=== PATIENT | female | born 1950 | race Caucasian/White ===

== ENCOUNTER → 2016-11-22 | Outpatient (CLI) | payer MEDICARE, OTHER ==
--- NOTE | 2016-11-22 14:55 | XR ---
EXAMINATION TYPE: XR lumbar spine 2 or 3V DATE OF EXAM: 11/22/2016 2:38 PM COMPARISON: NONE HISTORY: 66-year-old female lumbar degeneration, low back pain and right hip pain TECHNIQUE: 3 views FINDINGS: There are postsurgical changes of L3-L5 posterior fusion with interbody device at L4-L5. There is mod erate to severe disc/endplate degenerative change above the fusion at L1-L2 and L2-L3 with endplate i rregularity and sclerosis and spondylosis with a disc height loss. There is grade 1 retrolisthesis at L1-L2 and L2-L3, fixed grade 1 anterolisthesis at L3-L4 and L4-L5, and additional grade 1 anterolist hesis below the fusion at L5-S1. Vertebral body heights are preserved. Generator device in the left pelvis. IMPRESSION: 1. Posterior lumbar fusion hardware from L3 through L5 levels with interbody fusion at L4-L5 as well. 2. Grade 1 spondylolistheses along the fused levels. 3. Additional grade 1 retrolistheses above the fusion at L1-L2 and L2-L3 and grade 1 anterolisthesis below the fusion at L5-S1. 4. Moderate to severe disc/endplate degenerative change above the fusion at L1 through L3 levels. 5. No vertebral compression collapse.
--- NOTE | 2016-11-22 14:56 | XR ---
EXAMINATION TYPE: XR Hip Complete RT DATE OF EXAM: 11/22/2016 2:38 PM COMPARISON: NONE HISTORY: 66 year-old female right hip pain TECHNIQUE: AP and frog-leg lateral views FINDINGS: Very mild marginal spurring of the right hip. Overall hip joint space is maintained. No acute fractur e or dislocation. IMPRESSION: Very mild degenerative spurring at the right hip. No acute osseous abnormality seen.
== END | disposition home or self-care (01) ==
LOC: RADXRMAIN 13:59
PROVIDERS: ATTEND Family Medicine
DX: M43.16 Spondylolisthesis, lumbar region (principal); M43.17 Spondylolisthesis, lumbosacral region; M47.816 Spondylosis without myelopathy or radiculopathy, lumbar region; M76.891 Other specified enthesopathies of right lower limb, excluding foot; M25.551 Pain in right hip; Z98.1 Arthrodesis status
CPT/HCPCS: 72100; 73502

== ENCOUNTER → 2017-03-28 | Outpatient (CLI) | payer MEDICARE, OTHER ==
[2017-03-28 13:39] LABS: CH 31.2; CHCM 33.4; HDW 2.88; HGB 14.9 gm/dL (11.4-16.0); MCH 31.1 pg (25.0-35.0); MCHC 33.2 g/dL (31.0-37.0); MCV 93.9 fL (80.0-100.0); Mean Platelet Volume 6.8; RBC 4.79 m/uL (3.80-5.40); RDW 13.5 % (11.5-15.5); WBC 6.3 k/uL (3.8-10.6)
[2017-03-28 13:48] LABS: ALT 28 U/L (9-52); AST 24 U/L (14-36); Alkaline Phosphatase 102 U/L (38-126); Anion Gap 10 mmol/L; Blood Urea Nitrogen 11 mg/dL (7-17); Calcium 9.3 mg/dL (8.4-10.2); Carbon Dioxide 29 mmol/L (22-30); Chloride 102 mmol/L (98-107); Cholesterol 135 mg/dL (<200); Glucose 99 mg/dL (74-99); HDL Cholesterol 39 mg/dL (40-60); Non-African American GFR(MDRD) >60 (>60 ml/min/1.73 sqM); Potassium 4.8 mmol/L (3.5-5.1); Sodium 141 mmol/L (137-145); Total Bilirubin 1.1 mg/dL (0.2-1.3); Total Protein 7.2 g/dL (6.3-8.2); Triglycerides 171 mg/dL (<150)
== END | disposition home or self-care (01) ==
LOC: LABWHC1 13:09
PROVIDERS: ATTEND Physician Assistant
DX: I38 Endocarditis, valve unspecified (principal); R60.9 Edema, unspecified; R63.5 Abnormal weight gain; I10 Essential (primary) hypertension
CPT/HCPCS: 36415; 80053; 80061; 83880; 85027

== ENCOUNTER → 2017-08-28 | Outpatient (CLI) | payer MEDICARE, OTHER ==
--- NOTE | 2017-08-28 15:55 | NM ---
EXAMINATION TYPE: NM bone scan whole body DATE OF EXAM: 08/28/2017 COMPARISON: Lumbar spine and right hip radiographs dated 11/22/2016 HISTORY: Low back pain and hip pain. Surgical history includes L3-L5 fusion and right knee replacemen t. Delayed whole-body scanning was performed following the injection of 25.8 mCi Tc 99m MDP. Images acq uired 3.25 hours post injection. FINDINGS: Photopenic defect is seen of the right tibia. Increased radiotracer uptake is seen at L1, L2, and L4 on a single image only. Intense left patellar asymmetric uptake is also identified. Asymmetric latera l and medial compartment uptake of the left knee are also seen, likely on a degenerative basis. No ad ditional areas of suspicious uptake is appreciated. IMPRESSION: 1. Increased radiotracer uptake within the L1, L2, and L4 vertebral bodies. Radiographs are recommend ed for comparison as this finding is nonspecific and could relate to fracture, degenerative change, o r neoplasm. 2. Asymmetric left knee uptake in the patella, medial compartment, and lateral compartment in compari son to the right knee where there is a photopenic defect from prior right knee prosthesis. Findings a re likely degenerative in nature. Further characterization with MRI could be performed to evaluate fo r chondral loss, bone marrow edema, and bony productive change of arthritides.
== END | disposition home or self-care (01) ==
LOC: RADNMMAIN 10:00
PROVIDERS: ATTEND Family Medicine
DX: M54.5 Low back pain (principal); M25.559 Pain in unspecified hip
CPT/HCPCS: 78306; A9503

== ENCOUNTER → 2017-09-02 | Outpatient (CLI) | payer MEDICARE, OTHER ==
--- NOTE | 2017-09-02 10:24 | MM ---
Reason for exam: additional evaluation requested from abnormal screening. Last mammogram was performed less than 1 month ago. History: Patient is postmenopausal. Benign stereotactic core biopsy of the left breast, April 20, 2002. Core biopsy of the left breast. Excisional biopsy of the right breast. Took estrogen for 10 years 1 month beginning at age 47. Physical Findings: Nurse Summary: 1.5cm nodule in the left breast at 11, 12 o'clock (nurse mj). MG 3D Work Up W/Cad LT LM and CC with magnification view(s) were taken of the left breast. Prior study comparison: August 22, 2017, bilateral MG 3d screening mammo w/ cad. November 25, 2015, bilateral MG 3d screening mammo w/cad. The breast tissue is heterogeneously dense. This may lower the sensitivity of mammography. Lateral left breast microcalcs appear amorphous on mag CC view. No suspicious cluster is seen on LM view. These appear to have been present on 2012. Two palpable markers are present. These results were verbally communicated with the patient and result sheet given to the patient on 09/02/17. ASSESSMENT: Incomplete: need additional imaging evaluation, BI-RAD 0 RECOMMENDATION: Ultrasound of the left breast. (target two palpables) MTDD
--- NOTE | 2017-09-02 10:28 | USB ---
Reason for exam: additional evaluation requested from abnormal screening. History: Patient is postmenopausal. Benign stereotactic core biopsy of the left breast, April 20, 2002. Core biopsy of the left breast. Excisional biopsy of the right breast. Took estrogen for 10 years 1 month beginning at age 47. US Breast Workup Limited LT Left breast ultrasound demonstrates a 0.4 x 0.5 x 0.4cm oval, cystic lesion at 9 o'clock, a 1.2 x 1.3 x 0.4cm oval, hyperechoic lesion at 11 o'clock suggestive of a lipoma, a 2.5 x 3.1 x 1.4cm oval, hypoechoic lesion at 12 o'clock some internal flow is present, an angiolipoma is suspected given fatty tissue superiorly on mammogram, a 6 month follow up is recommended and a 0.9 x 0.9 x 0.6cm oval, hyperechoic lesion at 12 o'clock suggestive of a lipoma. These results were verbally communicated with the patient and result sheet given to the patient on 09/02/17. ASSESSMENT: Probably benign, BI-RAD 3 RECOMMENDATION: Follow-up diagnostic mammogram of the left breast in 6 months. (for calcifications) Ultrasound of the left breast in 6 months. (upper inner quadrant)
== END | disposition home or self-care (01) ==
LOC: RADMAMWWP 07:39
PROVIDERS: ATTEND Family Medicine
DX: R92.8 Other abnormal and inconclusive findings on diagnostic imaging of breast (principal)
CPT/HCPCS: 76642; G0206; G0279

== ENCOUNTER → 2017-11-14 | Outpatient (CLI) | payer MEDICARE, OTHER ==
[2017-11-14 09:39] LABS: Blood Urea Nitrogen 11 mg/dL (7-17)
--- NOTE | 2017-11-14 11:35 | CT ---
EXAMINATION TYPE: CT chest w con DATE OF EXAM: 11/14/2017 COMPARISON: NONE HISTORY: Diaphragmatic Hernia w/o Obstruction CT DLP: 836 mGycm Automated exposure control for dose reduction was used. CONTRAST: CT scan of the chest is performed with IV Contrast, patient injected with 100 mL of Omnipaque 300. FINDINGS: LUNGS: There is lower lobe parenchymal scarring noted. No evidence for cassius infiltrate. Trace right- sided pleural effusion identified. No evidence for pulmonary nodule or mass. Nonspecific groundglass infiltrate in the region of the lingula. MEDIASTINUM: The stomach is entirely intrathoracic in location. Moderate gastric fluid and intralumin al content. No definite evidence for volvulus. The heart is mildly enlarged. Mild aneurysmal dilatati on of the ascending thoracic aorta measuring 4.1 cm. No complicating factors such as dissection. Mild atheromatous change detected. UPPER ABDOMEN: No significant abnormality appreciated. OTHER: No additional significant abnormality is seen. IMPRESSION: 1. 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 No evidence for volvulus. 2. Basilar parenchymal scarring and small right pleural effusion. 3. Uncomplicated and mild ascending thoracic aortic aneurysm.
--- NOTE | 2017-11-14 11:47 | FL ---
ESOPHOGRAM. HISTORY: Dysphagia Esophagram was performed per the air contrast technique. The patient swallowed barium and effervesce nt crystals without difficulty or delay. Esophageal peristalsis and motility appear to be within normal limits. 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 Despite multiple maneuvers the stomach would not e mpty into the small bowel. Obstructive component is difficult to exclude. There is evidence of modera te gastroesophageal reflux up to the level of the thoracic inlet. No intraluminal filling defect or m ass is appreciated. No definite evidence for esophagitis. IMPRESSION: 1. 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 2. Moderate gastroesophageal reflux. 3. Gastric emptying could not be documented and an obstructive component is difficult to exclude.
== END | disposition home or self-care (01) ==
LOC: RADCTMAIN 08:18
PROVIDERS: ATTEND Thoracic Surgery (Cardiothoracic Vascular Surgery)
DX: K44.9 Diaphragmatic hernia without obstruction or gangrene (principal); K21.9 Gastro-esophageal reflux disease without esophagitis; J98.4 Other disorders of lung; J90 Pleural effusion, not elsewhere classified; I71.2 Thoracic aortic aneurysm, without rupture
CPT/HCPCS: 82565; 84520; 74220; 71260; 36415; Q9967

== ENCOUNTER → 2018-04-10 | Outpatient (CLI) | payer MEDICARE, OTHER ==
--- NOTE | 2018-04-10 11:19 | MM ---
Reason for exam: follow-up at short interval from prior study. Last mammogram was performed 7 months ago. History: Patient is postmenopausal. Benign stereotactic core biopsy of the left breast, April 20, 2002. Core biopsy of the left breast. Excisional biopsy of the right breast. Took estrogen for 10 years 1 month beginning at age 47. Physical Findings: Nurse Summary: 0.5cm nodule in the left breast at 12-1 o'clock (nurse kin). MG 3D Diag Mammo W/Cad LT CC, MLO, ML, CC with magnification, and ML with magnification view(s) were taken of the left breast. Prior study comparison: September 02, 2017, left breast MG 3d work up w/cad LT. August 22, 2017, bilateral MG 3d screening mammo w/cad. The breast tissue is heterogeneously dense. This may lower the sensitivity of mammography. Finding: There are increased number of intermediate concern, suspicious grouped/clustered calcifications in the upper quadrant, middle position of the left breast, suspicious on magnification views. New finding since September 02, 2017 and August 22, 2017. These results were verbally communicated with the patient and result sheet given to the patient on 04/10/18. ASSESSMENT: Suspicious, BI-RAD 4 RECOMMENDATION: Stereotactic core biopsy of the left breast. Called Dr. Gilman with mammographic findings and has scheduled an appointment for the patient for 04/14/18 at 11:[address] Katz. PRELIMINARY REPORT CALLED AND FAXED TO DR. KATZ ON 04/10/18.
--- NOTE | 2018-04-10 11:21 | USB ---
Reason for exam: follow-up at short interval from prior study. History: Patient is postmenopausal. Benign stereotactic core biopsy of the left breast, April 20, 2002. Core biopsy of the left breast. Excisional biopsy of the right breast. Took estrogen for 10 years 1 month beginning at age 47. US Breast LT Left complete breast ultrasound includes all four quadrants, the retroareolar region and axilla. Finding demonstrates a 2.7 x 1.1 x 4.2cm oval, solid, hyperechoic lesion at 12 o'clock, a 0.7 x 0.8 x 1.0cm oval, solid, hyperechoic lesion at 4 o'clock and a 0.4 x 0.4 x 0.4cm oval, cystic lesion at 9 o'clock. These results were verbally communicated with the patient and result sheet given to the patient on 04/10/18. ASSESSMENT: Probably benign, BI-RAD 3 RECOMMENDATION: Stereotactic core biopsy of the left breast. (left breast calcifications on mammogram) Called Dr. Gilman with mammographic findings and has scheduled an appointment for the patient for 04/14/18 at 11:[address] Katz. PRELIMINARY REPORT CALLED AND FAXED TO DR. KATZ ON 04/10/18. Ultrasound of the left breast in 6 months.
== END | disposition home or self-care (01) ==
LOC: RADMAMWWP 08:18
PROVIDERS: ATTEND Family Medicine
DX: R92.8 Other abnormal and inconclusive findings on diagnostic imaging of breast (principal)
CPT/HCPCS: 77065; 76641; G0279; 77061

== ENCOUNTER → 2018-04-16 | Day surgery (SDC) | payer MEDICARE, OTHER ==
[2018-04-16 11:36] VITALS: RESP 16; TEMP 97.6
[2018-04-16 11:42] VITALS: BP 115/72; PULSE 78
--- NOTE | 2018-04-16 12:59 | MM ---
EXAMINATION TYPE: MG stereo VAD BX LT DATE OF EXAM: 04/16/2018 COMPARISON: Prior mammogram April 10, 2018 and older studies. CLINICAL HISTORY: Abnormal mammogram. Suspicious group of calcifications left breast. TECHNIQUE: Stereotactic guided core biopsy of left breast with clip placement and follow-up two-view mammogram. FINDINGS: The procedure of stereotactic guided core biopsy was explained to the patient. Benefits, a lternatives, and risks were discussed. An informed consent was then obtained. The shortness pathway for biopsy was first attempted. There was difficulty localizing clip of calcifi cations thought slightly longer inferior approach was performed. I performed the localization, then p erformed the remainder of the procedure. Overlying skin is cleansed with Betadine. Lidocaine with bic arbonate is used as anesthetic into the skin and subcutaneous tissue. Lidocaine with epinephrine is u sed as anesthetic into the deeper tissue. A vacuum assisted biopsy gun was used to obtain multiple co re samples. The patient tolerated the procedure well without any immediate complication. The patient was kept in the radiology department for short stay after the procedure and then discharged home in stable condi tion. Targeted calcifications are identified in specimen mammogram. Post biopsy mammogram shows the clip to appear in satisfactory position relative to the targeted area of concern on the preprocedure images. IMPRESSION: SUCCESSFUL, UNCOMPLICATED STEREOTACTIC GUIDED CORE BIOPSY OF AREA OF CONCERN IN THE LEFT BREAST, FULL PATHOLOGY RESULTS TO FOLLOW. Low to intermediate index of suspicion noted at time of procedure.
== END ==
LOC: RADMAMWWP 11:32
PROVIDERS: ATTEND Surgery
DX: N60.12 Diffuse cystic mastopathy of left breast (principal); N64.1 Fat necrosis of breast; M60.28 Foreign body granuloma of soft tissue, not elsewhere classified, other site
CPT/HCPCS: 88305; 19081; A4648; J2001

== ENCOUNTER → 2018-05-09 | Outpatient (CLI) | payer MEDICARE, OTHER ==
--- NOTE | 2018-05-09 15:13 | US ---
EXAMINATION TYPE: US kidneys/renal and bladder DATE OF EXAM: 05/09/2018 COMPARISON: CT abdomen and pelvis 09/30/2017 CLINICAL HISTORY: Acute cystitis without hematuria N39.00. Difficult and limited exam due to patient body habitus EXAM MEASUREMENTS: Right Kidney: 10.8 x 4.8 x 4.4 cm Left Kidney: 9.7 x 4.9 x 5.2 cm Right Kidney: No hydronephrosis or masses visualized on limited exam Left Kidney: No hydronephrosis or masses visualized on limited exam Bladder: wnl Bilateral Jets seen: No There is no evidence for hydronephrosis at this point in time. No suspicious solid or cystic masses are identified on images saved. The urinary bladder is anechoic. IMPRESSION: Suboptimal study without suspicious abnormality identified.
== END | disposition home or self-care (01) ==
LOC: RADUSWWP 14:17
PROVIDERS: ATTEND Urology
DX: N30.00 Acute cystitis without hematuria (principal)
CPT/HCPCS: 76770

== ENCOUNTER → 2018-05-27 | Outpatient (CLI) | payer MEDICARE, OTHER ==
--- NOTE | 2018-05-27 15:39 | PN ---
PROGRESS NOTE This is a progress note from the [facility]. Doug is 68, coming in for an annual check regarding obstructive sleep apnea. Her last evaluation in office was on 07/31/2016. She had a CPAP which is Resmet S9 Series, set at a pressure of 13 cm of water. Note that the original titration was completed back in 2013 and the patient was titrated back down to a pressure of 15 cm of water. Nevertheless, she was unable to tolerate the high pressures and she was lowered down to 13 cm of water. Subsequently, I saw the patient in the office. I offered her an AirFit P10 nose pillows. She was able to lose an additional 25 pounds and she is telling me today that she is having high pressure sensation and the pressure delivered by the CPAP machine is quite high and uncomfortable. She underwent a hiatal hernia surgery at [facility] in [place]. Since then, her chest pain and symptoms of indigestion has subsided and the patient has been able to successfully lose another 22-23 pounds. She goes to bed around 10:30 pm she is waking up 7 o'clock in the morning and she is unable to tolerate the CPAP for more than 4 hours. Based on all this, it is important to lower the CPAP pressure at this point in time. No morning headaches. No major hypersomnia or sleepiness during the day. She feels refreshed. No chest pain. No nocturnal dyspnea. No ongoing heartburn at this point in time. No sleep paralysis. No hallucinations. No cataplexy. No major hypersomnia and sleepiness during the day. She is able to function and she is able to perform activities of daily life without any major difficulties. PAST SURGICAL HISTORY: Includes hysterectomy, back surgery and right knee replacement and cholecystectomy. . OUTPATIENT MEDICATION LIST: Includes Lipitor, cyclobenzaprine, diclofenac, fluticasone, Lasix, gabapentin, hydrocodone, acetaminophen, Imdur, ketoconazole cream, magnesium, metoprolol tartrate, Nitroglycerin item nystatin pilocarpine potassium from Mirapex multivitamins and biotin and aspirin and vitamin B12. DRUG ALLERGIES: Not known. REVIEW OF SYSTEMS: A 12-point review of system was done. Positive findings are mentioned in history of present illness. She used to weight 275 pounds. Currently she is down to 252.4. [place] score is at 13. GENERAL APPEARANCE: Calm, comfortable, not in acute distress. PHYSICAL EXAMINATION: BP is 122/51, pulse 86, respirations 16, temperature 16, temperature 98.0, saturation 94% on room air. [place] score is 15, BMI is 44.6. GENERAL APPEARANCE: Calm, comfortable, not in acute distress. Head is atraumatic, normocephalic. NECK: Supple. There is no JVD. No goiter or neck masses. LUNGS: Clear to auscultation. HEART: Sounds regular rhythm. Normal S1, S2. No S3, S4. No murmurs. ABDOMEN: Soft. Nontender, no organomegaly. EXTREMITIES: No edema and there is no cyanosis or clubbing at this point. SKIN: Negative for any wounds or ulceration. IMPRESSION: 1. History of severe symptomatic obstructive sleep apnea. The patient was positioned with titrated to a CPAP pressure of 15 cm of water. She has lost considerable amount of weight and she is a bit uncomfortable at the pressure of 13 cm of water. She is barely achieving 4 hours of CPAP use per night. 2. Hypersomnia with improved [place] score 13. 3. Obesity, current weight is down to 252 with a BMI of 44.6. 4. Coronary artery disease, currently stable. 5. Hiatal hernia. Large status post surgical repair. 6. Hypertension. 7. Chronic back pain. 8. Depression. 9. Acid reflux. PLAN: 1. Encourage further weight loss. 2. Lower the CPAP pressure. This will be a bit in the drop in the CPAP pressure up to 10 cm of water and if needed, we can lower down the pressure even further. 3. Encourage further weight loss. 4. Implement good sleep hygiene measures. 5. Try to use the CPAP for more than 4 hours every night. 6. See me back in a year's time in followup, earlier if needed. MMODL / IJN: [id number] /
== END | disposition home or self-care (01) ==
LOC: SLEEP 13:40
PROVIDERS: ATTEND Internal Medicine Critical Care Medicine
DX: G47.33 Obstructive sleep apnea (adult) (pediatric) (principal); K21.9 Gastro-esophageal reflux disease without esophagitis; F32.9 Major depressive disorder, single episode, unspecified; I25.10 Atherosclerotic heart disease of native coronary artery without angina pectoris; I10 Essential (primary) hypertension; G89.29 Other chronic pain; M54.9 Dorsalgia, unspecified; E66.9 Obesity, unspecified; Z99.89 Dependence on other enabling machines and devices; Z98.890 Other specified postprocedural states; Z90.49 Acquired absence of other specified parts of digestive tract; Z90.710 Acquired absence of both cervix and uterus; Z96.651 Presence of right artificial knee joint; Z79.1 Long term (current) use of non-steroidal anti-inflammatories (NSAID); Z79.899 Other long term (current) drug therapy; Z79.891 Long term (current) use of opiate analgesic; Z79.82 Long term (current) use of aspirin; Z68.41 Body mass index [BMI] 40.0-44.9, adult

== ENCOUNTER → 2018-09-29 | Outpatient (CLI) | payer MEDICARE, OTHER ==
[2018-09-29 13:42] LABS: HCT 45.3 % (34.0-46.0); HGB 14.6 gm/dL (11.4-16.0); MCHC 32.1 g/dL (31.0-37.0); MCV 93.5 fL (80.0-100.0); Platelet Count 283 k/uL (150-450); RBC 4.85 m/uL (3.80-5.40); RDW 14.2 % (11.5-15.5); WBC 5.8 k/uL (3.8-10.6)
[2018-09-29 18:48] LABS: Albumin 3.8 g/dL (3.80-4.90); Albumin/Globulin Ratio 1.52 (1.20-2.10); Anion Gap 8.9 mmol/L (4.00-12.00); C Reactive Protein, High Sens 3.54 mg/L (0.000-3.000); Carbon Dioxide 24.1 mmol/L (21.6-31.8); Globulin 2.5 g/dL (2.1-3.7); LDL Cholesterol,Calculated 55.8 mg/dL (0.0-131.0); Total Protein 6.3 g/dL (6.2-8.2); VLDL Calculation 31.2 mg/dL (5.00-40.00)
[2018-09-29 18:56] LABS: Vitamin D 25 Hydroxy 36.8 ng/mL (30.0-100.0)
[2018-09-29 20:44] LABS: EBV-VCA (IgG) >8.0 AI
== END | disposition home or self-care (01) ==
LOC: LABWHC1 12:34
PROVIDERS: ATTEND Family Medicine
DX: I10 Essential (primary) hypertension (principal); E78.00 Pure hypercholesterolemia, unspecified; R53.83 Other fatigue
CPT/HCPCS: 36415; 80053; 80061; 82306; 84443; 84481; 85027; 86141; 86663; 86664; 86665

== ENCOUNTER → 2018-11-25 | Outpatient (CLI) | payer MEDICARE, OTHER ==
--- NOTE | 2018-11-25 13:49 | MM ---
Reason for exam: follow-up at short interval from prior study. Last mammogram was performed 7 months ago. History: Patient is postmenopausal. Benign MG stereo VAD BX LT of the left breast, April 16, 2018. Benign stereotactic core biopsy of the left breast, April 20, 2002. Core biopsy of the left breast. Excisional biopsy of the right breast. Took estrogen for 10 years 1 month beginning at age 47. Physical Findings: Nurse did not find any significant physical abnormalities on exam. MG 3D Diag Mammo W/Cad LT CC and MLO view(s) were taken of the left breast. Prior study comparison: April 10, 2018, left breast MG 3d diag mammo w/cad LT. September 02, 2017, left breast MG 3d work up w/cad LT. The breast tissue is heterogeneously dense. This may lower the sensitivity of mammography. Previous mammotome biopsy in the left breast x 2. No significant new findings when compared with previous films. These results were verbally communicated with the patient and result sheet given to the patient on 11/25/18. ASSESSMENT: Benign, BI-RAD 2 RECOMMENDATION: Routine screening mammogram of both breasts in 6 months. Back on schedule.
== END | disposition home or self-care (01) ==
LOC: RADMAMWWP 13:12
PROVIDERS: ATTEND Surgery
DX: R92.8 Other abnormal and inconclusive findings on diagnostic imaging of breast (principal)
CPT/HCPCS: 77065; G0279; 77061

== ENCOUNTER 2019-07-10 16:08 | Emergency (ER) | payer MEDICARE, OTHER ==
[2019-07-10 16:14] VITALS: TEMP 97.6
--- NOTE | 2019-07-10 17:19 | ED ---
General Adult HPI - General Chief complaint: Fall Stated complaint: Fall, Headache Time Seen by Provider: 07/10/19 16:15 Source: patient Mode of arrival: wheelchair Limitations: no limitations - History of Present Illness Initial comments: Dictation was produced using [employer] dictation software. please excuse any grammatical, word or spelling errors. Chief Complaint: 69-year-old female presents with altered mental status after fall yesterday. History of Present Illness: Patient 69-year-old female she fell yesterday. Eusebio sandoval is sure that she tripped over something around her house. She does not remember she struck her head. EMS was called however she refused to be transferred to the emergency department. She did go to her primary care physician office after she saw the physician phlebotomy lab assistant. X-rays are performed and were found to be unremarkable. She was sent home. His morning patient has been showing some signs of forgetfulness and altered mental status. Patient remembers being forgetful. Daughter at bedside reports that she was acting strange. Patient is aware that she's been acting strange. She has history of chronic UTIs. The ROS documented in this emergency department record has been reviewed and confirmed by me. Those systems with pertinent positive or negative responses have been documented in the HPI. All other systems are other negative and/or noncontributory. PHYSICAL EXAM: General Impression: Alert and oriented x3, not in acute distress HEENT: Normocephalic atraumatic, extra-ocular movements intact, pupils equal and reactive to light bilaterally, mucous membranes moist. Cardiovascular: Heart regular rate and rhythm, S1&S2 audible, no murmurs, rubs or gallops Chest: Lungs clear to auscultation bilaterally, no rhonchi, no wheeze, no rales Abdomen: Bowel sounds present, abdomen soft, non-tender, non-distended, no organomegaly Musculoskeletal: Pulses present and equal in all extremities, no peripheral edema Motor: no focal deficits noted Neurological: CN II-XII grossly intact, no focal motor or sensory deficits noted Skin: Intact with no visualized rashes, ecchymoses over the left anterior knee Psych: Normal affect and mood ED course: 69-year-old female presents with mental status changes after fall yesterday. She does not recall striking her head. She states that her falls mechanical. Vital signs upon arrival are within acceptable limits. Patient appears slightly anxious. Neurologic exam otherwise is unremarkable. Laboratory evaluation obtained showing no acute processes. Urinalysis is negative. X-ray chest x-ray head and C-spine CT shows no acute processes. He patient's coca presentation there is concern of concussion. Patient told to rest and avoid any exertional activity. Still to follow-up with her primary care physician for outpatient management of concussive symptoms. Patient understands and agreeable to plan. Return parameters discussed. Patient clear for discharge - Related Data Home Medications Medication Instructions Recorded Confirmed Aspirin 81 mg PO AC-SUPPER 12/14/14 07/10/19 Cyanocobalamin [Vitamin B-12] 500 mcg PO AC-LUNCH 12/14/14 07/10/19 Esomeprazole Magnesium [NexIUM] 40 mg PO DAILY 12/14/14 07/10/19 Mirabegron [Myrbetriq] 50 mg PO DAILY 12/14/14 07/10/19 Multivitamins, Thera [Multivitamin 1 tab PO DAILY 12/14/14 07/10/19 (formulary)] Pilocarpine [Salagen] 5 mg PO QID 12/14/14 07/10/19 Pramipexole [Mirapex] 0.25 mg PO HS 12/14/14 07/10/19 Cranberry Fruit Extract [Cranberry] 500 mg PO DAILY 12/28/15 07/10/19 Furosemide [Lasix] 20 mg PO DAILY 12/28/15 07/10/19 Magnesium Oxide [Mag-Ox] 250 mg PO DAILY 12/28/15 07/10/19 Potassium Chloride [K-Tab ER] 10 meq PO DAILY 12/28/15 07/10/19 Ranitidine HCl [Zantac] 150 mg PO BID 12/28/15 07/10/19 Atorvastatin Calcium [Lipitor] 10 mg PO HS 07/10/19 07/10/19 Cetirizine HCl [Zyrtec] 10 mg PO DAILY 07/10/19 07/10/19 Cholecalciferol (Vitamin D3) 2,000 unit PO BID 07/10/19 07/10/19 [Vitamin D3] Cyclobenzaprine [Flexeril] 10 mg PO DAILY 07/10/19 07/10/19 DULoxetine HCL [Cymbalta] 60 mg PO BID 07/10/19 07/10/19 Gabapentin 1,200 mg PO BID 07/10/19 07/10/19 Metoprolol Succinate (ER) [Toprol 25 mg PO DAILY 07/10/19 07/10/19 Xl] [place]-3 Fatty Acids/Fish Oil [Fish 2 cap PO DAILY 07/10/19 07/10/19 Oil 1,000 mg Softgel] Oxybutynin Chloride [Oxybutynin 10 mg PO DAILY 07/10/19 07/10/19 Chloride ER] Ubidecarenone [Co Q-10] 300 mg PO DAILY 07/10/19 07/10/19 Allergies Allergy/AdvReac Type Severity Reaction Status Date / Time adhesive Allergy Rash/Hives Verified 07/10/19 16:47 adhesive tape Allergy Rash/Hives Verified 07/10/19 16:47 PAPER TAPE Allergy Mild Rapid Uncoded 07/10/19 16:47 Heart Rate Review of Systems ROS Statement: Those systems with pertinent positive or pertinent negative responses have been documented in the HPI. ROS Other: All systems not noted in ROS Statement are negative. Past Medical History Past Medical History: Hypertension, Osteoarthritis (OA) Additional Past Medical History / Comment(s): arrhythmia, hx anemia, wears pad/brief for urinary incontinence, SOB, ruptured appendix Jun 2015 History of Any Multi-Drug Resistant Organisms: None Reported Past Surgical History: Appendectomy, Cholecystectomy, Heart Catheterization With Stent, Hernia Repair, Hysterectomy, Joint Replacement Additional Past Surgical History / Comment(s): CARDIAC STENTS X 2, L3-4-5 FUSION, total right knee replacement,bilat cataract, laparoscopic appendectomy 12/29 Past Anesthesia/Blood Transfusion Reactions: No Reported Reaction Additional Past Anesthesia/Blood Transfusion Reaction / Comment(s): "slow coming out" Date of Last Stent Placement:: Past Psychological History: Depression Smoking Status: Never smoker Past Alcohol Use History: None Reported Past Drug Use History: None Reported - Past Family History Father Family Medical History: Cancer Sister(s) Family Medical History: Cancer General Exam Limitations: no limitations Course Vital Signs 07/10/19 07/10/19 16:10 20:11 Temperature 97.6 F Pulse Rate 103 H 70 Respiratory 18 20 Rate Blood Pressure 111/68 129/61 O2 Sat by Pulse 99 96 Oximetry Medical Decision Making - Lab Data Result diagrams: 07/10/19 17:36 07/10/19 17:36 Lab Results 07/10/19 07/10/19 07/10/19 Range/Units 17:36 17:36 17:36 WBC 5.9 (3.8-10.6) k/uL RBC 4.80 (3.80-5.40) m/uL Hgb 14.7 (11.4-16.0) gm/dL Hct 43.0 (34.0-46.0) % MCV 89.6 (80.0-100.0) fL MCH 30.7 (25.0-35.0) pg MCHC 34.3 (31.0-37.0) g/dL RDW 14.8 (11.5-15.5) % Plt Count 327 (150-450) k/uL Neutrophils % 53 % Lymphocytes % 33 % Monocytes % 6 % Eosinophils % 2 % Basophils % 3 % Neutrophils # 3.1 (1.3-7.7) k/uL Lymphocytes # 2.0 (1.0-4.8) k/uL Monocytes # 0.4 (0-1.0) k/uL Eosinophils # 0.1 (0-0.7) k/uL Basophils # 0.2 (0-0.2) k/uL Sodium 143 (137-145) mmol/L Potassium 4.7 (3.5-5.1) mmol/L Chloride 110 H (98-107) mmol/L Carbon Dioxide 22 (22-30) mmol/L Anion Gap 11 mmol/L BUN 10 (7-17) mg/dL Creatinine 0.62 (0.52-1.04) mg/dL Est GFR (CKD-EPI)AfAm >90 (>60 ml/min/1.73 sqM) Est GFR (CKD-EPI)NonAf >90 (>60 ml/min/1.73 sqM) Glucose 95 (74-99) mg/dL Calcium 9.7 (8.4-10.2) mg/dL Magnesium 1.8 (1.6-2.3) mg/dL Ammonia <9 (<30) umol/L Urine Color Urine Appearance (Clear) Urine pH (5.0-8.0) Ur Specific [place] (1.001-1.035) Urine Protein (Negative) Urine Glucose (UA) (Negative) Urine Ketones (Negative) Urine Blood (Negative) Urine Nitrite (Negative) Urine Bilirubin (Negative) Urine Urobilinogen (<2.0) mg/dL Ur Leukocyte Esterase (Negative) 07/10/19 Range/Units 20:15 WBC (3.8-10.6) k/uL RBC (3.80-5.40) m/uL Hgb (11.4-16.0) gm/dL Hct (34.0-46.0) % MCV (80.0-100.0) fL MCH (25.0-35.0) pg MCHC (31.0-37.0) g/dL RDW (11.5-15.5) % Plt Count (150-450) k/uL Neutrophils % % Lymphocytes % % Monocytes % % Eosinophils % % Basophils % % Neutrophils # (1.3-7.7) k/uL Lymphocytes # (1.0-4.8) k/uL Monocytes # (0-1.0) k/uL Eosinophils # (0-0.7) k/uL Basophils # (0-0.2) k/uL Sodium (137-145) mmol/L Potassium (3.5-5.1) mmol/L Chloride (98-107) mmol/L Carbon Dioxide (22-30) mmol/L Anion Gap mmol/L BUN (7-17) mg/dL Creatinine (0.52-1.04) mg/dL Est GFR (CKD-EPI)AfAm (>60 ml/min/1.73 sqM) Est GFR (CKD-EPI)NonAf (>60 ml/min/1.73 sqM) Glucose (74-99) mg/dL Calcium (8.4-10.2) mg/dL Magnesium (1.6-2.3) mg/dL Ammonia (<30) umol/L Urine Color Yellow Urine Appearance Clear (Clear) Urine pH 8.5 H (5.0-8.0) Ur Specific [place] 1.017 (1.001-1.035) Urine Protein Trace H (Negative) Urine Glucose (UA) Negative (Negative) Urine Ketones Negative (Negative) Urine Blood Negative (Negative) Urine Nitrite Negative (Negative) Urine Bilirubin Negative (Negative) Urine Urobilinogen 2.0 (<2.0) mg/dL Ur Leukocyte Esterase Negative (Negative) Disposition Clinical Impression: Fall, Knee contusion, Concussion Disposition: HOME SELF-CARE Condition: Good Instructions (If sedation given, give patient instructions): Fall Prevention for Older Adults (ED), Concussion (ED) Is patient prescribed a controlled substance at d/c from ED?: No Referrals: Lianne Gilman DO [Primary Care Provider] - 1-2 days Time of Disposition: 20:44
[2019-07-10 17:55] LABS: Basophils # (A) 0.2 k/uL (0-0.2); Basophils % (A) 3 %; Eosinophils # (A) 0.1 k/uL (0-0.7); Eosinophils % (A) 2 %; HGB 14.7 gm/dL (11.4-16.0); Lymphocytes % (A) 33 %; MCH 30.7 pg (25.0-35.0); MCHC 34.3 g/dL (31.0-37.0); MCV 89.6 fL (80.0-100.0); Mean Platelet Volume 6.9; Monocytes # (A) 0.4 k/uL (0-1.0); Monocytes % (A) 6 %; Neutrophils # (A) 3.1 k/uL (1.3-7.7); Neutrophils % (A) 53 %; Platelet Count 327 k/uL (150-450); RDW 14.8 % (11.5-15.5); WBC 5.9 k/uL (3.8-10.6)
[2019-07-10 17:59] LABS: African American GFR (CKD) >90 (>60 ml/min/1.73 sqM); Anion Gap 11 mmol/L; Blood Urea Nitrogen 10 mg/dL (7-17); Calcium 9.7 mg/dL (8.4-10.2); Carbon Dioxide 22 mmol/L (22-30); Chloride 110 mmol/L (98-107); Glucose 95 mg/dL (74-99); Magnesium 1.8 mg/dL (1.6-2.3); Sodium 143 mmol/L (137-145)
[2019-07-10 18:00] LABS: Potassium 4.7 mmol/L (3.5-5.1)
--- NOTE | 2019-07-10 18:04 | CT ---
EXAMINATION TYPE: CT brain mark eckert DATE OF EXAM: 07/10/2019 COMPARISON: September 21, [address] scan HISTORY: Fall today. Confusion. CT DLP: 1367.3 mGycm Automated exposure control for dose reduction was used. TECHNIQUE: CT scan of the head and cervical spine are performed without contrast. FINDINGS: There is mild cerebral cortical atrophy. There is no mass effect nor midline shift. There is no sign of intracranial hemorrhage. Calvarium is intact. There is some straightening of the vertebra. There is degenerative disc space narrowing at C5-6 C6-7 with spurring of the endplates. There is mild hypertrophic facet arthropathy. The skull base is intac t. There is no evidence of a fracture. There is a few millimeter anterior subluxation of C7 in relati on to T1 related to degenerative disease. There is some thickening and calcification of the posterior longitudinal ligament at the C5-C6 level consistent with degenerative disease. IMPRESSION: Spondylotic changes in the lower cervical spine. No fracture seen. Mild cerebral atrophy. No acute intracranial abnormality. There is probably mild chronic small vessel ischemia. Brain unchanged compared to September 21, 2016.
--- NOTE | 2019-07-10 18:07 | XR ---
EXAMINATION TYPE: XR chest 2V DATE OF EXAM: 07/10/2019 COMPARISON: September 21, 2016 HISTORY: Confusion TECHNIQUE: Frontal and lateral views of the chest are obtained. FINDINGS: There is no heart failure nor confluent pneumonic infiltrate. Heart is probably enlarged. Bony thorax is intact. There is hiatal hernia. IMPRESSION: Borderline cardiomegaly. No active cardiopulmonary disease. Hiatal hernia. No significan t change compared to old exam.
--- NOTE | 2019-07-10 18:15 | XR ---
EXAMINATION TYPE: XR knee complete LT DATE OF EXAM: 07/10/2019 COMPARISON: September 21, 2016 HISTORY: Knee pain TECHNIQUE: 3 views FINDINGS: There is some spurring of the femoral and tibial condyles. There is narrowing and spurring at the patellofemoral joint. There is no sign of joint effusion. I see no fracture nor dislocation. IMPRESSION: Hypertrophic osteoarthritis that has progressed slightly compared to last exam. No fracture seen.
[2019-07-10 20:12] VITALS: BP 129/61; PULSE 70; RESP 20
[2019-07-10 20:36] LABS: Appearance,Urine Clear (Clear); Bilirubin,Urine Negative (Negative); Blood,Urine Negative (Negative); Color,Urine Yellow; Glucose,Urine (UA) Negative (Negative); Ketones,Urine Negative (Negative); Leukocyte Esterase,Urine Negative (Negative); Nitrite,Urine Negative (Negative); PH, Urine 8.5 (5.0-8.0); Protein,Urine Trace (Negative); Specific Gravity,Urine 1.017 (1.001-1.035)
== END 2019-07-10 21:05 | disposition home or self-care (01) ==
LOC: EC 16:08
DX: S06.0X0A Concussion without loss of consciousness, initial encounter (principal); S80.02XA Contusion of left knee, initial encounter; I10 Essential (primary) hypertension; F32.9 Major depressive disorder, single episode, unspecified; Z79.82 Long term (current) use of aspirin; Z79.899 Other long term (current) drug therapy; Z91.040 Latex allergy status; Z91.048 Other nonmedicinal substance allergy status; Z95.5 Presence of coronary angioplasty implant and graft; Z96.651 Presence of right artificial knee joint; W01.0XXA Fall on same level from slipping, tripping and stumbling without subsequent striking against object, initial encounter; Y92.009 Unspecified place in unspecified non-institutional (private) residence as the place of occurrence of the external cause
CPT/HCPCS: 36415; 70450; 71046; 72125; 80048; 81003; 82140; 83735; 85025; 99284

== ENCOUNTER → 2019-08-11 | Outpatient (CLI) | payer MEDICARE, OTHER ==
--- NOTE | 2019-08-11 18:32 | PN ---
PROGRESS NOTE This is a 69-year-old female patient coming in for an annual check regarding obstructive sleep apnea. The patient has a ResMed S9 series which is set at a pressure of 10 cm of water. She is still having tiredness and sleepiness during the day. She is wearing a nose pillow and she is having a horrible time with dry mouth. Her Columbus score is 15. I noted that her weight has been 240, which is pretty much stable compared to last year. The treatment, however, seems to be quite unsuccessful. The patient is not sure if the machine is working properly. I am also not sure if the patient's pressure setting is right, knowing that I have arbitrarily dropped her pressures down to 10 cm of water during an earlier visit, as the patient was unable to tolerate higher CPAP pressures. Based on all this, I think it is reasonable to repeat this patient's CPAP titration. She is having occasional tiredness and sleepiness during the day. She can fall asleep easily during the day. No . No cataplexy. She feels non-refreshed. This is contrary to last year's findings. REVIEW OF SYSTEMS: Fourteen-point review of systems was done. Positive findings are all mentioned above in the history of present illness. She is tired and sleepy and fatigued at all times. She can easily fall asleep. She has chronic restlessness in the lower extremities and she is currently on Mirapex. She is also being treated for chronic pain, anxiety and depression. She is on a combination of Cymbalta and gabapentin. Other comorbidities have been all stable. No stroke or any myocardial infarction or congestive heart failure or any cardiac arrhythmias noted since her last evaluation. VITAL SIGNS: BP is 117/72, pulse 84, respirations 16, temperature 98.1, saturation 95% on room air. Height is 5 feet 3 inches, weight 240. Columbus score is 15. BMI is 42.5. ALLERGIES are NOT KNOWN OTHER THAN ADHESIVE TAPES. No latex allergy. IMPRESSION: 1. Symptomatic obstructive sleep apnea with suboptimal treatment, as the patient is very somnolent and sleepy despite being on CPAP pressure of 10. Consider suboptimal CPAP pressures. Consider nonfunctioning machine. Needs to be re-evaluated. 2. Hypersomnia. Columbus score of 15. 3. Obesity with a weight of 240; 4-pound weight loss since her last visit. 4. Coronary artery disease. 5. Hiatal hernia. 6. Hypertension. 7. Chronic back pain. 8. Depression. 9. Acid reflux. PLAN: Will set up this patient for another CPAP titration. The machine needs to be updated. The CPAP pressure needs to be updated. The patient is to be given possibly a different mask interface. She is using an AirFit P10 nose piece for now. She may explore other alternatives. Will continue to follow and make further recommendations based on her response. MMODL / IJN: [id number] /
== END | disposition home or self-care (01) ==
LOC: SLEEP 15:30
PROVIDERS: ATTEND Internal Medicine Critical Care Medicine
DX: G47.33 Obstructive sleep apnea (adult) (pediatric) (principal); E66.9 Obesity, unspecified; I25.10 Atherosclerotic heart disease of native coronary artery without angina pectoris; I10 Essential (primary) hypertension; M54.5 Low back pain; G89.29 Other chronic pain; K21.9 Gastro-esophageal reflux disease without esophagitis; F32.9 Major depressive disorder, single episode, unspecified; K44.9 Diaphragmatic hernia without obstruction or gangrene; R53.83 Other fatigue; Z68.41 Body mass index [BMI] 40.0-44.9, adult; Z91.048 Other nonmedicinal substance allergy status

== ENCOUNTER → 2019-12-29 | Outpatient (CLI) | payer MEDICARE, OTHER ==
--- NOTE | 2019-12-30 06:49 | PN ---
PROGRESS NOTE DATE OF SERVICE: 12/29/2019 This is a very pleasant 69-year-old female patient who follows with Dr. Gilman as her primary care provider. She had been seen by Dr. Karina millan [facility] the [facility] and had a recent followup in October 2019. She was placed on BiPAP as she had failed CPAP therapy previously. Her BiPAP pressure settings are 15/11 cm of water. She does have morbid obesity with a body mass index of 42.6. Hypersomnia score was 15. She does have a history of coronary artery disease, hypertension as well. She is seen today in followup. She has been having issues with her DreamWear nasal mask. She is now wearing an AirFit P30 nasal pillow. Compliance findings were unrevealing she is wearing the device 30 out of 30 days at 4+ hours with an average of 6.6, average per night. Her AHI is down to 1.7. Central 0.2. She was initially having a leak of 64 L/minute. She states she did have a pressure sore in her nose that was preventing her from wearing the mask appropriately. That has since healed and the last 2 evenings she has been utilizing it and feeling quite comfortable. PHYSICAL EXAMINATION: On physical exam, she is awake and alert, in no acute distress. Blood pressure 111/68, heart rate 74, respirations 18, temperature is 97.6. She is 248 pounds. She is maintaining O2 saturations at 94% on room air. She is 5 feet 4 inches tall. Her head is normocephalic. Sclerae anicteric. There is some crowding in the posterior pharynx. Her neck is supple. Trachea midline. Her lungs are clear anterior and posteriorly. Her heart is regular, S1 and S2. Her abdomen is obese, soft, nontender. Bowel sounds are present. No significant peripheral edema. No clubbing. No cyanosis. Peripheral pulses are intact. BiPAP compliance findings as stated above. IMPRESSION: 1. Symptomatic obstructive sleep apnea. The patient had failed previous CPAP therapy and is currently on BiPAP with a pressure of 15/11 cm of water. 2. Morbid obesity. 3. Hypersomnia with Spencer score of 15. 4. Coronary artery disease. 5. Hypertension. 6. Hiatal hernia. 7. Chronic back pain. 8. Acid reflux. 9. History of depression. PLAN: The patient was seen and evaluated by Dr. Collins. BiPAP compliance evaluation was performed. She is very compliant with the machine itself. She did have issues with the nasal pillows initially. She is happy with the AirFit P30 and will continue the same. She will be seen back here in the office at the [facility] in one years time. She is again reminded of the importance of good sleep hygiene measures and managing her comorbidities. She verbalizes understanding and is agreeable to the plan. I, the cosigning physician, performed a history and physical examination on the patient. Her lungs are clear anterior and posterior. Maintaining good O2 saturations in the 90s on room air. I discussed the assessment and plan of care with my nurse practitioner, Aileen Medina. I attest the above note as dictated by her. MMNGOCL / IJN: [id number] /
== END | disposition home or self-care (01) ==
LOC: SLEEP 13:28
PROVIDERS: ATTEND Internal Medicine Critical Care Medicine
DX: G47.33 Obstructive sleep apnea (adult) (pediatric) (principal); G47.10 Hypersomnia, unspecified; E66.01 Morbid (severe) obesity due to excess calories; I25.10 Atherosclerotic heart disease of native coronary artery without angina pectoris; I10 Essential (primary) hypertension; K44.9 Diaphragmatic hernia without obstruction or gangrene; G89.29 Other chronic pain; M54.9 Dorsalgia, unspecified; K21.9 Gastro-esophageal reflux disease without esophagitis; Z68.41 Body mass index [BMI] 40.0-44.9, adult; Z86.59 Personal history of other mental and behavioral disorders; Z99.89 Dependence on other enabling machines and devices

== ENCOUNTER → 2020-04-28 | Outpatient (CLI) | payer MEDICARE, OTHER ==
--- NOTE | 2020-04-28 13:23 | CT ---
EXAMINATION TYPE: CT brain wo con DATE OF EXAM: 04/28/2020 COMPARISON: 07/10/2019 HISTORY: continued headaches post fall 4-[address] DLP: 1056.[address] of the brain was performed. The ventricles, basal cisterns and sulci overlying the cerebral convexities demonstrate mild enlargem ent. There is no evidence for intracranial hemorrhage or sulcal effacement. There is decreased attenuation about the periventricular white matter and deep white matter of both c erebral hemispheres, compatible with chronic small vessel ischemia. Differential diagnosis does inclu de demyelination. No mass effects are seen.No midline shift. Osseous calvarium is intact. If symptoms persist consider MRI. IMPRESSION: 1. Age related atrophic and chronic small vessel ischemic change without acute intracranial process s een at this time.
== END | disposition home or self-care (01) ==
LOC: RADCTMAIN 04-27 12:12
PROVIDERS: ATTEND Family Medicine
DX: S06.0X9A Concussion with loss of consciousness of unspecified duration, initial encounter (principal)
CPT/HCPCS: 70450

== ENCOUNTER → 2020-07-20 | Outpatient (CLI) | payer MEDICARE, OTHER ==
[2020-07-20 14:21] LABS: HCT 41.4 % (34.0-46.0); HGB 13.5 gm/dL (11.4-16.0); MCH 29.6 pg (25.0-35.0); MCHC 32.6 g/dL (31.0-37.0); MCV 90.8 fL (80.0-100.0); Mean Platelet Volume 7.6; Platelet Count 276 k/uL (150-450); RBC 4.56 m/uL (3.80-5.40); RDW 14.2 % (11.5-15.5); WBC 6.7 k/uL (3.8-10.6)
[2020-07-20 22:36] LABS: Albumin 3.9 g/dL (3.80-4.90); Albumin/Globulin Ratio 1.56 (1.60-3.17); Anion Gap 14.8 mmol/L (4.00-12.00); BUN/Creat Ratio 16.67 Ratio (12.00-20.00); Calcium 8.7 mg/dL (8.7-10.3); Carbon Dioxide 21.2 mmol/L (21.6-31.8); Chol/HDL Ratio 3.37; Globulin 2.5 g/dL (1.6-3.3); Non-African American GFR(CKD) 92.4 (60.0-200.0); Potassium 4.3 mmol/L (3.5-5.5); Total Bilirubin 0.8 mg/dL (0.3-1.2); Total Protein 6.4 g/dL (6.2-8.2)
== END | disposition home or self-care (01) ==
LOC: LABWHC1 13:02
PROVIDERS: ATTEND Family Medicine
DX: I25.10 Atherosclerotic heart disease of native coronary artery without angina pectoris (principal); R53.83 Other fatigue
CPT/HCPCS: 36415; 80053; 80061; 84443; 85027

== ENCOUNTER → 2020-12-29 | Outpatient (CLI) | payer MEDICARE, OTHER ==
--- NOTE | 2020-12-30 14:33 | MM ---
Reason for exam: screening (asymptomatic). Last mammogram was performed 2 years and 1 month ago. History: Patient is postmenopausal. Benign MG stereo VAD BX LT of the left breast, April 16, 2018. Benign stereotactic core biopsy of the left breast, April 20, 2002. Core biopsy of the left breast. Excisional biopsy of the right breast. Took estrogen for 10 years 1 month beginning at age 47. Physical Findings: A clinical breast exam by your physician is recommended on an annual basis and results should be correlated with mammographic findings. MG 3D Screening Mammo W/Cad Bilateral CC and MLO view(s) were taken. Prior study comparison: November 25, 2018, left breast MG 3d diag mammo w/cad LT. April 10, 2018, left breast MG 3d diag mammo w/cad LT. The breast tissue is heterogeneously dense. This may lower the sensitivity of mammography. There are benign appearing round calcifications bilaterally. Previous mammotome biopsy in the left breast. There is chronic nodularity in the right breast x 2. There is no discrete abnormality. ASSESSMENT: Benign, BI-RAD 2 RECOMMENDATION: Routine screening mammogram of both breasts in 1 year.
== END ==
LOC: RADMAMWWP 10:29
PROVIDERS: ATTEND Family Medicine
DX: Z12.31 Encounter for screening mammogram for malignant neoplasm of breast (principal); Z78.0 Asymptomatic menopausal state
CPT/HCPCS: 77063; 77067

== ENCOUNTER → 2021-05-02 | Outpatient (CLI) | payer MEDICARE, OTHER ==
--- NOTE | 2021-05-02 16:29 | PN ---
PROGRESS NOTE 71-year-old female patient coming in for an annual check regarding obstructive sleep apnea. The patient is well known to me and she is known to have multiple medical problems and comorbidities. She is known to have obstructive sleep apnea. She has been treated with BiPAP. She is currently at a pressure of 15/11 cm of water. Since her last evaluation, the patient was infected with Covid 19 around much of 2020. She did not have any major respiratory issues at the time of infection. She recovered nicely. She is known to have CAD, hypertension, and hiatal hernia and chronic acid reflux and chronic back pain as comorbid conditions. The patient otherwise is doing well. She is utilizing her machine every night. She is using melatonin 10 mg at bedtime to assist her with sleep induction. Her BiPAP pressures of 15/11 cm of water. She is going to bed around 10-11 p.m. waking up between 4:30 and 7:30 a.m. in the morning. Based on a 30-day compliancy, she has utilized her machine every night. He has achieved more than 4 hours around 66% of the time. Averaging around 5.2 hours of CPAP use per night. The tidal volume generates around 240 with a respiratory rate of 19. Ventilation of 4.9 L/minute and her AHI is down to 1.1. Her body weight is up by around 6 pounds. She used to be 248 and currently she is up to 254. REVIEW OF SYSTEMS: Fourteen-point review of system was done. Positive findings are mentioned above in the history of present illness. BP is 141/90, pulse 90, respirations 20, temperature 97.7. Saturation 97% on room air. Height is 5 feet, 3 inches, weight is 257, BMI is 45. General Appearance: Calm, comfortable. Head is atraumatic normocephalic. Neck: Supple. No JVD. No goiter or neck mass. Mallampati class 4. Lungs diminished, otherwise clear. Heart: Heart sounds are regular rate and rhythm. Normal S1, S2. No murmurs. Abdomen: Soft. Nontender. No organomegaly. Extremities: No edema. No cyanosis or clubbing. IMPRESSION: 1. Obstructive sleep apnea, currently on a BiPAP pressure of 15/11 cm of water with excellent clinical response and compliancy. The patient continues to benefit from the treatment. No major hypersomnia or sleepiness. 2. Hypersomnia recovered. 3. Chronic headache recovered. 4. Covid 19 infection, recovered. 5. Obesity with interval weight gain. Current body weight is up to 254. 6. Coronary artery disease. 7. Hypertension. 8. Chronic back pain. 9. Depression. 10.Acid reflux. PLAN: 1. Continue BiPAP therapy at the same level of pressures. 2. Keep the same mask interface, which is an AirFit F20 full-face mask. 3. Encourage weight loss. 4. Treat comorbidities. 5. Compliance evaluation was done. 6. No need for BiPAP adjustments and the patient will be seeing me back in a year's time in followup. MMODL / IJN: [id number] /
== END | disposition home or self-care (01) ==
LOC: SLEEP 14:18
PROVIDERS: ATTEND Internal Medicine Critical Care Medicine
DX: G47.33 Obstructive sleep apnea (adult) (pediatric) (principal); E66.9 Obesity, unspecified; I25.10 Atherosclerotic heart disease of native coronary artery without angina pectoris; I10 Essential (primary) hypertension; F32.9 Major depressive disorder, single episode, unspecified; K21.9 Gastro-esophageal reflux disease without esophagitis; G89.29 Other chronic pain; M54.9 Dorsalgia, unspecified; Z68.42 Body mass index [BMI] 45.0-49.9, adult

== ENCOUNTER → 2021-12-07 | Outpatient (CLI) | payer MEDICARE, OTHER ==
[~2021-12-07] MED LIST: REGADENOSON 0.4 MG/5 ML SYRINGE IV PRN
--- NOTE | 2021-12-07 12:24 | NM ---
EXAMINATION TYPE: NM stress lexiscan cardiolite DATE OF EXAM: 12/07/2021 COMPARISON: NONE HISTORY: 71-year-old female R61 Hyperhidrosis, R06.00 Dyspnea TECHNIQUE: After the intravenous administration of 10.5 mCi Tc 99m Sestamibi - Cardiolite resting SP ECT images acquired 45 minutes post injection. The patient received 0.4mg Lexiscan, 24.9 mCi Tc 99m Sestamibi - Stress images obtained [address] injection FINDINGS: Review of stress and rest SPECT images demonstrates fixed defect along the mid to apical anteroseptal and inferolateral campbell. Some of these areas are larger on rest suggesting a component of attenuatio n artifact. No distinct reversibility is identified. Gated analysis shows an estimated left ventricul ar ejection fraction of 71 %. TID is calculated at 0.89, within normal limits. IMPRESSION: 1. Fixed defects along the mid to apical anteroseptal and inferolateral campbell. Some of these areas ar e larger on rest suggesting a component of attenuation artifact. Correlate for history of prior infar cts. 2. No suspicious reversibility identified.
--- NOTE | 2021-12-07 14:03 | EST ---
EXERCISE STRESS AGE: 71 SEX: F HT: 5'2" WT: 250 lbs. PROTOCOL: Lexiscan Cardiolite STAGE: NA DURATION OF EXERCISE: NA HEART RATE REST: 97 BLOOD PRESSURE REST: 159/83 MAXIMUM HEART RATE ACHIEVED: 102 MAXIMUM BLOOD PRESSURE: 161/74 85% MPHR: 127 100% MPHR: 149 METS: NA INDICATIONS: Dyspnea CLINICAL INFORMATION: Baseline rhythm is sinus mechanism, rate of 97, right axis deviation, borderline first- degree AV block. Baseline blood pressure 165/108 mmHg. Patient received injection of Lexiscan. Electrocardiographic monitoring revealed no evidence of diagnostic ischemic ST deviation. Cardiolite was injected per protocol. CONCLUSION: 1. Nondiagnostic electrocardiograph stress testing. 2. Nuclear images will be reported separately. MMODL / IJN: [id number] /
== END | disposition home or self-care (01) ==
LOC: RADNMMAIN 08:27
PROVIDERS: ATTEND Family Medicine
DX: R61 Generalized hyperhidrosis (principal); R06.00 Dyspnea, unspecified
CPT/HCPCS: 93017; 78452; A9500; J2785

== ENCOUNTER 2022-05-14 12:07 | Emergency (ER) | payer MEDICARE, OTHER ==
[2022-05-14 12:15] VITALS: BP 157/89; PULSE 74; RESP 16; TEMP 97.5
[2022-05-14] MEDS ORDERED: LIDOCAINE 1%-EPI 1:100,000 20 ML VIAL SQ STA (12:41)
[2022-05-14] MEDS ORDERED: DIPH,PERTUS(ACELL)TETVAC-LF 0.5 ML VIAL IM ONE (12:41)
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
[2022-05-14 13:50] LABS: Basophils % (A) 1 %; Eosinophils # (A) 0.1 k/uL (0-0.7); Eosinophils % (A) 2 %; HCT 40.9 % (34.0-46.0); HGB 13.3 gm/dL (11.4-16.0); Lymphocytes # (A) 1.3 k/uL (1.0-4.8); Lymphocytes % (A) 22 %; MCH 30.1 pg (25.0-35.0); MCHC 32.4 g/dL (31.0-37.0); MCV 92.8 fL (80.0-100.0); Mean Platelet Volume 7.4; Monocytes # (A) 0.3 k/uL (0-1.0); Monocytes % (A) 6 %; Neutrophils # (A) 4.2 k/uL (1.3-7.7); Neutrophils % (A) 69 %; Platelet Count 272 k/uL (150-450); RBC 4.41 m/uL (3.80-5.40); RDW 13.8 % (11.5-15.5); WBC 6.1 k/uL (3.8-10.6)
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
[2022-05-14 14:13] LABS: ALT 18 U/L (4-34); AST 36 U/L (14-36); African American GFR (CKD) >90 (>60 ml/min/1.73 sqM); Albumin 3.7 g/dL (3.5-5.0); Alkaline Phosphatase 98 U/L (38-126); Anion Gap 5 mmol/L; Blood Urea Nitrogen 21 mg/dL (7-17); Calcium 9.3 mg/dL (8.4-10.2); Carbon Dioxide 27 mmol/L (22-30); Chloride 107 mmol/L (98-107); Glucose 105 mg/dL (74-99); Lipase 199 U/L (23-300); Non-African American GFR(CKD) >90 (>60 ml/min/1.73 sqM); Potassium 4.4 mmol/L (3.5-5.1); Sodium 139 mmol/L (137-145); Total Bilirubin 0.9 mg/dL (0.2-1.3); Total Protein 6.8 g/dL (6.3-8.2)
--- NOTE | 2022-05-14 15:16 | XR ---
EXAMINATION TYPE: XR shoulder complete LT DATE OF EXAM: 05/14/2022 COMPARISON: NONE HISTORY: Pain TECHNIQUE: Shoulder examined in 3 injections FINDINGS: The humeral head articulates with the glenoid. There is loss of the joint space. Some remodeling of t he glenoid may be present. Humeral head appears intact. Findings could be compatible with advanced os teoarthritic degenerative change left shoulder. The acromio-clavicular junction is normal. No acute fractures or dislocations are evident. A follow up study can be performed 7-10 days from acute trauma for continued pain. IMPRESSION: 1. Advanced osteoarthritic degenerative change left shoulder
== END 2022-05-14 16:22 | disposition home or self-care (01) ==
LOC: EC 12:07
DX: S01.01XA Laceration without foreign body of scalp, initial encounter (principal); I10 Essential (primary) hypertension; Z23 Encounter for immunization; Z91.048 Other nonmedicinal substance allergy status; V89.2XXA Person injured in unspecified motor-vehicle accident, traffic, initial encounter
CPT/HCPCS: 36415; 70450; 71045; 72125; 72170; 80053; 83690; 85025; 93005

== ENCOUNTER → 2022-05-22 | Outpatient (CLI) | payer MEDICARE, OTHER ==
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
== END | disposition home or self-care (01) ==
LOC: SLEEP 13:32
PROVIDERS: ATTEND Internal Medicine Critical Care Medicine
DX: Z53.9 Procedure and treatment not carried out, unspecified reason (principal)

== ENCOUNTER → 2022-08-24 | Outpatient (CLI) | payer MEDICARE, OTHER ==
--- NOTE | 2022-08-24 13:54 | CT ---
EXAMINATION TYPE: CT lumbar spine wo con DATE OF EXAM: 08/24/2022 1:31 PM COMPARISON: 03/19/2012 HISTORY: Low back pain CT DLP: 1700 mGycm Automated exposure control for dose reduction was used. Unenhanced CT of the lumbar spine was performed. Bone and soft tissue window settings are submitted as well as coronal and sagittal reconstructions. L1-L2: Severe degenerative disc space narrowing. Ventral and dorsal spondylosis. Retrolisthesis of L1 on L2 of 4 mm. Moderate central stenosis. Bilateral foraminal encroachment. L2-L3: Severe degenerative disc space narrowing. Ventral and dorsal spondylosis. Posterior disc bulge . Hypertrophy ligamentum flavum and facet joint arthropathy resulting in moderate central stenosis. L3-L4: Postoperative changes of the lumbar laminectomy with the decompressive changes noted and pedic ular screws in place. Alignment is stable. Streak artifact limits evaluation of this level. L4-L5: Postoperative changes of the lumbar laminectomy with the decompressive changes noted and pedic ular screws in place. Alignment is stable. Streak artifact limits evaluation of this level. L5-S1: Vacuum disc noted. Grade 1 anterolisthesis L5 on S1 measuring 6 mm. Distortion of the thecal s ac without evidence for central stenosis or disc herniation. IMPRESSION: 1. Decompressive laminectomy changes with limited visualization given extensive streak artifact at L3 -4 and L4-5. 2. Central stenosis at L1-2 and L2-3 as outlined above.
== END | disposition home or self-care (01) ==
LOC: RADCTMAIN 11:27
PROVIDERS: ATTEND Orthopaedic Surgery Orthopaedic Surgery of the Spine
DX: M48.061 Spinal stenosis, lumbar region without neurogenic claudication (principal)
CPT/HCPCS: 72131

== ENCOUNTER → 2022-08-29 | Outpatient (CLI) | payer MEDICARE, OTHER ==
[2022-08-29 14:43] VITALS: BP 127/82; PULSE 85; RESP 18; TEMP 96
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
== END ==
LOC: PNWHC3 13:45
PROVIDERS: ATTEND Specialist
DX: M47.816 Spondylosis without myelopathy or radiculopathy, lumbar region (principal); M51.36 Other intervertebral disc degeneration, lumbar region; M48.061 Spinal stenosis, lumbar region without neurogenic claudication; Z79.01 Long term (current) use of anticoagulants; E11.9 Type 2 diabetes mellitus without complications; Z91.048 Other nonmedicinal substance allergy status; Z79.84 Long term (current) use of oral hypoglycemic drugs
CPT/HCPCS: 99211

== ENCOUNTER 2022-10-09 11:36 | Day surgery (SDC) | payer MEDICARE, OTHER ==
[2022-10-05 14:09] VITALS: BMI 42.5
[2022-10-09 12:43] VITALS: RESP 16; TEMP 97.6
[2022-10-09] MEDS ORDERED: IOPAMIDOL M200 10 ML VIAL ONE (13:11)
[2022-10-09] MEDS ORDERED: methylPREDNISolone ACETATE 40 MG/ML 1 ML VIAL ONE (13:11)
--- NOTE | 2022-10-09 13:26 | P.PCN ---
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 2-Lumbar spondylosis with Facet arthropathy without myelopathy. 3-lumbar radiculopathy POSTOPERATIVE DIAGNOSIS: Same as preop diagnosis. PROCEDURE 1. Lumbar epidural steroid injection under fluoroscopic guidance at the T12-L1 level. (attepmted At L1-2 was failed ,then converted to T12-L1) (Fluoroscopy imaging was available in radiology department) 2. Lumbar epidurogram. ANESTHESIA: none EBL: Minimal PROCEDURE INDICATION: The patient with low back pain and radiculitis symptoms unresponsive to conservative treatment. Fluoroscopy was used to optimize visualization of the needle placement and to maximize safety. PROCEDURE DESCRIPTION / TECHNIQUE: The patient was seen and identified in the preoperative area. Risks, benefits, complications including but not limited to infections ,bleeding ,allergic reaction to the medications ,nerve damage and not complete pain releife , and alternatives were discussed with the patient. The patient agreed to proceed with the procedure and signed the consent. IV was started, and vital signs were stable. Patient was taken to the OR and time out was completed. The patient was placed in the prone position on procedure table and a pillow was placed under the abdomen to reduce lumbar lordosis. The lumbosacral area was prepped and draped in the usual sterile fashion.ere closely monitored during the procedure. Conscious sedation was used during the procedure to decrease patients anxiety. Vital signs was monitered during the entire procedure. Using anterior-posterior fluoroscopy, the L1-2 interlaminar space was identified and the skin over this site was marked and then infiltrated with 1% lidocaine subcutaneously. Subsequently, a 20-gauge Tuohy epidural needle was inserted and advanced toward the epidural space using the ``Loss of resistance technique and guided by AP and lateral fluoroscopy. After multiple attempts I was not able to access the epidural space at L1-2 for this reason a move to one level higher [facility] is T12-L1, and the needle advanced slowly under fluoroscopy and a loss of resistance technique and then I was able to find the epidural space and correct needle position identified under fluoroscopy, The correct needle position in the epidural space was verified with the injection of 2 mL of the water soluble contrast dye Isovue 200 contrast and observing an excellent epidurogram with the epidural spread of the dye, after negative aspiration for blood and CSF and in the absence of paresthesias. Again after negative aspiration, a 6 ml mixture containing 40 mg of Depo-medrol ( Preservetive Free ), and 2 ml of preservative free Normal Saline, and 2 ml of preservative free lidocaine 1% solution was injected and a washout of epidurogram was seen. Needle was withdrawn intact, skin was cleansed, and bandages were applied. COMPLICATIONS: None DISPOSITION / PLANS: The patient was placed in a supine position and transferred to the recovery area in a stable condition for observation. There was no evidence of lower extremity motor or sensory deficit after the procedure. Patient was discharged from the recovery room after meeting discharge criteria. Home discharge instructions were given to the patient by the staff. The patient was reexamined prior to discharge. The patient will schedule a follow up in the clinic in 2-4 weeks.
[2022-10-09 13:42] VITALS: BP 132/82; PULSE 74
--- NOTE | 2022-10-09 13:51 | FL ---
Intraoperative/procedural fluoroscopic services were provided for lumbar epidural injection. Total fl uoroscopy time is 10 seconds with a total of 1 submitted image to PACS. Please see the operative note for further details.
== END 2022-10-09 13:49 | disposition home or self-care (01) ==
LOC: ORPAIN 11:36
PROVIDERS: ATTEND Specialist
DX: M47.26 Other spondylosis with radiculopathy, lumbar region (principal)
CPT/HCPCS: 62323; J1030; Q9966

== ENCOUNTER → 2022-10-29 | Outpatient (CLI) | payer MEDICARE, OTHER ==
[2022-10-29 14:08] VITALS: BP 116/79; PULSE 73; RESP 18; TEMP 98.1
--- NOTE | 2022-10-29 14:48 | P.PAINPG ---
PQRS Measure Charge Sheet Comment: A 72 yr old female with a history of severe and chronic LBP secondary to post laminectomy syndrome presents today for evaluation s/p SOFIA T12-L1. PT states she experienced 50% pain relief x 3 wks s/p procedure. Pain level is provoked at 8 /10 in intensity, constant, localized in the lumbar spine, pressure in character w shooting towards the BL glutes, L>R, then LLE. Pain is provoked by walking/ standing for periods of 10 min or more. Pain is alleviated with PT x 6 wks in May 2022, massage integrated w PT, heat, use of a walker for ambulation, chiropractic treatments as needed, medications (Solon, Neurontin), topicals, repositioning and rest. Interventional pain procedures completed include SOFIA T12-L1 Patient is currently on Solon, Neurontin from her PCP Patient denies any side effects of the medication(s), denies excessive drowsiness or sleepiness, denies suicidal ideation and reports that the current pain medication is helping to control the pain and improve activities of daily living. Patient denies any motor or sensory deficits. Patient denies any fever or night sweats, denies any change in the bowel movements or urination. Physical Examination: -Constitutional: Cooperative. Not in acute distress . - Neurologic: Cranial nerve II to XII intact. No focal neurological deficits. - Psychatric: Alert & oriented x 3. Matching mood & appropriate affect. Judgment and insight intact. - Musculoskeletal: Cervical spine: Muscle bulk/ tone/ strength in the bilateral upper extremities normal Vertebral body tenderness to palpation over Spurling test positive Distraction test positive Facet loading test positive Thoracic spine Muscle bulk / tone/ strength in the bilateral paraspinal muscles normal Vertebral body tender to palpation over Facet loading test positive Lumbar spine: Motor bulk/ tone/ strength lower extremities , thigh and legs : 5/5 Deep tendon reflexes : Normal Knee Jerk. Normal Ankle Jerk . Vertebral body tenderness to palpation over Lumbar Facet Loading Test positive Straight Leg Raise: positive at 30 degrees right side/ left side Gaenslen's Test positive Sacral spine : Severe tenderness over the Sacroiliac joint: right side / left side Range of motion: Flexion of the lumbar spine <60 degrees Range of motion: Extension of the lumbar spine <20 degrees Gaenslen's Test positive L>R Camilo test: positive right side < left side BL Thigh Thrust Test Sacral Thrust Test BL Assessment and plan: Chronic LBP secondary to post laminectomy syndrome Recommendation of BL SI injection. May need a series, up to every 3 mo, for optimal pain relief. Risks, benefits of procedure discussed and pt verbalized understanding. Admits to anticoagulant use or medical history of diabetes. Protocol for discontinuation/ continuation of medications vicki procedure discussed. All patient questions answered I have spent less than 30 minutes on patient care today. Dr Beatty was available by phone for the evaluation of this patient. The time was used to review the medical records including relevant urine studies and Prescription history (MAPs), review of the available imaging, evaluation and examination of the patient, coordination of care with the medical staff and if applicable referring physicians, as well as creation of the medical record PQRS Narrative: Smoking Status Never smoker Hx Alcohol Use (MH) No Home Medications: Ambulatory Orders Aspirin 81 mg PO AC-SUPPER 12/14/14 Cyanocobalamin [Vitamin B-12] 1,000 mcg PO AC-LUNCH 12/14/14 Multivitamins, Thera [Multivitamin (formulary)] 1 tab PO DAILY 12/14/14 Pilocarpine [Salagen] 5 mg PO QID 12/14/14 Pramipexole [Mirapex] 0.25 mg PO HS 12/14/14 Cranberry Fruit Extract [Cranberry] 500 mg PO DAILY 12/28/15 Atorvastatin Calcium [Lipitor] 10 mg PO HS 07/10/19 Cetirizine HCl [Zyrtec] 10 mg PO HS 07/10/19 Vanderwagen-3 Fatty Acids/Fish Oil [Fish Oil 1,000 mg Softgel] 2 cap PO DAILY 07/10/19 Ubidecarenone [Co Q-10] 100 mg PO DAILY 07/10/19 Gabapentin [Neurontin] 100 mg PO QAM 07/26/22 Gabapentin [Neurontin] 200 mg PO HS 07/26/22 Hydrocodone/Acetaminophen [Hydrocodone/Acetaminophen 7.5-325] 1 tab PO TID 07/26/22 Meloxicam [Mobic] 15 mg PO DAILY 07/26/22 Metoprolol Tartrate [Lopressor] 25 mg PO BID 07/26/22 Omeprazole 40 mg PO DAILY 07/26/22 Venlafaxine HCl [Effexor] 100 mg PO DAILY 07/26/22 traZODone HCL 100 mg PO HS 07/26/22 Calcium Carbonate/Vitamin D3 [Calcium 600-D3 20 mcg (800 Unit)] 1 each PO DAILY 10/05/22 Simethicone [Gas-X] 125 mg PO DAILY 10/05/22 calcium polycarbophiL [Fibercon] 625 mg PO DAILY 10/05/22 nitrofurantoin macrocrystaL [Nitrofurantoin] 100 mg PO HS 10/05/22 Controlled Substance Measures - Controlled Substance Measures Is patient prescribed a controlled substance at discharge?: No
== END ==
LOC: PNWHC3 13:32
PROVIDERS: ATTEND Specialist
DX: M96.1 Postlaminectomy syndrome, not elsewhere classified (principal); G89.29 Other chronic pain; Z79.82 Long term (current) use of aspirin; Z91.048 Other nonmedicinal substance allergy status
CPT/HCPCS: 99211

== ENCOUNTER 2023-01-01 10:14 | Day surgery (SDC) | payer MEDICARE, OTHER ==
[2023-01-01 10:45] VITALS: RESP 16; TEMP 97.8
[2023-01-01] MEDS ORDERED: IOPAMIDOL M200 10 ML VIAL ONE (11:20)
[2023-01-01] MEDS ORDERED: methylPREDNISolone ACETATE 40 MG/ML 1 ML VIAL ONE (11:20)
--- NOTE | 2023-01-01 11:36 | P.PCN ---
Date of Procedure: 01/01/23 Procedure(s) Performed: PREOPERATIVE DIAGNOSIS: 1-Lumbar radiculopathy . 2-history of lumbar laminectomy and fusion surgery 3-lumbar spondylosis with lumbar facet arthropathy POSTOPERATIVE DIAGNOSIS: Same as preoperative diagnoses. PROCEDURE 1. Transforaminal epidural steroid injection under fluoroscopic guidance at left L5-S1 level. (Fluoroscopy images stored on file in the radiology Department ) 2. Lumbar epidurogram . ANESTHESIA: Local with 1% lidocaine 3 ml . EBL: Minimal PROCEDURE INDICATION: The patient with low back pain and radiculopathy symptoms unresponsive to conservative treatment. PROCEDURE DESCRIPTION / TECHNIQUE: The patient was seen and identified in the preoperative area. Risks, benefits, complications, and alternatives were discussed with the patient. The patient agreed to proceed with the procedure and signed the consent. IV was started, and vital signs were stable. Patient was taken to the OR and time out was completed. The patient was placed in the prone position on procedure table and a pillow was placed under the abdomen to reduce lumbar lordosis. The lumbosacral area was prepped and draped in the usual sterile fashion. Critical pause was taken. Vital signs were closely monitored during the procedure. Using oblique fluoroscopy, the chin of the `Lyndsayy dog at left L5-S1 level was identified, and the skin and deeper tissues just below was localized with 1% lidocaine. Subsequently, a 22-gauge 5-inches long spinal needle was advanced under a tunneled view fluoroscopic guidance just underneath the chin of the `Lyndsayy dog at the left L5-S1 Under lateral fluoroscopy, the needle was then advanced to the posterior border of the interforaminal space. After negative aspiration of CSF and blood and with no paresthesias, 1 mL Isovue 200 contrast dye was injected excellent epidurogram and outlining of the nerve root Subsequently, 3 mL of block solution containing 40 mg Depo-Medrol and 2 mL of 0.9% normal saline PF was injected. Needle was removed . At the end of the procedure, skin was cleansed, and bandages were applied. COMPLICATIONS:none DISPOSITION / PLANS: The patient was placed in a supine position and transferred to the recovery area in a stable condition for observation. There was no evidence of lower extremity motor or sensory deficit after the procedure. Patient was discharged from the recovery room after meeting discharge criteria. Home discharge instructions were given to the patient by the staff. The patient was reexamined prior to discharge.
[2023-01-01 11:38] VITALS: BP 118/63; PULSE 71
--- NOTE | 2023-01-01 11:49 | FL ---
Intraoperative/procedural fluoroscopic services were provided for left transforaminal epidural inject ion. Total fluoroscopy time is 8 seconds with a total of 1 submitted image to PACS. Total DAP [id number] . Please see the operative note for further details.
== END 2023-01-01 12:03 | disposition home or self-care (01) ==
LOC: ORPAIN 10:14
PROVIDERS: ATTEND Specialist
DX: M47.26 Other spondylosis with radiculopathy, lumbar region (principal); Z98.890 Other specified postprocedural states; Z91.048 Other nonmedicinal substance allergy status
CPT/HCPCS: 64483; J1030; Q9966

== ENCOUNTER → 2023-01-23 | Outpatient (CLI) | payer MEDICARE, OTHER ==
[2023-01-23 13:43] VITALS: BP 137/81; PULSE 78; RESP 18; TEMP 98.2
--- NOTE | 2023-01-25 12:02 | P.PN ---
Subjective Progress Note Date: 01/23/23 This is a 72-year-old lady with history of chronic lower back pain with occasional radiation to the toes bilaterally more on the left side than the right side with occasional numbness in the left foot. She underwent a L TFESI L5-S1 on 01/01/23 and states she experienced 75 % pain relief x 2-3 wks s/p procedure. This pain makes the patient has difficulty falling asleep. She failed to respond to physical therapy previously. She has some urinary problems and she has a bladder stimulator on the left side of her buttock which has been given her some rotation. She also feels some pain around her tailbone. Patient denies new-onset weakness, bowel/bladder incontinence, or any other signs or symptoms of cauda equina syndrome. There are no signs of acute intoxication, and no indications of medication diversion or overuse. In addition to above, 13-point review of systems is also negative for chest pain, shortness of breath, changes in vision, changes in hearing, new onset weakness, abdominal pain, diarrhea, extreme fatigue, malaise, fever, skin changes, homicidal or suicidal ideation, or bowel or bladder incontinence. Vital Signs: Reviewed in EMR Gen: AAOx3, NAD HEENT: PERRLA,hearing grossly normal Pulm: resp unlabored Neck: supple, trachea midline Neuro exam of the lower extremities: Decreased knee flexion and extension to 4 out of 5 bilaterally, absent deep tendon reflexes bilaterally Straight leg raising test: Negative bilaterally Ogdwin's test: Positive on the right side Range of motion of the lumbar spine: Facet loading test: Tenderness in the paravertebral musculature: + Significant tenderness around the L5 Neuro: CN II-XII grossly intact, Imaging: Reviewed in EMR/chart Assessment: Post laminectomy pain syndrome Right sacroiliitis Lumbar spondylosis without myelopathy Lumbar Radiculopathy Morbid obesity Plan: 1. Explanation: When patients on opioids, opioid and psychological risk scores were reviewed. Diagnoses, prognoses, and multiple treatment options including but not limited to physical therapy, interventional therapies, adjuvant medical therapies, narcotic medication therapies, and surgery were discussed with the patient and all questions were answered to the patient's satisfaction. 2. Opioid agreement:When patients are prescribed opoids through our clinic, opioid agreement is signed with the patient and the patient is warned not to use opioids while driving or before driving and not to combine opioids with benzodiazepines or alcohol. 3. Counseling: When patient is smoking or obese, the patient was counseled extensively on SMOKING CESSATION, BODY MASS INDEX, EXERCISE. Specifically, the patient was instructed regarding the importance of smoking cessation, obesity, and exercise in the context of both chronic pain and overall health. 4. Procedures: Schedule for L paramedian SOFIA L5-S1 under fluoroscopic guidance 5. Consultations: None 6. Investigations: None 7. Medications: None prescribed 8. Disposition:Proceed with the above-mentioned procedure as soon as possible 9. Maps were reviewed and were appropriate. PQRS measures: 1-Patient's medications are documented in the chart. 2-Tobacco use is negative, counseling given 3-Patient has had a pneumococcal vaccine. 4-Advanced care planning discussed, patient unable to give 5-Opioid contract signed with the patient. 6-Pain positive, follow-up visit or procedure scheduled 7-Patient's blood pressure measured and documented . The patient will follow up with his primary care physician. 8-Patient's weight was measured. Patient instructed to follow up with PCP. 9-Patient WAS NOT identified as an unhealthy alcohol user.
== END ==
LOC: PNWHC3 12:29
PROVIDERS: ATTEND Anesthesiology
DX: M47.26 Other spondylosis with radiculopathy, lumbar region (principal); M96.1 Postlaminectomy syndrome, not elsewhere classified; M46.1 Sacroiliitis, not elsewhere classified; E66.01 Morbid (severe) obesity due to excess calories; Z91.048 Other nonmedicinal substance allergy status; Z79.82 Long term (current) use of aspirin
CPT/HCPCS: 99211

== ENCOUNTER → 2023-01-23 | Outpatient (CLI) | payer MEDICARE, OTHER ==
--- NOTE | 2023-01-23 13:29 | P.PN ---
Subjective Progress Note Date: 01/23/23 This is a 72-year-old lady with history of chronic lower back pain with occasional radiation to the toes bilaterally more on the left side than the right side with occasional numbness in the left foot. This pain makes the patient has difficulty falling asleep. She failed to respond to physical therapy previously. She has some urinary problems and she has a bladder stimulator on the left side of her buttock which has been given her some rotation. She also feels some pain around her tailbone. The patient had transforaminal epidural steroid injection on the left side to give her moderate relief of her pain. Patient denies new-onset weakness, bowel/bladder incontinence, or any other s igns or symptoms of cauda equina syndrome. There are no signs of acute intoxication, and no indications of medication diversion or overuse. In addition to above, 13-point review of systems is also negative for chest pain, shortness of breath, changes in vision, changes in hearing, new onset weakness, abdominal pain, diarrhea, extreme fatigue, malaise, fever, skin changes, homicidal or suicidal ideation, or bowel or bladder incontinence. Vital Signs: Reviewed in EMR Gen: AAOx3, NAD HEENT: PERRLA,hearing grossly normal Pulm: resp unlabored Neck: supple, trachea midline Neuro exam of the lower extremities: Decreased knee flexion and extension to 4 out of 5 bilaterally, absent deep tendon reflexes bilaterally Straight leg raising test: Negative bilaterally Godwin's test: Positive on the right side Range of motion of the lumbar spine: Facet loading test: Tenderness in the paravertebral musculature: + Significant tenderness around the right sacroiliac joint Neuro: CN II-XII grossly intact, Imaging: Reviewed in EMR/chart Assessment: Post laminectomy pain syndrome Right sacroiliitis Lumbar spondylosis without myelopathy Lumbar Radiculopathy Morbid obesity Plan: 1. Explanation: When patients on opioids, opioid and psychological risk scores were reviewed. Diagnoses, prognoses, and multiple treatment options including but not limited to physical therapy, interventional therapies, adjuvant medical therapies, narcotic medication therapies, and surgery were discussed with the patient and all questions were answered to the patient's satisfaction. 2. Opioid agreement:When patients are prescribed opoids through our clinic, opioid agreement is signed with the patient and the patient is warned not to use opioids while driving or before driving and not to combine opioids with benzodiazepines or alcohol. 3. Counseling: When patient is smoking or obese, the patient was counseled extensively on SMOKING CESSATION, BODY MASS INDEX, EXERCISE. Specifically, the patient was instructed regarding the importance of smoking cessation, obesity, and exercise in the context of both chronic pain and overall health. 4. Procedures: Schedule for right sacroiliac joint steroid injection under fluoroscopic guidance 5. Consultations: None 6. Investigations: None 7. Medications: None prescribed 8. Disposition:Proceed with the above-mentioned procedure as soon as possible 9. Maps were reviewed and were appropriate. PQRS measures: 1-Patient's medications are documented in the chart. 2-Tobacco use is negative, counseling given 3-Patient has had a pneumococcal vaccine. 4-Advanced care planning discussed, patient unable to give 5-Opioid contract signed with the patient. 6-Pain positive, follow-up visit or procedure scheduled 7-Patient's blood pressure measured and documented . The patient will follow up with his primary care physician. 8-Patient's weight was measured. Patient instructed to follow up with PCP. 9-Patient WAS NOT identified as an unhealthy alcohol user.
[2023-01-23 20:25] LABS: HCT 43.1 % (37.2-46.3); HGB 13.8 g/dL (12.0-15.0); MCH 29.7 pg (27.0-32.0); MCV 92.7 fL (80.0-97.0); Mean Platelet Volume 10.3 fL (9.5-12.2); NRBC Per 100 WBC 0 /100 WBCS (0.0-0.0); Platelet Count 256 X 10*3/uL (140-440); RBC 4.65 X 10*6/uL (4.10-5.20); RDW 14.3 % (11.5-14.5)
[2023-01-23 20:46] LABS: ALT 16 U/L (8-44); AST 27 U/L (13-35); African American GFR (CKD) 103.7 (60.0-200.0); Albumin 3.9 g/dL (3.8-4.9); Albumin/Globulin Ratio 1.18 (1.60-3.17); Alkaline Phosphatase 98 U/L (41-126); BUN/Creat Ratio 23.54 Ratio (12.00-20.00); Blood Urea Nitrogen 14.9 mg/dL (9.0-27.0); Calcium 9.8 mg/dL (8.7-10.3); Carbon Dioxide 23.2 mmol/L (20.0-27.5); Chloride 103 mmol/L (96-109); Chol/HDL Ratio 2.88 Ratio; Globulin 3.3 g/dL (1.6-3.3); Glucose 90 mg/dL (70-110); LDL Cholesterol,Calculated 59.7 mg/dL (0.0-131.0); Non-African American GFR(CKD) 89.5 (60.0-200.0); Potassium 4.6 mmol/L (3.5-5.5); Sodium 142 mmol/L (135-145); Total Protein 7.2 g/dL (6.2-8.2)
== END | disposition home or self-care (01) ==
LOC: LABWHC1 12:04
PROVIDERS: ATTEND Family Medicine
DX: E66.01 Morbid (severe) obesity due to excess calories (principal); N32.81 Overactive bladder; R53.83 Other fatigue; M54.41 Lumbago with sciatica, right side; M46.1 Sacroiliitis, not elsewhere classified; M47.26 Other spondylosis with radiculopathy, lumbar region; M96.1 Postlaminectomy syndrome, not elsewhere classified
CPT/HCPCS: 36415; 80053; 80061; 83036; 84443; 85027

== ENCOUNTER → 2023-02-05 | Outpatient (CLI) | payer MEDICARE, OTHER ==
--- NOTE | 2023-02-06 11:06 | MM ---
Reason for Exam: Screening (asymptomatic). Last mammogram was performed 2 year(s) and 1 month(s) ago. Patient History: Menarche at age 13. First Full-Term at age 18. Left ovary removed at age 29. Right ovary removed at age 55. Hysterectomy at age 29. Postmenopausal. Estrogen, starting at age 47 for 10 years, 1 month. Core Biopsy on the Left side. Excisional Biopsy on the Right side. 04/16/2018, Benign Core Biopsy on the left side. 04/20/2002, Benign Stereotactic Core Biopsy on the left side. Risk Values: Nicole 5 year model risk: 1.9%. NCI Lifetime model risk: 5.0%. Prior Study Comparison: 04/10/2018 Left Diagnostic Mammogram, [facility]. 11/25/2018 Left Diagnostic Mammogram, [facility]. 12/29/2020 Bilateral Screening Mammogram, [facility]. Tissue Density: The breast tissue is heterogeneously dense. This may lower the sensitivity of mammography. Findings: Analyzed By CAD. There is no suspicious group of microcalcifications or new suspicious mass in either breast. Benign calcifications within both breasts. Previous mammotome biopsy left breast. Chronic nodularity within the right breast. Overall Assessment: Benign, BI-RAD 2 Management: Screening Mammogram of both breasts in 1 year. A clinical breast exam by your physician is recommended on an annual basis and results should be correlated with mammographic findings. Electronically signed and approved by: Owen Smiley D.O.
== END | disposition home or self-care (01) ==
LOC: RADMAMWWP 07:20
PROVIDERS: ATTEND Family Medicine
DX: Z12.31 Encounter for screening mammogram for malignant neoplasm of breast (principal); Z78.0 Asymptomatic menopausal state
CPT/HCPCS: 77063; 77067

== ENCOUNTER → 2023-02-05 | Outpatient (CLI) | payer MEDICARE, OTHER ==
--- NOTE | 2023-02-05 12:01 | CA ---
Lexiscan Nuclear Stress Test Report Name: Doug Helton Exam Date: 02/05/2023 10:41 Exam Location: [place] Stress Ht (in): 63 Wt (lb): 240 BSA: 2.09 Ordering Phys: David Mora MD Referring Phys: ALBERTO, Technologist: Davin Hayden Age: 72 Gender: F : 1950 Procedure CPT: Indications: I50.32 I20.0 I25.10 ICD-10 Codes: Patient History: Medications: Meds past 24 hrs: Pretest Chest Pain: STRESS TEST Lexiscan Protocol Exercise Duration (min:sec): 02:[address] Depressions (mm): Angina Score: Hardin Score: Resting HR (bpm): 67 Peak HR (bpm): 88 Resting BP (mmHg): 109 / 67 Peak BP (mmHg): 144 / 64 MPHR: 148 Target HR: 126 % MPHR: 59 METS: 1.0 Total Dose: Peak Dose: Atropine: Double Product: 88938 BP Response: Stress Termination: PROTOCOL COMPLETE Stress Symptoms: NO SYMPTOMS Stress Summary: ECG ANALYSIS Resting ECG: Normal sinus rhythm with poor R-wave progression Stress ECG: Patient was given intravenous Lexiscan as a protocol did not have chest pain or diagnostic ST segment depression CONCLUSIONS Negative stress test by EKG criteria Cardiolite portion of the stress test will be reported separately Dr. Tushar Ramos MD (Electronically Signed) Final Date: 05 February 2023 12:01
--- NOTE | 2023-02-05 13:00 | NM ---
EXAMINATION TYPE: NM stress lexiscan cardiolite DATE OF EXAM: 02/05/2023 COMPARISON: Prior stress tests December 07 2021 HISTORY: Hypercholesterolemia and COPD along with prior two-vessel angioplasty presents with difficul ty breathing and palpitations TECHNIQUE: After the intravenous administration of 10.2 mCi Tc 99m Sestamibi - Cardiolite resting SP ECT images acquired 55 minutes post injection. The patient received 0.4mg Lexiscan, 27 mCi Tc 99m Sestamibi - Stress images obtained 30 minutes post injection FINDINGS: Review of stress and rest SPECT images redemonstrates diminished radiotracer uptake involving the lat eral inferior wall towards the mid zone and apex suggestive of old infarct. No reversible ischemia is seen. Gated analysis shows normal wall motion with an estimated left ventricular ejection fraction o f 73 %. IMPRESSION: No scintigraphic evidence for reversible ischemia.
== END | disposition home or self-care (01) ==
LOC: RADNMMAIN 07:54
PROVIDERS: ATTEND Family Medicine
DX: I50.32 Chronic diastolic (congestive) heart failure (principal); I25.10 Atherosclerotic heart disease of native coronary artery without angina pectoris; E78.00 Pure hypercholesterolemia, unspecified
CPT/HCPCS: 93017; 78452; A9500; J2785

== ENCOUNTER 2023-02-28 11:43 | Day surgery (SDC) | payer MEDICARE, OTHER ==
[2023-02-13 08:34] VITALS: BMI 41.8
[~2023-02-28 11:43] MED LIST changes: +LACTATED RINGERS 1,000 ML IV SCH; +LIDOCAINE 1% (10MG/ML) FOR IV START INTRADERMA PRN; -REGADENOSON 0.4 MG/5 ML SYRINGE IV PRN
[2023-02-28 12:33] VITALS: RESP 16; TEMP 98.6
[2023-02-28] MEDS ORDERED: LACTATED RINGERS 1,000 ML IV SCH (13:00)
[2023-02-28] MEDS ORDERED: IOPAMIDOL M200 10 ML VIAL ONE (13:32)
[2023-02-28] MEDS ORDERED: DEXAMETHASONE SOD PHOSPHATE 10 MG/ML 1 ML VIAL ONE (13:32)
--- NOTE | 2023-02-28 13:45 | P.PCN ---
Date of Procedure: 02/28/23 Description of Procedure: Procedure: 1. L5-S1 Epidural steroid injection under fluoroscopic guidance , 2. Lumbar epidurogram PREOPERATIVE DIAGNOSIS: Lumbar postlaminectomy syndrome, Lumbar degenerative disc disease, and Lumbar radiculopathy. POSTOPERATIVE DIAGNOSIS: Lumbar postlaminectomy syndrome, Lumbar degenerative disc disease, and Lumbar radiculopathy. SURGEON: Ever Menchaca ANESTHESIA: Local with 1% lidocaine, and IV sedation: None EBL: None. Specimen removed: None Fluoroscopic image: saved to electronic medical records PROCEDURE INDICATION: The patient had history of Lumbar degenerative disc disease and Lumbar radiculopathy. Failed to conservative therapy. Presented for epidural steroid injection. PROCEDURE DESCRIPTION: The patient was seen and identified in the preoperative area. Risks, benefits, complications, and alternatives were discussed with the patient. The patient agreed to proceed with the procedure and signed the consent. IV was started, and vital signs were stable. Patient was taken to the procedure area, and time out was completed. The patient was placed in the prone position on procedure table and a pillow was placed under the abdomen to reduce lumbar lordosis. The lumbosacral area was prepped and draped in the usual sterile fashion. Critical pause was taken. Vital signs were closely monitored during the procedure. Using anterior-posterior fluoroscopy, the L5-S1 interlaminar space was identified, and skin and deeper tissues were localized with 1% lidocaine. Using anterior-posterior fluoroscopy, lateral fluoroscopy, and [id number] technique, a18 gauge 6 Tuohy epidural needle entered the epidural space. After negative aspiration of CSF and blood with no paresthesias, 2 ml of [id number] contrast dye was injected and an excellent epidurogram was seen. Again after negative aspiration of CSF and blood with no paresthesias, 6 mL of block solution was injected into the epidural space. Block solution contained 20 mg of dexamethasone, and 4 mL of preservative-free normal saline. Needle was withdrawn intact, skin was cleansed, and bandages were applied. COMPLICATIONS: None. DISPOSITION / PLANS: The patient was placed in a supine position and transferred to the recovery area in a stable condition for observation. Patient was discharged from the recovery room after meeting discharge criteria. Home discharge instructions given to the patient by the staff. The patient was reexamined prior to discharge. The patient will schedule a follow up in the clinic in 4 weeks.
[2023-02-28 14:10] VITALS: BP 134/72; PULSE 77
--- NOTE | 2023-02-28 16:27 | FL ---
EXAMINATION TYPE: FL guided pain mgmt statistic DATE OF EXAM: 02/28/2023 FLUOROSCOPY Fluoroscopy time of 10 seconds was used during lumbar epidural steroid injection. 2 image/s document /s the procedure. DOSE AREA PRODUCT (DAP) UGY*M,MGY*CM: 0.0974
== END 2023-02-28 14:22 | disposition home or self-care (01) ==
LOC: ORPAIN 11:43
DX: M96.1 Postlaminectomy syndrome, not elsewhere classified (principal); M51.16 Intervertebral disc disorders with radiculopathy, lumbar region; I10 Essential (primary) hypertension; E78.00 Pure hypercholesterolemia, unspecified; I25.10 Atherosclerotic heart disease of native coronary artery without angina pectoris; F32.A Depression, unspecified; G25.81 Restless legs syndrome; Z90.710 Acquired absence of both cervix and uterus; Z90.49 Acquired absence of other specified parts of digestive tract; Z98.41 Cataract extraction status, right eye; Z88.8 Allergy status to other drugs, medicaments and biological substances; Z98.42 Cataract extraction status, left eye; Z98.890 Other specified postprocedural states; Z79.891 Long term (current) use of opiate analgesic; Z79.899 Other long term (current) drug therapy
CPT/HCPCS: 62323; J1100; Q9966

== ENCOUNTER → 2023-03-21 | Outpatient (CLI) | payer MEDICARE, OTHER ==
--- NOTE | 2023-03-21 14:28 | P.PAINPG ---
PQRS Measure Charge Sheet Comment: A 73 yr old female with a history of severe and chronic LBP secondary to lumbar DDD and spondylosis with facet arthropathy without myelopathy presents today for evaluation s/p SOFIA L5-S1. Pt states she experienced 50 % pain relief x 2 wks s/p procedure. Pain level is provoked at 8 /10 in intensity, constant, localized in the lumbar spine, dull in character w shooting pain. Pain is provoked by standing from a supine position. Pain is alleviated with medications, topicals, injections, ice, heat, PT 6 weeks in June 2022, repositioning and rest. Interventional pain procedures completed include SOFIA L5-S1, BL SI injection, L TFESI L5-S1 Patient is currently on DENIES Patient denies any side effects of the medication(s), denies excessive drowsiness or sleepiness, denies suicidal ideation and reports that the current pain medication is helping to control the pain and improve activities of daily living. Patient denies any motor or sensory deficits. Patient denies any fever or night sweats, denies any change in the bowel movements or urination. Physical Examination: -Constitutional: Cooperative. Not in acute distress . - Neurologic: Cranial nerve II to XII intact. No focal neurological deficits. - Psychatric: Alert & oriented x 3. Matching mood & appropriate affect. Judgment and insight intact. - Musculoskeletal: Cervical spine: Muscle bulk/ tone/ strength in the bilateral upper extremities normal Vertebral body tenderness to palpation over Spurling test positive Distraction test positive Facet loading test positive TTP Thoracic spine Muscle bulk / tone/ strength in the bilateral paraspinal muscles normal Vertebral body tender to palpation over Facet loading test positive TTP Lumbar spine: Motor bulk/ tone/ strength lower extremities , thigh and legs : 5/5 Deep tendon reflexes : Normal Knee Jerk. Normal Ankle Jerk . Vertebral body tenderness to palpation over L5 Rodriguez Test positive Lumbar Facet Loading Test positive Straight Leg Raise: positive at 30 degrees right side/ left side Gaenslen's Test positive Sacral spine : Severe tenderness over the Sacroiliac joint: right side / left side Range of motion: Flexion of the lumbar spine <60 degrees Range of motion: Extension of the lumbar spine <20 degrees Gaenslen's Test positive right side / left side Camilo test: positive right side / left side Thigh Thrust Test positive right side / left side Sacral Thrust Test positive right side / left side Assessment and plan: Chronic LBP secondary to lumbar DDD, spondylosis with facet arthropathy without myelopathy Recommendation of Caudal SOFIA. May need a series of injections for optimal pain relief. Risks, benefits of procedure discussed and pt verbalized understanding. Admits to anticoagulant use or medical history of diabetes. Protocol for discontinuation/ continuation of medications vicki procedure discussed. Minimal anesthesia provided, if clinically indicated, consisting of Versed and Fentanyl. All questions answered. I have spent less than 30 minutes on patient care today. Dr Beatty was available by phone for the evaluation of this patient. The time was used to review the medical records including relevant urine studies and Prescription history (MAPs), review of the available imaging, evaluation and examination of the patient, coordination of care with the medical staff and if applicable referring physicians, as well as creation of the medical record PQRS Narrative: Smoking Status Never smoker Hx Alcohol Use (MH) No Home Medications: Ambulatory Orders Aspirin 81 mg PO AC-SUPPER 12/14/14 Cyanocobalamin [Vitamin B-12] 1,000 mcg PO AC-LUNCH 12/14/14 Multivitamins, Thera [Multivitamin (formulary)] 1 tab PO DAILY 12/14/14 Pilocarpine [Salagen] 5 mg PO QID 12/14/14 Pramipexole [Mirapex] 0.25 mg PO HS 12/14/14 Cranberry Fruit Extract [Cranberry] 500 mg PO DAILY 12/28/15 Atorvastatin Calcium [Lipitor] 10 mg PO HS 07/10/19 Cetirizine HCl [Zyrtec] 10 mg PO HS 07/10/19 Mascotte-3 Fatty Acids/Fish Oil [Fish Oil 1,000 mg Softgel] 1 cap PO DAILY 07/10/19 Ubidecarenone [Co Q-10] 100 mg PO DAILY 07/10/19 Gabapentin [Neurontin] 100 mg PO QAM 07/26/22 Gabapentin [Neurontin] 200 mg PO HS 07/26/22 Hydrocodone/Acetaminophen [Hydrocodone/Acetaminophen 7.5-325] 1 tab PO TID 07/26/22 Meloxicam [Mobic] 15 mg PO DAILY 07/26/22 Metoprolol Tartrate [Lopressor] 25 mg PO BID 07/26/22 Omeprazole 40 mg PO DAILY 07/26/22 Venlafaxine HCl [Effexor] 100 mg PO DAILY 07/26/22 traZODone HCL 100 mg PO HS 07/26/22 Calcium Carbonate/Vitamin D3 [Calcium 600-D3 20 mcg (800 Unit)] 1 each PO DAILY 10/05/22 Simethicone [Gas-X] 125 mg PO DAILY 10/05/22 calcium polycarbophiL [Fibercon] 625 mg PO DAILY 10/05/22 nitrofurantoin macrocrystaL [Nitrofurantoin] 100 mg PO HS 10/05/22 oxyBUTYnin chloride [Ditropan XL] 10 mg PO DAILY 02/13/23 Controlled Substance Measures - Controlled Substance Measures Is patient prescribed a controlled substance at discharge?: No
[2023-03-21 14:33] VITALS: BP 150/87; PULSE 81; RESP 18; TEMP 98
== END ==
LOC: PNWHC3 13:54
PROVIDERS: ATTEND Specialist
DX: M51.36 Other intervertebral disc degeneration, lumbar region (principal); G89.29 Other chronic pain; M47.816 Spondylosis without myelopathy or radiculopathy, lumbar region; Z91.048 Other nonmedicinal substance allergy status
CPT/HCPCS: 99211

== ENCOUNTER 2023-04-18 11:14 | Day surgery (SDC) | payer MEDICARE, OTHER ==
[~2023-04-18 11:14] MED LIST changes: -LIDOCAINE 1% (10MG/ML) FOR IV START INTRADERMA PRN
[2023-04-18 12:10] VITALS: RESP 18; TEMP 97.2
[2023-04-18] MEDS ORDERED: methylPREDNISolone ACETATE 40 MG/ML 1 ML VIAL ONE (13:07)
[2023-04-18] MEDS ORDERED: IOPAMIDOL M200 10 ML VIAL ONE (13:07)
--- NOTE | 2023-04-18 13:15 | P.PCN ---
Date of Procedure: 04/18/23 Procedure(s) Performed: PREOPERATIVE DIAGNOSIS:1- Lumbar post laminectomy syndrome.2-lumbar radicul opathy. 3-lumbar spondylosis with lumbar facet arthropathy POSTOPERATIVE DIAGNOSIS: Same as preop diagnosis. PROCEDURE: 1. Caudal epidural steroid injection under fluoroscopic guidance. (Fluoroscopy images available in the radiology department ) 2. Caudal epidurogram ANESTHESIA: Local with 1% lidocaine; 5ml for subcutaneous infiltrations. EBL: None. PROCEDURE INDICATION: The patient with neuropathic pain radiating distally returns for caudal epidural steroid injection. PROCEDURE DESCRIPTION: The patient was seen and identified in the preoperative area. Risks, benefits, complications, and alternatives were discussed with the patient. The patient agreed to proceed with the procedure and signed the consent. IV was started, and vital signs were stable. Patient was taken to the OR and time out was completed. The patient was placed in the prone position on procedure table and a pillow was placed under the abdomen to reduce lumbar lordosis. The lumbosacral area was prepped and draped in the usual sterile fashion. Critical pause was taken. Vital signs were closely monitored during the procedure. Using lateral fluoroscopy the anterior-posterior plates of the sacrum were iden tified and the skin and deeper tissues corresponding into sacrococcygeal ligament were anesthetized using approximately 3 mL of 1% lidocaine. Then under fluoroscopy, a 3-1/2-inch 20-gauge Tuohy epidural needle was guided through the sacrococcygeal ligament, and into the epidural space. After negative aspiration, a 2 mL of Isovue 200 contrast dye was injected with excellent epidurogram. Again after negative aspiration for CSF, blood, and with no paresthesias, then Depo-Medrol 40mg, 2ml of 1% preservative free Lidocaine with 6 ml of preservative free normal saline(total of 10ml)solution was injected with washout of epidurogram. Needle was withdrawn intact. Skin was cleansed, and bandage was applied. COMPLICATIONS: None DISPOSITION / PLANS: The patient was placed in a supine position and transferred to the recovery area in a stable condition for observation and was discharged from the recovery room after meeting discharge criteria. Home discharge instructions given to the patient by the staff. The patient was reexamined prior to discharge. The patient will schedule a follow up in the clinic in 2-4 weeks.
[2023-04-18 13:23] VITALS: BP 140/75; PULSE 79
--- NOTE | 2023-04-18 13:25 | FL ---
Intraoperative/procedural fluoroscopic services were provided for caudal epidural steroid injection. Total fluoroscopy time is 8.9 seconds with a total of 3 submitted images to PACS. Total DAP 0.68865 m Gym2. Please see the operative note for further details.
== END 2023-04-18 13:54 | disposition home or self-care (01) ==
LOC: ORPAIN 11:14
PROVIDERS: ATTEND Specialist
DX: M96.1 Postlaminectomy syndrome, not elsewhere classified (principal); M47.26 Other spondylosis with radiculopathy, lumbar region
CPT/HCPCS: 62323; J1030; Q9966

== ENCOUNTER 2023-05-09 16:40 | Emergency (ER) | payer MEDICARE, OTHER ==
[2023-05-09] MEDS ORDERED: SODIUM CHLORIDE 0.9% 1,000 ML IV STA (17:32)
[2023-05-09] MEDS ORDERED: PANTOPRAZOLE 40 MG/10 ML VIAL IVP STA (17:32)
[2023-05-09] MEDS ORDERED: ONDANSETRON 4 MG/2 ML VIAL IVP STA (17:32)
[2023-05-09] MEDS ORDERED: MORPHINE SULFATE 4 MG/ML SYRINGE IVP STA (17:33)
[2023-05-09] MEDS ORDERED: ACETAMINOPHEN IV (For NPO) 1,000 MG in EMPTY BAG 1 BAG IVPB STA (17:37)
--- NOTE | 2023-05-09 17:38 | ED ---
Abdominal Pain HPI - General Chief Complaint: Anxiety Stated Complaint: SOB,back pain,poss panic attack Time Seen by Provider: 05/09/23 17:06 Source: patient, RN notes reviewed, old records reviewed Mode of arrival: EMS Limitations: no limitations - History of Present Illness Initial Comments: This is a 73-year-old female who admits to some anxiety but presents to the emergency department for abdominal pain today. Patient feels lightheaded dizziness and weak with nausea no vomiting increasing weakness and was sent to the ER today for evaluation. Patient's caregiver did call EMS to come bring the patient of the hospital and she was not feeling well. Patient did have an anxiety attack in the EMS transport and then began to complain of abdominal pain. Patient tells me he is having continued abdominal pain here in the ER but no other significant complaints. MD Complaint: abdominal pain -: unknown Location: periumbilical, suprapubic Radiation: suprapubic Migration to: no migration Severity: moderate Severity scale (1-10): 7 Quality: fullness, sharp Consistency: constant Improves With: nothing Associated Symptoms: fever (Patient does have fever here in the emergency department) Treatments Prior to Arrival: other - Related Data Home Medications Medication Instructions Recorded Confirmed Aspirin 81 mg PO AC-SUPPER 12/14/14 05/09/23 Cyanocobalamin [Vitamin B-12] 1,000 mcg PO AC-LUNCH 12/14/14 05/09/23 Multivitamins, Thera [Multivitamin 1 tab PO DAILY 12/14/14 05/09/23 (formulary)] Pilocarpine [Salagen] 5 mg PO QID 12/14/14 05/09/23 Pramipexole [Mirapex] 0.25 mg PO HS 12/14/14 05/09/23 Cranberry Fruit Extract [Cranberry] 500 mg PO DAILY 12/28/15 05/09/23 Atorvastatin Calcium [Lipitor] 10 mg PO HS 07/10/19 05/09/23 Cetirizine HCl [Zyrtec] 10 mg PO HS 07/10/19 05/09/23 [place]-3 Fatty Acids/Fish Oil [Fish 1 cap PO DAILY 07/10/19 05/09/23 Oil 1,000 mg Softgel] Gabapentin [Neurontin] 100 mg PO DAILY 07/26/22 05/09/23 Gabapentin [Neurontin] 200 mg PO HS 07/26/22 05/09/23 Hydrocodone/Acetaminophen 1 tab PO TID 07/26/22 05/09/23 [Hydrocodone/Acetaminophen 7.5-325] Meloxicam [Mobic] 15 mg PO DAILY 07/26/22 05/09/23 Metoprolol Tartrate [Lopressor] 25 mg PO BID 07/26/22 05/09/23 Omeprazole 40 mg PO DAILY 07/26/22 05/09/23 Venlafaxine HCl [Effexor] 100 mg PO DAILY 07/26/22 05/09/23 Calcium Carbonate/Vitamin D3 1 tab PO DAILY 10/05/22 05/09/23 [Calcium 600-D3 20 mcg (800 Unit)] Simethicone [Gas-X] 125 mg PO W/SUPPER 10/05/22 05/09/23 nitrofurantoin macrocrystaL 100 mg PO HS 10/05/22 05/09/23 [Nitrofurantoin] oxyBUTYnin chloride [Ditropan XL] 10 mg PO HS 02/13/23 05/09/23 Melatonin 5 mg PO HS 04/16/23 05/09/23 Ubidecarenone [Coenzyme Q10] 100 mg PO DAILY 05/09/23 05/09/23 traZODone HCL [Desyrel] 100 mg PO HS PRN 05/09/23 05/09/23 Previous Rx's Medication Instructions Recorded Amoxic-Pot Clav 875-125Mg 1 tab PO Q12HR #20 tablet 05/09/23 [Augmentin 875-125] Allergies Allergy/AdvReac Type Severity Reaction Status Date / Time adhesive tape Allergy Rash/Hives, Verified 05/11/23 13:35 "paper tape is ok" Review of Systems ROS Statement: Those systems with pertinent positive or pertinent negative responses have been documented in the HPI. ROS Other: All systems not noted in ROS Statement are negative. Past Medical History Past Medical History: Hearing Disorder / Deafness, Hypertension, Osteoarthritis (OA) Additional Past Medical History / Comment(s): Arrhythmia, hx anemia, wears pad/brief for urinary incontinence, frequent UTI's, on meterman antibiotic treatment to prevent UTI, SOB, deaf in right ear, hard of hearing in left ear, bilateral hearing aid use. History of Any Multi-Drug Resistant Organisms: None Reported Past Surgical History: Appendectomy, Cholecystectomy, Heart Catheterization With Stent, Hernia Repair, Hysterectomy, Joint Replacement Additional Past Surgical History / Comment(s): Pain Clinic Procedures, CARDIAC STENTS X2, L3-4-5 FUSION, total right knee replacement, bilateral cataract surgery. hiatal hernia repair. Past Anesthesia/Blood Transfusion Reactions: No Reported Reaction Additional Past Anesthesia/Blood Transfusion Reaction / Comment(s): "Slow coming out." Date of Last Stent Placement:: Past Psychological History: Anxiety, Depression Smoking Status: Never smoker Past Alcohol Use History: None Reported Past Drug Use History: None Reported - Past Family History Father Family Medical History: Cancer Sister(s) Family Medical History: Cancer General Exam Limitations: physical limitation General appearance: alert, in no apparent distress, lethargic Head exam: Present: atraumatic, normocephalic, normal inspection Eye exam: Present: normal appearance, PERRL, EOMI. Absent: scleral icterus, conjunctival injection, periorbital swelling ENT exam: Present: normal exam, mucous membranes moist Neck exam: Present: normal inspection. Absent: tenderness, meningismus, lymphadenopathy Respiratory exam: Present: normal lung sounds bilaterally. Absent: respiratory distress, wheezes, rales, rhonchi, stridor Cardiovascular Exam: Present: regular rate, normal rhythm, normal heart sounds. Absent: systolic murmur, diastolic murmur, rubs, gallop, clicks GI/Abdominal exam: Present: soft, normal bowel sounds. Absent: distended, tenderness, guarding, rebound, rigid Extremities exam: Present: normal inspection, full ROM, normal capillary refill. Absent: tenderness, pedal edema, joint swelling, calf tenderness Back exam: Present: normal inspection Neurological exam: Present: alert, oriented X3, CN II-XII intact Psychiatric exam: Present: normal affect, normal mood Skin exam: Present: warm, dry, intact, normal color. Absent: rash Course Vital Signs 05/09/23 05/09/23 05/09/23 16:50 20:55 22:08 Temperature 100.3 F H 99.2 F 98.0 F Pulse Rate 101 H 92 86 Respiratory 20 18 20 Rate Blood Pressure 122/59 107/61 114/62 O2 Sat by Pulse 97 95 Oximetry - Reevaluation(s) Reevaluation #1: 07/20/23 17:37 Medical record is reviewed Reevaluation #2: 05/09/23 21:49 Patient symptoms are dramatically improved feels like discharge, patient does not want to be staying Reevaluation #3: 05/09/23 21:49 Patient informed results and questions are answered Reevaluation #4: 05/09/23 17:37 Was pt. sent in by a medical professional or institution? @ -no Did you speak to anyone other than the patient for history? @ -no Did you review nursing and triage notes? @ -agree Were old charts reviewed? @ -yes Differential Diagnosis? @ -prior EKG interpreted by me (3pts min.)? @ -no X-rays interpreted by me (1pt min.)? @ -yes CT interpreted by me (1pt min.)? @ -yes U/S interpreted by me (1pt. min.)? @ -no What testing was considered but not performed? (CT, X-rays, U/S, labs)? Why? @ -no What meds were considered but not given? Why? @ -no Did you discuss the management of the patient with other professionals? @ -no Did you reconcile home meds? @ -no Was smoking cessation discussed for >3mins.? @ -no Was critical care preformed (if so, how long)? @ -no Were there social determinants of health that impacted care today? How? (Homelessness, low income, unemployed, alcoholism, drug addiction, transportation, low edu. Level, literacy, decrease access to med. care, correction, rehab)? @ -no Was there de-escalation of care discussed even if they declined? (Discuss DNR or withdrawal of care, Hospice)? @ -no What co-morbidities impacted this encounter? (DM, HTN, Smoking, COPD, CAD, Cancer, CVA, Hep., AIDS, mental health diagnosis, sleep apnea, morbid obesity)? @ -no Was patient admitted / discharged? @ -73 female with abdominal pain and fever. Patient does have urinary tract infection, feels improved here in the ER prefers discharge home for admission Discharge Undiagnosed new problem with uncertain prognosis? @ -no Drug Therapy requiring intensive monitoring for toxicity (Heparin, Nitro, Insulin, Cardizem)? @ -no Were any procedures done? @ -no Diagnosis/symptom? @ -UTI, fever Acute, or Chronic, or Acute on Chronic? @ -acute Uncomplicated (without systemic symptoms) or Complicated (systemic symptoms)? @ -complicated Side effects of treatment? @ -no Exacerbation, Progression, or Severe Exacerbation] @ -no Poses a threat to life or bodily function? @ -no Reevaluation #5: 05/09/23 17:40 Differential Fever: Pneumonia, viral URI, endocarditis, myocarditis, pericarditis, otitis, sinus itis, peritonsillar Abscess, retropharyngeal Abscess, epiglottitis, peritonitis, appendicitis, Kathy cystitis, diverticulitis, hepatitis, colitis, UTI, PID, TOA, pyelonephritis, prostatitis, epididymitis, meningitis, encephalitis, pulmonary embolism, CVA, thyroid storm, pancreatitis, adrenal crisis, cavernous sinus thrombosis, this is not meant to be an all-inclusive list. Differential Abdominal Pain Women: Appendicitis, Cholecystitis, diverticulosis, ischemic bowel, pancreatitis, hepatitis, UTI, gastroenteritis, AAA, incarcerated hernia, bowel obstruction, constipation, inflammatory bowel, hepatitis, peptic ulcer disease, splenic infarction, perforated viscus, vulvitis, ovarian torsion, PID, kidney stone, placenta abruption, this is not meant to be an all-inclusive list Medical Decision Making - Medical Decision Making 73 female with abdominal pain and fever. Patient does have urinary tract infection, feels improved here in the ER prefers discharge home for admission - Lab Data Result diagrams: 05/09/23 18:24 05/09/23 18:24 Lab Results 05/09/23 05/09/23 05/09/23 Range/Units 18:24 18:24 18:24 WBC 4.6 (3.8-10.6) k/uL RBC 4.25 (3.80-5.40) m/uL Hgb 12.4 (11.4-16.0) gm/dL Hct 38.7 (34.0-46.0) % MCV 91.0 (80.0-100.0) fL MCH 29.2 (25.0-35.0) pg MCHC 32.1 (31.0-37.0) g/dL RDW 14.1 (11.5-15.5) % Plt Count 207 (150-450) k/uL MPV 7.9 Neutrophils % 82 % Lymphocytes % 13 % Monocytes % 3 % Eosinophils % 2 % Basophils % 0 % Neutrophils # 3.8 (1.3-7.7) k/uL Lymphocytes # 0.6 L (1.0-4.8) k/uL Monocytes # 0.1 (0-1.0) k/uL Eosinophils # 0.1 (0-0.7) k/uL Basophils # 0.0 (0-0.2) k/uL PT 11.0 (9.0-12.0) sec INR 1.1 (<1.2) APTT 26.9 (22.0-30.0) sec Sodium 135 L (137-145) mmol/L Potassium 4.2 (3.5-5.1) mmol/L Chloride 107 (98-107) mmol/L Carbon Dioxide 20 L (22-30) mmol/L Anion Gap 8 mmol/L BUN 20 H (7-17) mg/dL Creatinine 0.51 L (0.52-1.04) mg/dL Est GFR (CKD-EPI)AfAm >90 (>60 ml/min/1.73 sqM) Est GFR (CKD-EPI)NonAf >90 (>60 ml/min/1.73 sqM) Glucose 107 H (74-99) mg/dL Plasma Lactic Acid Emmanuel (0.7-2.0) mmol/L Calcium 8.5 (8.4-10.2) mg/dL Total Bilirubin 1.4 H (0.2-1.3) mg/dL AST 39 H (14-36) U/L ALT 16 (4-34) U/L Alkaline Phosphatase 75 (38-126) U/L Total Protein 6.8 (6.3-8.2) g/dL Albumin 3.4 L (3.5-5.0) g/dL Amylase 60 (30-110) U/L Lipase 86 (23-300) U/L Urine Color Urine Appearance (Clear) Urine pH (5.0-8.0) Ur Specific [place] (1.001-1.035) Urine Protein (Negative) Urine Glucose (UA) (Negative) Urine Ketones (Negative) Urine Blood (Negative) Urine Nitrite (Negative) Urine Bilirubin (Negative) Urine Urobilinogen (<2.0) mg/dL Ur Leukocyte Esterase (Negative) Urine RBC (0-5) /hpf Urine WBC (0-5) /hpf Ur Squamous Epith Cells (0-4) /hpf Urine Bacteria (None) /hpf Hyaline Casts (0-2) /lpf Urine Mucus (None) /hpf Influenza Type A (PCR) (Not Detectd) Influenza Type B (PCR) (Not Detectd) RSV (PCR) (Not Detectd) SARS-CoV-2 (PCR) (Not Detectd) 05/09/23 05/09/23 05/09/23 Range/Units 18:24 18:24 19:55 WBC (3.8-10.6) k/uL RBC (3.80-5.40) m/uL Hgb (11.4-16.0) gm/dL Hct (34.0-46.0) % MCV (80.0-100.0) fL MCH (25.0-35.0) pg MCHC (31.0-37.0) g/dL RDW (11.5-15.5) % Plt Count (150-450) k/uL MPV Neutrophils % % Lymphocytes % % Monocytes % % Eosinophils % % Basophils % % Neutrophils # (1.3-7.7) k/uL Lymphocytes # (1.0-4.8) k/uL Monocytes # (0-1.0) k/uL Eosinophils # (0-0.7) k/uL Basophils # (0-0.2) k/uL PT (9.0-12.0) sec INR (<1.2) APTT (22.0-30.0) sec Sodium (137-145) mmol/L Potassium (3.5-5.1) mmol/L Chloride (98-107) mmol/L Carbon Dioxide (22-30) mmol/L Anion Gap mmol/L BUN (7-17) mg/dL Creatinine (0.52-1.04) mg/dL Est GFR (CKD-EPI)AfAm (>60 ml/min/1.73 sqM) Est GFR (CKD-EPI)NonAf (>60 ml/min/1.73 sqM) Glucose (74-99) mg/dL Plasma Lactic Acid Emmanuel 0.9 (0.7-2.0) mmol/L Calcium (8.4-10.2) mg/dL Total Bilirubin (0.2-1.3) mg/dL AST (14-36) U/L ALT (4-34) U/L Alkaline Phosphatase (38-126) U/L Total Protein (6.3-8.2) g/dL Albumin (3.5-5.0) g/dL Amylase (30-110) U/L Lipase (23-300) U/L Urine Color Yellow Urine Appearance Clear (Clear) Urine pH 6.5 (5.0-8.0) Ur Specific [place] 1.027 (1.001-1.035) Urine Protein Trace H (Negative) Urine Glucose (UA) Negative (Negative) Urine Ketones 1+ H (Negative) Urine Blood Negative (Negative) Urine Nitrite Positive H (Negative) Urine Bilirubin Negative (Negative) Urine Urobilinogen <2.0 (<2.0) mg/dL Ur Leukocyte Esterase Trace H (Negative) Urine RBC 1 (0-5) /hpf Urine WBC 9 H (0-5) /hpf Ur Squamous Epith Cells <1 (0-4) /hpf Urine Bacteria Moderate H (None) /hpf Hyaline Casts 1 (0-2) /lpf Urine Mucus Occasional H (None) /hpf Influenza Type A (PCR) Not Detected (Not Detectd) Influenza Type B (PCR) Not Detected (Not Detectd) RSV (PCR) Not Detected (Not Detectd) SARS-CoV-2 (PCR) Not Detected (Not Detectd) - Radiology Data Radiology results: report reviewed (Chest x-rays negative for acute disease, CT head and pelvis negative for acute disease), image reviewed Disposition Clinical Impression: UTI (urinary tract infection), Panic attack, Fever Disposition: HOME SELF-CARE Condition: Good Instructions (If sedation given, give patient instructions): Urinary Tract Infection in Women (ED) Prescriptions: Amoxic-Pot Clav 875-125Mg [Augmentin 875-125] 1 tab PO Q12HR #20 tablet Is patient prescribed a controlled substance at d/c from ED?: No Referrals: Brit Mora DO [Primary Care Provider] - 1-2 days Time of Disposition: 21:30
[2023-05-09] MEDS ORDERED: IBUPROFEN IV 800 MG in SODIUM CHLORIDE 0.9% 250 ML IV ONE (17:55)
[2023-05-09 18:36] LABS: Basophils % (A) 0 %; Eosinophils # (A) 0.1 k/uL (0-0.7); Eosinophils % (A) 2 %; HCT 38.7 % (34.0-46.0); HGB 12.4 gm/dL (11.4-16.0); Lymphocytes # (A) 0.6 k/uL (1.0-4.8); Lymphocytes % (A) 13 %; MCH 29.2 pg (25.0-35.0); MCHC 32.1 g/dL (31.0-37.0); Mean Platelet Volume 7.9; Monocytes # (A) 0.1 k/uL (0-1.0); Monocytes % (A) 3 %; Neutrophils # (A) 3.8 k/uL (1.3-7.7); Neutrophils % (A) 82 %; Platelet Count 207 k/uL (150-450); RBC 4.25 m/uL (3.80-5.40); RDW 14.1 % (11.5-15.5); WBC 4.6 k/uL (3.8-10.6)
[2023-05-09 18:51] LABS: ALT 16 U/L (4-34); AST 39 U/L (14-36); African American GFR (CKD) >90 (>60 ml/min/1.73 sqM); Albumin 3.4 g/dL (3.5-5.0); Alkaline Phosphatase 75 U/L (38-126); Amylase 60 U/L (30-110); Anion Gap 8 mmol/L; Blood Urea Nitrogen 20 mg/dL (7-17); Calcium 8.5 mg/dL (8.4-10.2); Carbon Dioxide 20 mmol/L (22-30); Chloride 107 mmol/L (98-107); Glucose 107 mg/dL (74-99); Lipase 86 U/L (23-300); Non-African American GFR(CKD) >90 (>60 ml/min/1.73 sqM); Sodium 135 mmol/L (137-145); Total Bilirubin 1.4 mg/dL (0.2-1.3); Total Protein 6.8 g/dL (6.3-8.2)
[2023-05-09 18:52] LABS: INR 1.1 (<1.2)
[2023-05-09 18:53] LABS: Partial Thromboplastin Time 26.9 sec (22.0-30.0)
--- NOTE | 2023-05-09 18:56 | XR ---
EXAMINATION TYPE: XR chest 1V DATE OF EXAM: 05/09/2023 6:46 PM COMPARISON: Chest x-ray 07/25/2022 TECHNIQUE: XR chest 1V . CLINICAL INDICATION:Female, 73 years old with history of cough; FINDINGS: Lungs/Pleura: Bibasilar subsegmental atelectasis. Retrocardiac opacity consistent with hiatal hernia. No focal consolidation or pneumothorax. No sizable pleural effusion. Pulmonary vascularity: Mild pulmonary vascular congestion. Heart/mediastinum: Cardiomediastinal silhouette is borderline enlarged. Atherosclerotic calcificatio ns are seen in the aorta. Musculoskeletal: No acute osseous pathology. IMPRESSION: Borderline cardiomegaly with mild pulmonary vascular congestion. Correlate with BNP for congestive he art failure.
[2023-05-09 19:12] LABS: Potassium 4.2 mmol/L (3.5-5.1)
--- NOTE | 2023-05-09 19:54 | CT ---
EXAMINATION TYPE: CT abdomen pelvis wo con CT DLP: 1414.2 mGycm, Automated exposure control for dose reduction was used. DATE OF EXAM: 05/09/2023 7:30 PM COMPARISON: CT lumbar spine on 02/07/2022, CT abdomen pelvis 09/30/2017 CLINICAL INDICATION:Female, 73 years old with history of abdominal pain; generalized abd pain. TECHNIQUE: Axial CT of the abdomen and pelvis. Sagittal and coronal reformats were created on a [employer] workstation. Contrast used: None Oral contrast used: without Oral Contrast FINDINGS: LOWER CHEST: Posterior dependent subsegmental atelectasis is noted. ABDOMEN LIVER: Unremarkable GALLBLADDER AND BILE DUCTS: The gallbladder is surgically absent. PANCREAS: Fatty infiltration but grossly unremarkable for technique. SPLEEN: Unremarkable. ADRENAL GLANDS: Unremarkable. KIDNEYS AND URETERS: Punctate nonobstructing left renal calculus. No hydronephrosis bilaterally. PELVIS BLADDER: Air within the dependent urinary bladder, nonspecific. No wall thickening. REPRODUCTIVE: Unremarkable. ABDOMEN & PELVIS STOMACH AND BOWEL: Large paraesophageal hiatal hernia. Stomach and small bowel are unremarkable. Smal l duodenal diverticulum. Scattered diverticula are noted throughout the colon. Nondilated loop of tra nsverse colonic bowel are contained within the ventral abdominal wall hernia. No evidence of bowel ob struction. PERITONEUM: No evidence of pneumoperitoneum or free fluid. VASCULATURE: Moderate atherosclerotic calcifications are present throughout the abdominal aorta and i ts branches. No evidence of aortic aneurysm. MUSCULOSKELETAL: Posterior lumbar fixation hardware with discectomy and laminectomy changes of L4-L5. Grade 1 anterolisthesis of L5 on S1. Moderate multilevel discogenic and degenerative changes of the remaining lumbar spine. Mild degenerative changes of the hip joints bilaterally. LYMPH NODES: No gross evidence for lymphadenopathy. SOFT TISSUE/ABDOMINAL WALL: Fat-containing ventral abdominal wall hernia, hernia defect measures at l east 3.9 cm in width. No evidence for bowel dilatation or acute convocation within the hernia sac. Ad ditional fat-containing ventral abdominal wall hernia with hernia defect measuring 2.4 cm. Presacral stimulator present. Generator in the superficial left gluteal region. IMPRESSION: 1. Bowel containing ventral abdominal wall hernia. No evidence for acute complication. 2. Large hiatal hernia. No evidence for obstruction. 3. Air noted within the urinary bladder, likely from recent instrumentation. 4. Colonic diverticulosis and other incidental findings as detailed above.
[2023-05-09 20:32] LABS: Appearance,Urine Clear (Clear); Bacteria,Urine Moderate /hpf; Bilirubin,Urine Negative (Negative); Blood,Urine Negative (Negative); Color,Urine Yellow; Glucose,Urine (UA) Negative (Negative); Hyaline Casts,Urine 1 /lpf (0-2); Ketones,Urine 1+ (Negative); Leukocyte Esterase,Urine Trace (Negative); Mucus,Urine Occasional /hpf; Nitrite,Urine Positive (Negative); PH, Urine 6.5 (5.0-8.0); Protein,Urine Trace (Negative); RBC,Urine 1 /hpf (0-5); Specific Gravity,Urine 1.027 (1.001-1.035); Squamous Epithelial Cell,Urine <1 /hpf (0-4); Urobilinogen,Urine <2.0 mg/dL (<2.0); WBC,Urine 9 /hpf (0-5)
[2023-05-09] MEDS ORDERED: AMOXIC-POT CLAV 875-125MG 1 EACH TAB PO STA (21:31)
[2023-05-09] MEDS ORDERED: cefTRIAXone IN SWFI 1,000 MG/10 ML SYRINGE IVP STA (21:31)
[2023-05-09 22:09] VITALS: BP 114/62; PULSE 86; RESP 20; TEMP 98
== END 2023-05-09 22:18 | disposition home or self-care (01) ==
LOC: EC 16:40
DX: N39.0 Urinary tract infection, site not specified (principal); F41.0 Panic disorder [episodic paroxysmal anxiety]; Z20.822 Contact with and (suspected) exposure to COVID-19; F32.A Depression, unspecified; F41.9 Anxiety disorder, unspecified; I11.0 Hypertensive heart disease with heart failure; I50.9 Heart failure, unspecified; M19.90 Unspecified osteoarthritis, unspecified site; Z95.5 Presence of coronary angioplasty implant and graft; Z79.1 Long term (current) use of non-steroidal anti-inflammatories (NSAID); Z79.899 Other long term (current) drug therapy; Z88.8 Allergy status to other drugs, medicaments and biological substances; Z90.49 Acquired absence of other specified parts of digestive tract
CPT/HCPCS: 36415; 80053; 82150; 83605; 83690; 85025; 85610; 85730; 81001; 87636; 71045; 74176; 99285; 96365; 96375 ×4; 96361; J2270; J2405; J0696; J0131; C9113

== ENCOUNTER → 2023-05-29 | Outpatient (CLI) | payer MEDICARE, OTHER ==
[2023-05-29 14:56] LABS: African American GFR (CKD) >90 (>60 ml/min/1.73 sqM); Blood Urea Nitrogen 15 mg/dL (7-17); Non-African American GFR(CKD) >90 (>60 ml/min/1.73 sqM)
--- NOTE | 2023-06-01 19:57 | CT ---
EXAMINATION TYPE: CT lumbar spine wo/w con DATE OF EXAM: 05/29/2023 COMPARISON: 08/24/2022 HISTORY: 73-year-old female chronic low back pain, hx of sx. M54.50 Low back pain G89.4 CHRONIC PAIN SYNDROME TECHNIQUE: Contiguous axial scanning of the lumbar spine performed without and with IV Contrast, devin ent injected with 100 mL of Isovue 300. Coronal/sagittal reconstructions performed. CT DLP: 3892.5 mGycm Automated exposure control for dose reduction was used. FINDINGS: Tiny focus of air within the bladder lumen. There is extensive sigmoid diverticulosis noted There is a moderate to large hiatal hernia involving proximal half of the stomach. Suspect some fibro sis in the lower lungs. Cholecystectomy clips. There is a degenerated levoconvex scoliosis of the lumbar spine. Postsurgical change L3-L5 posterior and interbody fusion. There seems to be some degenerative bony an kylosis above the fusion at L2-L3. Advanced degenerative changes elsewhere throughout the lumbar spine with severe degenerative disc dis ease at L5-S1 with progressive sclerotic endplate change and endplate erosion. Grade 1, now nearly gr lili 2 anterolisthesis is present here, increased from prior. Degenerative grade 1 retrolisthesis T12-L1 and L1-L2. Suspect mild spinal canal stenosis at T12-L1 and possibly moderate to severe at L1-L2. Possibly moder ate at L2-L3. Assessment of the spinal canal about L5-S1 and the surgical levels is very limited due to extensive m etal artifacts. On the right, there is moderate neuroforaminal stenosis at L1-L2 and L2-L3. Moderate to severe L5-S1. On the left, there is severe left neuroforaminal stenosis at L5-S1 and moderate at L1-L2. Underlying sacral Tarlov cyst noted. IMPRESSION: 1. ADVANCED MULTILEVEL SPONDYLOTIC CHANGE. THERE IS UNDERLYING L3-L5 POSTERIOR AND INTERBODY FUSION C HANGE. CHRONIC DEGENERATIVE INTERBODY ANKYLOSIS ABOVE THE FUSION AT L2-L3. 2. DEGENERATIVE GRADE 1 RETROLISTHESIS AT T12-L1 AND L1-L2. DEGENERATIVE GRADE 1, NEARLY GRADE 2 ANTE ROLISTHESIS AT L5-S1 MAY BE SLIGHTLY INCREASED. 3. INTERVAL WORSENING IN DISC/ENDPLATE DEGENERATIVE CHANGE AT L5-S1 NOW WITH PROGRESSIVE ENDPLATE SCL EROSIS AND ENDPLATE EROSION FROM THE [id number] CHANGES. 4. VARIABLE NEURAL FORAMINAL STENOSES OUTLINED ABOVE, SEVERE ON THE LEFT AT L5-S1 AND MODERATE TO SEVERE ON THE RIGHT AT L5-S1. 5. A SMALL FOCUS OF AIR IN THE LUMEN OF THE GALLBLADDER. QUERY ANY RECENT INSTRUMENTATION OR SIGNS/SY MPTOMS OF INFECTION. EXTENSIVE SIGMOID DIVERTICULOSIS.
== END | disposition home or self-care (01) ==
LOC: RADCTMAIN 13:40
PROVIDERS: ATTEND Psychiatry & Neurology Neurology
DX: M47.816 Spondylosis without myelopathy or radiculopathy, lumbar region (principal); M51.36 Other intervertebral disc degeneration, lumbar region; M43.16 Spondylolisthesis, lumbar region; M99.73 Connective tissue and disc stenosis of intervertebral foramina of lumbar region; G89.4 Chronic pain syndrome; K57.30 Diverticulosis of large intestine without perforation or abscess without bleeding
CPT/HCPCS: 82565; 84520; 72133; 36415; Q9967

== ENCOUNTER → 2023-05-31 | Outpatient (CLI) | payer MEDICARE, OTHER ==
[2023-05-31 20:10] LABS: HGB 13.8 d/dL (12.0-15.0); MCH 29.9 pg (27.0-32.0); MCHC 32.1 d/dL (32.0-37.0); MCV 93.3 FL (80.0-97.0); NRBC Per 100 WBC 0 X 10*3/uL (0.00-0.01); Platelet Count 255 X 10*3/uL (140-440); RBC 4.61 X 10*6/uL (4.10-5.20); RDW 14.2 % (11.5-14.5); WBC 4.49 X 10*3/uL (4.50-10.00)
[2023-05-31 20:22] LABS: Chol/HDL Ratio 3.09 Ratio; LDL Cholesterol,Calculated 48.7 mg/dL (0.0-131.0)
[2023-05-31 20:28] LABS: ALT 17 U/L (8-44); AST 34 U/L (13-35); Albumin 3.8 d/dL (3.8-4.9); Albumin/Globulin Ratio 1.36 Ratio (1.60-3.17); Alkaline Phosphatase 94 U/L (41-126); BUN/Creat Ratio 18.14 Ratio (12.00-20.00); Blood Urea Nitrogen 12.7 mg/dL (9.0-27.0); Calcium 9.4 mg/dL (8.7-10.3); Carbon Dioxide 23.8 mmol/L (21.6-31.8); Chloride 104 mmol/L (96-109); Globulin 2.8 d/dL (1.6-3.3); Glucose 91 mg/dL (70-110); Potassium 4.5 mmol/L (3.5-5.5); Sodium 140 mmol/L (135-145); Total Bilirubin 0.8 mg/dL (0.3-1.2); Total Protein 6.6 d/dL (6.2-8.2)
== END | disposition home or self-care (01) ==
LOC: LABWHC1 12:00
PROVIDERS: ATTEND Family Medicine
DX: I50.32 Chronic diastolic (congestive) heart failure (principal); F33.1 Major depressive disorder, recurrent, moderate
CPT/HCPCS: 36415; 80053; 80061; 83036; 84443; 85027

== ENCOUNTER 2023-08-11 08:08 | Emergency (ER) | payer MEDICARE, OTHER ==
[2023-08-11 08:27] VITALS: TEMP 98
[2023-08-11] MEDS ORDERED: methylPREDNISolone SOD SUCCI 125 MG/2 ML VIAL IV STA (08:28)
[2023-08-11] MEDS ORDERED: HYDROmorphone 1 MG/ML 1 ML SYRINGE IVP STA (08:28)
--- NOTE | 2023-08-11 08:36 | ED ---
General Adult HPI - General Chief complaint: Back Pain/Injury Stated complaint: Back Pain Time Seen by Provider: 08/11/23 08:15 Source: patient, RN notes reviewed, old records reviewed Mode of arrival: ambulatory Limitations: no limitations - History of Present Illness Initial comments: This is a 73-year-old female who presents emergency Department complaining of left sided sciatica. Patient states is long-standing history of this. Patient states she is just been okayed to get a pain pump placed. Patient states she woke up this morning the pain was a little worse than normal and her 7.5 [place] was did not help her this morning. Patient states the pain radiates from her back always down to her foot. Patient states typically it radiates down her leg but not always to her foot. Patient denies any new numbness or weakness. Patient denies any difficulty urinating. Patient denies any urinary incontinence. Patient denies any new symptoms patient denies any trauma. Patient states she just had a bladder stimulator removed so she can get an MRI of her back. She has a neurology she's following up with. - Related Data Home Medications Medication Instructions Recorded Confirmed Aspirin 81 mg PO AC-SUPPER 12/14/14 05/09/23 Cyanocobalamin [Vitamin B-12] 1,000 mcg PO AC-LUNCH 12/14/14 05/09/23 Multivitamins, Thera [Multivitamin 1 tab PO DAILY 12/14/14 05/09/23 (formulary)] Pilocarpine [Salagen] 5 mg PO QID 12/14/14 05/09/23 Pramipexole [Mirapex] 0.25 mg PO HS 12/14/14 05/09/23 Cranberry Fruit Extract [Cranberry] 500 mg PO DAILY 12/28/15 05/09/23 Atorvastatin Calcium [Lipitor] 10 mg PO HS 07/10/19 05/09/23 Cetirizine HCl [Zyrtec] 10 mg PO HS 07/10/19 05/09/23 [place]-3 Fatty Acids/Fish Oil [Fish 1 cap PO DAILY 07/10/19 05/09/23 Oil 1,000 mg Softgel] Gabapentin [Neurontin] 100 mg PO DAILY 07/26/22 05/09/23 Gabapentin [Neurontin] 200 mg PO HS 07/26/22 05/09/23 Hydrocodone/Acetaminophen 1 tab PO TID 07/26/22 05/09/23 [Hydrocodone/Acetaminophen 7.5-325] Meloxicam [Mobic] 15 mg PO DAILY 07/26/22 05/09/23 Metoprolol Tartrate [Lopressor] 25 mg PO BID 07/26/22 05/09/23 Omeprazole 40 mg PO DAILY 07/26/22 05/09/23 Venlafaxine HCl [Effexor] 100 mg PO DAILY 07/26/22 05/09/23 Calcium Carbonate/Vitamin D3 1 tab PO DAILY 10/05/22 05/09/23 [Calcium 600-D3 20 mcg (800 Unit)] Simethicone [Gas-X] 125 mg PO W/SUPPER 10/05/22 05/09/23 nitrofurantoin macrocrystaL 100 mg PO HS 10/05/22 05/09/23 [Nitrofurantoin] oxyBUTYnin chloride [Ditropan XL] 10 mg PO HS 02/13/23 05/09/23 Melatonin 5 mg PO HS 04/16/23 05/09/23 Ubidecarenone [Coenzyme Q10] 100 mg PO DAILY 05/09/23 05/09/23 traZODone HCL [Desyrel] 100 mg PO HS PRN 05/09/23 05/09/23 Previous Rx's Medication Instructions Recorded Amoxic-Pot Clav 875-125Mg 1 tab PO Q12HR #20 tablet 05/09/23 [Augmentin 875-125] predniSONE [Deltasone] 40 mg PO DAILY #8 tab 08/11/23 Allergies Allergy/AdvReac Type Severity Reaction Status Date / Time adhesive tape Allergy Rash/Hives, Verified 08/11/23 08:13 "paper tape is ok" Review of Systems ROS Statement: Those systems with pertinent positive or pertinent negative responses have been documented in the HPI. ROS Other: All systems not noted in ROS Statement are negative. Past Medical History Past Medical History: Hearing Disorder / Deafness, Hypertension, Osteoarthritis (OA) Additional Past Medical History / Comment(s): Arrhythmia, hx anemia, wears pad/brief for urinary incontinence, frequent UTI's, on longterm antibiotic treatment to prevent UTI, SOB, deaf in right ear, hard of hearing in left ear, bilateral hearing aid use. History of Any Multi-Drug Resistant Organisms: None Reported Past Surgical History: Appendectomy, Cholecystectomy, Heart Catheterization With Stent, Hernia Repair, Hysterectomy, Joint Replacement Additional Past Surgical History / Comment(s): Pain Clinic Procedures, CARDIAC STENTS X2, L3-4-5 FUSION, total right knee replacement, bilateral cataract surgery. hiatal hernia repair. Past Anesthesia/Blood Transfusion Reactions: No Reported Reaction Additional Past Anesthesia/Blood Transfusion Reaction / Comment(s): "Slow coming out." Date of Last Stent Placement:: Past Psychological History: Anxiety, Depression Smoking Status: Never smoker Past Alcohol Use History: None Reported Past Drug Use History: None Reported - Past Family History Father Family Medical History: Cancer Sister(s) Family Medical History: Cancer General Exam - General Exam Comments Initial Comments: GENERAL: Patient is well-developed and well-nourished. Patient is nontoxic and well- hydrated and is in mild distress. ENT: Neck is soft and supple. No significant lymphadenopathy is noted. Oropharynx is clear. Moist mucous membranes. Neck has full range of motion without eliciting any pain. EYES: The sclera were anicteric and conjunctiva were pink and moist. Extraocular movements were intact and pupils were equal round and reactive to light. Eyelids were unremarkable. SKIN: Skin is clear with no lesions or rashes and otherwise unremarkable. NEUROLOGIC: Patient is alert and oriented x3. Cranial nerves II through XII are grossly intact. Motor and sensory are also intact. Normal speech, volume and content. Symmetrical smile. Patient's straight leg test is positive at 30 on the left. MUSCULOSKELETAL: Normal extremities with adequate strength and full range of motion. PSYCHIATRIC: Normal psychiatric evaluation. Limitations: no limitations Course Vital Signs 08/11/23 08:09 Temperature 98 F Pulse Rate 80 Respiratory 18 Rate Blood Pressure 148/82 O2 Sat by Pulse 98 Oximetry Medical Decision Making - Medical Decision Making Was pt. sent in by a medical professional or institution (, PA, SENIOR FORMULATION SCIENTIST, urgent care, hospital, or fpc...) When possible be specific @ -No Did you speak to anyone other than the patient for history (EMS, parent, family, police, friend...)? What history was obtained from this source @ -Daughter gets quite a bit of the history Did you review nursing and triage notes (agree or disagree)? Why? @ -I reviewed and agree with nursing and triage notes Were old charts reviewed (outside hosp., previous admission, EMS record, old EKG, old radiological studies, urgent care reports/EKG's, fpc records)? Report findings @ -I have reviewed old radiological studies an old charts on this patient Differential Diagnosis (chest pain, altered mental status, abdominal pain women, abdominal pain men, vaginal bleeding, weakness, fever, dyspnea, syncope, headache, dizziness, GI bleed, back pain, seizure, CVA, palpatations, mental health, musculoskeletal)? @ -Differential Musculoskeletal Muscular strain, contusion, ligament sprain, fracture, arthritis, septic arthritis, bursitis, cellulitis, muscle spasm, nerve compression, DVT, arterial occlusion, herpes zoster, electrolyte abnormality, tumor.... This is not meant to be in all inclusive list EKG interpreted by me (3pts min.). @ -As above X-rays interpreted by me (1pt min.). @ -None done CT interpreted by me (1pt min.). @ -None done U/S interpreted by me (1pt. min.). @ -None done What testing was considered but not performed or refused? (CT, X-rays, U/S, labs)? Why? @ -None What meds were considered but not given or refused? Why? @ -None Did you discuss the management of the patient with other professionals (professionals i.e. , PA, SENIOR FORMULATION SCIENTIST, lab, RT, psych nurse, social media editor, government employee, teacher, supervisory cbp officer, telehealth case manager)? Give summary @ -No Was smoking cessation discussed for >3mins.? @ -No Was critical care preformed (if so, how long)? @ -No Were there social determinants of health that impacted care today? How? (Homelessness, low income, unemployed, alcoholism, drug addiction, transportation, low edu. Level, literacy, decrease access to med. care, nursing home, rehab)? @ -No Was there de-escalation of care discussed even if they declined (Discuss DNR or withdrawal of care, Hospice)? DNR status @ -No What co-morbidities impacted this encounter? (DM, HTN, Smoking, COPD, CAD, Cancer, CVA, ARF, Chemo, Hep., AIDS, mental health diagnosis, sleep apnea, morbid obesity)? @ -None Was patient admitted / discharged? Hospital course, mention meds given and route, prescriptions, significant lab abnormalities, going to OR and other pertinent info. @ -Patient received 225 mg of Solu-Medrol as well as Dilaudid and she is feeling considerably better though she still has a little bit of pain slightly 0.5 of Dilaudid prior to leaving. Patient has pain medications at home she will follow-up with her neurologist for her pain patient is instructed to come back if any neurologic deficit Undiagnosed new problem with uncertain prognosis? @ -No Drug Therapy requiring intensive monitoring for toxicity (Heparin, Nitro, Insulin, Cardizem)? @ -No Were any procedures done? @ -No Diagnosis/symptom? @ -Chronic sciatica Acute, or Chronic, or Acute on Chronic? @ -Chronic Uncomplicated (without systemic symptoms) or Complicated (systemic symptoms)? @ -Uncomplicated Side effects of treatment? @ -No Exacerbation, Progression, or Severe Exacerbation? @ -No Poses a threat to life or bodily function? How? (Chest pain, [place], [place], pneumonia, PE, COPD, DKA, ARF, appy, cholecystitis, CVA, Diverticulitis, Homicidal, Suicidal, threat to staff... and all critical care pts) @ -No Disposition Clinical Impression: Sciatica Disposition: HOME SELF-CARE Instructions (If sedation given, give patient instructions): Sciatica (ED) Prescriptions: predniSONE [Deltasone] 40 mg PO DAILY #8 tab Is patient prescribed a controlled substance at d/c from ED?: No Referrals: David Mora MD [Primary Care Provider] - 1-2 days Time of Disposition: 09:35
[2023-08-11] MEDS ORDERED: HYDROmorphone 0.5 MG/0.5 ML SYRINGE IVP STA (09:34)
[2023-08-11 09:58] VITALS: BP 176/89; PULSE 73; RESP 20
== END 2023-08-11 09:58 | disposition home or self-care (01) ==
LOC: EC 08:08
DX: M54.32 Sciatica, left side (principal); I10 Essential (primary) hypertension; F32.A Depression, unspecified; F41.9 Anxiety disorder, unspecified; M19.90 Unspecified osteoarthritis, unspecified site; Z79.1 Long term (current) use of non-steroidal anti-inflammatories (NSAID); Z79.82 Long term (current) use of aspirin; Z79.899 Other long term (current) drug therapy; Z88.8 Allergy status to other drugs, medicaments and biological substances; Z90.49 Acquired absence of other specified parts of digestive tract; Z95.5 Presence of coronary angioplasty implant and graft
CPT/HCPCS: 99283; 96374; 96375; 96376; J2930; J1170 ×2

== ENCOUNTER 2023-09-01 20:07 | Emergency (ER) | payer MEDICARE, OTHER ==
[2023-09-01] MEDS ORDERED: HYDROmorphone 0.5 MG/0.5 ML SYRINGE IM STA ×2 (20:29→21:07)
[2023-09-01 20:32] VITALS: TEMP 97.6
[2023-09-01] MEDS ORDERED: HYDROmorphone 1 MG/ML 1 ML SYRINGE IM STA (20:34)
--- NOTE | 2023-09-01 21:09 | ED ---
General Adult HPI - General Chief complaint: Back Pain/Injury Stated complaint: Back Pain Time Seen by Provider: 09/01/23 20:22 Source: patient, RN notes reviewed Mode of arrival: ambulatory Limitations: no limitations - History of Present Illness Initial comments: 73-year-old female with past medical history significant for sciatica on chronic back pain presents the emergency department with a chief complaint of left-sided hip pain. She reports that this is similar to her flares of sciatica. She does take [place] 7.5 at home however this is not provided her any relief. She denies any injury or injury or trauma. She denies any red flag symptoms such as fever, chills, saddle paresthesia, loss of bowel or bladder function. She describes her pain is chronic in nature - Related Data Home Medications Medication Instructions Recorded Confirmed Aspirin 81 mg PO AC-SUPPER 12/14/14 05/09/23 Cyanocobalamin [Vitamin B-12] 1,000 mcg PO AC-LUNCH 12/14/14 05/09/23 Multivitamins, Thera [Multivitamin 1 tab PO DAILY 12/14/14 05/09/23 (formulary)] Pilocarpine [Salagen] 5 mg PO QID 12/14/14 05/09/23 Pramipexole [Mirapex] 0.25 mg PO HS 12/14/14 05/09/23 Cranberry Fruit Extract [Cranberry] 500 mg PO DAILY 12/28/15 05/09/23 Atorvastatin Calcium [Lipitor] 10 mg PO HS 07/10/19 05/09/23 Cetirizine HCl [Zyrtec] 10 mg PO HS 07/10/19 05/09/23 [place]-3 Fatty Acids/Fish Oil [Fish 1 cap PO DAILY 07/10/19 05/09/23 Oil 1,000 mg Softgel] Gabapentin [Neurontin] 100 mg PO DAILY 07/26/22 05/09/23 Gabapentin [Neurontin] 200 mg PO HS 07/26/22 05/09/23 Hydrocodone/Acetaminophen 1 tab PO TID 07/26/22 05/09/23 [Hydrocodone/Acetaminophen 7.5-325] Meloxicam [Mobic] 15 mg PO DAILY 07/26/22 05/09/23 Metoprolol Tartrate [Lopressor] 25 mg PO BID 07/26/22 05/09/23 Omeprazole 40 mg PO DAILY 07/26/22 05/09/23 Venlafaxine HCl [Effexor] 100 mg PO DAILY 07/26/22 05/09/23 Calcium Carbonate/Vitamin D3 1 tab PO DAILY 10/05/22 05/09/23 [Calcium 600-D3 20 mcg (800 Unit)] Simethicone [Gas-X] 125 mg PO W/SUPPER 10/05/22 05/09/23 nitrofurantoin macrocrystaL 100 mg PO HS 10/05/22 05/09/23 [Nitrofurantoin] oxyBUTYnin chloride [Ditropan XL] 10 mg PO HS 02/13/23 05/09/23 Melatonin 5 mg PO HS 04/16/23 05/09/23 Ubidecarenone [Coenzyme Q10] 100 mg PO DAILY 05/09/23 05/09/23 traZODone HCL [Desyrel] 100 mg PO HS PRN 05/09/23 05/09/23 Previous Rx's Medication Instructions Recorded Amoxic-Pot Clav 875-125Mg 1 tab PO Q12HR #20 tablet 05/09/23 [Augmentin 875-125] predniSONE [Deltasone] 40 mg PO DAILY #8 tab 08/11/23 Allergies Allergy/AdvReac Type Severity Reaction Status Date / Time adhesive tape Allergy Rash/Hives, Verified 09/01/23 20:15 "paper tape is ok" Review of Systems ROS Statement: Those systems with pertinent positive or pertinent negative responses have been documented in the HPI. ROS Other: All systems not noted in ROS Statement are negative. Past Medical History Past Medical History: Hearing Disorder / Deafness, Hypertension, Osteoarthritis (OA) Additional Past Medical History / Comment(s): Arrhythmia, hx anemia, wears pad/brief for urinary incontinence, frequent UTI's, on fdc antibiotic treatment to prevent UTI, SOB, deaf in right ear, hard of hearing in left ear, bilateral hearing aid use. History of Any Multi-Drug Resistant Organisms: None Reported Past Surgical History: Appendectomy, Cholecystectomy, Heart Catheterization With Stent, Hernia Repair, Hysterectomy, Joint Replacement Additional Past Surgical History / Comment(s): Pain Clinic Procedures, CARDIAC STENTS X2, L3-4-5 FUSION, total right knee replacement, bilateral cataract surgery. hiatal hernia repair. Past Anesthesia/Blood Transfusion Reactions: No Reported Reaction Additional Past Anesthesia/Blood Transfusion Reaction / Comment(s): "Slow coming out." Date of Last Stent Placement:: Past Psychological History: Anxiety, Depression Smoking Status: Never smoker Past Alcohol Use History: None Reported Past Drug Use History: None Reported - Past Family History Father Family Medical History: Cancer Sister(s) Family Medical History: Cancer General Exam - General Exam Comments Initial Comments: General: Alert, in no acute distress Head: atraumatic normocephalic. Eyes PERRL, EOMI intact, mucous membranes moist Respiratory: Lungs clear to auscultation bilaterally Cardiovascular: Rate regular rate and rhythm Abdominal: Soft without guarding or rebound Extremities: Normal inspection with full range of motion and normal capillary refill Neuroogic: alert and oriented 3, CN II-XII intact, able to ambulate with steady gait Skin: warm dry and intact with normal color Limitations: no limitations Course Vital Signs 09/01/23 09/01/23 20:11 21:26 Temperature 97.6 F Pulse Rate 95 94 Respiratory 20 18 Rate Blood Pressure 120/78 125/64 O2 Sat by Pulse 93 L 100 Oximetry - Reevaluation(s) Reevaluation #1: 09/01/23 21:08 Patient reevaluated. Patient reports that improvement status post medications. Agreeable with the plan for discharge home. Medical Decision Making - Medical Decision Making Was pt. sent in by a medical professional or institution ([facility], TECHNICAL ADMINISTRATOR, urgent care, hospital, or care home...) When possible be specific @ -[No] Did you speak to anyone other than the patient for history (EMS, parent, family, police, friend...)? What history was obtained from this source @ -[No] Did you review nursing and triage notes (agree or disagree)? Why? @ -[I reviewed and agree with nursing and triage notes] Were old charts reviewed (outside hosp., previous admission, EMS record, old EKG, old radiological studies, urgent care reports/EKG's, care home records)? Report findings @ -[No old charts were reviewed] Differential Diagnosis (chest pain, altered mental status, abdominal pain women, abdominal pain men, vaginal bleeding, weakness, fever, dyspnea, syncope, headache, dizziness, GI bleed, back pain, seizure, CVA, palpatations, mental health, musculoskeletal)? @ -[not applicable] EKG interpreted by me (3pts min.). @ -[As above] X-rays interpreted by me (1pt min.). @ -[None done] CT interpreted by me (1pt min.). @ -[None done] U/S interpreted by me (1pt. min.). @ -[None done] What testing was considered but not performed or refused? (CT, X-rays, U/S, labs)? Why? @ -Patient offered x-ray however she declined. She denies any new injury or trauma. She describes her symptoms is chronic in nature What meds were considered but not given or refused? Why? @ -[None] Did you discuss the management of the patient with other professionals (professionals i.e. , PA, TECHNICAL ADMINISTRATOR, lab, RT, psych nurse, social work administrator, contract administration manager, teacher, natural resource officer, case work aide)? Give summary @ -[No] Was smoking cessation discussed for >3mins.? @ -[No] Was critical care preformed (if so, how long)? @ -[No] Were there social determinants of health that impacted care today? How? (Homelessness, low income, unemployed, alcoholism, drug addiction, transportation, low edu. Level, literacy, decrease access to med. care, fpc, rehab)? @ -[No] Was there de-escalation of care discussed even if they declined (Discuss DNR or withdrawal of care, Hospice)? DNR status @ -[No] What co-morbidities impacted this encounter? (DM, HTN, Smoking, COPD, CAD, Cancer, CVA, ARF, Chemo, Hep., AIDS, mental health diagnosis, sleep apnea, morbid obesity)? @ -[None] Was patient admitted / discharged? Hospital course, mention meds given and route, prescriptions, significant lab abnormalities, going to OR and other pertinent info. @ Discharged. This is a 73-year-old female who presents to the emergency department with a chief complaint of left hip pain. She describes as cold in nature. Patient is agreeable with a lot of with symptomatic improvement. Agreeable with the plan for discharge home. Return precautions discussed patient discharged in stable condition. Case was discussed with Dr. Marylin HUERTAS who presents to the care Undiagnosed new problem with uncertain prognosis? @ -[No] Drug Therapy requiring intensive monitoring for toxicity (Heparin, Nitro, Insulin, Cardizem)? @ -[No] Were any procedures done? @ -[No] Diagnosis/symptom? @ -Sciatica Acute, or Chronic, or Acute on Chronic? @ -Acute Uncomplicated (without systemic symptoms) or Complicated (systemic symptoms)? @ -Uncomplicated Side effects of treatment? @ -[No] Exacerbation, Progression, or Severe Exacerbation? @ -[No] Poses a threat to life or bodily function? How? (Chest pain, [place], [place], pneumonia, PE, COPD, DKA, ARF, appy, cholecystitis, CVA, Diverticulitis, Homicidal, Suicidal, threat to staff... and all critical care pts) @ -Low likelihood Disposition Clinical Impression: Sciatica Disposition: HOME SELF-CARE Condition: Stable Instructions (If sedation given, give patient instructions): Sciatica (ED) Additional Instructions: Please monitor symptoms closely Please return to the nearest emergency department if worsening pain develops Is patient prescribed a controlled substance at d/c from ED?: No Referrals: David Mora MD [Primary Care Provider] - 1-2 days Time of Disposition: 21:09
[2023-09-01 21:44] VITALS: BP 125/64; PULSE 94; RESP 18
== END 2023-09-01 21:27 | disposition home or self-care (01) ==
LOC: EC 20:07
DX: M54.30 Sciatica, unspecified side (principal); I10 Essential (primary) hypertension; M19.90 Unspecified osteoarthritis, unspecified site; Z86.59 Personal history of other mental and behavioral disorders; Z91.09 Other allergy status, other than to drugs and biological substances; Z79.1 Long term (current) use of non-steroidal anti-inflammatories (NSAID); Z79.82 Long term (current) use of aspirin; Z79.899 Other long term (current) drug therapy
CPT/HCPCS: 99283; 96372 ×2; J1170 ×2

== ENCOUNTER 2023-09-02 10:10 | Emergency (ER) | payer MEDICARE, OTHER ==
[2023-09-02 10:38] VITALS: TEMP 98.3
[2023-09-02] MEDS ORDERED: HYDROmorphone 1 MG/ML 1 ML SYRINGE IM STA ×2 (11:17→12:19)
--- NOTE | 2023-09-02 11:20 | ED ---
Back Pain HPI - General Chief Complaint: Back Pain/Injury Stated Complaint: Back Pain Time Seen by Provider: 09/02/23 11:06 Source: patient Limitations: no limitations - History of Present Illness Initial Comments: 73-year-old female with a past medical history significant for sciatica presenting to the ED with a chief complaint of hip pain. Patient notes a history of chronic left-sided hip pain and she follows with Dr. Mcgee of [facility]. Denies any recent injury or trauma. Notes that she recently passed a pain pump trial and is due to have one formally placed. However in the meantime notes that her pain medications at home ([place] 7.5) have been ineffective in controlling pain. No incontinence or saddle anesthesia. Denies urinary symptoms. Patient was seen here yesterday due to the same complaint. At that time, declined x-ray as she noted no new injury or trauma and noted that the pain is chronic in nature. At this time, patient had impro vement of pain with Dilaudid and was discharged home in stable condition. - Related Data Home Medications Medication Instructions Recorded Confirmed Aspirin 81 mg PO AC-SUPPER 12/14/14 05/09/23 Cyanocobalamin [Vitamin B-12] 1,000 mcg PO AC-LUNCH 12/14/14 05/09/23 Multivitamins, Thera [Multivitamin 1 tab PO DAILY 12/14/14 05/09/23 (formulary)] Pilocarpine [Salagen] 5 mg PO QID 12/14/14 05/09/23 Pramipexole [Mirapex] 0.25 mg PO HS 12/14/14 05/09/23 Cranberry Fruit Extract [Cranberry] 500 mg PO DAILY 12/28/15 05/09/23 Atorvastatin Calcium [Lipitor] 10 mg PO HS 07/10/19 05/09/23 Cetirizine HCl [Zyrtec] 10 mg PO HS 07/10/19 05/09/23 [place]-3 Fatty Acids/Fish Oil [Fish 1 cap PO DAILY 07/10/19 05/09/23 Oil 1,000 mg Softgel] Gabapentin [Neurontin] 100 mg PO DAILY 07/26/22 05/09/23 Gabapentin [Neurontin] 200 mg PO HS 07/26/22 05/09/23 Hydrocodone/Acetaminophen 1 tab PO TID 07/26/22 05/09/23 [Hydrocodone/Acetaminophen 7.5-325] Meloxicam [Mobic] 15 mg PO DAILY 07/26/22 05/09/23 Metoprolol Tartrate [Lopressor] 25 mg PO BID 07/26/22 05/09/23 Omeprazole 40 mg PO DAILY 07/26/22 05/09/23 Venlafaxine HCl [Effexor] 100 mg PO DAILY 07/26/22 05/09/23 Calcium Carbonate/Vitamin D3 1 tab PO DAILY 10/05/22 05/09/23 [Calcium 600-D3 20 mcg (800 Unit)] Simethicone [Gas-X] 125 mg PO W/SUPPER 10/05/22 05/09/23 nitrofurantoin macrocrystaL 100 mg PO HS 10/05/22 05/09/23 [Nitrofurantoin] oxyBUTYnin chloride [Ditropan XL] 10 mg PO HS 02/13/23 05/09/23 Melatonin 5 mg PO HS 04/16/23 05/09/23 Ubidecarenone [Coenzyme Q10] 100 mg PO DAILY 05/09/23 05/09/23 traZODone HCL [Desyrel] 100 mg PO HS PRN 05/09/23 05/09/23 Previous Rx's Medication Instructions Recorded Amoxic-Pot Clav 875-125Mg 1 tab PO Q12HR #20 tablet 05/09/23 [Augmentin 875-125] predniSONE [Deltasone] 40 mg PO DAILY #8 tab 08/11/23 Allergies Allergy/AdvReac Type Severity Reaction Status Date / Time adhesive tape Allergy Rash/Hives, Verified 09/02/23 10:18 "paper tape is ok" Review of Systems ROS Statement: Those systems with pertinent positive or pertinent negative responses have been documented in the HPI. ROS Other: All systems not noted in ROS Statement are negative. Past Medical History Past Medical History: Hearing Disorder / Deafness, Hypertension, Osteoarthritis (OA) Additional Past Medical History / Comment(s): Arrhythmia, hx anemia, wears pad/brief for urinary incontinence, frequent UTI's, on intermediate antibiotic treatment to prevent UTI, SOB, deaf in right ear, hard of hearing in left ear, bilateral hearing aid use. History of Any Multi-Drug Resistant Organisms: None Reported Past Surgical History: Appendectomy, Cholecystectomy, Heart Catheterization With Stent, Hernia Repair, Hysterectomy, Joint Replacement Additional Past Surgical History / Comment(s): Pain Clinic Procedures, CARDIAC STENTS X2, L3-4-5 FUSION, total right knee replacement, bilateral cataract surgery. hiatal hernia repair. Past Anesthesia/Blood Transfusion Reactions: No Reported Reaction Additional Past Anesthesia/Blood Transfusion Reaction / Comment(s): "Slow coming out." Date of Last Stent Placement:: Past Psychological History: Anxiety, Depression Smoking Status: Never smoker Past Alcohol Use History: None Reported Past Drug Use History: None Reported - Past Family History Father Family Medical History: Cancer Sister(s) Family Medical History: Cancer General Exam Limitations: no limitations General appearance: alert Eye exam: Present: normal appearance Respiratory exam: Present: normal lung sounds bilaterally Cardiovascular Exam: Present: regular rate, normal rhythm Extremities exam: Present: other (Strength and sensation equal and intact in bilateral lower extremities. ) Neurological exam: Present: alert, oriented X3 Skin exam: Present: warm, dry Course Vital Signs 09/02/23 10:16 Temperature 98.3 F Pulse Rate 97 Respiratory 20 Rate Blood Pressure 119/75 O2 Sat by Pulse 99 Oximetry Medical Decision Making - Medical Decision Making Was pt. sent in by a medical professional or institution (, PA, SUPPLY SPECIALIST, urgent care, hospital, or senior living...) When possible be specific @ -No Did you speak to anyone other than the patient for history (EMS, parent, family, police, friend...)? What history was obtained from this source @ -No Did you review nursing and triage notes (agree or disagree)? Why? @ -I reviewed and agree with nursing and triage notes Were old charts reviewed (outside hosp., previous admission, EMS record, old EKG, old radiological studies, urgent care reports/EKG's, senior living records)? Report findings @ -Prior visit from yesterday reviewed. For further details please see HPI. Differential Diagnosis (chest pain, altered mental status, abdominal pain women, abdominal pain men, vaginal bleeding, weakness, fever, dyspnea, syncope, headache, dizziness, GI bleed, back pain, seizure, CVA, palpatations, mental health, musculoskeletal)? @ -Differential Musculoskeletal Muscular strain, contusion, ligament sprain, fracture, arthritis, septic arthritis, bursitis, cellulitis, muscle spasm, nerve compression, DVT, arterial occlusion, herpes zoster, electrolyte abnormality, tumor.... This is not meant to be in all inclusive list EKG interpreted by me (3pts min.). @ -None X-rays interpreted by me (1pt min.). @ -None done CT interpreted by me (1pt min.). @ -None done U/S interpreted by me (1pt. min.). @ -None done What testing was considered but not performed or refused? (CT, X-rays, U/S, labs)? Why? @ -None What meds were considered but not given or refused? Why? @ -None Did you discuss the management of the patient with other professionals (professionals i.e. DrSinan, PA, SUPPLY SPECIALIST, lab, RT, psych nurse, social service director, advice nurse, teacher, staff air tactical officer, test case developer)? Give summary @ -No Was smoking cessation discussed for >3mins.? @ -No Was critical care preformed (if so, how long)? @ -No Were there social determinants of health that impacted care today? How? ( Homelessness, low income, unemployed, alcoholism, drug addiction, transportation, low edu. Level, literacy, decrease access to med. care, residential, rehab)? @ -No Was there de-escalation of care discussed even if they declined (Discuss DNR or withdrawal of care, Hospice)? DNR status @ -No What co-morbidities impacted this encounter? (DM, HTN, Smoking, COPD, CAD, Cancer, CVA, ARF, Chemo, Hep., AIDS, mental health diagnosis, sleep apnea, morbid obesity)? @ -None Was patient admitted / discharged? Hospital course, mention meds given and route, prescriptions, significant lab abnormalities, going to OR and other pertinent info. @ -Discharge A 37-year-old female with a past medical history significant for sciatica, presenting to the ED with complaints of left hip pain that are chronic in nature. Was seen for this here yesterday and deferred x-ray at that time. P resenting today with continued pain. Patient had significant improvement of pain with Dilaudid. Patient discharged home in stable condition and advised follow-up with Dr. Bell as scheduled. Thus return precautions with patient who verbalizes agreement. Undiagnosed new problem with uncertain prognosis? @ -No Drug Therapy requiring intensive monitoring for toxicity (Heparin, Nitro, Insulin, Cardizem)? @ -No Were any procedures done? @ -No Diagnosis/symptom? @ -Left hip pain Acute, or Chronic, or Acute on Chronic? @ -Acute On chronic Uncomplicated (without systemic symptoms) or Complicated (systemic symptoms)? @ -Uncomplicated Side effects of treatment? @ -No Exacerbation, Progression, or Severe Exacerbation? @ -No Poses a threat to life or bodily function? How? (Chest pain, USA, MD, pneumonia, PE, COPD, DKA, ARF, appy, cholecystitis, CVA, Diverticulitis, Homicidal, Suicidal, threat to staff... and all critical care pts) @ -No Disposition Clinical Impression: Hip pain Disposition: HOME SELF-CARE Condition: Good Additional Instructions: Please return to the Emergency Department if symptoms worsen or any other concerns. Follow up with Dr. Mcgee as scheduled. Is patient prescribed a controlled substance at d/c from ED?: No Referrals: David Mora MD [Primary Care Provider] - 1-2 days Time of Disposition: 12:37
[2023-09-02 12:43] VITALS: RESP 16
[2023-09-02 13:33] VITALS: BP 120/76; PULSE 66
== END 2023-09-02 13:09 | disposition home or self-care (01) ==
LOC: EC 10:10
DX: M25.552 Pain in left hip (principal); I10 Essential (primary) hypertension; M19.90 Unspecified osteoarthritis, unspecified site; F41.9 Anxiety disorder, unspecified; F32.A Depression, unspecified; Z88.8 Allergy status to other drugs, medicaments and biological substances; Z79.899 Other long term (current) drug therapy; Z79.82 Long term (current) use of aspirin
CPT/HCPCS: 99284; 96372 ×2; J1170

== ENCOUNTER 2023-09-03 09:31 | Emergency (ER) | payer MEDICARE, OTHER ==
[2023-09-03] MEDS ORDERED: ORPHENADRINE 30 MG/ML 2 ML VIAL IM STA (09:52)
[2023-09-03] MEDS ORDERED: DEXAMETHASONE SOD PHOSPHATE 10 MG/ML 1 ML VIAL IM STA (09:52)
[2023-09-03] MEDS ORDERED: HYDROmorphone 1 MG/ML 1 ML SYRINGE IM STA ×2 (09:52→11:27)
--- NOTE | 2023-09-03 10:06 | ED ---
Back Pain [facility] - General Chief Complaint: Back Pain/Injury Stated Complaint: back pain Time Seen by Provider: 09/03/23 09:43 Source: patient, RN notes reviewed Mode of arrival: ambulatory Limitations: no limitations - History of Present Illness Initial Comments: This is a 73-year-old female who presents to the emergency department for left lower back pain. States that it is chronic in nature but has been worsening over the last few days. This is the third day in a row she has been here for ongoing pain. She has been treated with IM Dilaudid each time and discharged home. States that steroids and muscle relaxants often work well for her, however these were not prescribed. She has not been on these for a long period of time. Currently treating pain with [place] 7.5 mg and gabapentin, which have not been effective. Currently waiting for placement of a pain pump, which she was just approved for. Unsure when this will be done. Denies any loss of bowel/bladder control or saddle anesthesia. MD Complaint: back pain - Related Data Home Medications Medication Instructions Recorded Confirmed Aspirin 81 mg PO AC-SUPPER 12/14/14 05/09/23 Cyanocobalamin [Vitamin B-12] 1,000 mcg PO AC-LUNCH 12/14/14 05/09/23 Multivitamins, Thera [Multivitamin 1 tab PO DAILY 12/14/14 05/09/23 (formulary)] Pilocarpine [Salagen] 5 mg PO QID 12/14/14 05/09/23 Pramipexole [Mirapex] 0.25 mg PO HS 12/14/14 05/09/23 Cranberry Fruit Extract [Cranberry] 500 mg PO DAILY 12/28/15 05/09/23 Atorvastatin Calcium [Lipitor] 10 mg PO HS 07/10/19 05/09/23 Cetirizine HCl [Zyrtec] 10 mg PO HS 07/10/19 05/09/23 [place]-3 Fatty Acids/Fish Oil [Fish 1 cap PO DAILY 07/10/19 05/09/23 Oil 1,000 mg Softgel] Gabapentin [Neurontin] 100 mg PO DAILY 07/26/22 05/09/23 Gabapentin [Neurontin] 200 mg PO HS 07/26/22 05/09/23 Hydrocodone/Acetaminophen 1 tab PO TID 07/26/22 05/09/23 [Hydrocodone/Acetaminophen 7.5-325] Meloxicam [Mobic] 15 mg PO DAILY 07/26/22 05/09/23 Metoprolol Tartrate [Lopressor] 25 mg PO BID 07/26/22 05/09/23 Omeprazole 40 mg PO DAILY 07/26/22 05/09/23 Venlafaxine HCl [Effexor] 100 mg PO DAILY 07/26/22 05/09/23 Calcium Carbonate/Vitamin D3 1 tab PO DAILY 10/05/22 05/09/23 [Calcium 600-D3 20 mcg (800 Unit)] Simethicone [Gas-X] 125 mg PO W/SUPPER 10/05/22 05/09/23 nitrofurantoin macrocrystaL 100 mg PO HS 10/05/22 05/09/23 [Nitrofurantoin] oxyBUTYnin chloride [Ditropan XL] 10 mg PO HS 02/13/23 05/09/23 Melatonin 5 mg PO HS 04/16/23 05/09/23 Ubidecarenone [Coenzyme Q10] 100 mg PO DAILY 05/09/23 05/09/23 traZODone HCL [Desyrel] 100 mg PO HS PRN 05/09/23 05/09/23 Previous Rx's Medication Instructions Recorded Amoxic-Pot Clav 875-125Mg 1 tab PO Q12HR #20 tablet 05/09/23 [Augmentin 875-125] predniSONE [Deltasone] 40 mg PO DAILY #8 tab 08/11/23 methocarbamoL [Robaxin-750] 1,500 mg PO TID PRN #30 tab 09/03/23 predniSONE 50 mg PO DAILY 5 Days #5 tab 09/03/23 Allergies Allergy/AdvReac Type Severity Reaction Status Date / Time adhesive tape Allergy Rash/Hives, Verified 09/03/23 09:35 "paper tape is ok" Review of Systems ROS Statement: Those systems with pertinent positive or pertinent negative responses have been documented in the HPI. ROS Other: All systems not noted in ROS Statement are negative. 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 History of Any Multi-Drug Resistant Organisms: None Reported Past Surgical History: Appendectomy, Cholecystectomy, Heart Catheterization With Stent, Hernia Repair, Hysterectomy, Joint Replacement Additional Past Surgical History / Comment(s): Pain Clinic Procedures, CARDIAC STENTS X2, L3-4-5 FUSION, total right knee replacement, bilateral cataract surgery. hiatal hernia repair. Past Anesthesia/Blood Transfusion Reactions: No Reported Reaction Additional Past Anesthesia/Blood Transfusion Reaction / Comment(s): "Slow coming out." Date of Last Stent Placement:: Past Psychological History: Anxiety, Depression Smoking Status: Never smoker Past Alcohol Use History: None Reported Past Drug Use History: None Reported - Past Family History Father Family Medical History: Cancer Sister(s) Family Medical History: Cancer General Exam Limitations: no limitations General appearance: alert, in distress Head exam: Present: atraumatic, normocephalic, normal inspection Respiratory exam: Present: normal lung sounds bilaterally. Absent: respiratory distress, wheezes, rales, rhonchi, stridor Cardiovascular Exam: Present: regular rate, normal rhythm, normal heart sounds. Absent: systolic murmur, diastolic murmur, rubs, gallop, clicks Back exam: Present: tenderness (left lower back) Neurological exam: Present: alert, oriented X3, CN II-XII intact Psychiatric exam: Present: normal affect, normal mood Skin exam: Present: warm, dry, intact, normal color. Absent: rash Course Vital Signs 09/03/23 09:35 Temperature 98.9 F Pulse Rate 104 H Respiratory 18 Rate Blood Pressure 137/86 O2 Sat by Pulse 96 Oximetry Medical Decision Making - Medical Decision Making This is a 73-year-old female who presents to the emergency department for back pain. Was pt. sent in by a medical professional or institution? @ -No Did you speak to anyone other than the patient for history? @ -No Did you review nursing and triage notes? @ -Yes, and I agree, it is accurate with regards to the patient's symptoms. Were old charts reviewed? @ -No Differential Diagnosis? @ -Differential Back Pain: Strain, zoster, cauda equina syndrome, epidural abscess, vertebral osteomyelitis, discitis, fracture, subluxation, disc herniation, DJD, spinal stenosis, dissection, AAA, pancreatitis, peptic ulcer disease, pyelonephritis, kidney stone, this is not meant to be an all-inclusive list. EKG interpreted by me (3pts min.)? @ -Not obtained X-rays interpreted by me (1pt min.)? @ -Not obtained CT interpreted by me (1pt min.)? @ -Not obtained U/S interpreted by me (1pt. min.)? @ -Not obtained What testing was considered but not performed? (CT, X-rays, U/S, labs)? Why? @ -None What meds were considered but not given? Why? @ -None Did you discuss the management of the patient with other professionals? @ -No Did you reconcile home meds? @ -No Was smoking cessation discussed for >3mins.? @ -No Was critical care preformed (if so, how long)? @ -No Were there social determinants of health that impacted care today? How? (Homelessness, low income, unemployed, alcoholism, drug addiction, transportation, low edu. Level, literacy, decrease access to med. care, long term, rehab)? @ -No Was there de-escalation of care discussed even if they declined? (Discuss DNR or withdrawal of care, Hospice)? @ -No What co-morbidities impacted this encounter? (DM, HTN, Smoking, COPD, CAD, Cancer, CVA, Hep., AIDS, mental health diagnosis, sleep apnea, morbid obesity)? @ -Chronic back pain Was patient admitted / discharged? @ -Discharged. Patient's symptoms were controlled in the emergency department with Dilaudid, Toradol, and Norflex. Given that this is her third visit in 3 days, we discussed additional management options at home. Patient wished proceed with steroids and muscle relaxants, which are often effective for her. She was given a prescription for prednisone and Robaxin with dosing instructions reviewed. She'll otherwise follow-up for placement of the pain pump. Patient discharged home in stable condition. Undiagnosed new problem with uncertain prognosis? @ -None Drug Therapy requiring intensive monitoring for toxicity (Heparin, Nitro, Insulin, Cardizem)? @ -None Were any procedures done? @ -None Diagnosis/symptom? @ -Chronic back pain Acute, or Chronic, or Acute on Chronic? @ -Chronic Uncomplicated (without systemic symptoms) or Complicated (systemic symptoms)? @ -Uncomplicated Side effects of treatment? @ -None Exacerbation, Progression, or Severe Exacerbation] @ -Exacerbation Poses a threat to life or bodily function? @ -The pain is impacting her ability to function Return precautions reviewed in depth, the patient is instructed to return to the emergency department with any new, worsening, or concerning symptoms. Patient verbalized understanding. This case was discussed in detail with the attending ED physician, Dr. Castillo. Presentation, findings, and treatment plan discussed in detail as well. Disposition Clinical Impression: Chronic low back pain Disposition: HOME SELF-CARE Instructions (If sedation given, give patient instructions): Chronic Back Pain (DC) Additional Instructions: Return to the emergency department with any new, worsening, or concerning symptoms. Take the prednisone daily for 5 days. You can take the muscle relaxant as 1-2 tablets 3-4 times daily as needed for additional pain relief. Follow up with your primary care provider in 1-2 days. Prescriptions: predniSONE 50 mg PO DAILY 5 Days #5 tab methocarbamoL [Robaxin-750] 1,500 mg PO TID PRN #30 tab PRN Reason: Pain Is patient prescribed a controlled substance at d/c from ED?: No Referrals: David Mora MD [Primary Care Provider] - 1-2 days
[2023-09-03] MEDS ORDERED: KETOROLAC 15 MG/ML 1 ML VIAL IM STA (11:27)
[2023-09-03 11:55] VITALS: BP 115/79; PULSE 102; RESP 16; TEMP 98.1
== END 2023-09-03 11:55 | disposition home or self-care (01) ==
LOC: EC 09:31
DX: G89.29 Other chronic pain (principal); M54.50 Low back pain, unspecified; I10 Essential (primary) hypertension; M19.90 Unspecified osteoarthritis, unspecified site; F41.9 Anxiety disorder, unspecified; F32.A Depression, unspecified; Z79.82 Long term (current) use of aspirin; Z79.899 Other long term (current) drug therapy; Z88.8 Allergy status to other drugs, medicaments and biological substances
CPT/HCPCS: 99283; 96372 ×5; J1100; J2360; J1170; J1885

== ENCOUNTER 2023-10-13 13:52 | Emergency (ER) | payer MEDICARE, OTHER ==
[2023-10-13] MEDS ORDERED: HYDROmorphone 1 MG/ML 1 ML SYRINGE IM STA ×2 (14:35→15:44)
[2023-10-13] MEDS ORDERED: ORPHENADRINE 30 MG/ML 2 ML VIAL IM STA (14:35)
[2023-10-13] MEDS ORDERED: DEXAMETHASONE SOD PHOSPHATE 10 MG/ML 1 ML VIAL IM STA (14:35)
--- NOTE | 2023-10-13 14:43 | ED ---
General Adult HPI - General Chief complaint: ENT Stated complaint: Sore throat,Hip Pain Time Seen by Provider: 10/13/23 13:59 Source: patient, RN notes reviewed Mode of arrival: wheelchair Limitations: no limitations - History of Present Illness Initial comments: This is a 73-year-old female who presents to the emergency department for a sore throat and lower back/hip pain. She reports ongoing problems with sciatica, which has been problematic over the last 6 weeks. She did have a pain pump placed on 10/04, however there is currently only saline in this to make sure that there are not any leaks. They are planning to start her on morphine on 10/23. However, over the last few days in particular, she has been unable to get around due to the pain. Denies any loss of bowel/bladder control or saddle anesthesia. She does already take [place] at home. States that muscle relaxants and steroids have been helpful in the past, and she is not currently taking any of these at home. The sore throat started yesterday which seems to be getting worse. She has some difficulty swallowing due to the pain, denies any difficulty speaking. Denies any fevers or chills. She does have a cough, but states that this a chronic issue for her. It may be somewhat worse than usual. Denies any chest pain or shortness of breath. She did have sick contacts with individuals who tested positive for strep throat and RSV this past week. - Related Data Home Medications Medication Instructions Recorded Confirmed Aspirin 81 mg PO AC-SUPPER 12/14/14 05/09/23 Cyanocobalamin [Vitamin B-12] 1,000 mcg PO AC-LUNCH 12/14/14 05/09/23 Multivitamins, Thera [Multivitamin 1 tab PO DAILY 12/14/14 05/09/23 (formulary)] Pilocarpine [Salagen] 5 mg PO QID 12/14/14 05/09/23 Pramipexole [Mirapex] 0.25 mg PO HS 12/14/14 05/09/23 Cranberry Fruit Extract [Cranberry] 500 mg PO DAILY 12/28/15 05/09/23 Atorvastatin Calcium [Lipitor] 10 mg PO HS 07/10/19 05/09/23 Cetirizine HCl [Zyrtec] 10 mg PO HS 07/10/19 05/09/23 Achille-3 Fatty Acids/Fish Oil [Fish 1 cap PO DAILY 07/10/19 05/09/23 Oil 1,000 mg Softgel] Gabapentin [Neurontin] 100 mg PO DAILY 07/26/22 05/09/23 Gabapentin [Neurontin] 200 mg PO HS 07/26/22 05/09/23 Hydrocodone/Acetaminophen 1 tab PO TID 07/26/22 05/09/23 [Hydrocodone/Acetaminophen 7.5-325] Meloxicam [Mobic] 15 mg PO DAILY 07/26/22 05/09/23 Metoprolol Tartrate [Lopressor] 25 mg PO BID 07/26/22 05/09/23 Omeprazole 40 mg PO DAILY 07/26/22 05/09/23 Venlafaxine HCl [Effexor] 100 mg PO DAILY 07/26/22 05/09/23 Calcium Carbonate/Vitamin D3 1 tab PO DAILY 10/05/22 05/09/23 [Calcium 600-D3 20 mcg (800 Unit)] Simethicone [Gas-X] 125 mg PO W/SUPPER 10/05/22 05/09/23 nitrofurantoin macrocrystaL 100 mg PO HS 10/05/22 05/09/23 [Nitrofurantoin] oxyBUTYnin chloride [Ditropan XL] 10 mg PO HS 02/13/23 05/09/23 Melatonin 5 mg PO HS 04/16/23 05/09/23 Ubidecarenone [Coenzyme Q10] 100 mg PO DAILY 05/09/23 05/09/23 traZODone HCL [Desyrel] 100 mg PO HS PRN 05/09/23 05/09/23 Previous Rx's Medication Instructions Recorded Amoxic-Pot Clav 875-125Mg 1 tab PO Q12HR #20 tablet 05/09/23 [Augmentin 875-125] predniSONE [Deltasone] 40 mg PO DAILY #8 tab 08/11/23 methocarbamoL [Robaxin-750] 1,500 mg PO TID PRN #30 tab 10/13/23 predniSONE 50 mg PO DAILY 5 Days #5 tab 10/13/23 Allergies Allergy/AdvReac Type Severity Reaction Status Date / Time adhesive tape Allergy Rash/Hives, Verified 10/13/23 13:58 "paper tape is ok" Review of Systems ROS Statement: Those systems with pertinent positive or pertinent negative responses have been documented in the HPI. ROS Other: All systems not noted in ROS Statement are negative. Past Medical History Past Medical History: Hearing Disorder / Deafness, Hypertension, Osteoarthritis (OA) Additional Past Medical History / Comment(s): Arrhythmia, hx anemia, wears pad/brief for urinary incontinence, frequent UTI's, on care home antibiotic treatment to prevent UTI, SOB, deaf in right ear, hard of hearing in left ear, bilateral hearing aid use. History of Any Multi-Drug Resistant Organisms: None Reported Past Surgical History: Appendectomy, Cholecystectomy, Heart Catheterization With Stent, Hernia Repair, Hysterectomy, Joint Replacement Additional Past Surgical History / Comment(s): Pain Clinic Procedures, CARDIAC STENTS X2, L3-4-5 FUSION, total right knee replacement, bilateral cataract surgery. hiatal hernia repair. Past Anesthesia/Blood Transfusion Reactions: No Reported Reaction Additional Past Anesthesia/Blood Transfusion Reaction / Comment(s): "Slow coming out." Date of Last Stent Placement:: Past Psychological History: Anxiety, Depression Smoking Status: Never smoker Past Alcohol Use History: None Reported Past Drug Use History: None Reported - Past Family History Father Family Medical History: Cancer Sister(s) Family Medical History: Cancer General Exam Limitations: no limitations General appearance: alert, in no apparent distress Head exam: Present: atraumatic, normocephalic, normal inspection ENT exam: Present: mucous membranes moist, TM's normal bilaterally, normal external ear exam, other (Posterior pharyngeal erythema. No tonsillar hypertrophy or exudates.) Respiratory exam: Present: normal lung sounds bilaterally. Absent: respiratory distress, wheezes, rales, rhonchi, stridor Cardiovascular Exam: Present: regular rate, normal rhythm, normal heart sounds. Absent: systolic murmur, diastolic murmur, rubs, gallop, clicks Neurological exam: Present: alert, oriented X3, CN II-XII intact Psychiatric exam: Present: normal affect, normal mood Skin exam: Present: warm, dry, intact, normal color. Absent: rash Course Vital Signs 10/13/23 10/13/23 10/13/23 13:54 15:27 16:00 Temperature 97.8 F 98.4 F 97.9 F Pulse Rate 88 98 86 Respiratory 18 18 20 Rate Blood Pressure 132/71 115/71 126/80 O2 Sat by Pulse 96 97 97 Oximetry Medical Decision Making - Medical Decision Making This is a 73-year-old female who presents to the emergency department for a sore throat and lower back/hip pain. Was pt. sent in by a medical professional or institution? @ -No Did you speak to anyone other than the patient for history? @ -No Did you review nursing and triage notes? @ -Yes, and I agree, it is accurate with regards to the patient's symptoms. Were old charts reviewed? @ -No Differential Diagnosis? @ -Differential Sore Throat: Strep pharyngitis, herpes zoster, COVID, influenza, GERD, allergic rhinitis, mononucleosis, this is not meant to be an all-inclusive list. -Differential Back Pain: Strain, zoster, cauda equina syndrome, epidural abscess, vertebral osteomyelitis , discitis, fracture, subluxation, disc herniation, DJD, spinal stenosis, dissection, AAA, pancreatitis, peptic ulcer disease, pyelonephritis, kidney stone, this is not meant to be an all-inclusive list. EKG interpreted by me (3pts min.)? @ -Not obtained X-rays interpreted by me (1pt min.)? @ -Not obtained CT interpreted by me (1pt min.)? @ -Not obtained U/S interpreted by me (1pt. min.)? @ -Not obtained What testing was considered but not performed? (CT, X-rays, U/S, labs)? Why? @ -None What meds were considered but not given? Why? @ -None Did you discuss the management of the patient with other professionals? @ -No Did you reconcile home meds? @ -No Was smoking cessation discussed for >3mins.? @ -No Was critical care preformed (if so, how long)? @ -No Were there social determinants of health that impacted care today? How? (Homelessness, low income, unemployed, alcoholism, drug addiction, transportation, low edu. Level, literacy, decrease access to med. care, prison, rehab)? @ -No Was there de-escalation of care discussed even if they declined? (Discuss DNR or withdrawal of care, Hospice)? @ -No What co-morbidities impacted this encounter? (DM, HTN, Smoking, COPD, CAD, Cancer, CVA, Hep., AIDS, mental health diagnosis, sleep apnea, morbid obesity)? @ -Sciatica, osteoarthritis Was patient admitted / discharged? @ -Discharged. Rapid strep test negative. Covid, influenza, and RSV testing were negative. Symptoms are likely viral in nature. We discussed [id number] lozenges or anesthetic throat spray for further management. Her symptoms with regards to the sciatica were well controlled in the emergency department. Prescription for prednisone and Robaxin provided with dosing instructions reviewed. She will otherwise follow up for management of her pain pump and with her primary care provider. Undiagnosed new problem with uncertain prognosis? @ -None Drug Therapy requiring intensive monitoring for toxicity (Heparin, Nitro, Insulin, Cardizem)? @ -None Were any procedures done? @ -None Diagnosis/symptom? @ -Sciatica Acute, or Chronic, or Acute on Chronic? @ -Chronic Uncomplicated (without systemic symptoms) or Complicated (systemic symptoms)? @ -Uncomplicated Side effects of treatment? @ -None Exacerbation, Progression, or Severe Exacerbation] @ -Exacerbation Poses a threat to life or bodily function? @ -The pain in general is impacting her function. Diagnosis/symptom? @ -Pharyngitis Acute, or Chronic, or Acute on Chronic? @ -Acute Uncomplicated (without systemic symptoms) or Complicated (systemic symptoms)? @ -Uncomplicated Side effects of treatment? @ -None Exacerbation, Progression, or Severe Exacerbation] @ -Not applicable Poses a threat to life or bodily function? @ -No Return precautions reviewed in depth, the patient is instructed to return to the emergency department with any new, worsening, or concerning symptoms. Patient verbalized understanding. This case was discussed in detail with the attending ED physician, Dr. Schultz. Presentation, findings, and treatment plan discussed in detail as well. - Lab Data Lab Results 10/13/23 10/13/23 Range/Units 14:36 14:36 Influenza Type A (PCR) Not Detected (Not Detectd) Influenza Type B (PCR) Not Detected (Not Detectd) RSV (PCR) Not Detected (Not Detectd) SARS-CoV-2 (PCR) Not Detected (Not Detectd) Group A Strep (PCR) NOT DETECTED (Not Detectd) Disposition Clinical Impression: Sciatica, Pharyngitis Disposition: HOME SELF-CARE Instructions (If sedation given, give patient instructions): Pharyngitis (ED) Additional Instructions: Return to the emergency department with any new, worsening, or concerning symptoms. Take the prednisone daily for 5 days. You can take the Robaxin as 1- 2 tablets up to 3-4x daily. You can use lozenges or anesthetic throat spray for further management of the pharyngitis. Follow up with your primary care provider in 1-2 days. Prescriptions: predniSONE 50 mg PO DAILY 5 Days #5 tab methocarbamoL [Robaxin-750] 1,500 mg PO TID PRN #30 tab PRN Reason: Pain Is patient prescribed a controlled substance at d/c from ED?: No Referrals: David Mora MD [Primary Care Provider] - 1-2 days
[2023-10-13] MEDS ORDERED: KETOROLAC 15 MG/ML 1 ML VIAL IM STA (15:44)
[2023-10-13 16:17] VITALS: BP 126/80; PULSE 86; RESP 20; TEMP 97.9
== END 2023-10-13 16:01 | disposition home or self-care (01) ==
LOC: EC 13:52
DX: M54.30 Sciatica, unspecified side (principal); J02.9 Acute pharyngitis, unspecified; I10 Essential (primary) hypertension; M19.90 Unspecified osteoarthritis, unspecified site; Z79.1 Long term (current) use of non-steroidal anti-inflammatories (NSAID); Z20.822 Contact with and (suspected) exposure to COVID-19; Z79.899 Other long term (current) drug therapy; Z91.09 Other allergy status, other than to drugs and biological substances; Z79.82 Long term (current) use of aspirin; Z86.59 Personal history of other mental and behavioral disorders
CPT/HCPCS: 87651; 87636; 99283; 96372 ×5; J1100; J2360; J1170; J1885

== ENCOUNTER 2023-10-26 00:01 | Observation (INO) | payer MEDICARE, OTHER ==
[2023-10-26] MEDS ORDERED: SODIUM CHLORIDE 0.9% 1,000 ML IV STA (01:18)
[2023-10-26] MEDS ORDERED: SODIUM CHLORIDE 0.9% 500 ML 500 ML IV STA (01:18)
--- NOTE | 2023-10-26 01:19 | ED ---
Altered Mental Status HPI - General Chief Complaint: Altered Mental Status Stated Complaint: UTI Time Seen by Provider: 10/26/23 00:10 Source: EMS, RN notes reviewed, old records reviewed, Caregiver Mode of arrival: EMS Limitations: altered mental status - History of Present Illness Initial Comments: This is a 73-year-old female to the emergency department for evaluation today. Patient is a poor strain secondary to clinical ration likely urinary tract infection with altered mental status related to recent instillation of pain control pump. Patient has no complaints here in the ER by family member at bedside states patient is altered and usually when she is likely she has urinary tract infection. MD Complaint: altered mental status, confusion, decreased responsiveness, weakness -: unknown Severity: severe Consistency of Symptoms: getting worse Context: history of similar presentation Associated Symptoms: incontinence - Related Data Home Medications Medication Instructions Recorded Confirmed Aspirin 81 mg PO AC-SUPPER 12/14/14 05/09/23 Cyanocobalamin [Vitamin B-12] 1,000 mcg PO AC-LUNCH 12/14/14 05/09/23 Multivitamins, Thera [Multivitamin 1 tab PO DAILY 12/14/14 05/09/23 (formulary)] Pilocarpine [Salagen] 5 mg PO QID 12/14/14 05/09/23 Pramipexole [Mirapex] 0.25 mg PO HS 12/14/14 05/09/23 Cranberry Fruit Extract [Cranberry] 500 mg PO DAILY 12/28/15 05/09/23 Atorvastatin Calcium [Lipitor] 10 mg PO HS 07/10/19 05/09/23 Cetirizine HCl [Zyrtec] 10 mg PO HS 07/10/19 05/09/23 Freeborn-3 Fatty Acids/Fish Oil [Fish 1 cap PO DAILY 07/10/19 05/09/23 Oil 1,000 mg Softgel] Gabapentin [Neurontin] 100 mg PO DAILY 07/26/22 05/09/23 Gabapentin [Neurontin] 200 mg PO HS 07/26/22 05/09/23 Hydrocodone/Acetaminophen 1 tab PO TID 07/26/22 05/09/23 [Hydrocodone/Acetaminophen 7.5-325] Meloxicam [Mobic] 15 mg PO DAILY 07/26/22 05/09/23 Metoprolol Tartrate [Lopressor] 25 mg PO BID 07/26/22 05/09/23 Omeprazole 40 mg PO DAILY 07/26/22 05/09/23 Venlafaxine HCl [Effexor] 100 mg PO DAILY 07/26/22 05/09/23 Calcium Carbonate/Vitamin D3 1 tab PO DAILY 10/05/22 05/09/23 [Calcium 600-D3 20 mcg (800 Unit)] Simethicone [Gas-X] 125 mg PO W/SUPPER 10/05/22 05/09/23 nitrofurantoin macrocrystaL 100 mg PO HS 10/05/22 05/09/23 [Nitrofurantoin] oxyBUTYnin chloride [Ditropan XL] 10 mg PO HS 02/13/23 05/09/23 Melatonin 5 mg PO HS 04/16/23 05/09/23 Ubidecarenone [Coenzyme Q10] 100 mg PO DAILY 05/09/23 05/09/23 traZODone HCL [Desyrel] 100 mg PO HS PRN 05/09/23 05/09/23 Previous Rx's Medication Instructions Recorded Amoxic-Pot Clav 875-125Mg 1 tab PO Q12HR #20 tablet 05/09/23 [Augmentin 875-125] predniSONE [Deltasone] 40 mg PO DAILY #8 tab 08/11/23 methocarbamoL [Robaxin-750] 1,500 mg PO TID PRN #30 tab 10/13/23 predniSONE 50 mg PO DAILY 5 Days #5 tab 10/13/23 Allergies Allergy/AdvReac Type Severity Reaction Status Date / Time adhesive tape Allergy Rash/Hives, Verified 10/26/23 00:06 "paper tape is ok" Review of Systems ROS Statement: Those systems with pertinent positive or pertinent negative responses have been documented in the HPI. ROS Other: All systems not noted in ROS Statement are negative. Past Medical History Past Medical History: Hearing Disorder / Deafness, Hypertension, Osteoarthritis (OA) Additional Past Medical History / Comment(s): Arrhythmia, hx anemia, wears pad/brief for urinary incontinence, frequent UTI's, on snf antibiotic treatment to prevent UTI, SOB, deaf in right ear, hard of hearing in left ear, bilateral hearing aid use. History of Any Multi-Drug Resistant Organisms: None Reported Past Surgical History: Appendectomy, Cholecystectomy, Heart Catheterization With Stent, Hernia Repair, Hysterectomy, Joint Replacement Additional Past Surgical History / Comment(s): Pain Clinic Procedures, CARDIAC STENTS X2, L3-4-5 FUSION, total right knee replacement, bilateral cataract surgery. hiatal hernia repair. Past Anesthesia/Blood Transfusion Reactions: No Reported Reaction Additional Past Anesthesia/Blood Transfusion Reaction / Comment(s): "Slow coming out." Date of Last Stent Placement:: Past Psychological History: Anxiety, Depression Smoking Status: Never smoker Past Alcohol Use History: None Reported Past Drug Use History: None Reported - Past Family History Father Family Medical History: Cancer Sister(s) Family Medical History: Cancer General Exam Limitations: altered mental status General appearance: alert, in no apparent distress Head exam: Present: atraumatic, normocephalic, normal inspection Eye exam: Present: normal appearance, PERRL, EOMI. Absent: scleral icterus, conjunctival injection, periorbital swelling ENT exam: Present: normal exam, mucous membranes moist Neck exam: Present: normal inspection. Absent: tenderness, meningismus, lymphadenopathy Respiratory exam: Present: normal lung sounds bilaterally. Absent: respiratory distress, wheezes, rales, rhonchi, stridor Cardiovascular Exam: Present: regular rate, normal rhythm, normal heart sounds. Absent: systolic murmur, diastolic murmur, rubs, gallop, clicks GI/Abdominal exam: Present: soft, normal bowel sounds. Absent: distended, tenderness, guarding, rebound, rigid Extremities exam: Present: normal inspection, full ROM, normal capillary refill. Absent: tenderness, pedal edema, joint swelling, calf tenderness Back exam: Present: normal inspection Neurological exam: Present: alert, oriented X3, CN II-XII intact Psychiatric exam: Present: normal affect, normal mood Skin exam: Present: warm, dry, intact, normal color. Absent: rash Course Vital Signs 10/26/23 10/26/23 10/26/23 00:04 03:00 04:08 Temperature 99.9 F H Pulse Rate 86 88 87 Respiratory 16 20 18 Rate Blood Pressure 158/73 144/59 135/77 O2 Sat by Pulse 99 97 95 Oximetry - Reevaluation(s) Reevaluation #1: 10/26/23 05:40 Medical records reviewed Reevaluation #2: 10/26/23 05:40 Patient is complaining of generalized pain Reevaluation #3: 10/26/23 05:40 Patient informed results and questions answered Reevaluation #4: 10/26/23 05:40 Was pt. sent in by a medical professional or institution (DW[employer], MACHINE MAINTENANCE MECHANIC, urgent care, hospital, or snf...) When possible be specific @ -no Did you speak to anyone other than the patient for history (EMS, parent, family, police, friend...)? What history was obtained from this source @ -no Did you review nursing and triage notes (agree or disagree)? Why? @ -agree Are old charts reviewed (outside hosp., previous admission, EMS record, old EKG, old radiological studies, urgent care reports/EKG's, snf records)? Report findings @ -yes Differential Diagnosis (chest pain, altered mental status, abdominal pain women, abdominal pain men, vaginal bleeding, weakness, fever, dyspnea, syncope, headache, dizziness, GI bleed, back pain, seizure, CVA, palpatations, mental health, musculoskeletal)? @ -prior EKG interpreted by me (3pts min.). @ -yes X-rays interpreted by me (1pt min.). @ -yes CT interpreted by me (1pt min.). @ -no U/S interpreted by me (1pt. min.). @ -no What testing was considered but not performed or refused? (CT, X-rays, U/S, labs)? Why? @ -none What meds were considered but not given or refused? Why? @ -none Did you discuss the management of the patient with other professionals (professionals i.e. DWIGHT Eli, MACHINE MAINTENANCE MECHANIC, lab, RT, psych nurse, manager social work, train conductor, teacher, drug abuse resistance education officer, case technician)? Give summary @ -no Was smoking cessation discussed for >3mins.? @ -no Was critical care preformed (if so, how long)? @ -no Were there social determinants of health that impacted care today? How? (Homelessness, low income, unemployed, alcoholism, drug addiction, transportation, low edu. Level, literacy, decrease access to med. care, senior living, rehab)? @ -none Was there de-escalation of care discussed even if they declined (Discuss DNR or withdrawal of care, Hospice)? DNR status @ -no What co-morbidities impacted this encounter? (DM, HTN, Smoking, COPD, CAD, Cancer, CVA, ARF, Chemo, Hep., AIDS, mental health diagnosis, sleep apnea, morbid obesity)? @ -none Was patient admitted / discharged? Hospital course, mention meds given and route, prescriptions, significant lab abnormalities, going to OR and other pertinent info. @ - Undiagnosed new problem with uncertain prognosis? @ -no Drug Therapy requiring intensive monitoring for toxicity (Heparin, Nitro, Insulin, Cardizem)? @ -no Were any procedures done? @ -no Diagnosis/symptom? @ - Acute, or Chronic, or Acute on Chronic? @ -Acute Uncomplicated (without systemic symptoms) or Complicated (systemic symptoms)? @ -Complicated Side effects of treatment? @ -no Exacerbation, Progression, or Severe Exacerbation? @ -exacerbation Poses a threat to life or bodily function? How? (Chest pain, [place], [place], pneumonia, PE, COPD, DKA, ARF, appy, cholecystitis, CVA, Diverticulitis, Homicidal, Suicidal, threat to staff... and all critical care pts) @ -yes Reevaluation #5: 10/26/23 05:40 Differential Altered Mental Status: Hypoglycemia, DKA, hypercapnia, ETOH, overdose, CO poisoning, trauma, myxedema coma, HTN encephalopathy, infection, encephalitis, psychosis, intercranial hemorrhage, hepatic encephalopathy, meningitis, CVA, this is not meant to be an all-inclusive list - Consultations Consultation #1: Spoke with [facility] were agrees to admit this patient Medical Decision Making - Medical Decision Making 73 female with altered mental status. Patient is positive urinary tract i nfection this patient will be admitted for IV antibiotics - Lab Data Result diagrams: 10/26/23 01:39 10/26/23 01:39 Lab Results 10/26/23 10/26/23 10/26/23 Range/Units 01:39 01:39 01:39 WBC 10.1 (3.8-10.6) k/uL RBC 4.12 (3.80-5.40) m/uL Hgb 13.0 (11.4-16.0) gm/dL Hct 38.8 (34.0-46.0) % MCV 94.3 (80.0-100.0) fL MCH 31.6 (25.0-35.0) pg MCHC 33.5 (31.0-37.0) g/dL RDW 14.3 (11.5-15.5) % Plt Count 272 (150-450) k/uL MPV 7.7 Neutrophils % 79 % Lymphocytes % 13 % Monocytes % 6 % Eosinophils % 1 % Basophils % 0 % Neutrophils # 7.9 H (1.3-7.7) k/uL Lymphocytes # 1.4 (1.0-4.8) k/uL Monocytes # 0.6 (0-1.0) k/uL Eosinophils # 0.1 (0-0.7) k/uL Basophils # 0.0 (0-0.2) k/uL PT 11.4 (10.0-12.5) sec INR 1.0 (<1.2) APTT 26.4 (22.0-30.0) sec Sodium 134 L (137-145) mmol/L Potassium 3.8 (3.5-5.1) mmol/L Chloride 98 (98-107) mmol/L Carbon Dioxide 28 (22-30) mmol/L Anion Gap 8 mmol/L BUN 18 H (7-17) mg/dL Creatinine 0.45 L (0.52-1.04) mg/dL Est GFR (CKD-EPI)AfAm >90 (>60 ml/min/1.73 sqM) Est GFR (CKD-EPI)NonAf >90 (>60 ml/min/1.73 sqM) Glucose 107 H (74-99) mg/dL Calcium 9.1 (8.4-10.2) mg/dL Phosphorus 3.1 (2.5-4.5) mg/dL Magnesium 1.4 L (1.6-2.3) mg/dL Total Bilirubin 1.7 H (0.2-1.3) mg/dL AST 26 (14-36) U/L ALT 20 (4-34) U/L Alkaline Phosphatase 73 (38-126) U/L Troponin I (0.000-0.034) ng/mL NT-Pro-B Natriuret Pep 797 pg/mL Total Protein 6.1 L (6.3-8.2) g/dL Albumin 3.2 L (3.5-5.0) g/dL 10/26/23 Range/Units 01:39 WBC (3.8-10.6) k/uL RBC (3.80-5.40) m/uL Hgb (11.4-16.0) gm/dL Hct (34.0-46.0) % MCV (80.0-100.0) fL MCH (25.0-35.0) pg MCHC (31.0-37.0) g/dL RDW (11.5-15.5) % Plt Count (150-450) k/uL MPV Neutrophils % % Lymphocytes % % Monocytes % % Eosinophils % % Basophils % % Neutrophils # (1.3-7.7) k/uL Lymphocytes # (1.0-4.8) k/uL Monocytes # (0-1.0) k/uL Eosinophils # (0-0.7) k/uL Basophils # (0-0.2) k/uL PT (10.0-12.5) sec INR (<1.2) APTT (22.0-30.0) sec Sodium (137-145) mmol/L Potassium (3.5-5.1) mmol/L Chloride (98-107) mmol/L Carbon Dioxide (22-30) mmol/L Anion Gap mmol/L BUN (7-17) mg/dL Creatinine (0.52-1.04) mg/dL Est GFR (CKD-EPI)AfAm (>60 ml/min/1.73 sqM) Est GFR (CKD-EPI)NonAf (>60 ml/min/1.73 sqM) Glucose (74-99) mg/dL Calcium (8.4-10.2) mg/dL Phosphorus (2.5-4.5) mg/dL Magnesium (1.6-2.3) mg/dL Total Bilirubin (0.2-1.3) mg/dL AST (14-36) U/L ALT (4-34) U/L Alkaline Phosphatase (38-126) U/L Troponin I 0.026 (0.000-0.034) ng/mL NT-Pro-B Natriuret Pep pg/mL Total Protein (6.3-8.2) g/dL Albumin (3.5-5.0) g/dL - EKG Data -: EKG Interpreted by Me (EKG is sinus 79 [place] 190 QRS 84 QTc 386) Disposition Clinical Impression: UTI (urinary tract infection), Altered mental status, Mary Jane rash of groin, Abdominal pain Disposition: ADMITTED IP TO THIS HOSP Condition: Fair Is patient prescribed a controlled substance at d/c from ED?: No Time of Disposition: 02:40
[2023-10-26 02:21] LABS: Basophils % (A) 0 %; Eosinophils # (A) 0.1 k/uL (0-0.7); Eosinophils % (A) 1 %; HCT 38.8 % (34.0-46.0); Lymphocytes # (A) 1.4 k/uL (1.0-4.8); Lymphocytes % (A) 13 %; MCH 31.6 pg (25.0-35.0); MCHC 33.5 g/dL (31.0-37.0); MCV 94.3 fL (80.0-100.0); Mean Platelet Volume 7.7; Monocytes # (A) 0.6 k/uL (0-1.0); Monocytes % (A) 6 %; Neutrophils # (A) 7.9 k/uL (1.3-7.7); Neutrophils % (A) 79 %; Platelet Count 272 k/uL (150-450); RBC 4.12 m/uL (3.80-5.40); RDW 14.3 % (11.5-15.5); WBC 10.1 k/uL (3.8-10.6)
[2023-10-26 02:44] LABS: Partial Thromboplastin Time 26.4 sec (22.0-30.0); Prothrombin Time 11.4 sec (10.0-12.5)
[2023-10-26] MEDS ORDERED: NALOXONE 0.4 MG/ML 1 ML VIAL IV PRN ×2 (02:57→12:15)
[2023-10-26] MEDS ORDERED: MORPHINE SULFATE 4 MG/ML SYRINGE IV PRN ×2 (02:57)
[2023-10-26] MEDS ORDERED: MORPHINE SULFATE 4 MG/ML SYRINGE IVP STA (02:57)
[2023-10-26 03:01] LABS: ALT 20 U/L (4-34); AST 26 U/L (14-36); African American GFR (CKD) >90 (>60 ml/min/1.73 sqM); Albumin 3.2 g/dL (3.5-5.0); Alkaline Phosphatase 73 U/L (38-126); Anion Gap 8 mmol/L; Blood Urea Nitrogen 18 mg/dL (7-17); Calcium 9.1 mg/dL (8.4-10.2); Carbon Dioxide 28 mmol/L (22-30); Chloride 98 mmol/L (98-107); Glucose 107 mg/dL (74-99); Magnesium 1.4 mg/dL (1.6-2.3); Non-African American GFR(CKD) >90 (>60 ml/min/1.73 sqM); Phosphorus 3.1 mg/dL (2.5-4.5); Sodium 134 mmol/L (137-145); Total Bilirubin 1.7 mg/dL (0.2-1.3); Total Protein 6.1 g/dL (6.3-8.2)
[2023-10-26 03:10] LABS: NT-Pro-B-Type Natriuretic Pept 797 pg/mL
[2023-10-26] MEDS: SODIUM CHLORIDE 0.9% 1,000 ML IV SCH ×3 (03:21→20:34)
[2023-10-26 03:25] LABS: Appearance,Urine Cloudy (Clear); Bacteria,Urine Moderate /hpf; Bilirubin,Urine Negative (Negative); Blood,Urine Negative (Negative); Color,Urine Yellow; Glucose,Urine (UA) Negative (Negative); Ketones,Urine 2+ (Negative); Leukocyte Esterase,Urine Negative (Negative); Mucus,Urine Moderate /hpf; Nitrite,Urine Negative (Negative); Protein,Urine Negative (Negative); RBC,Urine 1 /hpf (0-5); Specific Gravity,Urine 1.021 (1.001-1.035); Urobilinogen,Urine <2.0 mg/dL (<2.0); WBC,Urine 1 /hpf (0-5)
[2023-10-26 03:31] LABS: Potassium 3.8 mmol/L (3.5-5.1)
[2023-10-26] MEDS: NYSTATIN 100,000 UNIT/GM POWD 15 GM TOPICAL SCH ×4 (04:22→20:34)
--- NOTE | 2023-10-26 11:32 | CT ---
EXAMINATION TYPE: CT brain wo con DATE OF EXAM: 10/26/2023 COMPARISON: 05/14/2022 HISTORY: 73-year-old female confusion, ams TECHNIQUE: Examination was done in axial plane without intravenous contrast. Coronal and sagittal r econstructions performed. CT DLP: 1034.3 mGycm Automated exposure control for dose reduction was used. FINDINGS: There is no evidence of acute intracranial hemorrhage, acute ischemic changes, mass, mass-effect, or extra-axial fluid collection. There is no effacement of cerebral sulci or basal subarachnoid cister ns. There is no hydrocephalus. There is no midline shift. Angelo-white matter distinction is preserv ed. Marked confluent white matter hypodensities in both cerebral hemispheres. Atherosclerotic calcificati ons of the carotid siphons. Mucosal thickening and air-fluid level right maxillary sinus. [id number] mucosal thickening eth moid air cells. Air-fluid level right frontal sinus. Mastoid air cells well pneumatized. Orbits and g lobes are intact. IMPRESSION: 1. Severe confluent burden of chronic small vessel ischemic disease. No acute intracranial abnormalit y seen. 2. Correlate for acute on chronic sinusitis on the right.
[2023-10-26] MEDS ORDERED: ACETAMINOPHEN TAB 325 MG TAB PO PRN (12:15)
--- NOTE | 2023-10-26 12:59 | XR ---
EXAMINATION TYPE: XR chest 1V portable DATE OF EXAM: 10/26/2023 Comparison: 05/09/2023 Clinical History: 73 year-old female shortness of breath, dyspnea Findings: Leftward patient rotation ultrasonography mediastinal contours. Heart borderline in size. Probably ev entration right hemidiaphragm redemonstrated. Visualized upper and mid lungs are clear. Left base is underpenetrated and not well assessed. Chronic full-thickness rotator cuff tear right shoulder. Impression: Portable exam further limited by patient rotation. Similar prominent eventration right hemidiaphragm. Left base is underpenetrated and not adequately assessed. Otherwise, no definite acute process seen.
[2023-10-26 13:21] LABS: Glucose,Whole Blood 109 mg/dL (70-110)
[2023-10-26 14:55] LABS: Glucose,Whole Blood 136 mg/dL (70-110)
--- NOTE | 2023-10-26 15:04 | P.HPIM ---
History of Present Illness H&P Date: 10/26/23 History of present illness; patient is a 73-year-old lady with past medical sign ificant for hyperlipidemia, back pain, hypertension brought to the ER for altered mental status. Patient was brought in by family who noticed patient was lethargic and confused, patient was having symptoms of increased frequency of urination at home, denied any burning micturition, no complain of urinary hesitancy or urgency. Patient also had a pain pump placed recently. There was no complain of recent fall. No complain of any trauma. There was no complain of chest pain shortness of breath. There was no complain nausea, vomiting or altered bowel movements. Because of the symptoms, patient was brought to the ER Initial lab work done in the ER showed WBC 10.1, hemoglobin 13, platelet count 272, sodium 134, potassium 3.8, BUN 18, creatinine 0.45, glucose 107 calcium 9.1, phosphorus 3.1, magnesium 1.4 bilirubin 1[address] head done showed no acute intracranial process, severe confluent burden of chronic small vessel ischemic disease Patient admitted to internal medicine service REVIEW OF SYSTEMS: CONSTITUTIONAL: As mentioned above HEENT: No recent visual problems or hearing problems. Denied any sore throat. CARDIOVASCULAR: No chest pain, orthopnea, PND, no palpitations, no syncope. PULMONARY: No shortness of breath, no cough, no hemoptysis. GASTROINTESTINAL: No diarrhea, no nausea, no vomiting, no abdominal pain. NEUROLOGICAL: As mentioned above HEMATOLOGICAL: Denies any bleeding or petechiae. GENITOURINARY: Denies any burning micturition, frequency, or urgency. MUSCULOSKELETAL/RHEUMATOLOGICAL: Denies any joint pain, swelling, or any muscle pain. ENDOCRINE: Denies any polyuria or polydipsia. The rest of the 14-point review of systems is negative. PHYSICAL EXAMINATION: GENERAL: The patient is alert and oriented x3, not in any acute distress. Well developed, well nourished. HEENT: Pupils are round and equally reacting to light. EOMI. No scleral icterus. No conjunctival pallor. Normocephalic, atraumatic. No pharyngeal erythema. No thyromegaly. CARDIOVASCULAR: S1 and S2 present. No murmurs, rubs, or gallops. PULMONARY: Chest is clear to auscultation, no wheezing or crackles. ABDOMEN: Soft, nontender, nondistended, normoactive bowel sounds. No palpable organomegaly. MUSCULOSKELETAL: No joint swelling or deformity. EXTREMITIES: No cyanosis, clubbing, or pedal edema. NEUROLOGICAL: Gross neurological examination did not reveal any focal deficits. SKIN: No rashes. Assessment and plan Acute metabolic encephalopathy Groin cellulitis Abdominal wall cellulitis UTI Monitor vital signs Monitor CBC Monitor CMP Continue telemetry monitoring Ordered blood cultures Monitor urine cultures Continue IV fluids Continue IV Rocephin Consult neurology Consult ID Labs and medication were reviewed.. Continue same treatment. Continue with s ymptomatic treatment. Resume home medication. Monitor labs and vitals. DVT and GI prophylaxis. Further recommendations as per clinical course of the patient Dictation was produced using [employer] dictation software. please excuse any grammatical, word or spelling errors. 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 History of Any Multi-Drug Resistant Organisms: None Reported Past Surgical History: Appendectomy, Cholecystectomy, Heart Catheterization With Stent, Hernia Repair, Hysterectomy, Joint Replacement Additional Past Surgical History / Comment(s): Pain Clinic Procedures, CARDIAC STENTS X2, L3-4-5 FUSION, total right knee replacement, bilateral cataract surgery. hiatal hernia repair. Past Anesthesia/Blood Transfusion Reactions: No Reported Reaction Additional Past Anesthesia/Blood Transfusion Reaction / Comment(s): "Slow coming out." Date of Last Stent Placement:: Past Psychological History: Anxiety, Depression Smoking Status: Never smoker Past Alcohol Use History: None Reported Past Drug Use History: None Reported - Past Family History Father Family Medical History: Cancer Sister(s) Family Medical History: Cancer Medications and Allergies Home Medications Medication Instructions Recorded Confirmed Type Aspirin 81 mg PO DAILY 12/14/14 10/26/23 History Cyanocobalamin [Vitamin B-12] 1,000 mcg PO DAILY 12/14/14 10/26/23 History Multivitamins, Thera [Multivitamin 1 tab PO DAILY 12/14/14 10/26/23 History (formulary)] Pramipexole [Mirapex] 0.25 mg PO HS 12/14/14 10/26/23 History Atorvastatin Calcium [Lipitor] 10 mg PO HS 07/10/19 10/26/23 History Cetirizine HCl [Zyrtec] 10 mg PO HS 07/10/19 10/26/23 History [place]-3 Fatty Acids/Fish Oil [Fish 1 cap PO DAILY 07/10/19 10/26/23 History Oil 1,000 mg Softgel] Hydrocodone/Acetaminophen 1 tab PO BID 07/26/22 10/26/23 History [Hydrocodone/Acetaminophen 7.5-325] Meloxicam [Mobic] 15 mg PO DAILY 07/26/22 10/26/23 History Metoprolol Tartrate [Lopressor] 25 mg PO DAILY 07/26/22 10/26/23 History Omeprazole 40 mg PO BID 07/26/22 10/26/23 History Venlafaxine HCl [Effexor] 100 mg PO DAILY 07/26/22 10/26/23 History Calcium Carbonate/Vitamin D3 1 tab PO DAILY 10/05/22 10/26/23 History [Calcium 600-D3 20 mcg (800 Unit)] Simethicone [Gas-X] 125 mg PO W/SUPPER 10/05/22 10/26/23 History nitrofurantoin macrocrystaL 100 mg PO HS 10/05/22 10/26/23 History [Nitrofurantoin] oxyBUTYnin chloride [Ditropan XL] 10 mg PO HS 02/13/23 10/26/23 History Ubidecarenone [Coenzyme Q10] 100 mg PO DAILY 05/09/23 10/26/23 History Cranberry 15,000 1 cap PO DAILY 10/26/23 10/26/23 History Docusate [Colace] 100 mg PO DAILY 10/26/23 10/26/23 History Gabapentin [Neurontin] 400 mg PO TID 10/26/23 10/26/23 History Morphine Pain Pump 1 dose INTRATHECA CONTINUOUS 10/26/23 10/26/23 History Naloxone HCl [Narcan] 4 mg NASAL DIRECTED PRN 10/26/23 10/26/23 History calcium polycarbophiL [Fibercon] 625 mg PO DAILY 10/26/23 10/26/23 History Allergies Allergy/AdvReac Type Severity Reaction Status Date / Time adhesive tape Allergy Rash/Hives, Verified 10/26/23 13:15 "paper tape is ok" Physical Exam Vitals: Vital Signs Temp Pulse Pulse Resp BP BP Pulse Ox 10/26/23 07:00 97.5 F L 84 19 135/80 93 L 10/26/23 04:34 98.3 F 80 18 127/67 99 10/26/23 04:08 87 18 135/77 95 10/26/23 03:00 88 20 144/59 97 10/26/23 00:04 99.9 F H 86 16 158/73 99 Intake and Output 10/25/23 10/26/23 10/26/23 22:59 06:59 14:59 Output Total 500 Balance -500 Output: Urine 500 Straight 500 Other: Voiding Method External Catheter # Voids 1 Weight 106.594 kg Results CBC & Chem 7: 10/26/23 01:39 10/26/23 01:39 Labs: Abnormal Lab Results - Last 24 Hours (Table) 10/26/23 10/26/23 10/26/23 Range/Units 01:39 01:39 03:05 Neutrophils # 7.9 H (1.3-7.7) k/uL Sodium 134 L (137-145) mmol/L BUN 18 H (7-17) mg/dL Creatinine 0.45 L (0.52-1.04) mg/dL Glucose 107 H (74-99) mg/dL Plasma Lactic Acid Emmanuel (0.7-2.0) mmol/L Magnesium 1.4 L (1.6-2.3) mg/dL Total Bilirubin 1.7 H (0.2-1.3) mg/dL Total Protein 6.1 L (6.3-8.2) g/dL Albumin 3.2 L (3.5-5.0) g/dL Urine Appearance Cloudy H (Clear) Urine Ketones 2+ H (Negative) Urine Bacteria Moderate H (None) /hpf Urine Mucus Moderate H (None) /hpf 10/26/23 Range/Units 11:28 Neutrophils # (1.3-7.7) k/uL Sodium (137-145) mmol/L BUN (7-17) mg/dL Creatinine (0.52-1.04) mg/dL Glucose (74-99) mg/dL Plasma Lactic Acid Emmanuel 2.3 H* (0.7-2.0) mmol/L Magnesium (1.6-2.3) mg/dL Total Bilirubin (0.2-1.3) mg/dL Total Protein (6.3-8.2) g/dL Albumin (3.5-5.0) g/dL Urine Appearance (Clear) Urine Ketones (Negative) Urine Bacteria (None) /hpf Urine Mucus (None) /hpf Thrombosis Risk Factor Assmnt - Choose All That Apply Any of the Below Risk Factors Present?: Yes Each Factor Represents 1 point: Acute [place], Obesity (BMI >25) Other Risk Factors: Yes Each Risk Factor Represents 2 Points: Age 61-74 years Other congenital or acquired thrombophilia - If yes, enter type in comment: No Thrombosis Risk Factor Assessment Total Risk Factor Score: 4 Thrombosis Risk Factor Assessment Level: Moderate Risk
--- NOTE | 2023-10-26 16:19 | P.CNNES ---
History of Present Illness Consult date: 10/26/23 Requesting physician: David Fajardo Reason for Consult: altered mental status History of Present Illness: This is a 73-year-old woman presented emergency Department consulted to status. History is obtained from medical record as well as the patient nurse. Per the medical record is seems the patient was a brought in by family who noticed the patient was lethargic confused and was having increased urinary frequency. It seems the patient has recent pain pump placed and there is no recent falls. She had pain pump placed on 10/04/2023 per nurse that was notified by grand- daughter. The morphine pupm was placed by Dr. Giron And the morphine was started this past Saturday. It seems she has groin swelling and erythema in groin and abdomen. Today in the morning she was confused, word finding and thrashing around. Some of the work-up consisted of: Tmax is 99.9F on presentation but no fever fevers. Neurotrophils is 7.9 otherwise normal cbc with diff Sodium is 134, serum glucose is 107, magnesium is 1.4, AST ALT, are within normal limits Ammonia is less than 9 Urinalysis with cloudy, urine bacteria was moderate in the leukocyte esterase and nitrate was negative. CT of the head is reported as severely consult burden of chronic small vessel ischemic disease. No acute intracranial abnormality seen. Correlate for acute on chronic sinusitis on the right. I Personally reviewed the CT and there is no acute subacute ischemia. There is no any the acute or subacute bleed. Review of Systems Limited. 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 History of Any Multi-Drug Resistant Organisms: None Reported Past Surgical History: Appendectomy, Cholecystectomy, Heart Catheterization With Stent, Hernia Repair, Hysterectomy, Joint Replacement Additional Past Surgical History / Comment(s): Pain Clinic Procedures, CARDIAC STENTS X2, L3-4-5 FUSION, total right knee replacement, bilateral cataract surgery. hiatal hernia repair. Past Anesthesia/Blood Transfusion Reactions: No Reported Reaction Additional Past Anesthesia/Blood Transfusion Reaction / Comment(s): "Slow coming out." Date of Last Stent Placement:: Past Psychological History: Anxiety, Depression Smoking Status: Never smoker Past Alcohol Use History: None Reported Past Drug Use History: None Reported - Past Family History Father Family Medical History: Cancer Sister(s) Family Medical History: Cancer Medications and Allergies Home Medications Medication Instructions Recorded Confirmed Type Aspirin 81 mg PO DAILY 12/14/14 10/26/23 History Cyanocobalamin [Vitamin B-12] 1,000 mcg PO DAILY 12/14/14 10/26/23 History Multivitamins, Thera [Multivitamin 1 tab PO DAILY 12/14/14 10/26/23 History (formulary)] Pramipexole [Mirapex] 0.25 mg PO HS 12/14/14 10/26/23 History Atorvastatin Calcium [Lipitor] 10 mg PO HS 07/10/19 10/26/23 History Cetirizine HCl [Zyrtec] 10 mg PO HS 07/10/19 10/26/23 History [place]-3 Fatty Acids/Fish Oil [Fish 1 cap PO DAILY 07/10/19 10/26/23 History Oil 1,000 mg Softgel] Hydrocodone/Acetaminophen 1 tab PO BID 07/26/22 10/26/23 History [Hydrocodone/Acetaminophen 7.5-325] Meloxicam [Mobic] 15 mg PO DAILY 07/26/22 10/26/23 History Metoprolol Tartrate [Lopressor] 25 mg PO DAILY 07/26/22 10/26/23 History Omeprazole 40 mg PO BID 07/26/22 10/26/23 History Venlafaxine HCl [Effexor] 100 mg PO DAILY 07/26/22 10/26/23 History Calcium Carbonate/Vitamin D3 1 tab PO DAILY 10/05/22 10/26/23 History [Calcium 600-D3 20 mcg (800 Unit)] Simethicone [Gas-X] 125 mg PO W/SUPPER 10/05/22 10/26/23 History nitrofurantoin macrocrystaL 100 mg PO HS 10/05/22 10/26/23 History [Nitrofurantoin] oxyBUTYnin chloride [Ditropan XL] 10 mg PO HS 02/13/23 10/26/23 History Ubidecarenone [Coenzyme Q10] 100 mg PO DAILY 05/09/23 10/26/23 History Cranberry 15,000 1 cap PO DAILY 10/26/23 10/26/23 History Docusate [Colace] 100 mg PO DAILY 10/26/23 10/26/23 History Gabapentin [Neurontin] 400 mg PO TID 10/26/23 10/26/23 History Morphine Pain Pump 1 dose INTRATHECA CONTINUOUS 10/26/23 10/26/23 History Naloxone HCl [Narcan] 4 mg NASAL DIRECTED PRN 10/26/23 10/26/23 History calcium polycarbophiL [Fibercon] 625 mg PO DAILY 10/26/23 10/26/23 History Allergies Allergy/AdvReac Type Severity Reaction Status Date / Time adhesive tape Allergy Rash/Hives, Verified 10/26/23 13:15 "paper tape is ok" Physical Examination - Vital Signs Vital Signs: Vital Signs Temp Pulse Pulse Resp BP BP Pulse Ox 10/26/23 11:50 98.1 F 64 16 130/70 94 L 10/26/23 09:30 98.1 F 109 H 20 109/68 10/26/23 07:00 97.5 F L 84 19 135/80 93 L 10/26/23 04:34 98.3 F 80 18 127/67 99 10/26/23 04:08 87 18 135/77 95 10/26/23 03:00 88 20 144/59 97 10/26/23 00:04 99.9 F H 86 16 158/73 99 Intake and Output 10/26/23 10/26/23 10/26/23 06:59 14:59 22:59 Output Total 500 Balance -500 Output: Urine 500 Straight 500 Other: Voiding Method External Catheter # Voids 1 Weight 106.594 kg GENERAL: The patient is lying in bed and is not in acute distress. NEUROLOGICAL: Higher mental function: The patient is awake, oriented to self and place. She did not know the date of or the current year. She is confused and seems somewhat slow responding. She is able to name objects correctly such as watch, phone, pen and cup. She is following simple commands. No aphasia from limited language and no neglect. Cranial nerves: The pupils are round, equal and reactive to light. Visual francois are full to confrontation throughout. Extraocular movement is intact no nystagmus is noted. Facial sensation is normal to touch throughout. The facial strength is normal throughout. Tongue is midline and moved [id number] without any difficulty. No dysarthria is noted. Shoulder shrug is normal bilaterally. Motor: The strength is hard to assess individual muscle strength because of cooperation. But is lifting all extremities above gravity equally. Normal tone and bulk. Cerebellum: Normal finger to nose bilaterally. Sensation: Sensation is normal to touch throughout. Reflexes (right/left): 2+ throughout. Plantars are downgoing bilaterally. Results - Laboratory Findings CBC and BMP: 10/26/23 01:39 10/26/23 01:39 Abnormal Lab Findings: Abnormal Labs 10/26/23 10/26/23 10/26/23 01:39 01:39 03:05 Neutrophils # 7.9 H Sodium 134 L BUN 18 H Creatinine 0.45 L Glucose 107 H POC Glucose (mg/dL) Plasma Lactic Acid Emmanuel Magnesium 1.4 L Total Bilirubin 1.7 H Total Protein 6.1 L Albumin 3.2 L Urine Appearance Cloudy H Urine Ketones 2+ H Urine Bacteria Moderate H Urine Mucus Moderate H 10/26/23 10/26/23 11:28 14:53 Neutrophils # Sodium BUN Creatinine Glucose POC Glucose (mg/dL) 136 H Plasma Lactic Acid Emmanuel 2.3 H* Magnesium Total Bilirubin Total Protein Albumin Urine Appearance Urine Ketones Urine Bacteria Urine Mucus Assessment and Plan Assessment: This is a 73-year-old woman who presented emergency department because of altered mental status at. It seems the patient had a pain pump placed by her neurologist/pain specialist Dr. Mcgee in the middle of September 2023 and that this past Saturday the morphine was started. Per the patient's nurse earlier today she was confused and ongoing last normal state and was felt like the she is having word finding difficulty but upon seeing her she was a somewhat slow responding but was oriented to self and place and was follow commands normal without any word finding difficulty. She presented with a temperature of 99.9 and seems she has erythema and not growing distal abdomen region. Delirium a lot underlying infection in the lower abdomen pelvis region especially with a recently placed pain pump. She had one low-grade fever on pre sentation. There is questionable UTI. Morphine started recently and unsure exact of confusion to that. She had a CT head which was negative for any acute or subacute ischemia. Plan: I ordered CT abdomen and pelvis to rule out any underlying infection or hematoma I ordered MRI of the brain to rule out any acute subacute stroke seen a CT of the head then I ordered the routine EEG because of her confusion a lot any underlying seizures or discharges which I feel unlikely. Carotid duplex Ordered vitamin B-12, folate, TSH ID is consulted. I discontinued the morphine 4 mg every 4 hours that was ordered by the ED physician We'll defer the rest of the medical management to primary and other specialists I had a lengthy discussion with the primary attending regarding her case as well as her nurse Thank you for the consultation. Time with Patient: Greater than 30
[2023-10-26] MEDS: IOPAMIDOL CONTRAST (ORAL USE) VIAL PO PRN ×2 (16:37→17:36)
--- NOTE | 2023-10-26 17:31 | US ---
EXAMINATION TYPE: US carotid duplex BILAT DATE OF EXAM: 10/26/2023 COMPARISON: NONE CLINICAL INDICATION: Female, 73 years old with history of stroke; TECHNIQUE: Carotid duplex ultrasound examination. Indirect Doppler criteria was utilized. FINDINGS: EXAM MEASUREMENTS: RIGHT: Peak Systolic Velocity (PSV) cm/sec ----- Right CCA: 50.3 ----- Right ICA: 60.0 ----- Right ECA: 98.7 ICA/CCA ratio: 1.2 RIGHT: End Diastole cm/sec ----- Right CCA: 13.6 ----- Right ICA: 14.8 ----- Right ECA: 19.7 LEFT: Peak Systolic Velocity (PSV) cm/sec ----- Left CCA: 51.4 ----- Left ICA: 59.2 ----- Left ECA: 57.5 ICA/CCA ratio: 1.2 LEFT: End Diastole cm/sec ----- Left CCA: 12.5 ----- Left ICA: 13.7 ----- Left ECA: 10.7 VERTEBRALS (direction of flow): Right Vertebral: Antegrade Left Vertebral: Antegrade Rhythm: Normal Concrete Puddler notes: No significant stenosis. Exam done portable IMPRESSION: No hemodynamically significant internal carotid artery stenosis on either side. Criteria for Assigning % of Stenosis / Diameter reduction (Estimation based on the indirect measurements of the internal carotid artery velocities (ICA PSV). 1. Normal (no stenosis)=ICA PSV < 125 cm/s: ratio < 2.0: ICA EDV<40 cm/s. 2. Less than 50% stenosis=ICA PSV < 125 cm/s: ratio < 2.0: ICA EDV<40 cm/s. 3. 50 to 69% stenosis=ICA PSV of 125 to 230 cm/s: ration 2.0 ? 4.0: ICA EDV 40-100 cm/s. 4. Greater than 70% stenosis to near occlusion= ICA PSV > 230 cm/s: ratio > 4.0: ICA EDV > 100 cm/s. 5. Near occlusion= ICA PSV velocities may be low or undetectable: variable ratio and ICA EDV. 6. Total occlusion=unable to detect flow.
[2023-10-26] MEDS ORDERED: SODIUM CHLORIDE 0.9% 1,000 ML IV ONE (17:56)
[2023-10-26] MEDS ORDERED: VANCOMYCIN IV PER PHARMACY 1 EACH MISC MISCELLANE PRN (17:57)
[2023-10-26] MEDS ORDERED: VANCOMYCIN 1,750 MG in SODIUM CHLORIDE 0.9% 500 ML 500 ML IVPB SCH (19:00)
--- NOTE | 2023-10-26 19:18 | CT ---
EXAMINATION TYPE: CT abdomen pelvis wo/w con DATE OF EXAM: 10/26/2023 COMPARISON: 05/09/2023 HISTORY: 73-year-old female groin swelling and constipation TECHNIQUE: Contiguous axial scanning of the abdomen and pelvis before and after administration of 100 ml Isovue 300 IV contrast. Delayed images through the kidneys and coronal/sagittal reconstructions performed. CT DLP: 3403.10 mGycm Automated exposure control for dose reduction was used. FINDINGS: Heart upper limits of normal in size without pericardial effusion. Strandy atelectasis in l ower lungs. No pleural effusion. There is a moderate to large hiatal hernia involving two thirds of the stomach in the lower chest. No focal liver lesion or biliary ductal dilatation seen. Portal venous system is patent. Cholecystect hosea clips. Adrenal glands, spleen, and atrophic pancreas show no gross anomaly. Redemonstrated lobulated bilateral renal contours. Symmetric uptake and excretion of contrast from harish th kidneys. No dilated small bowel, free fluid, or free air. No mesenteric or retroperitoneal adenopathy seen. Mild atelectatic calcifications abdominal aorta and common iliac arteries. Redemonstrated multiple ventral abdominal wall hernias. Aggregate width up to 14.2 cm versus 12.2 cm, previously. The largest abdominal wall defect measures up to 2.9 cm. No associated inflammatory hansen ge seen. Nonobstructed mid transverse colon is located within one of the hernias. In addition, there is suprapubic rectus diastases measuring 4.6 cm wide and anterior bulging content containing nonobstructed loops of small bowel extending asymmetrically to the left near the inguinal region. No inguinal or femoral canal hernia is identified. Oral contrast material progressed to the cecum. Mild overall stool burden. Left-sided colon diverticu losis. No periglottic inflammatory change. Bladder urine distended. Uterus surgically absent. Neither ovary clearly identified. No abnormal flui d collection in the pelvis or pelvic lymphadenopathy. Moderate degenerative change in the visualized upper to mid lumbar spine. Patient status post L3-L5 p osterior and interbody lumbar fusion. There is advanced degenerative disc disease and facet arthropat hy below the fusion at L5-S1 with grade 1 anterolisthesis and some associated endplate erosion. Anterior left lower quadrant generator device. IMPRESSION: 1. MULTIPLE VENTRAL ABDOMINAL WALL HERNIAS, AGGREGATE WIDTH UP TO 14.2 CM VERSUS 12.2 CM, PREVIOUSLY. ONE OF THESE HERNIAS CONTAINS A SEGMENT OF NONOBSTRUCTED TRANSVERSE COLON. 2. ADDITIONAL SUPRAPUBIC RECTUS DIASTASES MEASURING 4.6 CM WIDE. THE ANTERIOR BULGING CONTENTS CONTAI NS NONOBSTRUCTED LOOPS OF SMALL BOWEL EXTENDING ASYMMETRICALLY TO THE LEFT NEAR THE INGUINAL REGION. NOT SIGNIFICANTLY DIFFERENT COMPARED TO 05/09/2023. NO DISCRETE INGUINAL OR FEMORAL CANAL HERNIA IS SE EN. 3. SIMILAR MODERATE TO LARGE HIATAL HERNIA CONTAINING TWO THIRDS OF THE STOMACH IN THE LOWER CHEST. 4. LEFT-SIDED COLONIC DIVERTICULOSIS WITHOUT ACUTE DIVERTICULITIS. 5. STATUS POST L3-L5 POSTERIOR AND INTERBODY FUSION. ADVANCED SPONDYLOTIC CHANGE BELOW THE FUSION AT L5-S1 WITH DEGENERATIVE GRADE 1 ANTEROLISTHESIS.
--- NOTE | 2023-10-26 23:12 | P.CONS ---
History of Present Illness - Reason for Consult Consult date: 10/26/23 - History of Present Illness Patient is a 73-year-old female with a past medical history significant for hypertension osteoarthritis patient did have a chronic back pain and recently did have a pain pump placement by her neurologist which was filled with medication last week subsequently patient has been noticed to be more lethargic and confused and the patient was noticed to be more confused by the granddaughter yesterday for the patient was brought into the hospital there is no clear history of any fever or any chills when asked specifically the patient denies having any headache she was able to also admitted to me that she was at [facility] denies any photophobia no nausea no vomiting chest pain shortness of breath or cough no abdominal pain patient also noted to have significant excoriation to bilateral groin area and now very clear about the urinary symptoms patient will presentation to the hospital did have a low-grade fever of 99.9 degrees for night she was mildly tachycardic but not hypotensive or hypoxic patient did have white count of 10.1 creatinine 0.45 lactic acid 2.3 Labs are normal urine was cloudy but did not show any leukocyte Estrace or WBC patient has been diagnosed with the UTI and started on ceftriaxone and vancomycin infectious disease was consulted for further management of antibiotic therapy most information has been obtained from discussion with the granddaugh sukhjinder at the bedside as the patient herself was not very good historian Past Medical History Past Medical History: Hearing Disorder / Deafness, Hypertension, Osteoarthritis (OA) Additional Past Medical History / Comment(s): Arrhythmia, hx anemia, wears pad/brief for urinary incontinence, frequent UTI's, on prison antibiotic treatment to prevent UTI, SOB, deaf in right ear, hard of hearing in left ear, bilateral hearing aid use. History of Any Multi-Drug Resistant Organisms: None Reported Past Surgical History: Appendectomy, Cholecystectomy, Heart Catheterization With Stent, Hernia Repair, Hysterectomy, Joint Replacement Additional Past Surgical History / Comment(s): Pain Clinic Procedures, CARDIAC STENTS X2, L3-4-5 FUSION, total right knee replacement, bilateral cataract surgery. hiatal hernia repair. Past Anesthesia/Blood Transfusion Reactions: No Reported Reaction Additional Past Anesthesia/Blood Transfusion Reaction / Comm: "Slow coming out." Date of Last Stent Placement:: Past Psychological History: Anxiety, Depression Smoking Status: Never smoker Past Alcohol Use History: None Reported Past Drug Use History: None Reported - Past Family History Father Family Medical History: Cancer Sister(s) Family Medical History: Cancer Medications and Allergies Home Medications Medication Instructions Recorded Confirmed Type Aspirin 81 mg PO DAILY 12/14/14 10/26/23 History Cyanocobalamin [Vitamin B-12] 1,000 mcg PO DAILY 12/14/14 10/26/23 History Multivitamins, Thera [Multivitamin 1 tab PO DAILY 12/14/14 10/26/23 History (formulary)] Pramipexole [Mirapex] 0.25 mg PO HS 12/14/14 10/26/23 History Atorvastatin Calcium [Lipitor] 10 mg PO HS 07/10/19 10/26/23 History Cetirizine HCl [Zyrtec] 10 mg PO HS 07/10/19 10/26/23 History Bear-3 Fatty Acids/Fish Oil [Fish 1 cap PO DAILY 07/10/19 10/26/23 History Oil 1,000 mg Softgel] Hydrocodone/Acetaminophen 1 tab PO BID 07/26/22 10/26/23 History [Hydrocodone/Acetaminophen 7.5-325] Meloxicam [Mobic] 15 mg PO DAILY 07/26/22 10/26/23 History Metoprolol Tartrate [Lopressor] 25 mg PO DAILY 07/26/22 10/26/23 History Omeprazole 40 mg PO BID 07/26/22 10/26/23 History Venlafaxine HCl [Effexor] 100 mg PO DAILY 07/26/22 10/26/23 History Calcium Carbonate/Vitamin D3 1 tab PO DAILY 10/05/22 10/26/23 History [Calcium 600-D3 20 mcg (800 Unit)] Simethicone [Gas-X] 125 mg PO W/SUPPER 10/05/22 10/26/23 History nitrofurantoin macrocrystaL 100 mg PO HS 10/05/22 10/26/23 History [Nitrofurantoin] oxyBUTYnin chloride [Ditropan XL] 10 mg PO HS 02/13/23 10/26/23 History Ubidecarenone [Coenzyme Q10] 100 mg PO DAILY 05/09/23 10/26/23 History Cranberry 15,000 1 cap PO DAILY 10/26/23 10/26/23 History Docusate [Colace] 100 mg PO DAILY 10/26/23 10/26/23 History Gabapentin [Neurontin] 400 mg PO TID 10/26/23 10/26/23 History Morphine Pain Pump 1 dose INTRATHECA CONTINUOUS 10/26/23 10/26/23 History Naloxone HCl [Narcan] 4 mg NASAL DIRECTED PRN 10/26/23 10/26/23 History calcium polycarbophiL [Fibercon] 625 mg PO DAILY 10/26/23 10/26/23 History Allergies Allergy/AdvReac Type Severity Reaction Status Date / Time adhesive tape Allergy Rash/Hives, Verified 10/26/23 13:15 "paper tape is ok" Physical Exam Vitals: Vital Signs Temp Pulse Pulse Resp BP BP Pulse Ox 10/26/23 15:00 97.6 F 108 H 20 138/86 100 10/26/23 11:50 98.1 F 64 16 130/70 94 L 10/26/23 09:30 98.1 F 109 H 20 109/68 10/26/23 07:00 97.5 F L 84 19 135/80 93 L 10/26/23 04:34 98.3 F 80 18 127/67 99 10/26/23 04:08 87 18 135/77 95 10/26/23 03:00 88 20 144/59 97 10/26/23 00:04 99.9 F H 86 16 158/73 99 Intake and Output 10/26/23 10/26/23 10/26/23 06:59 14:59 22:59 Output Total 500 Balance -500 Output: Urine 500 Straight 500 Other: Voiding Method External Catheter # Voids 1 # Bowel Movements 1 Weight 106.594 kg Results CBC & Chem 7: 10/26/23 01:39 10/26/23 01:39 Labs: Abnormal Lab Results - Last 24 Hours (Table) 10/26/23 10/26/23 10/26/23 Range/Units 01:39 01:39 03:05 Neutrophils # 7.9 H (1.3-7.7) k/uL Sodium 134 L (137-145) mmol/L BUN 18 H (7-17) mg/dL Creatinine 0.45 L (0.52-1.04) mg/dL Glucose 107 H (74-99) mg/dL POC Glucose (mg/dL) (70-110) mg/dL Plasma Lactic Acid Emmanuel (0.7-2.0) mmol/L Magnesium 1.4 L (1.6-2.3) mg/dL Total Bilirubin 1.7 H (0.2-1.3) mg/dL Total Protein 6.1 L (6.3-8.2) g/dL Albumin 3.2 L (3.5-5.0) g/dL Urine Appearance Cloudy H (Clear) Urine Ketones 2+ H (Negative) Urine Bacteria Moderate H (None) /hpf Urine Mucus Moderate H (None) /hpf 10/26/23 10/26/23 10/26/23 Range/Units 11:28 14:53 15:59 Neutrophils # (1.3-7.7) k/uL Sodium (137-145) mmol/L BUN (7-17) mg/dL Creatinine (0.52-1.04) mg/dL Glucose (74-99) mg/dL POC Glucose (mg/dL) 136 H (70-110) mg/dL Plasma Lactic Acid Emmanuel 2.3 H* 3.0 H* (0.7-2.0) mmol/L Magnesium (1.6-2.3) mg/dL Total Bilirubin (0.2-1.3) mg/dL Total Protein (6.3-8.2) g/dL Albumin (3.5-5.0) g/dL Urine Appearance (Clear) Urine Ketones (Negative) Urine Bacteria (None) /hpf Urine Mucus (None) /hpf Assessment and Plan Plan: 1patient presented to hospital with mental status changes questionably drug related and the symptoms started after her pain pump was filled with pain medication there is concern for some cloudy foul-smelling urine however UA itself did not show any leukocyte esterase or pyuria but patient did have mild fever on admission underlying UTI less likely bilateral excluded clinically doubt encephalitis or meningitis as the patient was able to tell me that she is admitted to the hospital no significant headache or any neck rigidity 2-patient did have extensive cutaneous candidiasis of bilateral groin area but no secondary cellulitis 3-we will repeat her UA culture and check inflammatory markers 4-continue with Rocephin and nystatin powder however discontinue vancomycin to decrease risk of nephrotoxicity We will follow on clinical condition and cultures to further adjust medication if needed Thank you for this consultation we will follow the patient along with you Dictation was produced using [employer] dictation software. please excuse any grammatical, word or spelling errors. Time with Patient: Greater than 30
[2023-10-26 23:23] LABS: Appearance,Urine Clear (Clear); Bilirubin,Urine Negative (Negative); Blood,Urine Negative (Negative); Color,Urine Colorless; Glucose,Urine (UA) Negative (Negative); Ketones,Urine Negative (Negative); Leukocyte Esterase,Urine Negative (Negative); Nitrite,Urine Negative (Negative); Protein,Urine Negative (Negative); Specific Gravity,Urine 1.018 (1.001-1.035); Urobilinogen,Urine <2.0 mg/dL (<2.0)
[2023-10-27] MEDS: SODIUM CHLORIDE 0.9% 1,000 ML IV SCH ×4 (06:48→20:15)
[2023-10-27] MEDS: NYSTATIN 100,000 UNIT/GM POWD 15 GM TOPICAL SCH ×2 (08:52→16:17)
[2023-10-27 10:52] LABS: Basophils % (A) 0 %; Eosinophils # (A) 0.2 k/uL (0-0.7); Eosinophils % (A) 4 %; HCT 39.7 % (34.0-46.0); HGB 12.7 gm/dL (11.4-16.0); Lymphocytes # (A) 1.2 k/uL (1.0-4.8); Lymphocytes % (A) 21 %; MCH 30.4 pg (25.0-35.0); MCHC 31.9 g/dL (31.0-37.0); MCV 95.3 fL (80.0-100.0); Mean Platelet Volume 7.7; Monocytes # (A) 0.4 k/uL (0-1.0); Monocytes % (A) 8 %; Neutrophils # (A) 3.5 k/uL (1.3-7.7); Neutrophils % (A) 65 %; Platelet Count 309 k/uL (150-450); RBC 4.17 m/uL (3.80-5.40); RDW 14.2 % (11.5-15.5); WBC 5.5 k/uL (3.8-10.6)
[2023-10-27 11:24] LABS: ALT 18 U/L (4-34); AST 30 U/L (14-36); African American GFR (CKD) >90 (>60 ml/min/1.73 sqM); Albumin 2.8 g/dL (3.5-5.0); Alkaline Phosphatase 58 U/L (38-126); Anion Gap 9 mmol/L; Blood Urea Nitrogen 4 mg/dL (7-17); C Reactive Protein 5.5 mg/dL (<1.0); Calcium 8.5 mg/dL (8.4-10.2); Carbon Dioxide 24 mmol/L (22-30); Chloride 107 mmol/L (98-107); Glucose 117 mg/dL (74-99); Non-African American GFR(CKD) >90 (>60 ml/min/1.73 sqM); Potassium 3.8 mmol/L (3.5-5.1); Sodium 140 mmol/L (137-145); Total Bilirubin 1.1 mg/dL (0.2-1.3); Total Protein 5.9 g/dL (6.3-8.2)
--- NOTE | 2023-10-27 13:34 | P.PN ---
Subjective Progress Note Date: 10/27/23 I am following-up with the patient and she is accompanied with her grand- daughter who states she is having fluctuation of confusion and word finding difficulty. It seems it was started after her IV Morphine drip was started this Saturday. Per grand-daughter patient is improving and is better today but not completely back to baseline. Patient does have underlying abdominal hernia that is known per grand-daughter. Objective - Vital Signs Vital signs: Vital Signs Temp 97.5 F L 10/27/23 08:59 Pulse 89 10/27/23 11:58 Resp 18 10/27/23 11:58 BP 170/100 10/27/23 11:58 Pulse Ox 96 10/27/23 11:58 FiO2 Intake & Output 10/26/23 10/27/23 10/27/23 18:59 06:59 18:59 Intake Total 540 240 Output Total 500 1300 650 Balance -500 -760 -410 Intake: Oral 540 240 Output: Urine 500 1300 650 Straight 500 Other: Voiding Method External Catheter Incontinent Incontinent External Catheter External Catheter # Bowel Movements 1 1 - Exam General: Lying in bed and is not in acute distress. Neuro: Patient is awake, alert, oriented to self and place. She could not tell me year. The month she correctly chose correct one with options. She is somewhat slow responding questions at times and at times quick responding. She is having some word finding difficulty at times. No neglect. Pupils are round, equal and reactive to light. EOM intact and no nystagmus. No facial weakness. No dysarthria. Motor: Lifting all extremities above gravity equally. Sensation: Normal to touch throughout. Some of the work-up consisted of: Tmax is 99.9F on presentation but no fever fevers. Neurotrophils is 7.9 otherwise normal cbc with diff Sodium is 134, serum glucose is 107, magnesium is 1.4, AST ALT, are within normal limits Ammonia is less than 9 Serum Lactic acid vein is 3.0 yesterday and today is 1.5 Vitamin B12: 2797 Serum folate: 23.70 TSH: 2.180 Urinalysis with cloudy, urine bacteria was moderate in the leukocyte esterase and nitrate was negative. CT of the head is reported as severely consult burden of chronic small vessel ischemic disease. No acute intracranial abnormality seen. Correlate for acute on chronic sinusitis on the right. I Personally reviewed the CT and there is no acute subacute ischemia. There is no any the acute or subacute bleed. Carotid duplex: No hemodynamically significant internal carotid artery stenosis on either side. CT abd/pelvix: Was reported as multiple ventral abdominal wall hernias. Aggregate with up to 4.2 cm versus 12.2 cm previously. One of these hernia containing a segment of nonobstructive transverse colon. Additional suprapubic rectus diastasis measuring 4.6 cm wide. The anterior bulging content contained nonobstructive bowel loop of small bowel extending asymmetrical to the left near the inguinal region. No significant the different compared to 05/09/2023. No discrete inguinal or femoral canal hernia seen. Similar moderate to large hiatal hernia containing two third of the stomach in the lower chest. Left- sided clonic diverticulosis without acute diverticulitis. Status post L3-L5 posterior and the interbody fusion. Advanced spondylolytic changes below the fusion at L5-S1 with degenerative grade 1 anterolithiasis - Labs CBC & Chem 7: 10/27/23 10:07 10/27/23 08:27 Labs: Abnormal Lab Results - Last 24 Hours (Table) 10/26/23 10/26/23 10/26/23 Range/Units 14:53 15:59 15:59 BUN (7-17) mg/dL Creatinine (0.52-1.04) mg/dL Glucose (74-99) mg/dL POC Glucose (mg/dL) 136 H (70-110) mg/dL Plasma Lactic Acid Emmanuel 3.0 H* (0.7-2.0) mmol/L C-Reactive Protein (<1.0) mg/dL Total Protein (6.3-8.2) g/dL Albumin (3.5-5.0) g/dL Vitamin B12 2797.0 H (200.0-944.0) pg/mL 10/27/23 Range/Units 08:27 BUN 4 L (7-17) mg/dL Creatinine 0.35 L (0.52-1.04) mg/dL Glucose 117 H (74-99) mg/dL POC Glucose (mg/dL) (70-110) mg/dL Plasma Lactic Acid Emmanuel (0.7-2.0) mmol/L C-Reactive Protein 5.5 H (<1.0) mg/dL Total Protein 5.9 L (6.3-8.2) g/dL Albumin 2.8 L (3.5-5.0) g/dL Vitamin B12 (200.0-944.0) pg/mL Microbiology - Last 24 Hours (Table) 10/26/23 03:15 Blood Culture - Preliminary Blood 10/26/23 03:30 Blood Culture - Preliminary Blood Assessment and Plan Assessment: This is a 73-year-old woman who presented emergency department because of altered mental status at. It seems the patient had a pain pump placed by her neurologist/pain specialist Dr. Mcgee in the middle of September 2023 and that this past Saturday the morphine was started. Per the patient's nurse earlier today she was confused and ongoing last normal state and was felt like the she is having word finding difficulty but upon seeing her she was a somewhat slow responding but was oriented to self and place and was follow commands normal without any word finding difficulty. She presented with a temperature of 99.9 and seems she has erythema and not growing distal abdomen region. Delirium a lot underlying infection in the lower abdomen pelvis region especially with a recently placed pain pump. She had one low-grade fever on presentation. There is questionable UTI. Morphine started recently this past Saturday and that when she started having confusion. I cannot rule out acute/sucacute CVA especially with expressive aphasia She had a CT head which was negative for any acute or subacute ischemia and carotid duplex is negative. Multiple abdominal/chest hernia that seems large in size but are nonobstructive. Plan: Pending MRI of the brain to rule out any acute subacute stroke seen a CT of the head. No textile science technician today. If cannot obtain MRI then recommend repeat CT head. I ordered 2D echo. Recommend ASA 81mg daily and Lipitor 40mg qhs for secondary stroke prophylaxis if felt safe by primary and general surgery team. Later, I spoke with primary attending and he stated it was safe to start ASA and lipitor since patient has known hernia's and this is not new. Pending routine EEG because of her confusion a lot any underlying seizures or discharges which I feel unlikely. It will be completed tomorrow. Q4 hour neuro checks Cardiac monitoring. Consulted PT, OT and PLASTER DIE MAKER. ID is consulted. Dr. Jackson is consulted for multiple hernias on CT abdomen. I discontinued the morphine 4 mg every 4 hours that was ordered by the ED physician We'll defer the rest of the medical management to primary and other specialists For DVT prophylaxis: Recommend Subq heparin or Lovenox or as last resort SCD's. I had a lengthy discussion with patient's grand-daughter who is at bedside and primary attending. Dr. Mcgill will start neurology service tomorrow A.M. Time with Patient: Less than 30
[2023-10-27] MEDS ORDERED: hydrALAZINE HCL 20 MG/ML 1 ML VIAL IVP PRN (14:33)
--- NOTE | 2023-10-27 15:47 | P.PN ---
Subjective Progress Note Date: 10/27/23 patient is a 73-year-old lady with past medical significant for hyperlipidemia, back pain, hypertension brought to the ER for altered mental status. Patient was brought in by family who noticed patient was lethargic and confused, patient was having symptoms of increased frequency of urination at home, denied any burning micturition, no complain of urinary hesitancy or urgency. Patient also had a pain pump placed recently. There was no complain of recent fall. No complain of any trauma. There was no complain of chest pain shortness of breath. There was no complain nausea, vomiting or altered bowel movements. Because of the symptoms, patient was brought to the ER Initial lab work done in the ER showed WBC 10.1, hemoglobin 13, platelet count 272, sodium 134, potassium 3.8, BUN 18, creatinine 0.45, glucose 107 calcium 9.1, phosphorus 3.1, magnesium 1.4 bilirubin 1.[address] head done showed no acute intracranial process, severe confluent burden of chronic small vessel ischemic disease Patient admitted to internal medicine service 10/27. Patient seen and examined. GrandDaughter at the bedside. States her mental status has improved compared to yesterday. Denies any abdominal pain. Vital signs stable REVIEW OF SYSTEMS: CONSTITUTIONAL: No fever, no malaise,. CARDIOVASCULAR: No chest pain, no palpitations, no syncope. PULMONARY: No shortness of breath, no cough, GASTROINTESTINAL: No diarrhea, no nausea, no vomiting, no abdominal pain. NEUROLOGICAL: No headaches, no weakness, PHYSICAL EXAMINATION: GENERAL: The patient is alert , not in any acute distress. Well developed, well nourished. HEENT: Pupils are round and equally reacting to light. EOMI. No scleral icterus. No conjunctival pallor. Normocephalic, atraumatic. No pharyngeal erythema. No thyromegaly. CARDIOVASCULAR: S1 and S2 present. No murmurs, rubs, or gallops. PULMONARY: Chest is clear to auscultation, no wheezing or crackles. ABDOMEN: Soft, nontender, nondistended, normoactive bowel sounds. No palpable organomegaly. MUSCULOSKELETAL: No joint swelling or deformity. EXTREMITIES: No cyanosis, clubbing, or pedal edema. NEUROLOGICAL: Gross neurological examination did not reveal any focal deficits. Has expressive aphasia SKIN: Erythema and redness of skin folds in the groin and abdominal Assessment and plan Acute metabolic encephalopathy Extensive cutaneous candiadiasis Groin cellulitis Abdominal wall cellulitis UTI ruled out Monitor vital signs Monitor CBC Monitor CMP Follow-up on blood cultures Follow-up on urine cultures Continue IV fluids Continue IV Rocephin EEG ordered MRI brain ordered Results of CT abdominal noted Gen. surgery consulted Neurology following ID following Labs and medication were reviewed.. Continue same treatment. Continue with symptomatic treatment. Resume home medication. Monitor labs and vitals. DVT and GI prophylaxis. Further recommendations as per clinical course of the patient Dictation was produced using [employer] dictation software. please excuse any grammatical, word or spelling errors. Objective - Vital Signs Vital signs: Vital Signs Temp 97.5 F L 10/27/23 08:59 Pulse 89 10/27/23 13:53 Resp 18 10/27/23 13:53 BP 170/100 10/27/23 11:58 Pulse Ox 96 10/27/23 11:58 FiO2 Intake & Output 10/26/23 10/27/23 10/27/23 18:59 06:59 18:59 Intake Total 540 480 Output Total 500 1300 650 Balance -500 -760 -170 Intake: Oral 540 480 Output: Urine 500 1300 650 Straight 500 Other: Voiding Method External Catheter Incontinent Incontinent External Catheter External Catheter # Bowel Movements 1 1 - Labs CBC & Chem 7: 10/27/23 10:07 10/27/23 08:27 Labs: Abnormal Lab Results - Last 24 Hours (Table) 10/26/23 10/26/23 10/27/23 Range/Units 15:59 15:59 08:27 BUN 4 L (7-17) mg/dL Creatinine 0.35 L (0.52-1.04) mg/dL Glucose 117 H (74-99) mg/dL Plasma Lactic Acid Emmanuel 3.0 H* (0.7-2.0) mmol/L C-Reactive Protein 5.5 H (<1.0) mg/dL Total Protein 5.9 L (6.3-8.2) g/dL Albumin 2.8 L (3.5-5.0) g/dL Vitamin B12 2797.0 H (200.0-944.0) pg/mL Microbiology - Last 24 Hours (Table) 10/26/23 03:15 Blood Culture - Preliminary Blood 10/26/23 03:30 Blood Culture - Preliminary Blood
[2023-10-27] MEDS: ASPIRIN 81 MG PO SCH (16:17)
[2023-10-27] MEDS: ONDANSETRON 4 MG/2 ML VIAL IVP PRN (17:24)
[2023-10-27] MEDS: HEPARIN SODIUM,PORCINE 5,000 UNIT/ML 1 ML VIAL SQ SCH (20:07)
[2023-10-27] MEDS: ATORVASTATIN 40 MG TAB PO SCH (20:07)
[2023-10-27 23:04] LABS: Chol/HDL Ratio 2.84 Ratio; VLDL Calculation 15.16 mg/dL (5.00-40.00)
[2023-10-27 23:05] LABS: LDL Cholesterol,Calculated 77.4 mg/dL (0.0-131.0)
[2023-10-28] MEDS: NYSTATIN 100,000 UNIT/GM POWD 15 GM TOPICAL SCH ×4 (02:49→21:28)
[2023-10-28] MEDS: SODIUM CHLORIDE 0.9% 1,000 ML IV SCH ×2 (03:49→13:46)
[2023-10-28 09:37] LABS: Basophils % (A) 1 %; Eosinophils # (A) 0.2 k/uL (0-0.7); Eosinophils % (A) 3 %; HCT 40.3 % (34.0-46.0); HGB 13.1 gm/dL (11.4-16.0); Lymphocytes # (A) 1.2 k/uL (1.0-4.8); Lymphocytes % (A) 24 %; MCH 31.2 pg (25.0-35.0); MCHC 32.6 g/dL (31.0-37.0); MCV 95.6 fL (80.0-100.0); Mean Platelet Volume 7.4; Monocytes # (A) 0.3 k/uL (0-1.0); Monocytes % (A) 6 %; Neutrophils # (A) 3.3 k/uL (1.3-7.7); Neutrophils % (A) 65 %; Platelet Count 314 k/uL (150-450); RBC 4.21 m/uL (3.80-5.40); RDW 14.5 % (11.5-15.5); WBC 5.1 k/uL (3.8-10.6)
[2023-10-28] MEDS: ASPIRIN 81 MG PO SCH (09:56)
[2023-10-28] MEDS: ONDANSETRON 4 MG/2 ML VIAL IVP PRN ×2 (09:56→17:18)
[2023-10-28] MEDS: HEPARIN SODIUM,PORCINE 5,000 UNIT/ML 1 ML VIAL SQ SCH ×2 (09:56→20:03)
[2023-10-28] MEDS: PANTOPRAZOLE 40 MG/10 ML VIAL IVP SCH (09:57)
--- NOTE | 2023-10-28 10:43 | EEG ---
ELECTROENCEPHALOGRAM REPORT PREAMBLE: This is a 73-year-old female, with confusion, rule out seizure. The patient was brought to the hospital because was confused, lethargic, and increased urinary frequency. The patient had a morphine pump placed on 10/04/2023 by his pain specialist. The morphine was started this past Saturday. The patient was noted to be confused, thrashing around. CURRENT MEDICATIONS: Aspirin, Lipitor, ceftriaxone, Zofran, Protonix. EEG FINDINGS: This is a 21-channel digital EEG recorded with video component, utilizing 10/20 international system with referential and bipolar montages. Background consists of moderately developed, and regulated, predominantly 6 hertz moderate to high amplitude theta activity seen in bihemispheric region. Intermittent delta slowing was seen in 2- 3 hertz in bihemispheric region. Background does not seem to be reactive to eye opening or closing. Photic stimulation or hyperventilation was not done. Different stages of sleep were not seen. No focal or generalized epileptiform activity was seen. IMPRESSION: This is an abnormal EEG due to background slowing and disorganization of moderate degree. This is suggestive of generalized cerebral dysfunction as can be seen with toxic metabolic encephalopathy or related to diffuse structural brain abnormality. No definitive epileptiform activity was seen. Followup EEG recommended, if clinically indicated. MMODL / IJN: [id number] / MTDD
[2023-10-28 10:49] LABS: ALT 18 U/L (4-34); AST 27 U/L (14-36); African American GFR (CKD) >90 (>60 ml/min/1.73 sqM); Albumin 3.1 g/dL (3.5-5.0); Alkaline Phosphatase 73 U/L (38-126); Anion Gap 8 mmol/L; Blood Urea Nitrogen 2 mg/dL (7-17); Carbon Dioxide 24 mmol/L (22-30); Chloride 109 mmol/L (98-107); Glucose 129 mg/dL (74-99); Non-African American GFR(CKD) >90 (>60 ml/min/1.73 sqM); Potassium 3.5 mmol/L (3.5-5.1); Sodium 141 mmol/L (137-145); Total Bilirubin 0.8 mg/dL (0.2-1.3); Total Protein 6.2 g/dL (6.3-8.2)
--- NOTE | 2023-10-28 12:27 | CA ---
Transthoracic Echo Report Name: Doug Helton Age: 73 Gender: F : 1950 Exam Date: 10/28/2023 11:07 Exam Location: [place] [facility] Ht (in): 63 Wt (lb): 235 Ordering Physician: Teo Navarrete MD Attending/Referring Phys: Gas Booster Engineer Paulina Mathis RDCS Procedure CPT: Indications: CVA Cardiac Hx: Technical Quality: Fair Contrast 1: Total Dose (mL): Contrast 2: Total Dose (mL): MEASUREMENTS (Male / Female) Normal Values 2D ECHO LV Diastolic Diameter PLAX 4.8 cm 4.2 - 5.9 / 3.9 - 5.3 cm LV Systolic Diameter PLAX 3.3 cm IVS Diastolic Thickness 1.2 cm 0.6 - 1.0 / 0.6 - 0.9 cm LVPW Diastolic Thickness 1.2 cm 0.6 - 1.0 / 0.6 - 0.9 cm LV Relative Wall Thickness 0.5 RV Internal Dim ED PLAX 3.4 cm LA Systolic Diameter LX 3.5 cm 3.0 - 4.0 / 2.7 - 3.8 cm LV Diastolic Volume MOD 4C 127.9 cm??? LV Systolic Volume MOD 4C 48.1 cm??? LV Ejection Fraction MOD 4C 62.4 % LV Cardiac Index MOD 4C 3251.6 cm???/min???m??? LV Diastolic Length 4C 8.5 cm LV Systolic Length 4C 6.9 cm LV Diastolic Volume MOD 2C 51.1 cm??? LV Systolic Volume MOD 2C 21.7 cm??? LV Ejection Fraction MOD 2C 57.5 % LV Cardiac Index MOD 2C 1197.3 cm???/min???m??? LV Diastolic Length 2C 7.2 cm LV Systolic Length 2C 6.9 cm LA Volume 39.5 cm??? 18 - 58 / 22 - 52 cm??? LA Volume Index 17.7 cm???/m??? 16 - 28 cm???/m??? M-MODE Aortic Root Diameter MM 3.2 cm DOPPLER AV Peak Velocity 215.9 cm/s AV Peak Gradient 18.7 mmHg AV Mean Velocity 156.8 cm/s AV Mean Gradient 11.5 mmHg AV Velocity Time Integral 40.5 cm LVOT Peak Velocity 122.3 cm/s LVOT Peak Gradient 6.0 mmHg MV Area PHT 2.2 cm??? Mitral E Point Velocity 95.0 cm/s Mitral A Point Velocity 145.9 cm/s Mitral E to A Ratio 0.7 MV Deceleration Time 339.9 ms MV E' Velocity 8.4 cm/s Mitral E to MV E' Ratio 11.3 FINDINGS Left Ventricle Left ventricular ejection fraction is estimated at 55-60 %. Left ventricular cavity size normal. Mildly increased septal wall thickness. Mildly increased posterior wall thickness. Right Ventricle Mild right ventricular dilatation. Unable to estimate the right ventricular systolic pressure. Right Atrium Normal right atrial size. Left Atrium Normal left atrial size. Mitral Valve Structurally normal mitral valve. No mitral stenosis, regurgitation or prolapse. Aortic Valve Trileaflet aortic valve. Aortic valve sclerosis. No aortic stenosis. No aortic regurgitation. Tricuspid Valve Structurally normal tricuspid valve. No tricuspid stenosis, regurgitation or prolapse. Pulmonic Valve Pulmonic valve not well visualized. No pulmonic regurgitation. Pericardium No pericardial effusion. Aorta Mildly dilated proximal ascending aorta 42 mm CONCLUSIONS Normal LV function Mildly dilated ascending aorta Previewed by: Dr. Tushar Ramos MD (Electronically Signed) Final Date: 28 October 2023 12:26
[2023-10-28] MEDS: FLUCONAZOLE 100 MG TAB PO SCH (13:36)
--- NOTE | 2023-10-28 14:23 | P.GSCN ---
History of Present Illness Consult date: 10/28/23 History of present illness: CHIEF COMPLAINT: Altered mental status HISTORY OF PRESENT ILLNESS: This is a 73-year-old female who presented to the ER for altered mental status. Patient was having urinary symptoms and also had a pain pump recently placed. Patient admitted to the hospital for UTI and metabolic encephalopathy. Patient has a known history of ventral abdominal hernias. She reports that she was to follow-up with Dr. Jackson outpatient for eventual surgery. Patient does have a past surgical history of cholecystectomy, hiatal hernia repair and hysterectomy. She does complain of nausea. She reports having bowel movements. Her bowel movements usually go back and forth between constipation and diarrhea. She had a computed tomography scan abdomen and pelvis that did report multiple ventral abdominal hernias one of the hernias contains a segment of nonobstructed transverse colon. And additional suprapubic rectus diastasis measuring 4.6 cm wide. Containing nonobstructing loops of small bowel. Patient complaining mostly of back pain. No significant abdominal pain. She is tolerating the clear liquids. PAST MEDICAL HISTORY: See list. PAST SURGICAL HISTORY: See list. MEDICATIONS: See list. ALLERGIES: See list. SOCIAL HISTORY: No illicit drug use. REVIEW OF SYSTEMS: CONSTITUTIONAL: Denies fever or chills. HEENT: Denies blurred vision, vision changes, or eye pain. Denies hemoptysis ENDOCRINE: Denies heat or cold intolerance. CARDIOVASCULAR: Denies chest pain or pressure. RESPIRATORY: No shortness of breath. GASTROINTESTINAL: Please refer to HPI NEURO: Denies history of seizures. PSYCH: No depression or suicidal ideation HEMATOLOGIC: Denies bleeding disorders. LYMPHATIC: The patient denies any lumps and bumps around the neck. GENITOURINARY: Denies any blood in urine or increased urinary frequency. MUSCULOSKELETAL: Denies myalgias. Denies joint swelling. Denies decreased range of motion beyond patients baseline. SKIN: Denies pruitis. Denies rash. PHYSICAL EXAM: VITAL SIGNS: Reviewed GENERAL: Well-developed in no acute distress. HEENT: No sclera icterus. Extraocular movements grossly intact. Moist buccal mucosa. Head is atraumatic, normocephalic. Hears conversational speech. No nasal drainage. NECK: Supple without lymphadenopathy. CHEST: Non-labored respirations and equal bilateral excursions. CARDIOVASCULAR: Palpable 2+ radial pulses. ABDOMEN: Soft. Nondistended. pain pump incision left side of abdomen with mild tenderness and erythema MUSCULOSKELETAL: No clubbing or cyanosis. NEUROLOGIC: No focal or lateralizing signs. Cranial nerves II through XII grossly intact. PSYCH: awake and alert slightly confused SKIN: Well perfused. Good skin turgor. LABORATORY DATA: WBC 5.1 hgb 13.1 plt 314 Na 141 k 3.5 cr 0.34 Mg 1.5 IMAGING: Computed tomography scan abdomen and pelvis multiple ventral abdominal wall hernias width 14.2 cm versus 12.2 cm previously. One of these hernias contains a segment of nonobstructed transverse colon. Suprapubic rectus diastasis measuring 4.6 cm wide. Contents contains nonobstructive loops of small bowel extending asymptomatically to the left near the inguinal region. Not significantly different compared to 05/09/2023. Similar monitor large hiatal hernia containing two thirds of the stomach in the lower chest. It left-sided colonic diverticulosis without diverticulitis. Computed tomography scan brain severe confluent burden of chronic small vessel ischemic disease. No acute intracranial abnormality ASSESSMENT: 1. Multiple ventral abdominal wall hernias. One hernia contains segment of nonobstructing transverse colon noted on CT 2. Suprapubic rectus diastasis containing loops of nonobstructive small bowel 3. Similar moderate to large hiatal hernia containing two thirds of stomach and lower chest noted on CT 4. Chronic back pain with recent pain pump placement 5. UTI 6. Altered Mental status changes 7. Hypomagnesemia PLAN: -No surgical intervention planned at this time due to acute infection -Recommend outpatient surgical intervention for ventral abdominal wall hernia repair -Continue antibiotics for acute infection, possible UTI -Continue neuro workup for altered mental status -Continue supportive care -Continue clear liquid diet -Replace magnesium Thank you for this consultation Physician Sound Controller note has been reviewed by physician. Signing provider agrees with the documented findings, assessment, and plan of care. Past Medical History Past Medical History: Hearing Disorder / Deafness, Hypertension, Osteoarthritis (OA) Additional Past Medical History / Comment(s): Arrhythmia, hx anemia, wears pad/brief for urinary incontinence, frequent UTI's, on longterm antibiotic treatment to prevent UTI, SOB, deaf in right ear, hard of hearing in left ear, bilateral hearing aid use. History of Any Multi-Drug Resistant Organisms: None Reported Past Surgical History: Appendectomy, Cholecystectomy, Heart Catheterization With Stent, Hernia Repair, Hysterectomy, Joint Replacement Additional Past Surgical History / Comment(s): Pain Clinic Procedures, CARDIAC S TENTS X2, L3-4-5 FUSION, total right knee replacement, bilateral cataract surgery. hiatal hernia repair. Past Anesthesia/Blood Transfusion Reactions: No Reported Reaction Additional Past Anesthesia/Blood Transfusion Reaction / Comm: "Slow coming out." Date of Last Stent Placement:: Past Psychological History: Anxiety, Depression Smoking Status: Never smoker Past Alcohol Use History: None Reported Past Drug Use History: None Reported - Past Family History Father Family Medical History: Cancer Sister(s) Family Medical History: Cancer Medications and Allergies Home Medications Medication Instructions Recorded Confirmed Type Aspirin 81 mg PO DAILY 12/14/14 10/26/23 History Cyanocobalamin [Vitamin B-12] 1,000 mcg PO DAILY 12/14/14 10/26/23 History Multivitamins, Thera [Multivitamin 1 tab PO DAILY 12/14/14 10/26/23 History (formulary)] Pramipexole [Mirapex] 0.25 mg PO HS 12/14/14 10/26/23 History Atorvastatin Calcium [Lipitor] 10 mg PO HS 07/10/19 10/26/23 History Cetirizine HCl [Zyrtec] 10 mg PO HS 07/10/19 10/26/23 History Arnold-3 Fatty Acids/Fish Oil [Fish 1 cap PO DAILY 07/10/19 10/26/23 History Oil 1,000 mg Softgel] Hydrocodone/Acetaminophen 1 tab PO BID 07/26/22 10/26/23 History [Hydrocodone/Acetaminophen 7.5-325] Meloxicam [Mobic] 15 mg PO DAILY 07/26/22 10/26/23 History Metoprolol Tartrate [Lopressor] 25 mg PO DAILY 07/26/22 10/26/23 History Omeprazole 40 mg PO BID 07/26/22 10/26/23 History Venlafaxine HCl [Effexor] 100 mg PO DAILY 07/26/22 10/26/23 History Calcium Carbonate/Vitamin D3 1 tab PO DAILY 10/05/22 10/26/23 History [Calcium 600-D3 20 mcg (800 Unit)] Simethicone [Gas-X] 125 mg PO W/SUPPER 10/05/22 10/26/23 History nitrofurantoin macrocrystaL 100 mg PO HS 10/05/22 10/26/23 History [Nitrofurantoin] oxyBUTYnin chloride [Ditropan XL] 10 mg PO HS 02/13/23 10/26/23 History Ubidecarenone [Coenzyme Q10] 100 mg PO DAILY 05/09/23 10/26/23 History Cranberry 15,000 1 cap PO DAILY 10/26/23 10/26/23 History Docusate [Colace] 100 mg PO DAILY 10/26/23 10/26/23 History Gabapentin [Neurontin] 400 mg PO TID 10/26/23 10/26/23 History Morphine Pain Pump 1 dose INTRATHECA CONTINUOUS 10/26/23 10/26/23 History Naloxone HCl [Narcan] 4 mg NASAL DIRECTED PRN 10/26/23 10/26/23 History calcium polycarbophiL [Fibercon] 625 mg PO DAILY 10/26/23 10/26/23 History Allergies Allergy/AdvReac Type Severity Reaction Status Date / Time adhesive tape Allergy Rash/Hives, Verified 10/26/23 13:15 "paper tape is ok" Surgical - Exam Vital Signs Temp Pulse Resp BP Pulse Ox 99.9 F H 86 16 158/73 99 10/26/23 00:04 10/26/23 00:04 10/26/23 00:04 10/26/23 00:04 10/26/23 00:04 Results - Labs 10/28/23 09:14 10/28/23 09:14 Abnormal Lab Results - Last 24 Hours (Table) 10/28/23 10/28/23 Range/Units 09:14 09:14 Chloride 109 H (98-107) mmol/L BUN 2 L (7-17) mg/dL Creatinine 0.34 L (0.52-1.04) mg/dL Glucose 129 H (74-99) mg/dL Magnesium 1.5 L (1.6-2.3) mg/dL Total Protein 6.2 L (6.3-8.2) g/dL Albumin 3.1 L (3.5-5.0) g/dL Microbiology - Last 24 Hours (Table) 10/26/23 03:15 Blood Culture - Preliminary Blood 10/26/23 03:30 Blood Culture - Preliminary Blood Diabetes panel 10/27/23 10/28/23 Range/Units 08:27 09:14 Sodium 141 (137-145) mmol/L Potassium 3.5 (3.5-5.1) mmol/L Chloride 109 H (98-107) mmol/L Carbon Dioxide 24 (22-30) mmol/L BUN 2 L (7-17) mg/dL Creatinine 0.34 L (0.52-1.04) mg/dL Glucose 129 H (74-99) mg/dL Calcium 9.0 (8.4-10.2) mg/dL AST 27 (14-36) U/L ALT 18 (4-34) U/L Alkaline Phosphatase 73 (38-126) U/L Total Protein 6.2 L (6.3-8.2) g/dL Albumin 3.1 L (3.5-5.0) g/dL Triglycerides 75.80 (0.00-149.00) mg/dL HDL Cholesterol 50.40 (40.00-60.00) mg/dL Calcium panel 10/28/23 Range/Units 09:14 Calcium 9.0 (8.4-10.2) mg/dL Albumin 3.1 L (3.5-5.0) g/dL Pituitary panel 10/28/23 Range/Units 09:14 Sodium 141 (137-145) mmol/L Potassium 3.5 (3.5-5.1) mmol/L Chloride 109 H (98-107) mmol/L Carbon Dioxide 24 (22-30) mmol/L BUN 2 L (7-17) mg/dL Creatinine 0.34 L (0.52-1.04) mg/dL Glucose 129 H (74-99) mg/dL Calcium 9.0 (8.4-10.2) mg/dL Adrenal panel 10/28/23 Range/Units 09:14 Sodium 141 (137-145) mmol/L Potassium 3.5 (3.5-5.1) mmol/L Chloride 109 H (98-107) mmol/L Carbon Dioxide 24 (22-30) mmol/L BUN 2 L (7-17) mg/dL Creatinine 0.34 L (0.52-1.04) mg/dL Glucose 129 H (74-99) mg/dL Calcium 9.0 (8.4-10.2) mg/dL Total Bilirubin 0.8 (0.2-1.3) mg/dL AST 27 (14-36) U/L ALT 18 (4-34) U/L Alkaline Phosphatase 73 (38-126) U/L Total Protein 6.2 L (6.3-8.2) g/dL Albumin 3.1 L (3.5-5.0) g/dL
--- NOTE | 2023-10-28 15:21 | P.PN ---
Subjective Progress Note Date: 10/28/23 Patient was initially seen by Dr. Teo Navarrete. Please refer to his note for details. Patient is a 73-year-old female with confusion, appears to be delirium but cannot rule out acute/subacute CVA the cause of aphasia. Patient recently had undergone pain pump placement and recently started on morphine. Patient was started on aspirin and statins by Dr. Navarrete. Patient was seen for a follow-up. Patient's family members were present. Patient is doing much better. She still has some slight confusion, slightly delayed response. Patient denies any headache. Patient walked with her walker about 3 feet. Patient has limited mobility and walks only about 3-6 feet with a walker at home at baseline. This is not a new findings. Patient has chronic back issues for which she follows up with neurologist and had undergone placement of pain/morphine pump. Some of the work-up consisted of: Tmax is 99.9F on presentation but no fever fevers. Neurotrophils is 7.9 otherwise normal cbc with diff Sodium is 134, serum glucose is 107, magnesium is 1.4, AST ALT, are within normal limits Ammonia is less than 9 Serum Lactic acid vein is 3.0 yesterday and today is 1.5 Vitamin B12: 2797 Serum folate: 23.70 TSH: 2.180 Urinalysis with cloudy, urine bacteria was moderate in the leukocyte esterase and nitrate was negative. CT of the head is reported as severely consult burden of chronic small vessel ischemic disease. No acute intracranial abnormality seen. Correlate for acute on chronic sinusitis on the right. I Personally reviewed the CT and there is no acute subacute ischemia. There is no any the acute or subacute bleed. Carotid duplex: No hemodynamically significant internal carotid artery stenosis on either side. CT abd/pelvix: Was reported as multiple ventral abdominal wall hernias. Aggregate with up to 4.2 cm versus 12.2 cm previously. One of these hernia cont aining a segment of nonobstructive transverse colon. Additional suprapubic rectus diastasis measuring 4.6 cm wide. The anterior bulging content contained nonobstructive bowel loop of small bowel extending asymmetrical to the left near the inguinal region. No significant the different compared to 05/09/2023. No discrete inguinal or femoral canal hernia seen. Similar moderate to large hiatal hernia containing two third of the stomach in the lower chest. Left- sided clonic diverticulosis without acute diverticulitis. Status post L3-L5 posterior and the interbody fusion. Advanced spondylolytic changes below the fusion at L5-S1 with degenerative grade 1 anterolithiasis Objective - Vital Signs Vital signs: Vital Signs Temp 98.3 F 10/28/23 09:55 Pulse 88 10/28/23 09:55 Resp 16 10/28/23 09:55 BP 149/98 10/28/23 09:55 Pulse Ox 92 L 10/28/23 09:55 FiO2 Intake & Output 10/27/23 10/28/23 10/28/23 18:59 06:59 18:59 Intake Total 2280 780 120 Output Total 1450 1400 100 Balance 830 -620 20 Intake: Intake, IV Titration 1560 Amount Sodium Chloride 0.9% 1, 1560 000 ml @ 130 mls/hr IV . Q7H42M [facility] Rx#:[id number] Oral 720 780 120 Output: Urine 1450 1400 100 Other: Voiding Method Incontinent Incontinent Incontinent External Catheter External Catheter External Catheter # Voids 1 # Bowel Movements 1 - Exam Patient is alert and awake fully oriented. She knows it is October and the year is 2023 and that she is in [facility]. Speech and language functions are normal. Cranial nerves are normal. Patient is hard of hearing and uses hearing aids. Muscle strength is normal in the arms and legs. Her right shoulder is slightly weak, which is chronic issue. No ataxia for [id number] testing. Tone and bulk of muscles normal. - Labs CBC & Chem 7: 10/28/23 09:14 10/28/23 09:14 Labs: Abnormal Lab Results - Last 24 Hours (Table) 10/28/23 10/28/23 Range/Units 09:14 09:14 Chloride 109 H (98-107) mmol/L BUN 2 L (7-17) mg/dL Creatinine 0.34 L (0.52-1.04) mg/dL Glucose 129 H (74-99) mg/dL Magnesium 1.5 L (1.6-2.3) mg/dL Total Protein 6.2 L (6.3-8.2) g/dL Albumin 3.1 L (3.5-5.0) g/dL Microbiology - Last 24 Hours (Table) 10/26/23 03:15 Blood Culture - Preliminary Blood 10/26/23 03:30 Blood Culture - Preliminary Blood Assessment and Plan Assessment: This is a 73-year-old woman who presented emergency department because of altered mental status at. It seems the patient had a pain pump placed by her neurologist/pain specialist Dr. Mcgee in the middle of September 2023 and that this past Saturday the morphine was started. Delirium, probably due to underlying infection in the lower abdomen pelvis region with bilateral cutaneous candidiasis involving bilateral groin region, and especially with a recently placed pain pump. She had one low-grade fever on presentation. There is questionable UTI. Morphine started recently this past Saturday and that when she started having confusion. Doubt acute/sucacute CVA especially with expressive aphasia. She had a CT head which was negative for any acute or subacute ischemia and carotid duplex is negative. Multiple abdominal/chest hernia that seems large in size but are nonobstructive. Plan: Await MRI of the brain to rule out any acute subacute stroke seen a CT of the head. 2D echo revealed normal left-ventricular size and systolic function with EF 55- 60%. Mildly increased left ventricular wall thickness. Mild right ventricular dilation. Normal left atrial size. No valvular abnormalities. Recommend ASA 81mg daily and Lipitor 40mg qhs for secondary stroke prophylaxis if felt safe by primary and general surgery team. Later, Dr. Navarrete spoken with primary attending and he stated it was safe to start ASA and lipitor since patient has known hernia's and this is not new. EEG was performed, which was abnormal due to background slowing and disorganization of moderate degree, suggestive of encephalopathy. No epileptiform activity was seen. Q4 hour neuro checks Cardiac monitoring. Consulted PT, OT and CHARTER REPRESENTATIVE. ID is consulted. Dr. Jackson is consulted for multiple hernias on CT abdomen. Dr. Teo Navarrete has discontinued the morphine 4 mg every 4 hours that was ordered by the ED physician We'll defer the rest of the medical management to primary and other specialists For DVT prophylaxis: Recommend Subq heparin or Lovenox or as last resort SCD's. Neurologically clear, if the MRI of brain comes back normal.
[2023-10-28 16:41] LABS: Glucose,Whole Blood 126 mg/dL (70-110)
--- NOTE | 2023-10-28 18:59 | MR ---
EXAMINATION TYPE: MR brain wo/w con DATE OF EXAM: 10/28/2023 COMPARISON: CT brain 10/26/2023 HISTORY: Encephalopathy unknown. CONTRAST: Performed utilizing 11 mL intravenous Gadavist gadolinium contrast. TECHNIQUE: Multiplanar, multiecho imaging on a 3.0 Oksana magnet is performed through the brain. Stud y is performed within 24 hours of arrival to the hospital. The craniovertebral junction is normal. The pituitary is normal. Diffusion-weighted imaging is performed. No abnormal hyperintensity is present to suggest an acute i ntracranial infarct or acute ischemic change. Some minimal increased signal is within the brainstem. Patchy periventricular white matter hyperinten sity on T2 and inversion recovery weighted sequences is present. Findings are compatible with chronic white matter ischemic type changes. Ventricles and sulci are appropriate for the patient age. Following contrast, no suspicious enhancement is evident. Some mucosal thickening is within the right maxillary sinus. Mild mucosal thickening within the poste rior inferior right frontal sinus. Remaining paranasal sinuses and mastoid air cells are clear. IMPRESSION: 1. Chronic appearing periventricular and brainstem white matter ischemic-type changes. No suspicious acute abnormality.
[2023-10-28] MEDS: MAGNESIUM SULFATE-D5W PMX 1 GM in DEXTROSE/WATER 1 100ML.BAG IVPB SCH ×2 (20:01→21:24)
[2023-10-28] MEDS: ATORVASTATIN 40 MG TAB PO SCH (20:02)
--- NOTE | 2023-10-28 22:52 | P.PN ---
Subjective Progress Note Date: 10/28/23 She is feeling better today and denies dizziness or confusion. She does continue to complain of groin rash and suprapubic pressure. She is scheduled for MRI today Objective - Vital Signs Vital signs: Vital Signs Temp 97.8 F 10/28/23 14:00 Pulse 79 10/28/23 19:53 Resp 18 10/28/23 19:53 BP 163/83 10/28/23 19:53 Pulse Ox 97 10/28/23 19:53 FiO2 Intake & Output 10/28/23 10/28/23 10/29/23 06:59 18:59 06:59 Intake Total 780 480 Output Total 1400 400 Balance -620 80 Intake: Oral 780 480 Output: Urine 1400 400 Other: Voiding Method Incontinent Incontinent External Catheter External Catheter # Voids 2 - Exam Gen: elderly female in NAD CV: regular rate and rhythm Lungs: clear throughout Abd: tender suprapubic - Labs CBC & Chem 7: 10/28/23 09:14 10/28/23 09:14 Labs: Abnormal Lab Results - Last 24 Hours (Table) 10/28/23 10/28/23 10/28/23 Range/Units 09:14 09:14 16:40 Chloride 109 H (98-107) mmol/L BUN 2 L (7-17) mg/dL Creatinine 0.34 L (0.52-1.04) mg/dL Glucose 129 H (74-99) mg/dL POC Glucose (mg/dL) 126 H (70-110) mg/dL Magnesium 1.5 L (1.6-2.3) mg/dL Total Protein 6.2 L (6.3-8.2) g/dL Albumin 3.1 L (3.5-5.0) g/dL Microbiology - Last 24 Hours (Table) 10/26/23 03:15 Blood Culture - Preliminary Blood 10/26/23 03:30 Blood Culture - Preliminary Blood Assessment and Plan Plan: Continue with current interventions, rocephin, start diflucan. Await MRI per Neurology. Discharge planning
--- NOTE | 2023-10-28 23:19 | P.PN ---
Subjective Progress Note Date: 10/27/23 Principal diagnosis: Reason for follow-up is extensive bilateral groin area cutaneous candidiasis and a question of UTI Patient is a 73-year-old female with a past medical history significant for hypertension osteoarthritis patient did have a chronic back pain and recently did have a pain pump placement by her neurologist which was filled with medication last week subsequently patient has been noticed to be more lethargic and confused, there was concern for cloudy urine and possible UTI and also noticed to have extensive bilateral groin area cutaneous candidiasis . On today's evaluation that is 10/27/2023 patient did have a resolution of her fever and is afebrile this morning patient is breathing comfortably on room air the patient is slightly more awake and alert today denies any chest pain shortness of the cough no nausea no vomiting no abdominal pain no diarrhea. Patient did have white count of 5.5 creatinine 0.3 5 repeat UA has been negative cultures are currently pending Objective - Vital Signs Vital signs: Vital Signs Temp 98.3 F 10/28/23 09:55 Pulse 88 10/28/23 09:55 Resp 16 10/28/23 09:55 BP 149/98 10/28/23 09:55 Pulse Ox 92 L 10/28/23 09:55 FiO2 Intake & Output 10/27/23 10/28/23 10/28/23 18:59 06:59 18:59 Intake Total 2280 780 120 Output Total 1450 1400 100 Balance 830 -620 20 Intake: Intake, IV Titration 1560 Amount Sodium Chloride 0.9% 1, 1560 000 ml @ 130 mls/hr IV . Q7H42M [facility] Rx#:[id number] Oral 720 780 120 Output: Urine 1450 1400 100 Other: Voiding Method Incontinent Incontinent External Catheter External Catheter # Voids 1 # Bowel Movements 1 - Exam GENERAL DESCRIPTION: An elderly female lying in bed in no distress RESPIRATORY SYSTEM: Unlabored breathing , decreased breath sounds at bases HEART: S1 S2 regular rate and rhythm , ABDOMEN: Soft , no tenderness EXTREMITIES: Extensive bilateral groin area erythema concerning for cutaneous candidiasis - Labs CBC & Chem 7: 10/28/23 09:14 10/28/23 09:14 Labs: Abnormal Lab Results - Last 24 Hours (Table) 10/28/23 10/28/23 Range/Units 09:14 09:14 Chloride 109 H (98-107) mmol/L BUN 2 L (7-17) mg/dL Creatinine 0.34 L (0.52-1.04) mg/dL Glucose 129 H (74-99) mg/dL Magnesium 1.5 L (1.6-2.3) mg/dL Total Protein 6.2 L (6.3-8.2) g/dL Albumin 3.1 L (3.5-5.0) g/dL Microbiology - Last 24 Hours (Table) 10/26/23 03:15 Blood Culture - Preliminary Blood 10/26/23 03:30 Blood Culture - Preliminary Blood Assessment and Plan (1) Fever Current Visit: Yes Status: Acute Code(s): R50.9 - FEVER, UNSPECIFIED SNOMED Code(s): 245088949 (2) Cutaneous candidiasis Current Visit: Yes Status: Acute Code(s): B37.2 - CANDIDIASIS OF SKIN AND NAIL SNOMED Code(s): 09956168 (3) Mary Jane rash of groin Current Visit: Yes Status: Acute Code(s): B37.89 - OTHER SITES OF CANDIDIASIS SNOMED Code(s): 424347462 Plan: 1patient presented to hospital with mental status changes questionably drug related and the symptoms started after her pain pump was filled with pain medication there is concern for some cloudy foul-smelling urine however UA itself did not show any leukocyte esterase or pyuria but patient did have mild fever on admission underlying UTI less likely bilateral excluded clinically doubt encephalitis or meningitis as the patient was able to tell me that she is admitted to the hospital no significant headache or any neck rigidity 2-patient did have extensive cutaneous candidiasis of bilateral groin area but no secondary cellulitis 3-the patient repeat UA has been negative clinically doubt UTI 4-patient to continue with Rocephin and nystatin powder as the patient did have extensive bilateral groin area cutaneous candidiasis and concern for possible cellulitis Dictation was produced using [email or web address] dictation software. please excuse any grammatical, word or spelling errors. Time with Patient: Less than 30
--- NOTE | 2023-10-28 23:22 | P.PN ---
Subjective Progress Note Date: 10/28/23 Principal diagnosis: Reason for follow-up is extensive bilateral groin area cutaneous candidiasis and a question of UTI Patient is a 73-year-old female with a past medical history significant for hypertension osteoarthritis patient did have a chronic back pain and recently did have a pain pump placement by her neurologist which was filled with medication last week subsequently patient has been noticed to be more lethargic and confused, there was concern for cloudy urine and possible UTI and also noticed to have extensive bilateral groin area cutaneous candidiasis . On today's evaluation that is 10/28/2023 patient remains to be afebrile, patient is breathing comfortably on room air the patient is more awake and alert and the patient denies any chest pain shortness of the cough no nausea no vomiting no abdominal pain no diarrhea. Patient did have white count of 5.1 creatinine 0.34 repeat UA has been negative cultures are currently pending Objective - Vital Signs Vital signs: Vital Signs Temp 98.3 F 10/28/23 09:55 Pulse 88 10/28/23 09:55 Resp 16 10/28/23 09:55 BP 149/98 10/28/23 09:55 Pulse Ox 92 L 10/28/23 09:55 FiO2 Intake & Output 10/27/23 10/28/23 10/28/23 18:59 06:59 18:59 Intake Total 2280 780 120 Output Total 1450 1400 100 Balance 830 -620 20 Intake: Intake, IV Titration 1560 Amount Sodium Chloride 0.9% 1, 1560 000 ml @ 130 mls/hr IV . Q7H42M [facility] Rx#:[id number] Oral 720 780 120 Output: Urine 1450 1400 100 Other: Voiding Method Incontinent Incontinent External Catheter External Catheter # Voids 1 # Bowel Movements 1 - Exam GENERAL DESCRIPTION: An elderly female lying in bed in no distress RESPIRATORY SYSTEM: Unlabored breathing , decreased breath sounds at bases HEART: S1 S2 regular rate and rhythm , ABDOMEN: Soft , no tenderness EXTREMITIES: Extensive bilateral groin area erythema concerning for cutaneous candidiasis - Labs CBC & Chem 7: 10/28/23 09:14 10/28/23 09:14 Labs: Abnormal Lab Results - Last 24 Hours (Table) 10/28/23 10/28/23 Range/Units 09:14 09:14 Chloride 109 H (98-107) mmol/L BUN 2 L (7-17) mg/dL Creatinine 0.34 L (0.52-1.04) mg/dL Glucose 129 H (74-99) mg/dL Magnesium 1.5 L (1.6-2.3) mg/dL Total Protein 6.2 L (6.3-8.2) g/dL Albumin 3.1 L (3.5-5.0) g/dL Microbiology - Last 24 Hours (Table) 10/26/23 03:15 Blood Culture - Preliminary Blood 10/26/23 03:30 Blood Culture - Preliminary Blood Assessment and Plan (1) Mary Jane rash of groin Current Visit: Yes Status: Acute Code(s): B37.89 - OTHER SITES OF CANDIDIASIS SNOMED Code(s): 764986894 (2) Cutaneous candidiasis Current Visit: Yes Status: Acute Code(s): B37.2 - CANDIDIASIS OF SKIN AND NAIL SNOMED Code(s): 30454112 (3) Fever Current Visit: Yes Status: Acute Code(s): R50.9 - FEVER, UNSPECIFIED SN OMED Code(s): 711802390 Plan: 1patient presented to hospital with mental status changes questionably drug related and the symptoms started after her pain pump was filled with pain medication there is concern for some cloudy foul-smelling urine however UA i tself did not show any leukocyte esterase or pyuria but patient did have mild fever on admission underlying UTI less likely bilateral excluded clinically doubt encephalitis or meningitis as the patient was able to tell me that she is admitted to the hospital no significant headache or any neck rigidity 2-patient did have extensive cutaneous candidiasis of bilateral groin area and possible secondary cellulitis 3-the patient repeat UA has been negative clinically doubt UTI 4-patient did have some clinical improvement and will continue with Rocephin and nystatin powder and monitor clinical course closely Dictation was produced using [employer] dictation software. please excuse any grammatical, word or spelling errors. Time with Patient: Less than 30
[2023-10-29] MEDS: SODIUM CHLORIDE 0.9% 1,000 ML IV SCH ×3 (04:06→11:49)
[2023-10-29] MEDS: NYSTATIN 100,000 UNIT/GM POWD 15 GM TOPICAL SCH (09:55)
[2023-10-29] MEDS: HEPARIN SODIUM,PORCINE 5,000 UNIT/ML 1 ML VIAL SQ SCH (09:56)
[2023-10-29] MEDS: ASPIRIN 81 MG PO SCH (09:56)
[2023-10-29] MEDS: FLUCONAZOLE 100 MG TAB PO SCH (09:56)
[2023-10-29] MEDS: PANTOPRAZOLE 40 MG/10 ML VIAL IVP SCH (09:56)
[2023-10-29] MEDS ORDERED: METOPROLOL TARTRATE 25 MG TAB PO SCH (11:00)
[2023-10-29 11:01] VITALS: RESP 16
[2023-10-29 11:51] LABS: Magnesium 1.8 mg/dL (1.6-2.3); Potassium 3.6 mmol/L (3.5-5.1)
--- NOTE | 2023-10-29 12:34 | P.PN ---
Subjective Progress Note Date: 10/29/23 CHIEF COMPLAINT: Altered mental status HISTORY OF PRESENT ILLNESS: Patient's confusion improved. She denies any abdominal pain. Nausea is decreased. She is tolerating liquid diet and asking for advancement. She's having regular bowel movements. Surgical service is following regards to patient's multiple ventral hernias. No obstruction noted on computed tomography scan. There is plans for discharge today. Afebrile. WBC 5.1 magnesium 1.8 PHYSICAL EXAM: VITAL SIGNS: Reviewed GENERAL: Well-developed in no acute distress. HEENT: No sclera icterus. Extraocular movements grossly intact. Moist buccal mucosa. Head is atraumatic, normocephalic. Hears conversational speech. No nasal drainage. NECK: Supple without lymphadenopathy. CHEST: Non-labored respirations and equal bilateral excursions. CARDIOVASCULAR: Palpable 2+ radial pulses. ABDOMEN: Soft. Nondistended. Nontender. MUSCULOSKELETAL: No clubbing or cyanosis. NEUROLOGIC: No focal or lateralizing signs. Cranial nerves II through XII grossly intact. PSYCH: Appropriate affect. Alert and oriented to person, place and time. SKIN: Well perfused. Good skin turgor. ASSESSMENT: 1. Multiple ventral abdominal wall hernias. One hernia contains segment of nonobstructing transverse colon noted on CT 2. Suprapubic rectus diastasis containing loops of nonobstructive small bowel 3. Similar moderate to large hiatal hernia containing two thirds of stomach and lower chest noted on CT 4. Chronic back pain with recent pain pump placement 5. Candidiasis skin infection in the groin 6. Altered Mental status changes PLAN: -No surgical intervention planned due to acute infection -Recommend outpatient surgical intervention for ventral abdominal wall hernia repair -Antibiotic management per infectious disease -Agree with advancing diet regular -Patient can be discharged from surgical standpoint Physician Senior Software Project Manager note has been reviewed by physician. Signing provider agrees with the documented findings, assessment, and plan of care. Objective - Vital Signs Vital signs: Vital Signs Temp 97.8 F 10/29/23 09:40 Pulse 77 10/29/23 09:40 Resp 16 10/29/23 09:40 BP 171/81 10/29/23 09:40 Pulse Ox 94 L 10/29/23 09:40 FiO2 Intake & Output 10/28/23 10/29/23 10/29/23 18:59 06:59 18:59 Intake Total 480 240 Output Total 400 200 Balance 80 -200 240 Intake: Oral 480 240 Output: Urine 400 200 Other: Voiding Method Incontinent Incontinent Incontinent External Catheter External Catheter External Catheter # Voids 2 1 - Labs CBC & Chem 7: 10/28/23 09:14 10/29/23 11:05 Labs: Abnormal Lab Results - Last 24 Hours (Table) 10/28/23 Range/Units 16:40 POC Glucose (mg/dL) 126 H (70-110) mg/dL Microbiology - Last 24 Hours (Table) 10/26/23 03:15 Blood Culture - Preliminary Blood 10/26/23 03:30 Blood Culture - Preliminary Blood
[2023-10-29] MEDS ORDERED: POTASSIUM CHLORIDE ER 20 MEQ TAB.ER PO STA (14:11)
[2023-10-29] MEDS ORDERED: MAGNESIUM OXIDE 400 MG TAB PO STA (14:11)
[2023-10-29 14:18] VITALS: BP 157/79; PULSE 74; TEMP 97.9
--- NOTE | 2023-10-29 15:17 | P.DS ---
Providers Date of admission: 10/26/23 02:57 Expected date of discharge: 10/29/23 Attending physician: David Mora MD Consults: 10/26/23 12:13 Consult Physician Stat Consulting Provider: Teo Navarrete Consult Reason/Comments: altered mental status Do you want consulting provider notified?: Yes 10/26/23 12:19 Consult Physician Routine Consulting Provider: Sid Acosta Consult Reason/Comments: uti Do you want consulting provider notified?: Yes 10/27/23 10:56 Consult Physician Routine Consulting Provider: Ashley Jackson Consult Reason/Comments: multiple abdominal hernias Do you want consulting provider notified?: Yes Primary care physician: David Mora MD Hospital Course: Final Diagnoses: Acute metabolic encephalopathy multifactorial ,secondary to bilateral cutaneous candidiasis bilateral groin in addition to to recently placed pain pump. Improved. Candidiasis rash of bilateral groin with possible cellulitis improving. Chronic back pain Multiple abdominal/chest hernia that seems large in size but are nonobstructive. General surgery recommending surgical intervention outpatient Hospital course: This a 73-year-old female with past medical history significant for chronic back pain, recently placed pain pump by her neurologist Td per 2022. Pain pump was recently filled last week on Saturday, with morphine initiated. Patient presented with delirium, confusion, UTI ruled out.CT abd/pelvis reported multiple ventral abdominal wall hernias. Aggregate with up to 4.2 cm versus 12.2 cm previously. One of these hernia containing a segment of nonobstructive transverse colon. Additional suprapubic rectus diastasis measuring 4.6 cm wide. The anterior bulging content contained nonobstructive bowel loop of small bowel extending asymmetrical to the left near the inguinal region. No significant the different compared to 05/09/2023. No discrete inguinal or femoral canal hernia seen. Similar moderate to large hiatal hernia containing two third of the stomach in the lower chest. Left-sided clonic diverticulosis without acute diverticulitis. Status post L3-L5 posterior and the interbody fusion. 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 Evaluated by general surgery ,recommending outpatient surgical intervention for ventral abdominal wall hernia repair. Please refer her to general surgery consult for specifics. Evaluated by neurology with workup completed. Brain CT and MRI reported negative for acute abnormalities. EEG reported no epileptiform activity seen. Preliminary blood cultures 2 reported no growth after 72 hours. Maintained on IV antibiotics ,nystatin powder as per infectious disease. Diflucan added to med regimen. Improving bilateral groin sites. Sensorium improved. Denies chest pain, palpitations or shortness of breath. Denies lightheadedness, dizziness or focal deficits. Evaluated by PT , recommending home with home care, RAMON-JOSUÉ inhibitor requires assistance for ADLs -per social work, patient has declined subacute rehab .Significant clinical improvement. Patient will be discharged home today in a stable condition with guarded prognosis pending final DC recommendations and clearance per neurology and infectious disease. Patient has been advised to follow-up with her pain specialist /neurologist, Dr. Mcgee next week. The impression and plan of care has been dictated as directed. : I performed a history and examination of this patient, discussed the same with the dictator. I agree with the dictator's note ,documented as a scribe. Any additional findings or plans will be noted. Patient Condition at Discharge: Stable Plan - Discharge Summary Discharge Rx Participant: No New Discharge Prescriptions: New Nystatin 100,000 Unit/gm Powd [Mycostatin Powder] 1 applic TOPICAL TID each Fluconazole [Diflucan] 100 mg PO DAILY 8 Days #8 tab Atorvastatin [Lipitor] 40 mg PO HS #30 tab Continue Multivitamins, Thera [Multivitamin (formulary)] 1 tab PO DAILY Cyanocobalamin [Vitamin B-12] 1,000 mcg PO DAILY Aspirin 81 mg PO DAILY Pramipexole [Mirapex] 0.25 mg PO HS [place]-3 Fatty Acids/Fish Oil [Fish Oil 1,000 mg Softgel] 1 cap PO DAILY Cetirizine HCl [Zyrtec] 10 mg PO HS Meloxicam [Mobic] 15 mg PO DAILY Omeprazole 40 mg PO BID Simethicone [Gas-X] 125 mg PO W/SUPPER Calcium Carbonate/Vitamin D3 [Calcium 600-D3 20 mcg (800 Unit)] 1 tab PO DAILY Ubidecarenone [Coenzyme Q10] 100 mg PO DAILY Docusate [Colace] 100 mg PO DAILY calcium polycarbophiL [Fibercon] 625 mg PO DAILY Hydrocodone/Acetaminophen [Hydrocodone/Acetaminophen 7.5-325] 1 tab PO BID Metoprolol Tartrate [Lopressor] 25 mg PO DAILY Venlafaxine HCl [Effexor] 100 mg PO DAILY oxyBUTYnin chloride [Ditropan XL] 10 mg PO HS Gabapentin [Neurontin] 400 mg PO TID Cranberry 15,000 1 cap PO DAILY Morphine Pain Pump 1 dose INTRATHECA CONTINUOUS Naloxone HCl [Narcan] 4 mg NASAL DIRECTED PRN PRN Reason: Opioid Reversal Discontinued Atorvastatin Calcium [Lipitor] 10 mg PO HS nitrofurantoin macrocrystaL [Nitrofurantoin] 100 mg PO HS Discharge Medication List Aspirin 81 mg PO DAILY 12/14/14 [History] Cyanocobalamin [Vitamin B-12] 1,000 mcg PO DAILY 12/14/14 [History] Multivitamins, Thera [Multivitamin (formulary)] 1 tab PO DAILY 12/14/14 [History] Pramipexole [Mirapex] 0.25 mg PO HS 12/14/14 [History] Cetirizine HCl [Zyrtec] 10 mg PO HS 07/10/19 [History] [place]-3 Fatty Acids/Fish Oil [Fish Oil 1,000 mg Softgel] 1 cap PO DAILY 07/10/19 [History] Hydrocodone/Acetaminophen [Hydrocodone/Acetaminophen 7.5-325] 1 tab PO BID 07/26/22 [History] Meloxicam [Mobic] 15 mg PO DAILY 07/26/22 [History] Metoprolol Tartrate [Lopressor] 25 mg PO DAILY 07/26/22 [History] Omeprazole 40 mg PO BID 07/26/22 [History] Venlafaxine HCl [Effexor] 100 mg PO DAILY 07/26/22 [History] Calcium Carbonate/Vitamin D3 [Calcium 600-D3 20 mcg (800 Unit)] 1 tab PO DAILY 10/05/22 [History] Simethicone [Gas-X] 125 mg PO W/SUPPER 10/05/22 [History] oxyBUTYnin chloride [Ditropan XL] 10 mg PO HS 02/13/23 [History] Ubidecarenone [Coenzyme Q10] 100 mg PO DAILY 05/09/23 [History] Cranberry 15,000 1 cap PO DAILY 10/26/23 [History] Docusate [Colace] 100 mg PO DAILY 10/26/23 [History] Gabapentin [Neurontin] 400 mg PO TID 10/26/23 [History] Morphine Pain Pump 1 dose INTRATHECA CONTINUOUS 10/26/23 [History] Naloxone HCl [Narcan] 4 mg NASAL DIRECTED PRN 10/26/23 [History] calcium polycarbophiL [Fibercon] 625 mg PO DAILY 10/26/23 [History] Atorvastatin [Lipitor] 40 mg PO HS #30 tab 10/29/23 [Rx] Fluconazole [Diflucan] 100 mg PO DAILY 8 Days #8 tab 10/29/23 [Rx] Nystatin 100,000 Unit/gm Powd [Mycostatin Powder] 1 applic TOPICAL TID each 10/29/23 [Rx] Follow up Appointment(s)/Referral(s): David Mora MD [Primary Care Provider] - 11/01/23 12:45 pm ([facility] on ) Tonny Mcgee MD [Medical Doctor] - 1 Week (Please call the office to schedule follow up appointment. ) Patient Instructions/Handouts: Urinary Tract Infection in Women (DC), Altered Mental Status (GEN) Discharge Disposition: HOME WITH HOME HEALTH SERVICES
--- NOTE | 2023-10-29 15:22 | P.PN ---
Subjective Progress Note Date: 10/29/23 Principal diagnosis: Reason for follow-up is extensive bilateral groin area cutaneous candidiasis and a question of UTI Patient is a 73-year-old female with a past medical history significant for hypertension osteoarthritis patient did have a chronic back pain and recently did have a pain pump placement by her neurologist which was filled with medication last week subsequently patient has been noticed to be more lethargic and confused, there was concern for cloudy urine and possible UTI and also noticed to have extensive bilateral groin area cutaneous candidiasis . On today's evaluation that is 10/29/2023 patient continues to be afebrile, patient is breathing comfortably on room air, the patient denies any chest pain shortness of the cough no nausea no vomiting no abdominal pain no diarrhea. Feeling better wants to go home Patient did have white count of 5.1 creatinine 0.34 as of yesterday no lab draw today repeat UA has been negative, blood cultures are negative Objective - Vital Signs Vital signs: Vital Signs Temp 97.8 F 10/29/23 09:40 Pulse 77 10/29/23 09:40 Resp 16 10/29/23 09:40 BP 171/81 10/29/23 09:40 Pulse Ox 94 L 10/29/23 09:40 FiO2 Intake & Output 10/28/23 10/29/23 10/29/23 18:59 06:59 18:59 Intake Total 480 240 Output Total 400 200 Balance 80 -200 240 Intake: Oral 480 240 Output: Urine 400 200 Other: Voiding Method Incontinent Incontinent Incontinent External Catheter External Catheter External Catheter # Voids 2 1 - Exam GENERAL DESCRIPTION: An elderly female lying in bed in no distress RESPIRATORY SYSTEM: Unlabored breathing , decreased breath sounds at bases HEART: S1 S2 regular rate and rhythm , ABDOMEN: Soft , no tenderness EXTREMITIES: Extensive bilateral groin area erythema concerning for cutaneous candidiasis - Labs CBC & Chem 7: 10/28/23 09:14 10/29/23 11:05 Labs: Abnormal Lab Results - Last 24 Hours (Table) 10/28/23 Range/Units 16:40 POC Glucose (mg/dL) 126 H (70-110) mg/dL Microbiology - Last 24 Hours (Table) 10/26/23 03:15 Blood Culture - Preliminary Blood 10/26/23 03:30 Blood Culture - Preliminary Blood Assessment and Plan (1) Mary Jane rash of groin Current Visit: Yes Status: Acute Code(s): B37.89 - OTHER SITES OF CANDIDIASIS SNOMED Code(s): 917146405 (2) Cutaneous candidiasis Current Visit: Yes Status: Acute Code(s): B37.2 - CANDIDIASIS OF SKIN AND NAIL SNOMED Code(s): 64733983 (3) Fever Current Visit: Yes Status: Acute Code(s): R50.9 - FEVER, UNSPECIFIED SNOMED Code(s): 481973111 Plan: 1patient presented to hospital with mental status changes questionably drug related and the symptoms started after her pain pump was filled with pain medication there is concern for some cloudy foul-smelling urine however UA itself did not show any leukocyte esterase or pyuria but patient did have mild fever on admission underlying UTI less likely bilateral excluded clinically doub t encephalitis or meningitis as the patient was able to tell me that she is admitted to the hospital no significant headache or any neck rigidity 2-patient did have extensive cutaneous candidiasis of bilateral groin area 3-the patient repeat UA has been negative clinically doubt UTI 4-patient did have some clinical improvement and will finish therapy with nystatin powder along with Diflucan no need for antibiotic on discharge Dictation was produced using [employer] dictation software. please excuse any grammatical, word or spelling errors. Time with Patient: Less than 30
== END 2023-10-29 15:45 | disposition home health service (06) ==
LOC: EC 00:01 → 6NMEDSUR 02:57 → 3SCARD 20:48
PROVIDERS: ADMIT Family Medicine; ATTEND Family Medicine
DX: G93.41 Metabolic encephalopathy (principal); N39.0 Urinary tract infection, site not specified; B37.89 Other sites of candidiasis; L03.314 Cellulitis of groin; L03.311 Cellulitis of abdominal wall; K43.9 Ventral hernia without obstruction or gangrene; M62.08 Separation of muscle (nontraumatic), other site; K44.9 Diaphragmatic hernia without obstruction or gangrene; E83.42 Hypomagnesemia; I10 Essential (primary) hypertension; F41.9 Anxiety disorder, unspecified; F32.A Depression, unspecified; G89.29 Other chronic pain; M54.9 Dorsalgia, unspecified; Z87.440 Personal history of urinary (tract) infections; Z95.5 Presence of coronary angioplasty implant and graft; Z79.1 Long term (current) use of non-steroidal anti-inflammatories (NSAID); Z79.52 Long term (current) use of systemic steroids; Z79.82 Long term (current) use of aspirin; Z79.899 Other long term (current) drug therapy
CPT/HCPCS: 96376 ×2; 96361 ×5; 96366 ×4; 96367 ×2; 96372 ×3; 96375 ×3; 96365; 99285; 36415; 95816; 93005; 93306; 97116; 97530; 97162; 97535; 97166; 92523; 97129; 83880; 80053 ×3; 80061; 84443; 82607; 82140; 82746; 83605; 83735 ×3; 84100; 84132; 84484; 85025 ×3; 85610; 85730; 86140; 81003; 81001; 87040; 87324; 84145; 71045; 93880; 70450; 74178; 70553; G0378 ×5; J3370; J2270; J0360; J1644 ×3; J2405 ×2; J0696 ×4; J3475; C9113 ×2; Q9967; A9585

== ENCOUNTER 2023-11-06 11:45 | Inpatient (IN) | payer MEDICARE, OTHER ==
--- NOTE | 2023-11-06 12:43 | ED ---
General Adult HPI - General Chief complaint: Altered Mental Status Stated complaint: AMS Time Seen by Provider: 11/06/23 12:06 Source: patient, EMS Mode of arrival: EMS Limitations: altered mental status - History of Present Illness Initial comments: Dictation was produced using [employer] dictation software. please excuse any grammatical, word or spelling errors. Chief Complaint: 73-year-old female recently admitted to the hospital for UTI sepsis presents to the ER for altered mental status History of Present Illness: Patient 73-year-old female. History of present illness obtained from granddaughter along with patient and nurse received report from EMS. Patient allegedly was admitted to the hospital recently for UTI sepsis. She had some changes in her mentation. She had been admitted to the hospital for 3 days. Granddaughter felt that patient was discharged prematurely. She had some mentation issues according to hospital documentation ultimately leading to neurology consultation along brain MRI. She is ultimately cleared discharged home. Today she is brought to the ER due to altered mental status. She granddaughter states that she had a conversation with a friend who was concerned the patient was hallucinating over the phone. She also had some amnesia to these events. Patient otherwise does not have any acute complaints. She states that she is not sure if she was confused earlier not. The ROS documented in this emergency department record has been reviewed and confirmed by me. Those systems with pertinent positive or negative responses have been documented in the HPI. All other systems are other negative and/or noncontributory. - Related Data Home Medications Medication Instructions Recorded Confirmed Aspirin 81 mg PO DAILY 12/14/14 11/06/23 Cyanocobalamin [Vitamin B-12] 1,000 mcg PO DAILY 12/14/14 11/06/23 Multivitamins, Thera [Multivitamin 1 tab PO DAILY 12/14/14 11/06/23 (formulary)] Pramipexole [Mirapex] 0.25 mg PO HS 12/14/14 11/06/23 Cetirizine HCl [Zyrtec] 10 mg PO HS 07/10/19 11/06/23 [place]-3 Fatty Acids/Fish Oil [Fish 1 cap PO DAILY 07/10/19 11/06/23 Oil 1,000 mg Softgel] Hydrocodone/Acetaminophen 1 tab PO BID 07/26/22 11/06/23 [Hydrocodone/Acetaminophen 7.5-325] Meloxicam [Mobic] 15 mg PO DAILY 07/26/22 11/06/23 Metoprolol Tartrate [Lopressor] 25 mg PO DAILY 07/26/22 11/06/23 Omeprazole 40 mg PO BID 07/26/22 11/06/23 Venlafaxine HCl [Effexor] 100 mg PO DAILY 07/26/22 11/06/23 Calcium Carbonate/Vitamin D3 1 tab PO DAILY 10/05/22 11/06/23 [Calcium 600-D3 20 mcg (800 Unit)] Simethicone [Gas-X] 125 mg PO W/SUPPER 10/05/22 11/06/23 oxyBUTYnin chloride [Ditropan XL] 10 mg PO HS 02/13/23 11/06/23 Ubidecarenone [Coenzyme Q10] 100 mg PO DAILY 05/09/23 11/06/23 Cranberry 15,000 1 cap PO DAILY 10/26/23 11/06/23 Docusate [Colace] 100 mg PO DAILY 10/26/23 11/06/23 Gabapentin [Neurontin] 400 mg PO TID 10/26/23 11/06/23 Morphine Pain Pump 1 dose INTRATHECA CONTINUOUS 10/26/23 11/06/23 Naloxone HCl [Narcan] 4 mg NASAL DIRECTED PRN 10/26/23 11/06/23 calcium polycarbophiL [Fibercon] 625 mg PO DAILY 10/26/23 11/06/23 Previous Rx's Medication Instructions Recorded Atorvastatin [Lipitor] 40 mg PO HS #30 tab 10/29/23 Allergies Allergy/AdvReac Type Severity Reaction Status Date / Time adhesive tape Allergy Rash/Hives, Verified 10/26/23 13:15 "paper tape is ok" Review of Systems ROS Statement: Those systems with pertinent positive or pertinent negative responses have been documented in the HPI. ROS Other: All systems not noted in ROS Statement are negative. Past Medical History Past Medical History: Hearing Disorder / Deafness, Hypertension, Osteoarthritis (OA) Additional Past Medical History / Comment(s): Arrhythmia, hx anemia, wears pad/b rief for urinary incontinence, frequent UTI's, on longterm antibiotic treatment to prevent UTI, SOB, deaf in right ear, hard of hearing in left ear, bilateral hearing aid use. History of Any Multi-Drug Resistant Organisms: None Reported Past Surgical History: Appendectomy, Cholecystectomy, Heart Catheterization With Stent, Hernia Repair, Hysterectomy, Joint Replacement Additional Past Surgical History / Comment(s): Pain Clinic Procedures, CARDIAC STENTS X2, L3-4-5 FUSION, total right knee replacement, bilateral cataract surgery. hiatal hernia repair. Past Anesthesia/Blood Transfusion Reactions: No Reported Reaction Additional Past Anesthesia/Blood Transfusion Reaction / Comment(s): "Slow coming out." Date of Last Stent Placement:: Past Psychological History: Anxiety, Depression Smoking Status: Never smoker Past Alcohol Use History: None Reported Past Drug Use History: None Reported - Past Family History Father Family Medical History: Cancer Sister(s) Family Medical History: Cancer General Exam - General Exam Comments Initial Comments: PHYSICAL EXAM: General Impression: Alert and oriented x3, not in acute distress HEENT: Normocephalic atraumatic, extra-ocular movements intact, pupils equal and reactive to light bilaterally, mucous membranes moist. Cardiovascular: Heart regular rate and rhythm Chest: Able to complete full sentences, no retractions, no tachypnea Abdomen: abdomen soft, non-tender, non-distended, no organomegaly Musculoskeletal: Pulses present and equal in all extremities, no peripheral edema Motor: no focal deficits noted Neurological: CN II-XII grossly intact, no focal motor or sensory deficits noted Skin: Intact with no visualized rashes Psych: Normal affect and mood Limitations: altered mental status Course Vital Signs 11/06/23 11:57 Temperature 98.0 F Pulse Rate 72 Respiratory 18 Rate Blood Pressure 97/59 O2 Sat by Pulse 87 L Oximetry EKG Findings - EKG Comments: EKG Findings:: My EKG interpretation: Ventricular rate 60, sinus rhythm,. Interval 206, QRS 94, QTC 427. No CA prolongation, no QTC prolongation, no ST or T-wave changes noted. . Overall, this EKG is unremarkable Medical Decision Making - Medical Decision Making Was pt. sent in by a medical professional or institution (, PA, LOG RIDER, urgent care, hospital, or [facility]...) When possible be specific @ -No Did you speak to anyone other than the patient for history (EMS, parent, family, police, friend...)? What history was obtained from this source @ -Scuffs with granddaughter at the bedside provides majority of history of present illness Did you review nursing and triage notes (agree or disagree)? Why? @ -I reviewed and agree with nursing and triage notes Were old charts reviewed (outside hosp., previous admission, EMS record, old EKG, old radiological studies, urgent care reports/EKG's, [facility] records)? Report findings @ -most recent discharge summary was reviewed from October 29 of this year showing that patient was evaluated by neurology for altered mental status she was diagnosed with urinary tract infection. Suspect that patient's mentation changes were secondary to multiple reasons. Differential Diagnosis (chest pain, altered mental status, abdominal pain women, abdominal pain men, vaginal bleeding, musculoskeletal, weakness, fever, dyspn ea, syncope, headache, dizziness, GI bleed, back pain, seizure, CVA, palpatations, mental health)? @ -Differential Altered Mental Status: Hypoglycemia, DKA, hypercapnia, ETOH, overdose, CO poisoning, trauma, myxedema coma, HTN encephalopathy, infection, encephalitis, psychosis, intercranial hemorrhage, hepatic encephalopathy, meningitis, CVA, this is not meant to be an all-inclusive list EKG interpreted by me (3pts min.). @ -As above X-rays interpreted by me (1pt min.). @ -None done CT interpreted by me (1pt min.). @ -Computed tomography scan of brain is unremarkable U/S interpreted by me (1pt. min.). @ -None done What testing was considered but not performed or refused? (CT, X-rays, U/S, labs)? Why? @ -None What meds were considered but not given or refused? Why? @ -None Did you discuss the management of the patient with other professionals (professionals i.e. , PA, LOG RIDER, lab, RT, psych nurse, social media editor, cuff turner machine operator, teacher, unclaimed property officer, case therapist)? Give summary @ -Discussed with hospitalist for admission Was smoking cessation discussed for >3mins.? @ -No Was critical care preformed (if so, how long)? @ -No Were there social determinants of health that impacted care today? How? (Homelessness, low income, unemployed, alcoholism, drug addiction, transportation, low edu. Level, literacy, decrease access to med. care, fpc, rehab)? @ -No Was there de-escalation of care discussed even if they declined (Discuss DNR or withdrawal of care, Hospice)? DNR status @ -No What co-morbidities impacted this encounter? (DM, HTN, Smoking, COPD, CAD, Cancer, CVA, ARF, Chemo, Hep., AIDS, mental health diagnosis, sleep apnea, m orbid obesity)? @ -None Was patient admitted / discharged? Hospital course, mention meds given and route, prescriptions, significant lab abnormalities, going to OR and other pertinent info. @ -73-year-old female presents emergency department for altered mental status. She was seen in the emergency department recently admitted to the hospital for couple days diagnosed with UTI with metabolic encephalopathy. Vital signs are stable. Patient will appear at bedside. She has no focal deficits. Laboratory evaluation is obtained. Magnesium 1.4. Patient given IV magnesium. Rest of labs within acceptable limits.. Viral test negative. CT brain is negative. Patient be admitted with consultation to all neurology and psychiatry. Undiagnosed new problem with uncertain prognosis? @ -No Drug Therapy requiring intensive monitoring for toxicity (Heparin, Nitro, Insulin, Cardizem)? @ -No Were any procedures done? @ -No Diagnosis/symptom? Acute, or Chronic, or Acute on Chronic? Uncomplicated (without systemic symptoms) or Complicated (systemic symptoms)? @ -Altered mental status Side effects of treatment? @ -No Exacerbation, Progression, or Severe Exacerbation? @ -No Poses a threat to life or bodily function? How? (Chest pain, USA, PR, pneumonia, PE, COPD, DKA, ARF, appy, cholecystitis, CVA, Diverticulitis, Homicidal, Suicidal, threat to staff... and all critical care pts) @ -yes - Lab Data Result diagrams: 11/06/23 12:52 11/06/23 12:52 Lab Results 11/06/23 11/06/23 11/06/23 Range/Units 12:52 12:52 12:52 WBC 5.7 (3.8-10.6) k/uL RBC 4.23 (3.80-5.40) m/uL Hgb 13.1 (11.4-16.0) gm/dL Hct 40.1 (34.0-46.0) % MCV 94.9 (80.0-100.0) fL MCH 30.9 (25.0-35.0) pg MCHC 32.6 (31.0-37.0) g/dL RDW 14.6 (11.5-15.5) % Plt Count 231 (150-450) k/uL MPV 7.6 Neutrophils % 78 % Lymphocytes % 13 % Monocytes % 6 % Eosinophils % 1 % Basophils % 0 % Neutrophils # 4.5 (1.3-7.7) k/uL Lymphocytes # 0.8 L (1.0-4.8) k/uL Monocytes # 0.3 (0-1.0) k/uL Eosinophils # 0.0 (0-0.7) k/uL Basophils # 0.0 (0-0.2) k/uL Hypochromasia Slight PT 12.1 (10.0-12.5) sec INR 1.1 (<1.2) APTT 28.7 (22.0-30.0) sec Sodium 139 (137-145) mmol/L Potassium 4.2 (3.5-5.1) mmol/L Chloride 103 (98-107) mmol/L Carbon Dioxide 27 (22-30) mmol/L Anion Gap 9 mmol/L BUN 15 (7-17) mg/dL Creatinine 0.63 (0.52-1.04) mg/dL Est GFR (CKD-EPI)AfAm >90 (>60 ml/min/1.73 sqM) Est GFR (CKD-EPI)NonAf 89 (>60 ml/min/1.73 sqM) Glucose 92 (74-99) mg/dL Plasma Lactic Acid Emmanuel (0.7-2.0) mmol/L Calcium 9.4 (8.4-10.2) mg/dL Magnesium 1.4 L (1.6-2.3) mg/dL Total Bilirubin 1.6 H (0.2-1.3) mg/dL AST 47 H (14-36) U/L ALT 23 (4-34) U/L Alkaline Phosphatase 93 (38-126) U/L Total Protein 6.7 (6.3-8.2) g/dL Albumin 3.3 L (3.5-5.0) g/dL Influenza Type A (PCR) (Not Detectd) Influenza Type B (PCR) (Not Detectd) RSV (PCR) (Not Detectd) SARS-CoV-2 (PCR) (Not Detectd) 01/17/24 01/17/24 Range/Units 12:52 13:19 WBC (3.8-10.6) k/uL RBC (3.80-5.40) m/uL Hgb (11.4-16.0) gm/dL Hct (34.0-46.0) % MCV (80.0-100.0) fL MCH (25.0-35.0) pg MCHC (31.0-37.0) g/dL RDW (11.5-15.5) % Plt Count (150-450) k/uL MPV Neutrophils % % Lymphocytes % % Monocytes % % Eosinophils % % Basophils % % Neutrophils # (1.3-7.7) k/uL Lymphocytes # (1.0-4.8) k/uL Monocytes # (0-1.0) k/uL Eosinophils # (0-0.7) k/uL Basophils # (0-0.2) k/uL Hypochromasia PT (10.0-12.5) sec INR (<1.2) APTT (22.0-30.0) sec Sodium (137-145) mmol/L Potassium (3.5-5.1) mmol/L Chloride (98-107) mmol/L Carbon Dioxide (22-30) mmol/L Anion Gap mmol/L BUN (7-17) mg/dL Creatinine (0.52-1.04) mg/dL Est GFR (CKD-EPI)AfAm (>60 ml/min/1.73 sqM) Est GFR (CKD-EPI)NonAf (>60 ml/min/1.73 sqM) Glucose (74-99) mg/dL Plasma Lactic Acid Emmanuel 1.8 (0.7-2.0) mmol/L Calcium (8.4-10.2) mg/dL Magnesium (1.6-2.3) mg/dL Total Bilirubin (0.2-1.3) mg/dL AST (14-36) U/L ALT (4-34) U/L Alkaline Phosphatase (38-126) U/L Total Protein (6.3-8.2) g/dL Albumin (3.5-5.0) g/dL Influenza Type A (PCR) Not Detected (Not Detectd) Influenza Type B (PCR) Not Detected (Not Detectd) RSV (PCR) Not Detected (Not Detectd) SARS-CoV-2 (PCR) Not Detected (Not Detectd) Disposition Clinical Impression: AMS (altered mental status) Disposition: ADMITTED IP TO THIS HOSP Condition: Fair Referrals: David Mora MD [Primary Care Provider] - 1-2 days Decision Time: 18:13
[2023-11-06 13:23] LABS: Basophils % (A) 0 %; Eosinophils % (A) 1 %; HCT 40.1 % (34.0-46.0); HGB 13.1 gm/dL (11.4-16.0); Hypochromasia Slight; Lymphocytes # (A) 0.8 k/uL (1.0-4.8); Lymphocytes % (A) 13 %; MCH 30.9 pg (25.0-35.0); MCHC 32.6 g/dL (31.0-37.0); MCV 94.9 fL (80.0-100.0); Mean Platelet Volume 7.6; Monocytes # (A) 0.3 k/uL (0-1.0); Monocytes % (A) 6 %; Neutrophils # (A) 4.5 k/uL (1.3-7.7); Neutrophils % (A) 78 %; Platelet Count 231 k/uL (150-450); RBC 4.23 m/uL (3.80-5.40); RDW 14.6 % (11.5-15.5); WBC 5.7 k/uL (3.8-10.6)
[2023-11-06 13:34] LABS: INR 1.1 (<1.2); Partial Thromboplastin Time 28.7 sec (22.0-30.0); Prothrombin Time 12.1 sec (10.0-12.5)
[2023-11-06 13:40] LABS: ALT 23 U/L (4-34); AST 47 U/L (14-36); African American GFR (CKD) >90 (>60 ml/min/1.73 sqM); Albumin 3.3 g/dL (3.5-5.0); Alkaline Phosphatase 93 U/L (38-126); Anion Gap 9 mmol/L; Blood Urea Nitrogen 15 mg/dL (7-17); Calcium 9.4 mg/dL (8.4-10.2); Carbon Dioxide 27 mmol/L (22-30); Chloride 103 mmol/L (98-107); Glucose 92 mg/dL (74-99); Magnesium 1.4 mg/dL (1.6-2.3); Non-African American GFR(CKD) 89 (>60 ml/min/1.73 sqM); Sodium 139 mmol/L (137-145); Total Bilirubin 1.6 mg/dL (0.2-1.3); Total Protein 6.7 g/dL (6.3-8.2)
[2023-11-06 13:47] LABS: Potassium 4.2 mmol/L (3.5-5.1)
--- NOTE | 2023-11-06 14:54 | CT ---
EXAMINATION TYPE: CT brain wo con CT DLP: 1148.2 mGycm, Automated exposure control for dose reduction was used. DATE OF EXAM: 11/06/2023 2:37 PM COMPARISON: 10/26/2023.. CLINICAL INDICATION:Female, 73 years old with history of ams, Altered mental status. TECHNIQUE: Brain: Axial CT images of the brain were obtained with coronal and sagittal reformats created and rev iewed. Contrast used: None. Oral contrast used: None. FINDINGS: Brain: Extra-axial spaces: No abnormal extra-axial fluid collections. Ventricular system: Dilatation in proportion to cerebral atrophy. Cerebral parenchyma: Cerebral atrophy. No acute intraparenchymal hemorrhage or mass effect. The oreilly -white junction is well differentiated. Scattered hypoattenuating areas are seen within the white mat ter. Cerebellum: Unremarkable. Mass effect: No evidence of midline shift. Intracranial vasculature: Atherosclerotic calcifications of the intracranial vessels. Soft tissues: Normal. Calvarium/osseous structures: No depressed skull fracture. Paranasal sinuses and mastoid air cells: Mild scattered paranasal sinus disease. Visualized orbits: Bilateral aphakia IMPRESSION: 1. No acute intracranial process. 2. Nonspecific white matter changes, likely secondary to chronic small vessel ischemic disease.
[2023-11-06] MEDS: MAGNESIUM SULFATE-D5W PMX 1 GM in DEXTROSE/WATER 1 100ML.BAG IVPB SCH ×2 (17:42→20:07)
[2023-11-06] MEDS ORDERED: NALOXONE 0.4 MG/ML 1 ML VIAL IV PRN (18:06)
[2023-11-06] MEDS: NYSTATIN 100,000 UNIT/GM POWD 15 GM TOPICAL SCH (21:31)
[2023-11-06] MEDS: SODIUM CHLORIDE 0.9% 1,000 ML IV SCH (21:31)
[2023-11-07 01:19] LABS: Appearance,Urine Clear (Clear); Bilirubin,Urine Negative (Negative); Blood,Urine Negative (Negative); Color,Urine Yellow; Glucose,Urine (UA) Negative (Negative); Ketones,Urine 2+ (Negative); Leukocyte Esterase,Urine Negative (Negative); Nitrite,Urine Negative (Negative); Protein,Urine Trace (Negative); Specific Gravity,Urine 1.021 (1.001-1.035); Urobilinogen,Urine <2.0 mg/dL (<2.0)
--- NOTE | 2023-11-07 11:42 | P.HPIM ---
History of Present Illness H&P Date: 11/07/23 Chief Complaint: Confusion, loopy This is a 73-year-old female recently admitted with similar presentation on 10/26/2023 and discharged on 10/29/2023 with acute metabolic encephalopathy, multifactorial secondary to bilateral cutaneous candidiasis bilateral groin in addition to recent pain pump placement with morphine initiated on 10/23/2023. Evaluated and treated by infectious disease ,neurology and Gen. surgery. Patient declined subacute rehab at discharge. Reports she did follow-up with Dr. Mcgee's office post discharge and her pump was adjusted to 14-she was not sure if it was increased or decreased. Patient reports her granddaughter is telling her that she is talking "nonsense , loopy, confused". Granddaughter therefore called EMS and patient transported to the ER. Patient reports she has been sleeping well. Denies nausea vomiting or diarrhea denies constipation. Denies cough or congestion. Denies chest pain, palpitations or shortness of breath. Afebrile, normal WBC. Hemoglobin 13.1, platelets 231, INR 1.1, sodium 139 , glucose 92 ,magnesium 1.4, supplemented, repeat level pending. Total bili 1.6, AST 47, albumin 3.3. UA negative. Serology did not detect influenza type A/type B/RSV/COVID. Brain CT reported no acute intracranial process, nonspecific white matter changes, likely secondary to chronic small vessel ischemic disease. Review of Systems ROS Statement: Those systems with pertinent positive or pertinent negative responses have been documented in the HPI. ROS Other: All systems not noted in ROS Statement are negative. Past Medical History Past Medical History: Hearing Disorder / Deafness, Hypertension, Osteoarthritis (OA) Additional Past Medical History / Comment(s): Arrhythmia, hx anemia, wears pad/brief for urinary incontinence, frequent UTI's, on long-term antibiotic treatment to prevent UTI, SOB, deaf in right ear, hard of hearing in left ear, bilateral hearing aid use. History of Any Multi-Drug Resistant Organisms: None Reported Past Surgical History: Appendectomy, Cholecystectomy, Heart Catheterization With Stent, Hernia Repair, Hysterectomy, Joint Replacement Additional Past Surgical History / Comment(s): Pain Clinic Procedures, CARDIAC STENTS X2, L3-4-5 FUSION, total right knee replacement, bilateral cataract surgery. hiatal hernia repair. Past Anesthesia/Blood Transfusion Reactions: No Reported Reaction Additional Past Anesthesia/Blood Transfusion Reaction / Comment(s): "Slow coming out." Date of Last Stent Placement:: Past Psychological History: Anxiety, Depression Smoking Status: Never smoker Past Alcohol Use History: None Reported Past Drug Use History: None Reported - Past Family History Father Family Medical History: Cancer Sister(s) Family Medical History: Cancer Medications and Allergies Home Medications Medication Instructions Recorded Confirmed Type Aspirin 81 mg PO DAILY 12/14/14 11/06/23 History Cyanocobalamin [Vitamin B-12] 1,000 mcg PO DAILY 12/14/14 11/06/23 History Multivitamins, Thera [Multivitamin 1 tab PO DAILY 12/14/14 11/06/23 History (formulary)] Pramipexole [Mirapex] 0.25 mg PO HS 12/14/14 11/06/23 History Cetirizine HCl [Zyrtec] 10 mg PO HS 07/10/19 11/06/23 History [place]-3 Fatty Acids/Fish Oil [Fish 1 cap PO DAILY 07/10/19 11/06/23 History Oil 1,000 mg Softgel] Hydrocodone/Acetaminophen 1 tab PO BID 07/26/22 11/06/23 History [Hydrocodone/Acetaminophen 7.5-325] Meloxicam [Mobic] 15 mg PO DAILY 07/26/22 11/06/23 History Metoprolol Tartrate [Lopressor] 25 mg PO DAILY 07/26/22 11/06/23 History Omeprazole 40 mg PO BID 07/26/22 11/06/23 History Venlafaxine HCl [Effexor] 100 mg PO DAILY 07/26/22 11/06/23 History Calcium Carbonate/Vitamin D3 1 tab PO DAILY 10/05/22 11/06/23 History [Calcium 600-D3 20 mcg (800 Unit)] Simethicone [Gas-X] 125 mg PO W/SUPPER 10/05/22 11/06/23 History oxyBUTYnin chloride [Ditropan XL] 10 mg PO HS 02/13/23 11/06/23 History Ubidecarenone [Coenzyme Q10] 100 mg PO DAILY 05/09/23 11/06/23 History Cranberry 15,000 1 cap PO DAILY 10/26/23 11/06/23 History Docusate [Colace] 100 mg PO DAILY 10/26/23 11/06/23 History Gabapentin [Neurontin] 400 mg PO TID 10/26/23 11/06/23 History Morphine Pain Pump 1 dose INTRATHECA CONTINUOUS 10/26/23 11/06/23 History Naloxone HCl [Narcan] 4 mg NASAL DIRECTED PRN 10/26/23 11/06/23 History calcium polycarbophiL [Fibercon] 625 mg PO DAILY 10/26/23 11/06/23 History Atorvastatin [Lipitor] 40 mg PO HS #30 tab 10/29/23 11/06/23 Rx Allergies Allergy/AdvReac Type Severity Reaction Status Date / Time adhesive tape Allergy Rash/Hives, Verified 10/26/23 13:15 "paper tape is ok" Physical Exam Vitals: Vital Signs Temp Pulse Pulse Resp BP BP Pulse Ox 11/07/23 08:00 98.0 F 88 18 147/77 95 11/07/23 00:38 97.7 F 80 17 144/76 98 11/06/23 22:00 87 20 150/87 95 11/06/23 11:57 98.0 F 72 18 97/59 87 L Intake and Output 11/06/23 11/07/23 11/07/23 22:59 06:59 14:59 Output Total 800 Balance -800 Output: Urine 800 PHYSICAL EXAM: VITAL SIGNS: [As above] GENERAL: Well-developed, sitting up on stretcher, no acute distress, drowsy with mild confusion HEENT: Normocephalic, Conjunctivae normal. Pupils equal and reactive to light. NECK: Supple No JVD. No thyroid enlargement. No LNs CARDIOVASCULAR: S1, S2 regular.No murmur RESPIRATION: Nonlabored, equal air entry with bilateral bases diminished. ABDOMEN: Soft, nondistended, nontender . No guarding. no masses palpable. No ascites, No hepatosplenomegaly.Bowel sounds heard. LEGS: No edema. no swelling . PSYCHIATRY: Alert and oriented X2-3, mood and affect normal. NERVOUS SYSTEM: Cranial N 2-12 grossly normal. No focal deficits. Strength and sensation grossly intact.. Skin: Warm and dry, no rash Results CBC & Chem 7: 11/06/23 12:52 11/06/23 12:52 Labs: Abnormal Lab Results - Last 24 Hours (Table) 11/06/23 11/06/23 11/07/23 Range/Units 12:52 12:52 00:47 Lymphocytes # 0.8 L (1.0-4.8) k/uL Magnesium 1.4 L (1.6-2.3) mg/dL Total Bilirubin 1.6 H (0.2-1.3) mg/dL AST 47 H (14-36) U/L Albumin 3.3 L (3.5-5.0) g/dL Urine Protein Trace H (Negative) Urine Ketones 2+ H (Negative) 11/07/23 Range/Units 10:05 Lymphocytes # (1.0-4.8) k/uL Magnesium 1.5 L (1.6-2.3) mg/dL Total Bilirubin (0.2-1.3) mg/dL AST (14-36) U/L Albumin (3.5-5.0) g/dL Urine Protein (Negative) Urine Ketones (Negative) Assessment and Plan Assessment: Acute toxic encephalopathy suspected related to intrathecal pain pump. Patient reports after recent discharge she did follow up with Dr. Mcgee's office and they adjusted the pump to 14. She does not recall if they decreased her increased. Recent admission related to Candidiasis rash of bilateral groin with cellulitis improving. Chronic back pain History of Multiple abdominal/chest hernia that seems large in size but are nonobstructive. General surgery recommending surgical intervention outpatient on prior admission. Plan: Continue on current medication regime ,monitoring and symptomatic treatmen t. Magnesium level pending. Neurology and psychiatry consults in place. Per discussion with neurology, anesthesiology/pain specialist consulted to decrease pain pump setting. The impression and plan of care has been dictated as directed. : I performed a history and examination of this patient, discussed the same with the dictator. I agree with the dictator's note ,documented as a scribe. Any additional findings or plans will be noted.
[2023-11-07] MEDS: NYSTATIN 100,000 UNIT/GM POWD 15 GM TOPICAL SCH ×2 (11:45→22:21)
[2023-11-07] MEDS: METOPROLOL TARTRATE 25 MG TAB PO SCH (11:45)
[2023-11-07] MEDS: VENLAFAXINE HCL 50 MG TAB PO SCH (11:45)
--- NOTE | 2023-11-07 14:27 | P.CNNES ---
History of Present Illness Consult date: 11/07/22 Requesting physician: Tirso Coulter Reason for Consult: ams History of Present Illness: This is a 73-year-old woman who presented emergency department because of altered mental status. Patient is known to our neurology team. She was initially seen by me on 10/26/2023 altered mental status most recent admission and was discharged on 10/29/2023. Her admission patient the was felt to have delirium and was felt possibly due to the morphine from the pain pump as well as infection in the lower abdomen and pelvis region with bilateral cutaneous candidiasis. The morphine was started to the pain pump on 10/23/[address] Mcgee. Last visit she had an EEG which shows a moderate encephalopathy. No epileptiform activity. She also had MRI of the brain is reported as chronic appearing periventricular and brainstem white matter ischemic type changes. No suspicious acute abnormality. According to the patient and granddaughter who I spoke via phone, rated that since her discharge she followed up with Dr. Saima hebert' and it seems she had her morphine pain pump increased on 10/30/2023 and ever since she has been more sleepy and yesterday was more confused. Some of the work-up during this hospital visit consisted of: Afebrile Wbc 5.7K Sodium, glucose, calcium all within normal limits Plasma like acid venous 1.8. BUN/creatinine is within normal limits. Urinalysis does not seem the there is any underlying infection. Influenza A/B, SARS-CoV2 and RSV PCR are not detected. CT head: Was reported as no acute intracranial process. Nonspecific white matter changes, likely sedated due to chronic small vessel ischemic disease. I personally reviewed CT head and agree with report. Review of Systems Review of systems is limited as per HPI. Past Medical History Past Medical History: Hearing Disorder / Deafness, Hypertension, Osteoarthritis (OA) Additional Past Medical History / Comment(s): Arrhythmia, hx anemia, wears pad/brief for urinary incontinence, frequent UTI's, on long-term antibiotic treatment to prevent UTI, SOB, deaf in right ear, hard of hearing in left ear, bilateral hearing aid use. History of Any Multi-Drug Resistant Organisms: None Reported Past Surgical History: Appendectomy, Cholecystectomy, Heart Catheterization With Stent, Hernia Repair, Hysterectomy, Joint Replacement Additional Past Surgical History / Comment(s): Pain Clinic Procedures, CARDIAC STENTS X2, L3-4-5 FUSION, total right knee replacement, bilateral cataract surgery. hiatal hernia repair. Past Anesthesia/Blood Transfusion Reactions: No Reported Reaction Additional Past Anesthesia/Blood Transfusion Reaction / Comment(s): "Slow coming out." Date of Last Stent Placement:: Past Psychological History: Anxiety, Depression Smoking Status: Never smoker Past Alcohol Use History: None Reported Past Drug Use History: None Reported - Past Family History Father Family Medical History: Cancer Sister(s) Family Medical History: Cancer Medications and Allergies Home Medications Medication Instructions Recorded Confirmed Type Aspirin 81 mg PO DAILY 12/14/14 11/06/23 History Cyanocobalamin [Vitamin B-12] 1,000 mcg PO DAILY 12/14/14 11/06/23 History Multivitamins, Thera [Multivitamin 1 tab PO DAILY 12/14/14 11/06/23 History (formulary)] Pramipexole [Mirapex] 0.25 mg PO HS 12/14/14 11/06/23 History Cetirizine HCl [Zyrtec] 10 mg PO HS 07/10/19 11/06/23 History [place]-3 Fatty Acids/Fish Oil [Fish 1 cap PO DAILY 07/10/19 11/06/23 History Oil 1,000 mg Softgel] Hydrocodone/Acetaminophen 1 tab PO BID 07/26/22 11/06/23 History [Hydrocodone/Acetaminophen 7.5-325] Meloxicam [Mobic] 15 mg PO DAILY 07/26/22 11/06/23 History Metoprolol Tartrate [Lopressor] 25 mg PO DAILY 07/26/22 11/06/23 History Omeprazole 40 mg PO BID 07/26/22 11/06/23 History Venlafaxine HCl [Effexor] 100 mg PO DAILY 07/26/22 11/06/23 History Calcium Carbonate/Vitamin D3 1 tab PO DAILY 10/05/22 11/06/23 History [Calcium 600-D3 20 mcg (800 Unit)] Simethicone [Gas-X] 125 mg PO W/SUPPER 10/05/22 11/06/23 History oxyBUTYnin chloride [Ditropan XL] 10 mg PO HS 02/13/23 11/06/23 History Ubidecarenone [Coenzyme Q10] 100 mg PO DAILY 05/09/23 11/06/23 History Cranberry 15,000 1 cap PO DAILY 10/26/23 11/06/23 History Docusate [Colace] 100 mg PO DAILY 10/26/23 11/06/23 History Gabapentin [Neurontin] 400 mg PO TID 10/26/23 11/06/23 History Morphine Pain Pump 1 dose INTRATHECA CONTINUOUS 10/26/23 11/06/23 History Naloxone HCl [Narcan] 4 mg NASAL DIRECTED PRN 10/26/23 11/06/23 History calcium polycarbophiL [Fibercon] 625 mg PO DAILY 10/26/23 11/06/23 History Atorvastatin [Lipitor] 40 mg PO HS #30 tab 10/29/23 11/06/23 Rx Allergies Allergy/AdvReac Type Severity Reaction Status Date / Time adhesive tape Allergy Rash/Hives, Verified 10/26/23 13:15 "paper tape is ok" Physical Examination - Vital Signs Vital Signs: Vital Signs Temp Pulse Pulse Resp BP BP Pulse Ox 11/07/23 08:00 98.0 F 88 18 147/77 95 11/07/23 00:38 97.7 F 80 17 144/76 98 11/06/23 22:00 87 20 150/87 95 Intake and Output 11/06/23 11/07/23 11/07/23 22:59 06:59 14:59 Output Total 800 Balance -800 Output: Urine 800 General: Lying in bed and is not in acute distress. Neuro: Limited because of confusion. Patient is drowsy but awake able to voice. She stated the year as 1923. Then after third try she stated it was 2023. Oriented to self. She stated that she is in the clinic. She is very drowsy seems sleepy. Pupils are round equal reactive to light. Pupils are round between 3-4 mm bilaterally. No facial weakness. Not assess the visual francois or extraocular movement because of the pill cooperation. No dysarthria. Motor: Minute assessment individual muscle strength but was able to lift up by bilateral upper extremity above gravity equally and she's moving the lower extremities but upper is better than the lowers. Reflexes is 2 positive in the uppers while lowers are 1 positive. Plantars are mute bilaterally. Results - Laboratory Findings CBC and BMP: 11/06/23 12:52 11/06/23 12:52 Abnormal Lab Findings: Abnormal Labs 11/06/23 11/06/23 11/07/23 12:52 12:52 00:47 Lymphocytes # 0.8 L Magnesium 1.4 L Total Bilirubin 1.6 H AST 47 H Albumin 3.3 L Urine Protein Trace H Urine Ketones 2+ H 11/07/23 10:05 Lymphocytes # Magnesium 1.5 L Total Bilirubin AST Albumin Urine Protein Urine Ketones Assessment and Plan Assessment: This is a 73-year-old woman who presents back to the cc department because of altered mental status. She was recently in the ciliary on 10/26/2023 because of confusion and that she had a morphine started via pump on 10/23/[address] Villafuerte. Prior hospital visit she had an EEG which was negative for any seizure discharges. MRI of the brain was negative for any acute subacute the changes. Per the granddaughter she stated had her pain pump setting increased by Dr. Mcgee on 10/30/2023 and patient has been more sleepy since and yesterday confused. Delirium due to probable underlying increased morphine pump recently on top of polydrug use (on Gabapentin, Effexor, hydrocodone, Mobic) Chronic low back pain Polydrug use Plan: Spoke with the MP from the primary team to consult anesthesiology to lower the setting of the pain pump I consulted pain specialist for lumbar puncture to rule out any BUSINESS PROCESS ANALYST infection. Consulted I.D. team. Ordered an EEG. Psychiatry is consulted We'll defer the rest of the medical management to primary team and other specialist. The plan is discussed with her grand-daughter (Gaby) via phone and N.P. from primary team. Thank you fro the consultation. Time with Patient: Greater than 30
--- NOTE | 2023-11-07 16:36 | P.CN ---
Psychiatric Consult - . Consult date: 11/07/23 Consult:: Patient Name: Doug Helton Date of : 1950 Patient Status: Inpatient Attending Provider: David Mora Date: 11/07/23 Initialization Date: 11/07/23 12:43 Chief Complaint: 73-year-old female recently admitted to the hospital for UTI sepsis presents to the ER for altered mental status History of Present Illness: Patient allegedly was admitted to the hospital recently for UTI sepsis. She had some changes in her mentation. She had been admitted to the hospital for 3 days. Granddaughter felt that patient was discharged prematurely. She had some mentation issues according to hospital documentation ultimately leading to neurology consultation along brain MRI. She is ultimately cleared discharged home. Today she is brought to the ER due to altered mental status. She granddaughter states that she had a conversation with a friend who was concerned the patient was hallucinating over the phone. She also had some amnesia to these events. psychotropic medication includes Effexor hundred milligrams daily the neurology report is included here which is pertinent to his patients symptomatology: Patient is known to our neurology team. She was initially seen by me on 10/26/2023 altered mental status most recent admission and was discharged on 10/29/2023. Her admission patient the was felt to have delirium and was felt possibly due to the morphine from the pain pump as well as infection in the lower abdomen and pelvis region with bilateral cutaneous candidiasis. The morphine was started to the pain pump on 10/23/[address] Mcgee. Last visit she had an EEG which shows a moderate encephalopathy. No epileptiform activity. She also had MRI of the brain is reported as chronic appearing periventricular and brainstem white matter ischemic type changes. No suspicious acute abnormality. her morphine pain pump increased on 10/30/2023 and ever since she has been more sleepy and yesterday was more confused. Urinalysis does not seem the there is any underlying infection. Influenza A/B, SARS-CoV2 and RSV PCR are not detected. CT head: Was reported as no acute intracranial process. Nonspecific white matter changes, likely sedated due to chronic small vessel ischemic disease. Patient was then diagnosed with Delirium due to probable underlying increased morphine pump recently on top of polydrug use (on Gabapentin, Effexor, hydrocodone, Mobic) Chronic low back pain Polydrug use mental status examination: reveals elderly female was laying comfortably in bed patient seem to be slightly drowsy and seem to have some difficulty with concentration and attention span he would attempt to get some answers but then would correct it or change it patient is aware that she is in the [facility] she gave the year as 1923 affect at this time remains flat she denies any suicidal or homicidal ideations she reports that she is here for some bladder infection she admits that she she is having some difficulty with memory and confusion she reports that she has a intrathecal pump with morphine administration to her back and G.I. and that the amount of medicine was increased she denies that she had any problems with any recall her memory or any confusion prior to that although there appears to be some documentation of the mild senility patient denies any depression or anxiety at this time but is unable to give any specific details about her mental illness history she denies any previous psychiatric hospitalizations diagnostic impression: major neurocognitive disorder/toxic metabolic encephalopathy most likely related to increase in morphine usage plan: the patient's issue appears to be more related to her current medication management for her pain would defer the management to the primary care physician patient symptoms most likely will go back to the baseline level once her medications as stabilized would recommend continuation of supportive care and safety precautions thank you very much for your kind referral and please feel free to contact with any further questions Nathen Villatoro MD 3:35 PM central time
[2023-11-07] MEDS: MAGNESIUM SULFATE-D5W PMX 1 GM in DEXTROSE/WATER 1 100ML.BAG IVPB SCH ×2 (17:34→22:18)
[2023-11-07] MEDS: SODIUM CHLORIDE 0.9% 1,000 ML IV SCH (18:41)
--- NOTE | 2023-11-07 19:56 | EEG ---
ELECTROENCEPHALOGRAM REPORT CLINICAL HISTORY: This is a 73-year-old woman with altered mental status. The video EEG is obtained to evaluate for seizure epileptiform activity. RELEVANT MEDICATIONS: 1. Morphine. 2. Gabapentin. 3. Effexor. EEG TYPE: A routine 21-channel EEG is performed with video using the 10/20 electrode placement system. DESCRIPTION: Wakefulness is obtained. During the awake state, the background consists of low-to- moderate voltage of 7-8 hertz activity. At times, the background is intermixed with delta activity. There is no physiological sleep architecture. There is no focal slowing. There is triphasic waves over bilateral hemisphere. Interictal ictal is none. ACTIVATION PROCEDURE: Photic stimulation did not evoke a posterior driving response. There is no abnormality during the photic stimulation. Hyperventilation is not performed. CLINICAL INTERPRETATION: This is an abnormal routine EEG. The background slowing is suggestive of mild-to- moderate encephalopathy. The triphasic morphology is likely due to toxic metabolic derangement. Otherwise, there is no focal slowing, epileptiform discharge, or seizure on the EEG. Clinical correlation is recommended. [place] / [place]ET[place]: [id number] / MTDD
--- NOTE | 2023-11-07 22:11 | P.CONS ---
History of Present Illness - Reason for Consult Consult date: 11/07/23 Low-grade fever and confusion Requesting physician: eTo Navarrete - Chief Complaint Weakness and confusion x 1 day - History of Present Illness Patient is a 73-year-old female with a past medical history significant for hypertension osteoarthritis history of recurrent UTI chronic pain syndrome for which the patient did have a recent pain pump placement also with history anxiety depression patient was brought into the ER after the granddaughter called EMS concerning the patient was confused and did have some mental status changes patient was subsequently brought into the ER for further evaluation on presentation to the hospital the patient was afebrile and no fever has been recorded subsequently patient currently denies having any headache patient was able to tell me her name and that she is at [facility] patient denies having any chest pain shortness of breath or cough no nausea vomiting no abdominal pain or diarrhea patient did have access discoloration of bilateral groin area did have some dull aching pain bilateral groin mild to moderate intensity without radiation, no open wound or any drainage patient did not have any fever no tachycardia hypotension or hypoxemia patient did have white count of 5.7 creatinine normal at 0.63 liver isms normal urine has been negative influenza RSV COVID testing was negative patient did have a CT of the brain negative for any bleed ID was consulted by neurology regarding her low-grade fever and mental status changes Review of Systems Positive point and negatives has been mentioned in the HPI, complete review of systems was performed and all other systems are negative Past Medical History Past Medical History: Hearing Disorder / Deafness, Hypertension, Osteoarthritis (OA) Additional Past Medical History / Comment(s): Arrhythmia, hx anemia, wears pad/brief for urinary incontinence, frequent UTI's, on [facility] antibiotic treatment to prevent UTI, SOB, deaf in right ear, hard of hearing in left ear, bilateral hearing aid use. History of Any Multi-Drug Resistant Organisms: None Reported Past Surgical History: Appendectomy, Cholecystectomy, Heart Catheterization With Stent, Hernia Repair, Hysterectomy, Joint Replacement Additional Past Surgical History / Comment(s): Pain Clinic Procedures, CARDIAC STENTS X2, L3-4-5 FUSION, total right knee replacement, bilateral cataract surgery. hiatal hernia repair. Past Anesthesia/Blood Transfusion Reactions: No Reported Reaction Additional Past Anesthesia/Blood Transfusion Reaction / Comm: "Slow coming out." Date of Last Stent Placement:: Past Psychological History: Anxiety, Depression Smoking Status: Never smoker Past Alcohol Use History: None Reported Past Drug Use History: None Reported - Past Family History Father Family Medical History: Cancer Sister(s) Family Medical History: Cancer Medications and Allergies Home Medications Medication Instructions Recorded Confirmed Type Aspirin 81 mg PO DAILY 12/14/14 11/06/23 History Cyanocobalamin [Vitamin B-12] 1,000 mcg PO DAILY 12/14/14 11/06/23 History Multivitamins, Thera [Multivitamin 1 tab PO DAILY 12/14/14 11/06/23 History (formulary)] Pramipexole [Mirapex] 0.25 mg PO HS 12/14/14 11/06/23 History Cetirizine HCl [Zyrtec] 10 mg PO HS 07/10/19 11/06/23 History [place]-3 Fatty Acids/Fish Oil [Fish 1 cap PO DAILY 07/10/19 11/06/23 History Oil 1,000 mg Softgel] Metoprolol Tartrate [Lopressor] 25 mg PO DAILY 07/26/22 11/06/23 History Omeprazole 40 mg PO BID 07/26/22 11/06/23 History Venlafaxine HCl [Effexor] 100 mg PO DAILY 07/26/22 11/06/23 History Calcium Carbonate/Vitamin D3 1 tab PO DAILY 10/05/22 11/06/23 History [Calcium 600-D3 20 mcg (800 Unit)] Simethicone [Gas-X] 125 mg PO W/SUPPER 10/05/22 11/06/23 History oxyBUTYnin chloride [Ditropan XL] 10 mg PO HS 02/13/23 11/06/23 History Ubidecarenone [Coenzyme Q10] 100 mg PO DAILY 05/09/23 11/06/23 History Cranberry 15,000 1 cap PO DAILY 10/26/23 11/06/23 History Docusate [Colace] 100 mg PO DAILY 10/26/23 11/06/23 History Naloxone HCl [Narcan] 4 mg NASAL DIRECTED PRN 10/26/23 11/06/23 History calcium polycarbophiL [Fibercon] 625 mg PO DAILY 10/26/23 11/06/23 History Atorvastatin [Lipitor] 40 mg PO HS #30 tab 10/29/23 11/06/23 Rx Acetaminophen Tab [Tylenol] 1,000 mg PO Q6HR PRN tab 11/11/23 Rx Magnesium Oxide [Mag-Ox] 400 mg PO BID tab 11/11/23 Rx Morphine Pain Pump 1 dose INTRATHECA CONTINUOUS #0 11/11/23 11/06/23 Rx Nystatin 100,000 Unit/gm Powd 1 applic TOPICAL BID each 11/11/23 Rx [Mycostatin Powder] Ondansetron Odt [Zofran ODT] 4 mg PO Q8HR PRN tab 11/11/23 Rx Sennosides-Docusate Sodium 2 each PO BID tab 11/11/23 Rx [Senokot-S] Allergies Allergy/AdvReac Type Severity Reaction Status Date / Time adhesive tape Allergy Rash/Hives, Verified 10/26/23 13:15 "paper tape is ok" Physical Exam Vitals: Vital Signs Temp Pulse Pulse Resp BP BP Pulse Ox 11/07/23 08:00 98.0 F 88 18 147/77 95 11/07/23 00:38 97.7 F 80 17 144/76 98 11/06/23 22:00 87 20 150/87 95 Intake and Output 11/06/23 11/07/23 11/07/23 22:59 06:59 14:59 Output Total 800 Balance -800 Output: Urine 800 GENERAL DESCRIPTION: Elderly female lying in bed, no distress. No tachypnea or a ccessory muscle of respiration use. HEENT: Shows Pallor , no scleral icterus. Oral mucous membrane is dry. No pharyngeal erythema or thrush NECK: Trachea central, no thyromegaly. LUNGS: Unlabored breathing. Clear to auscultation anteriorly. No wheeze or crackle. HEART: S1, S2, regular rate and rhythm. No loud murmur ABDOMEN: Soft, no tenderness , guarding or rigidity, no organomegaly EXTREMITIES: No edema of feet. SKIN: No rash, no masses palpable. NEUROLOGICAL: The patient is awake, alert, oriented x3, mood and affect normal. Results CBC & Chem 7: 11/11/23 05:50 11/11/23 05:50 Labs: Abnormal Lab Results - Last 24 Hours (Table) 11/07/23 11/07/23 Range/Units 00:47 10:05 Magnesium 1.5 L (1.6-2.3) mg/dL Urine Protein Trace H (Negative) Urine Ketones 2+ H (Negative) Assessment and Plan (1) Altered mental status Status: Acute Code(s): R41.82 - ALTERED MENTAL STATUS, UNSPECIFIED SNOMED Code(s): 697542789 (2) Mary Jane rash of groin Status: Acute Code(s): B37.89 - OTHER SITES OF CANDIDIASIS SNOMED Code(s): 570188695 (3) Cutaneous candidiasis Status: Acute Code(s): B37.2 - CANDIDIASIS OF SKIN AND NAIL SNOMED Code(s): 94033366 Plan: 1patient has been sent to the ER by the granddaughter concerning for mental status changes patient of presentation the hospital has been afebrile did have normal white count patient was able to tell me her name street address where she lives and that she is at the [facility] with no headache clinically 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 such as 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 please excuse any grammatical, word or spelling errors. Time with Patient: Greater than 30
[2023-11-07] MEDS: PANTOPRAZOLE 40 MG TABLET PO SCH (22:18)
[2023-11-07] MEDS: ATORVASTATIN 40 MG TAB PO SCH (22:18)
[2023-11-07] MEDS: LORATADINE 10 MG TAB PO SCH (22:21)
[2023-11-08] MEDS: PRAMIPEXOLE 0.25 MG TAB PO SCH ×2 (01:14→20:52)
[2023-11-08] MEDS: PANTOPRAZOLE 40 MG TABLET PO SCH ×2 (08:58→20:53)
[2023-11-08] MEDS: METOPROLOL TARTRATE 25 MG TAB PO SCH (08:58)
[2023-11-08] MEDS: VENLAFAXINE HCL 50 MG TAB PO SCH (08:58)
[2023-11-08] MEDS: NYSTATIN 100,000 UNIT/GM POWD 15 GM TOPICAL SCH ×2 (08:58→20:53)
[2023-11-08] MEDS ORDERED: ASPIRIN 81 MG PO SCH (09:00)
[2023-11-08 10:05] LABS: Basophils % (A) 0 %; Eosinophils # (A) 0.1 k/uL (0-0.7); Eosinophils % (A) 2 %; HCT 36.5 % (34.0-46.0); Hypochromasia Slight; Lymphocytes # (A) 1.1 k/uL (1.0-4.8); Lymphocytes % (A) 26 %; MCH 31.1 pg (25.0-35.0); MCHC 32.9 g/dL (31.0-37.0); MCV 94.7 fL (80.0-100.0); Mean Platelet Volume 8.2; Monocytes # (A) 0.3 k/uL (0-1.0); Monocytes % (A) 8 %; Neutrophils # (A) 2.6 k/uL (1.3-7.7); Neutrophils % (A) 63 %; Platelet Count 280 k/uL (150-450); RBC 3.85 m/uL (3.80-5.40); RDW 14.8 % (11.5-15.5); WBC 4.1 k/uL (3.8-10.6)
--- NOTE | 2023-11-08 10:53 | P.PN ---
Subjective Progress Note Date: 11/08/23 Principal diagnosis: Reason for follow-up is mental status changes and extensive groin area cutaneous candidiasis Patient is a 73-year-old female with a past medical history significant for hypertension osteoarthritis history of recurrent UTI chronic pain syndrome for which the patient did have a recent pain pump placement and did have extensive bilateral groin area cutaneous candidiasis present to the hospital with mental status changes did have 1 low-grade fever of 99.1. On today's evaluation that is 11/08/2023, the patient remains to be afebrile, the patient is breathing comfortably on room air, the patient denies any chest pain shortness of breath or cough patient denies having any nausea no vomiting did not have any abdominal pain no diarrhea or any worsening pain to bilateral groin area. Patient did have white count of 4.1, urine has been negative Objective - Vital Signs Vital signs: Vital Signs Temp 98.5 F 11/08/23 07:50 Pulse 88 11/08/23 07:50 Resp 18 11/08/23 07:50 BP 157/78 11/08/23 07:50 Pulse Ox 98 11/08/23 07:50 FiO2 Intake & Output 11/07/23 11/08/23 11/08/23 18:59 06:59 18:59 Intake Total 618 Output Total 1700 500 Balance -1700 -500 618 Weight 102.058 kg Intake: Oral 618 Output: Urine 1700 500 Other: Voiding Method External Catheter # Bowel Movements 1 - Exam GENERAL DESCRIPTION: An elderly female lying in bed in no distress RESPIRATORY SYSTEM: Unlabored breathing , decreased breath sounds at bases HEART: S1 S2 regular rate and rhythm , ABDOMEN: Soft , no tenderness EXTREMITIES: No edema feet - Labs CBC & Chem 7: 11/08/23 06:58 11/06/23 12:52 Labs: Abnormal Lab Results - Last 24 Hours (Table) 11/07/23 Range/Units 10:05 Magnesium 1.5 L (1.6-2.3) mg/dL Assessment and Plan (1) Altered mental status Current Visit: Yes Status: Acute Code(s): R41.82 - ALTERED MENTAL STATUS, UNSPECIFIED SNOMED Code(s): 787196034 (2) Cutaneous candidiasis Current Visit: No Status: Acute Code(s): B37.2 - CANDIDIASIS OF SKIN AND NAIL SNOMED Code(s): 32099479 Plan: 1patient has been sent to the ER by the granddaughter concerning for mental status changes patient of presentation the hospital has been afebrile did have normal white count patient was able to tell me her name street address where she lives and that she is at the [facility] with no headache c linically 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 please excuse any grammatical, word or spelling errors. Time with Patient: Less than 30
[2023-11-08 12:00] LABS: ALT 17 U/L (8-44); AST 33 U/L (13-35); Albumin 2.8 g/dL (3.8-4.9); Albumin/Globulin Ratio 1.08 Ratio (1.60-3.17); Alkaline Phosphatase 71 U/L (41-126); BUN/Creat Ratio <8.75 Ratio (12.00-20.00); Blood Urea Nitrogen <3.5 mg/dL (9.0-27.0); Calcium 8.7 mg/dL (8.7-10.3); Carbon Dioxide 28.5 mmol/L (21.6-31.8); Chloride 106 mmol/L (96-109); Globulin 2.6 g/dL (1.6-3.3); Glucose 116 mg/dL (70-110); Potassium 3.4 mmol/L (3.5-5.5); Sodium 143 mmol/L (135-145); Total Bilirubin 0.9 mg/dL (0.3-1.2); Total Protein 5.4 g/dL (6.2-8.2)
[2023-11-08] MEDS ORDERED: POTASSIUM CHLORIDE ER 20 MEQ TAB.ER PO STA (12:30)
[2023-11-08 12:33] LABS: HSV I IgG Interp POSITIVE; HSV II IgG Interp POSITIVE
--- NOTE | 2023-11-08 14:38 | P.PN ---
Subjective Progress Note Date: 11/08/23 H&P Date: 11/07/23 Chief Complaint: Confusion, loopy This is a 73-year-old female recently admitted with similar presentation on 10/26/2023 and discharged on 10/29/2023 with acute metabolic encephalopathy, multifactorial secondary to bilateral cutaneous candidiasis bilateral groin in addition to recent pain pump placement with morphine initiated on 10/23/2023. Evaluated and treated by infectious disease ,neurology and Gen. surgery. Patient declined subacute rehab at discharge. Reports she did follow-up with Dr. Mcgee's office post discharge and her pump was adjusted to 14-she was not sure if it was increased or decreased. Patient reports her granddaughter is telling her that she is talking "nonsense , loopy, confused". Granddaughter therefore called EMS and patient transported to the ER. Patient reports she has been sleeping well. Denies nausea vomiting or diarrhea denies constipation. Denies cough or congestion. Denies chest pain, palpitations or shortness of breath. Afebrile, normal WBC. Hemoglobin 13.1, platelets 231, INR 1.1, sodium 139 , glucose 92 ,magnesium 1.4, supplemented, repeat level pending. Total bili 1.6, AST 47, albumin 3.3. UA negative. Serology did not detect influenza type A/type B/RSV/COVID. Brain CT reported no acute intracranial process, nonspecific white matter changes, likely secondary to chronic small vessel ischemic disease. 11/08/2023 more alert today, holding [place]. Consuming 75% of breakfast with no nausea vomiting or diarrhea. Positive bowel movement today. Denies abdominal/groin pain. Afebrile, normal WBC , CRP elevated, 1.7, HSV panel pending. Maintaining O2 sats in the 90s on 2lnc. Denies chest pain, palpitations or shortness of breath . Denies lightheadedness dizziness or focal deficits. Denies headache. evaluated by both neurology, psychiatry and infectious disease with recommendations noted and appreciated. Lumbar puncture unable to be performed at this time ,as per IR related to aspirin must be held 5 days. Anesthesia/pain service consult in place regarding decreasing pain pump-pending. Evaluated by PT, recommending subacute rehab. Potassium 3.4. Objective - Vital Signs Vital signs: Vital Signs Temp 98.6 F 01/19/24 13:49 Pulse 94 11/08/23 13:49 Resp 21 11/08/23 13:49 BP 158/89 11/08/23 13:49 Pulse Ox 95 11/08/23 13:49 FiO2 Intake & Output 11/07/23 11/08/23 11/08/23 18:59 06:59 18:59 Intake Total 618 Output Total 1700 500 Balance -1700 -500 618 Weight 102.058 kg Intake: Oral 618 Output: Urine 1700 500 Other: Voiding Method External Catheter # Bowel Movements 1 - Exam PHYSICAL EXAM: VITAL SIGNS: [As above] GENERAL: Well-developed, sitting up in bed, more alert. HEENT: Normocephalic, Conjunctivae normal. Pupils equal and reactive to light. MMM. NECK: Supple No JVD. CARDIOVASCULAR: S1, S2 regular.No murmur RESPIRATION: Nonlabored, equal air entry with bilateral bases diminished. ABDOMEN: Soft, nondistended, nontender . No guarding. +BS LEGS: No edema. no swelling . PSYCHIATRY: Alert and oriented X3, mood and affect normal. NERVOUS SYSTEM: Cranial N 2-12 grossly normal. No focal deficits. Strength and sensation grossly intact.. Skin: Warm and dry, no rash. - Labs CBC & Chem 7: 11/08/23 06:58 11/08/23 06:58 Labs: Abnormal Lab Results - Last 24 Hours (Table) 11/08/23 Range/Units 06:58 Potassium 3.4 L (3.5-5.5) mmol/L BUN <3.5 L (9.0-27.0) mg/dL Creatinine 0.4 L (0.6-1.5) mg/dL BUN/Creatinine Ratio <8.75 L (12.00-20.00) Ratio Glucose 116 H (70-110) mg/dL C-Reactive Protein 1.70 H (0.00-0.80) mg/dL Total Protein 5.4 L (6.2-8.2) g/dL Albumin 2.8 L (3.8-4.9) g/dL Albumin/Globulin Ratio 1.08 L (1.60-3.17) Ratio Assessment and Plan Assessment: Acute toxic encephalopathy suspected related to intrathecal pain pump. Patient reports after recent discharge she did follow up with Dr. Mcgee's office and they adjusted the pump to 14. She does not recall if they decreased her increased. Recent admission related to Candidiasis rash of bilateral groin with cellulitis improving. Chronic back pain History of Multiple abdominal/chest hernia that seems large in size but are nonobstructive. General surgery recommending surgical intervention outpatient on prior admission. Plan: Continue on current medication regime ,monitoring and symptomatic treatment. Potassium supplement ordered. HSV panel pending.Continue holding [place]. Anesthesiology/pain specialist consult in place to decrease pain pump setting. If unable to decrease pump setting, patient will have to follow with her own neurologist and will discharge- holding [place]. Unable to perform lumbar puncture at this time. As per infectious disease clinically low suspicion for PEWTER CASTER infection. Discharge planning in progress for subacute rehab. Pending authorization. The impression and plan of care has been dictated as directed. : I performed a history and examination of this patient, discussed the same with the dictator. I agree with the dictator's note ,documented as a scribe. Any additional findings or plans will be noted.
[2023-11-08] MEDS: ACETAMINOPHEN TAB 500 MG TAB PO PRN (16:43)
--- NOTE | 2023-11-08 17:35 | P.PN ---
Subjective Progress Note Date: 11/08/23 The patient is accompanied with her grand-daughter and patient is doing better. Denies of headache, focal weakness. No fevers, leukocytosis. Per nurse they attempted to contact Pain clinic and no response. So the morphine drip was not decreased as result. Objective - Vital Signs Vital signs: Vital Signs Temp 98.6 F 11/08/23 13:49 Pulse 94 11/08/23 13:49 Resp 21 11/08/23 13:49 BP 158/89 11/08/23 13:49 Pulse Ox 95 11/08/23 13:49 FiO2 Intake & Output 11/07/23 11/08/23 11/08/23 18:59 06:59 18:59 Intake Total 736 Output Total 2352 876 4861 Balance -1700 -500 -364 Weight 102.058 kg Intake: Oral 736 Output: Urine 3625 915 8398 Other: Voiding Method External Catheter # Bowel Movements 1 - Exam General: Lying in bed and is not in acute distress. HENT: Supple neck: Neuro: The patient is awake, alert, oriented to self, place and time. Is subtle slow responding. She is able to name objects correctly (pen and watch). Is following simple commands. No aphasia or neglect. Pupils are round, equal and reactive to light. Visual francois are full to confrontation. EOM intact and no nystagmus. No facial weakness. No dysarthria. Motor: Strength is uppers are 5/5. Lowers is lifting above gravity and no focal deficity. Some of the work-up during this hospital visit consisted of: Afebrile Wbc 5.7K Sodium, glucose, calcium all within normal limits Magnesium is 1.4 then 1.5 HSV I/II IG is positive. Plasma like acid venous 1.8. BUN/creatinine is within normal limits. Urinalysis does not seem the there is any underlying infection. Influenza A/B, SARS-CoV2 and RSV PCR are not detected. CT head: Was reported as no acute intracranial process. Nonspecific white matter changes, likely sedated due to chronic small vessel ischemic disease. I personally reviewed CT head and agree with report. Routine EEG: Is abnormal. The background slowing is suggestive of mild to moderate encephalopathy. The triphasic morphology is likely due to toxic- metabolic derangement. Otherwise, there is no focal slowing, epileptiform discharges or seizure on the EEG. - Labs CBC & Chem 7: 11/08/23 06:58 11/08/23 06:58 Labs: Abnormal Lab Results - Last 24 Hours (Table) 11/08/23 Range/Units 06:58 Potassium 3.4 L (3.5-5.5) mmol/L BUN <3.5 L (9.0-27.0) mg/dL Creatinine 0.4 L (0.6-1.5) mg/dL BUN/Creatinine Ratio <8.75 L (12.00-20.00) Ratio Glucose 116 H (70-110) mg/dL C-Reactive Protein 1.70 H (0.00-0.80) mg/dL Total Protein 5.4 L (6.2-8.2) g/dL Albumin 2.8 L (3.8-4.9) g/dL Albumin/Globulin Ratio 1.08 L (1.60-3.17) Ratio Assessment and Plan Assessment: This is a 73-year-old woman who presents back to the cc department because of altered mental status. She was recently in the ciliary on 10/26/2023 because of confusion and that she had a morphine started via pump on 10/23/[address] Villafuerte. Prior hospital visit she had an EEG which was negative for any seizure discharges. MRI of the brain was negative for any acute subacute the changes. Per the granddaughter she stated had her pain pump setting increased by Dr. Mcgee on 10/30/2023 and patient has been more sleepy since and yesterday confused. Delirium due to probable underlying increased morphine pump recently on top of polydrug use (on Gabapentin, Effexor, hydrocodone, Mobic) and has mild component of metabolic encephalopathy. Patient has been afebrile, no leukocytosis and no headache and I agree with I.D. that is unlikely meningoencephalitis. EEG showed mild to moderate encephalopathy but no seizure or discharges---today mentation is improved. Hypomagnesemia Chronic low back pain Polydrug use Plan: Anesthesiology team consulted to lower the setting of the pain pump I.D. team is on board. Pain specialist is consulted for LP and not performed. Will hold for now but if continues to have confusion, recommend pursuing LP. Psychiatry is consulted We'll defer the rest of the medical management to primary team and other specialist. The plan is discussed with her grand-daughter (Gaby) and her nurse. Dr. Hutchins will resume neurology service tomorrow A.M. Time with Patient: Less than 30
[2023-11-08] MEDS: SODIUM CHLORIDE 0.9% 1,000 ML IV SCH (18:51)
[2023-11-08] MEDS: ATORVASTATIN 40 MG TAB PO SCH (20:52)
[2023-11-08] MEDS: SENNOSIDES-DOCUSATE SODIUM 1 EACH TAB PO SCH (20:52)
[2023-11-08] MEDS: LORATADINE 10 MG TAB PO SCH (20:53)
[2023-11-09 07:45] LABS: African American GFR (CKD) >90 (>60 ml/min/1.73 sqM); Anion Gap 4 mmol/L; Blood Urea Nitrogen 3 mg/dL (7-17); Calcium 8.9 mg/dL (8.4-10.2); Carbon Dioxide 28 mmol/L (22-30); Chloride 109 mmol/L (98-107); Glucose 101 mg/dL (74-99); Magnesium 1.5 mg/dL (1.6-2.3); Non-African American GFR(CKD) >90 (>60 ml/min/1.73 sqM); Potassium 3.8 mmol/L (3.5-5.1); Sodium 141 mmol/L (137-145)
[2023-11-09] MEDS: METOPROLOL TARTRATE 25 MG TAB PO SCH (08:25)
[2023-11-09] MEDS: SENNOSIDES-DOCUSATE SODIUM 1 EACH TAB PO SCH ×2 (08:25→21:57)
[2023-11-09] MEDS: PANTOPRAZOLE 40 MG TABLET PO SCH ×2 (08:26→21:58)
[2023-11-09] MEDS: NYSTATIN 100,000 UNIT/GM POWD 15 GM TOPICAL SCH ×2 (08:26→21:58)
[2023-11-09] MEDS: VENLAFAXINE HCL 50 MG TAB PO SCH (08:26)
[2023-11-09] MEDS: ACETAMINOPHEN TAB 500 MG TAB PO PRN ×2 (11:10→22:06)
[2023-11-09] MEDS: CYANOCOBALAMIN 500 MCG TAB PO SCH (11:10)
[2023-11-09] MEDS: MAGNESIUM SULFATE-D5W PMX 1 GM in DEXTROSE/WATER 1 100ML.BAG IVPB SCH ×2 (11:10→12:25)
[2023-11-09] MEDS ORDERED: MAGNESIUM OXIDE 400 MG TAB PO STA (12:23)
--- NOTE | 2023-11-09 13:31 | P.PN ---
Subjective Progress Note Date: 11/09/23 * 73-year-old female recently admitted with similar presentation on 10/26/2023 and discharged on 10/29/2023 with acute metabolic encephalopathy, multifactorial secondary to bilateral cutaneous candidiasis bilateral groin in addition to recent pain pump placement with morphine initiated on 10/23/2023. Evaluated and treated by infectious disease ,neurology and Gen. surgery. Patient declined subacute rehab at discharge. Reports she did follow-up with Dr. Mcgee's office post discharge and her pump was adjusted to 14-she was not sure if it was increased or decreased. Patient reports her granddaughter is telling her that she is talking "nonsense , loopy, confused". Granddaughter therefore called EMS and patient transported to the ER. Patient reports she has been sleeping well. Denies nausea vomiting or diarrhea denies constipation. Denies cough or congestion. Denies chest pain, palpitations or shortness of breath. Afebrile, normal WBC. Hemoglobin 13.1, platelets 231, INR 1.1, sodium 139 , glucose 92 ,magnesium 1.4, supplemented, repeat level pending. Total bili 1.6, AST 47, albumin 3.3. UA negative. Serology did not detect influenza type A/type B/RSV/COVID. Brain CT reported no acute intracranial process, nonspecific white matter changes, likely secondary to chronic small vessel ischemic disease. * 11/09/2023: Patient seen and evaluated bedside care plan discussed with paul winter at bedside waiting for pain management/anesthesia team to adjust pain pump, magnesium replaced, patient will need discharge to subacute rehab patient will be here for the weekend PHYSICAL EXAMINATION: GENERAL: The patient is alert and oriented x3, not in any acute distress. Well developed, well nourished. HEENT: Pupils are round and equally reacting to light. EOMI CARDIOVASCULAR: S1 and S2 present. No murmurs, rubs, or gallops. PULMONARY: Chest is clear to auscultation, no wheezing or crackles. ABDOMEN: Soft, nontender, nondistended, normoactive bowel sounds. No palpable organomegaly. MUSCULOSKELETAL: No joint swelling or deformity. EXTREMITIES: No cyanosis, clubbing, or pedal edema. NEUROLOGICAL: Gross neurological examination did not reveal any focal deficits. SKIN: No rashes. Objective - Vital Signs Vital signs: Vital Signs Temp 98.5 F 11/09/23 07:37 Pulse 81 11/09/23 07:37 Resp 16 11/09/23 07:37 BP 162/80 11/09/23 07:37 Pulse Ox 93 L 11/09/23 07:37 FiO2 Intake & Output 11/08/23 11/09/23 11/09/23 18:59 06:59 18:59 Intake Total 736 Output Total 1100 1000 Balance -364 -1000 Intake: Oral 736 Output: Urine 1100 1000 Other: Voiding Method External Catheter External Catheter Bedside Commode External Catheter - Labs CBC & Chem 7: 11/08/23 06:58 11/09/23 06:29 Labs: Abnormal Lab Results - Last 24 Hours (Table) 11/09/23 Range/Units 06:29 Chloride 109 H (98-107) mmol/L BUN 3 L (7-17) mg/dL Creatinine 0.38 L (0.52-1.04) mg/dL Glucose 101 H (74-99) mg/dL Magnesium 1.5 L (1.6-2.3) mg/dL Assessment and Plan Assessment: Assessment and plan * Acute toxic metabolic encephalopathy * Status post chronic back pain with pain pump in place * Hypomagnesemia * Generalized debility * Hypertension * In regards to toxic encephalopathy, patient receiving intrathecal pain meds, [place] and gabapentin on hold at the spine mentation has improved improved * In regards to hypomagnesemia magnesium replaced * Regards to history of hypertension continue patient on metoprolol * in regards to generalized debility patient will need discharge to subacute rehab *
[2023-11-09] MEDS: SIMETHICONE 80 MG CHEWABLE PO SCH (17:07)
[2023-11-09] MEDS: SODIUM CHLORIDE 0.9% 1,000 ML IV SCH (17:28)
[2023-11-09] MEDS: OXYBUTYNIN 10 MG TAB.ER.24 PO SCH (21:57)
[2023-11-09] MEDS: LORATADINE 10 MG TAB PO SCH (21:58)
[2023-11-09] MEDS: ATORVASTATIN 40 MG TAB PO SCH (21:58)
[2023-11-09] MEDS: PRAMIPEXOLE 0.25 MG TAB PO SCH (21:58)
--- NOTE | 2023-11-10 03:52 | P.PN ---
Subjective Progress Note Date: 11/09/23 Principal diagnosis: Reason for follow-up is mental status changes and extensive groin area cutaneous candidiasis This is a telehealth visit Patient is a 73-year-old female with a past medical history significant for hypertension osteoarthritis history of recurrent UTI chronic pain syndrome for which the patient did have a recent pain pump placement and did have extensive bilateral groin area cutaneous candidiasis present to the hospital with mental status changes did have 1 low-grade fever of 99.1. On today's evaluation that is 11/09/2023 the patient remains to be afebrile, the patient is breathing comfortably currently on room air, the patient denies having any chest pain shortness of breath or cough no nausea no vomiting no abdominal pain and no diarrhea or any worsening pain to the groin area Patient did have normal white count of 4.1 as of yesterday, creatinine 0.38 Objective - Vital Signs Vital signs: Vital Signs Temp 98.4 F 11/09/23 14:46 Pulse 91 11/09/23 14:46 Resp 19 11/09/23 14:46 BP 168/106 11/09/23 14:46 Pulse Ox 93 L 11/09/23 14:46 FiO2 Intake & Output 11/08/23 11/09/23 11/09/23 18:59 06:59 18:59 Intake Total 736 Output Total 1100 1000 Balance -364 -1000 Intake: Oral 736 Output: Urine 1100 1000 Other: Voiding Method External Catheter External Catheter Bedside Commode External Catheter - Exam Elderly female lying in bed in no distress Respiratory system unlabored breathing decreased breath sound the base Heart S1-S2 regular Abdominal soft no tenderness Extremities no edema feet Exam completed with the help of TRIAGE LICENSED PRACTICAL NURSE - Labs CBC & Chem 7: 11/08/23 06:58 11/09/23 06:29 Labs: Abnormal Lab Results - Last 24 Hours (Table) 11/09/23 Range/Units 06:29 Chloride 109 H (98-107) mmol/L BUN 3 L (7-17) mg/dL Creatinine 0.38 L (0.52-1.04) mg/dL Glucose 101 H (74-99) mg/dL Magnesium 1.5 L (1.6-2.3) mg/dL Assessment and Plan (1) Altered mental status Current Visit: Yes Status: Acute Code(s): R41.82 - ALTERED MENTAL STATUS, UNSPECIFIED SNOMED Code(s): 370405305 (2) Cutaneous candidiasis Current Visit: No Status: Acute Code(s): B37.2 - CANDIDIASIS OF SKIN AND NAIL SNOMED Code(s): 93262235 Plan: 1patient has been sent to the ER by the granddaughter concerning for mental status changes patient of presentation the hospital has been afebrile did have normal white count patient was able to tell me her name street address where she lives and that she is at the [facility] with no headache 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 please excuse any grammatical, word or spelling errors. Time with Patient: Less than 30
[2023-11-10] MEDS: ACETAMINOPHEN TAB 500 MG TAB PO PRN (08:50)
[2023-11-10] MEDS: VENLAFAXINE HCL 50 MG TAB PO SCH (08:51)
[2023-11-10] MEDS: PANTOPRAZOLE 40 MG TABLET PO SCH ×2 (08:51→20:52)
[2023-11-10] MEDS: NYSTATIN 100,000 UNIT/GM POWD 15 GM TOPICAL SCH ×2 (08:51→20:51)
[2023-11-10] MEDS: SENNOSIDES-DOCUSATE SODIUM 1 EACH TAB PO SCH ×2 (08:51→20:52)
[2023-11-10] MEDS: METOPROLOL TARTRATE 25 MG TAB PO SCH (08:51)
[2023-11-10] MEDS: CYANOCOBALAMIN 500 MCG TAB PO SCH (08:51)
[2023-11-10 09:50] LABS: Procalcitonin 0.04 ng/mL (0.02-0.09)
--- NOTE | 2023-11-10 12:08 | P.PN ---
Subjective Progress Note Date: 11/10/23 * 73-year-old female recently admitted with similar presentation on 10/26/2023 and discharged on 10/29/2023 with acute metabolic encephalopathy, multifactorial secondary to bilateral cutaneous candidiasis bilateral groin in addition to recent pain pump placement with morphine initiated on 10/23/2023. Evaluated and treated by infectious disease ,neurology and Gen. surgery. Patient declined subacute rehab at discharge. Reports she did follow-up with Dr. Mcgee's office post discharge and her pump was adjusted to 14-she was not sure if it was increased or decreased. Patient reports her granddaughter is telling her that she is talking "nonsense , loopy, confused". Granddaughter therefore called EMS and patient transported to the ER. Patient reports she has been sleeping well. Denies nausea vomiting or diarrhea denies constipation. Denies cough or congestion. Denies chest pain, palpitations or shortness of breath. Afebrile, normal WBC. Hemoglobin 13.1, platelets 231, INR 1.1, sodium 139 , glucose 92 ,magnesium 1.4, supplemented, repeat level pending. Total bili 1.6, AST 47, albumin 3.3. UA negative. Serology did not detect influenza type A/type B/RSV/COVID. Brain CT reported no acute intracranial process, nonspecific white matter changes, likely secondary to chronic small vessel ischemic disease. * 11/09/2023: Patient seen and evaluated bedside care plan discussed with paul winter at bedside waiting for pain management/anesthesia team to adjust pain pump, magnesium replaced, patient will need discharge to subacute rehab patient will be here for the weekend * 11/10/2023: Patient seen and evaluated bedside, patient mentation has improved. We'll follow-up on electrolyte panel, still waiting for adjustment of pain pump. Granddaughter would want patient to go to subacute rehab PHYSICAL EXAMINATION: GENERAL: The patient is alert and oriented x3, not in any acute distress. Well developed, well nourished. HEENT: Pupils are round and equally reacting to light. EOMI CARDIOVASCULAR: S1 and S2 present. No murmurs, rubs, or gallops. PULMONARY: Chest is clear to auscultation, no wheezing or crackles. ABDOMEN: Soft, nontender, nondistended, normoactive bowel sounds. No palpable organomegaly. MUSCULOSKELETAL: No joint swelling or deformity. EXTREMITIES: No cyanosis, clubbing, or pedal edema. NEUROLOGICAL: Gross neurological examination did not reveal any focal deficits. SKIN: No rashes. Objective - Vital Signs Vital signs: Vital Signs Temp 99.0 F 11/09/23 20:00 Pulse 109 H 11/09/23 20:00 Resp 16 11/09/23 20:00 BP 135/84 11/09/23 20:00 Pulse Ox 94 L 11/09/23 20:00 FiO2 Intake & Output 11/09/23 11/09/23 11/10/23 06:59 18:59 06:59 Output Total 1000 Balance -1000 Output: Urine 1000 Other: Voiding Method External Catheter Bedside Commode External Catheter # Voids 3 # Bowel Movements 1 - Labs CBC & Chem 7: 11/08/23 06:58 11/09/23 06:29 Labs: Abnormal Lab Results - Last 24 Hours (Table) 11/09/23 Range/Units 06:29 Chloride 109 H (98-107) mmol/L BUN 3 L (7-17) mg/dL Creatinine 0.38 L (0.52-1.04) mg/dL Glucose 101 H (74-99) mg/dL Magnesium 1.5 L (1.6-2.3) mg/dL Assessment and Plan Assessment: Assessment and plan * Acute toxic metabolic encephalopathy * Status post chronic back pain with pain pump in place * Hypomagnesemia * Generalized debility * Hypertension * In regards to toxic encephalopathy, patient receiving intrathecal pain meds, [place] and gabapentin on hold since then mentation has improved> family requesting Dose of pain pump to be adjusted prior to discharge probably pain management team/ anesthesia team to be reached out again on 11/11 * In regards to hypomagnesemia magnesium replaced * Regards to history of hypertension continue patient on metoprolol * in regards to generalized debility patient will need discharge to subacute rehab Time with Patient: Greater than 30
[2023-11-10] MEDS: SIMETHICONE 80 MG CHEWABLE PO SCH (16:26)
[2023-11-10] MEDS: SODIUM CHLORIDE 0.9% 1,000 ML IV SCH (18:16)
[2023-11-10] MEDS: PRAMIPEXOLE 0.25 MG TAB PO SCH (20:51)
[2023-11-10] MEDS: ATORVASTATIN 40 MG TAB PO SCH (20:51)
[2023-11-10] MEDS: LORATADINE 10 MG TAB PO SCH (20:52)
[2023-11-10] MEDS: OXYBUTYNIN 10 MG TAB.ER.24 PO SCH (20:52)
--- NOTE | 2023-11-11 02:07 | P.PN ---
Subjective Progress Note Date: 11/10/23 Principal diagnosis: Reason for follow-up is mental status changes and extensive groin area cutaneous candidiasis This is a telehealth visit Patient is a 73-year-old female with a past medical history significant for hypertension osteoarthritis history of recurrent UTI chronic pain syndrome for which the patient did have a recent pain pump placement and did have extensive bilateral groin area cutaneous candidiasis present to the hospital with mental status changes did have 1 low-grade fever of 99.1. On today's evaluation that is 11/10/2023 the patient continues to be afebrile, the patient is breathing comfortably on room air patient denies having any chest pain occasional cough no sputum production, the pt denies nausea vomiting no abdominal pain no diarrhea, denies pain to bilateral groin area No new labs obtained today Objective - Vital Signs Vital signs: Vital Signs Temp 97.8 F 11/10/23 08:08 Pulse 76 11/10/23 08:08 Resp 20 11/10/23 08:08 BP 181/92 11/10/23 08:08 Pulse Ox 98 11/10/23 08:08 FiO2 Intake & Output 11/09/23 11/10/23 11/10/23 18:59 06:59 18:59 Output Total 800 Balance -800 Output: Urine 800 Other: Voiding Method Bedside Commode Bedside Commode External Catheter External Catheter # Voids 3 2 # Bowel Movements 1 1 - Exam Elderly female lying in bed in no distress Respiratory system unlabored breathing decreased breath sound the base Heart S1-S2 regular Abdominal soft no tenderness Extremities no edema feet Exam completed with the help of BRAKE OPERATOR HELPER - Labs CBC & Chem 7: 11/08/23 06:58 11/09/23 06:29 Assessment and Plan (1) Altered mental status Current Visit: Yes Status: Acute Code(s): R41.82 - ALTERED MENTAL STATUS, UNSPECIFIED SNOMED Code(s): 249588430 (2) Cutaneous candidiasis Current Visit: No Status: Acute Code(s): B37.2 - CANDIDIASIS OF SKIN AND NAIL SNOMED Code(s): 21029667 Plan: 1patient has been sent to the ER by the granddaughter concerning for mental status changes patient of presentation the hospital has been afebrile did have normal white count patient was able to tell me her name street address where she lives and that she is at the [facility] with no headache clinically suspicious low for ENGINEERING AND DEVELOPMENT DIRECTOR infection such as encephalitis patient also have a negative UA abdomen was soft and clean examination and is breathing comfortably on room air clinically not behaving as pneumonia 2-patient did have extensive bilateral groin area cutaneous candidiasis but no evidence of any secondary cellulitis 3-patient did have some clinical improvement and will -continue with nystatin powder to bilateral groin area twice a day, Dictation was produced using [employer] dictation software. please excuse any grammatical, word or spelling errors. Time with Patient: Less than 30
[2023-11-11 04:23] LABS: Herpes simplex I and/or II IgM 1.81 INDEX (<=0.90); Herpes simplex IgG I Ab 27.6 (< or = 0.90); Herpes simplex IgG II Ab 11.5 (< or = 0.90)
[2023-11-11 07:41] VITALS: RESP 16
[2023-11-11 09:08] LABS: HGB 12.5 g/dL (12.0-15.0); MCH 30.5 pg (27.0-32.0); MCHC 32.1 g/dL (32.0-37.0); MCV 95.1 FL (80.0-97.0); Mean Platelet Volume 9.5 FL (9.5-12.2); NRBC Per 100 WBC 0 X 10*3/uL (0.00-0.01); Platelet Count 340 X 10*3/uL (140-440); RDW 14.9 % (11.5-14.5); WBC 5.61 X 10*3/uL (4.50-10.00)
[2023-11-11 09:11] LABS: Magnesium 1.5 mg/dL (1.5-2.4)
[2023-11-11] MEDS: VENLAFAXINE HCL 50 MG TAB PO SCH (09:17)
[2023-11-11] MEDS: PANTOPRAZOLE 40 MG TABLET PO SCH (09:17)
[2023-11-11] MEDS: CYANOCOBALAMIN 500 MCG TAB PO SCH (09:17)
[2023-11-11] MEDS: METOPROLOL TARTRATE 25 MG TAB PO SCH (09:17)
[2023-11-11] MEDS: NYSTATIN 100,000 UNIT/GM POWD 15 GM TOPICAL SCH (09:17)
[2023-11-11] MEDS: SENNOSIDES-DOCUSATE SODIUM 1 EACH TAB PO SCH (09:17)
[2023-11-11 09:24] LABS: Blood Urea Nitrogen 6.5 mg/dL (9.0-27.0); Carbon Dioxide 27.3 mmol/L (21.6-31.8); Chloride 105 mmol/L (96-109); Glucose 103 mg/dL (70-110); Potassium 3.8 mmol/L (3.5-5.5); Sodium 142 mmol/L (135-145)
[2023-11-11] MEDS ORDERED: MAGNESIUM SULFATE-D5W PMX 1 GM in DEXTROSE/WATER 1 100ML.BAG IVPB SCH (10:30)
[2023-11-11] MEDS ORDERED: ONDANSETRON ODT 4 MG TAB PO PRN (10:48)
--- NOTE | 2023-11-11 10:54 | P.DS ---
Providers Date of admission: 11/06/23 18:07 Expected date of discharge: 11/11/23 Attending physician: David Mora MD Consults: 11/06/23 18:06 Consult Physician Routine Consulting Provider: Teo Navarrete Consult Reason/Comments: ams Do you want consulting provider notified?: Yes Consult Physician Routine Consulting Provider: Pranav Gongora Consult Reason/Comments: ams Do you want consulting provider notified?: Already Contacted 11/07/23 12:17 Consult Physician Routine Consulting Provider: Juancho Beatty Consult Reason/Comments: adjust pain pump Do you want consulting provider notified?: Yes 11/07/23 14:12 Consult Physician Routine Consulting Provider: Sid Acosta Consult Reason/Comments: low grade fever with confusion. Was here recently Do you want consulting provider notified?: Yes Primary care physician: David Mora MD Hospital Course: Final Diagnoses: Acute toxic, metabolic encephalopathy suspected related to intrathecal pain pump. Patient reports after recent discharge she did follow up with Dr. Mcgee's office and they adjusted the pump to 14. She does not recall if they decreased her increased. Granddaughter states they increased the pump rate. Recent admission related to Candidiasis rash of bilateral groin with cellulitis improving. Chronic back pain History of Multiple abdominal/chest hernia that seems large in size but are n onobstructive. General surgery recommending surgical intervention outpatient on prior admission. Hypomagnesemia,status post supplementation Hospital course:This is a 73-year-old female recently admitted with similar presentation on 10/26/2023 and discharged on 10/29/2023 with acute metabolic encephalopathy, multifactorial secondary to bilateral cutaneous candidiasis bilateral groin in addition to recent pain pump placement with morphine initiated on 10/23/2023. Evaluated and treated by infectious disease ,neurology and Gen. surgery. Patient declined subacute rehab at discharge. Reports she did follow-up with Dr. Mcgee's office post discharge and her pump was adjusted to 14-she was not sure if it was increased or decreased. Patient reports her granddaughter is telling her that she is talking "nonsense , loopy, confused". Granddaughter therefore called EMS and patient transported to the ER. Patient reports she has been sleeping well. Denies nausea vomiting or diarrhea denies constipation. Denies cough or congestion. Denies chest pain, palpitations or shortness of breath. Afebrile, normal WBC. Hemoglobin 13.1, platelets 231, INR 1.1, sodium 139 , glucose 92 ,magnesium 1.4, supplemented, repeat level pending. Total bili 1.6, AST 47, albumin 3.3. UA negative. Serology did not detect influenza type A/type B/RSV/COVID. Brain CT reported no acute intracranial process, nonspecific white matter changes, likely secondary to chronic small vessel ischemic disease. 11/08/2023 more alert today, holding [place]. Consuming 75% of breakfast with no nausea vomiting or diarrhea. Positive bowel movement today. Denies abdominal/groin pain. Afebrile, normal WBC , CRP elevated, 1.7, HSV panel pending. Maintaining O2 sats in the 90s on 2lnc. Denies chest pain, palpitations or shortness of breath . Denies lightheadedness dizziness or focal deficits. Denies headache. evaluated by both neurology, psychiatry and infectious disease with recommendations noted and appreciated. Lumbar puncture unable to be performed at this time ,as per IR related to aspirin must be held 5 days. Anesthesia/pain service consult in place regarding decreasing pain pump-pending. Evaluated by PT, recommending subacute rehab. Potassium 3.4. Potassium supplement ordered. HSV panel pending.Continue holding [place]. Anesthesiology/pain specialist consult in place to decrease pain pump setting. If unable to decrease pump setting, patient will have to follow with her own neurologist and will discharge- holding [place]. Unable to perform lumbar puncture at this time. As per infectious disease clinically low suspicion for AIDS SOCIAL WORKER infection. Discharge planning in progress for subacute rehab. Pending authorization. Pain management/anesthesiologists consulted last week to decrease pain pump. If they are unable to do so then patient will need to follow up outpatient with her pain specialist, Dr. Mcgee's office to decrease pump. Plan of care discussed with granddaughter, who understands and is in agreement to proceed with discharge to [facility] today. Afebrile, normal WBC. Patient will be discharged today to subacute rehab in a stable condition with guarded prognosis. The impression and plan of care has been dictated as directed. : I performed a history and examination of this patient, discussed the same with the dictator. I agree with the dictator's note ,documented as a scribe. Any additional findings or plans will be noted. Patient Condition at Discharge: Stable Plan - Discharge Summary New Discharge Prescriptions: New Sennosides-Docusate Sodium [Senokot-S] 2 each PO BID tab Ondansetron Odt [Zofran ODT] 4 mg PO Q8HR PRN tab PRN Reason: Nausea Nystatin 100,000 Unit/gm Powd [Mycostatin Powder] 1 applic TOPICAL BID each Acetaminophen Tab [Tylenol] 1,000 mg PO Q6HR PRN tab PRN Reason: Fever And/ Or Pain Magnesium Oxide [Mag-Ox] 400 mg PO BID tab Continue Multivitamins, Thera [Multivitamin (formulary)] 1 tab PO DAILY Cyanocobalamin [Vitamin B-12] 1,000 mcg PO DAILY Aspirin 81 mg PO DAILY Pramipexole [Mirapex] 0.25 mg PO HS [place]-3 Fatty Acids/Fish Oil [Fish Oil 1,000 mg Softgel] 1 cap PO DAILY Cetirizine HCl [Zyrtec] 10 mg PO HS Omeprazole 40 mg PO BID Simethicone [Gas-X] 125 mg PO W/SUPPER Calcium Carbonate/Vitamin D3 [Calcium 600-D3 20 mcg (800 Unit)] 1 tab PO DAILY Ubidecarenone [Coenzyme Q10] 100 mg PO DAILY Docusate [Colace] 100 mg PO DAILY calcium polycarbophiL [Fibercon] 625 mg PO DAILY Morphine Pain Pump 1 dose INTRATHECA CONTINUOUS #0 Metoprolol Tartrate [Lopressor] 25 mg PO DAILY Venlafaxine HCl [Effexor] 100 mg PO DAILY oxyBUTYnin chloride [Ditropan XL] 10 mg PO HS [place] 15,000 1 cap PO DAILY Naloxone HCl [Narcan] 4 mg NASAL DIRECTED PRN PRN Reason: Opioid Reversal Atorvastatin [Lipitor] 40 mg PO HS #30 tab Discontinued Meloxicam [Mobic] 15 mg PO DAILY Hydrocodone/Acetaminophen [Hydrocodone/Acetaminophen 7.5-325] 1 tab PO BID Gabapentin [Neurontin] 400 mg PO TID Discharge Medication List Aspirin 81 mg PO DAILY 12/14/14 [History] Cyanocobalamin [Vitamin B-12] 1,000 mcg PO DAILY 12/14/14 [History] Multivitamins, Thera [Multivitamin (formulary)] 1 tab PO DAILY 12/14/14 [History] Pramipexole [Mirapex] 0.25 mg PO HS 12/14/14 [History] Cetirizine HCl [Zyrtec] 10 mg PO HS 07/10/19 [History] [place]-3 Fatty Acids/Fish Oil [Fish Oil 1,000 mg Softgel] 1 cap PO DAILY 07/10/19 [History] Metoprolol Tartrate [Lopressor] 25 mg PO DAILY 07/26/22 [History] Omeprazole 40 mg PO BID 07/26/22 [History] Venlafaxine HCl [Effexor] 100 mg PO DAILY 07/26/22 [History] Calcium Carbonate/Vitamin D3 [Calcium 600-D3 20 mcg (800 Unit)] 1 tab PO DAILY 10/05/22 [History] Simethicone [Gas-X] 125 mg PO W/SUPPER 10/05/22 [History] oxyBUTYnin chloride [Ditropan XL] 10 mg PO HS 02/13/23 [History] Ubidecarenone [Coenzyme Q10] 100 mg PO DAILY 05/09/23 [History] Cranberry 15,000 1 cap PO DAILY 10/26/23 [History] Docusate [Colace] 100 mg PO DAILY 10/26/23 [History] Naloxone HCl [Narcan] 4 mg NASAL DIRECTED PRN 10/26/23 [History] calcium polycarbophiL [Fibercon] 625 mg PO DAILY 10/26/23 [History] Atorvastatin [Lipitor] 40 mg PO HS #30 tab 10/29/23 [Rx] Acetaminophen Tab [Tylenol] 1,000 mg PO Q6HR PRN tab 11/11/23 [Rx] Magnesium Oxide [Mag-Ox] 400 mg PO BID tab 11/11/23 [Rx] Morphine Pain Pump 1 dose INTRATHECA CONTINUOUS #0 11/11/23 [Rx] Nystatin 100,000 Unit/gm Powd [Mycostatin Powder] 1 applic TOPICAL BID each 11/11/23 [Rx] Ondansetron Odt [Zofran ODT] 4 mg PO Q8HR PRN tab 11/11/23 [Rx] Sennosides-Docusate Sodium [Senokot-S] 2 each PO BID tab 11/11/23 [Rx] Follow up Appointment(s)/Referral(s): David Mora MD [Primary Care Provider] - 1 Week (After DC from subacute rehab) Activity/Diet/Wound Care/Special Instructions: [facility] BMP, magnesium in 2 days
[2023-11-11] MEDS ORDERED: MAGNESIUM OXIDE 400 MG TAB PO SCH (11:00)
[2023-11-11 12:37] VITALS: BP 130/79; PULSE 87; TEMP 98.3
--- NOTE | 2023-11-11 13:46 | P.PAINCN ---
History of Present Illness - Reason for Consult Consult date: 11/11/23 - History of Present Illness This 73 years old female who was admitted to [facility] secondary to fusion, patient had an intrathecal pain pump inserted recently , this patient had a chronic pain syndrome, and the request by neurology service and the primary care was placed to increase the intrathecal pain medication, as that is concerned about patient having opioid Overdose, the confusion could be side effects of the morphine Past Medical History Past Medical History: Hearing Disorder / Deafness, Hypertension, Osteoarthritis (OA) Additional Past Medical History / Comment(s): Arrhythmia, hx anemia, wears pad/brief for urinary incontinence, frequent UTI's, on halfway antibiotic treatment to prevent UTI, SOB, deaf in right ear, hard of hearing in left ear, bilateral hearing aid use. History of Any Multi-Drug Resistant Organisms: None Reported Past Surgical History: Appendectomy, Cholecystectomy, Heart Catheterization With Stent, Hernia Repair, Hysterectomy, Joint Replacement Additional Past Surgical History / Comment(s): Pain Clinic Procedures, CARDIAC STENTS X2, L3-4-5 FUSION, total right knee replacement, bilateral cataract surgery. hiatal hernia repair. Past Anesthesia/Blood Transfusion Reactions: No Reported Reaction Additional Past Anesthesia/Blood Transfusion Reaction / Comm: "Slow coming out." Date of Last Stent Placement:: Past Psychological History: Anxiety, Depression Smoking Status: Never smoker Past Alcohol Use History: None Reported Past Drug Use History: None Reported - Past Family History Father Family Medical History: Cancer Sister(s) Family Medical History: Cancer Medications and Allergies Home Medications Medication Instructions Recorded Confirmed Type Aspirin 81 mg PO DAILY 12/14/14 11/06/23 History Cyanocobalamin [Vitamin B-12] 1,000 mcg PO DAILY 12/14/14 11/06/23 History Multivitamins, Thera [Multivitamin 1 tab PO DAILY 12/14/14 11/06/23 History (formulary)] Pramipexole [Mirapex] 0.25 mg PO HS 12/14/14 11/06/23 History Cetirizine HCl [Zyrtec] 10 mg PO HS 07/10/19 11/06/23 History [place]-3 Fatty Acids/Fish Oil [Fish 1 cap PO DAILY 07/10/19 11/06/23 History Oil 1,000 mg Softgel] Metoprolol Tartrate [Lopressor] 25 mg PO DAILY 07/26/22 11/06/23 History Omeprazole 40 mg PO BID 07/26/22 11/06/23 History Venlafaxine HCl [Effexor] 100 mg PO DAILY 07/26/22 11/06/23 History Calcium Carbonate/Vitamin D3 1 tab PO DAILY 10/05/22 11/06/23 History [Calcium 600-D3 20 mcg (800 Unit)] Simethicone [Gas-X] 125 mg PO W/SUPPER 10/05/22 11/06/23 History oxyBUTYnin chloride [Ditropan XL] 10 mg PO HS 02/13/23 11/06/23 History Ubidecarenone [Coenzyme Q10] 100 mg PO DAILY 05/09/23 11/06/23 History Cranberry 15,000 1 cap PO DAILY 10/26/23 11/06/23 History Docusate [Colace] 100 mg PO DAILY 10/26/23 11/06/23 History Naloxone HCl [Narcan] 4 mg NASAL DIRECTED PRN 10/26/23 11/06/23 History calcium polycarbophiL [Fibercon] 625 mg PO DAILY 10/26/23 11/06/23 History Atorvastatin [Lipitor] 40 mg PO HS #30 tab 10/29/23 11/06/23 Rx Acetaminophen Tab [Tylenol] 1,000 mg PO Q6HR PRN tab 11/11/23 Rx Magnesium Oxide [Mag-Ox] 400 mg PO BID tab 11/11/23 Rx Morphine Pain Pump 1 dose INTRATHECA CONTINUOUS #0 11/11/23 11/06/23 Rx Nystatin 100,000 Unit/gm Powd 1 applic TOPICAL BID each 11/11/23 Rx [Mycostatin Powder] Ondansetron Odt [Zofran ODT] 4 mg PO Q8HR PRN tab 11/11/23 Rx Sennosides-Docusate Sodium 2 each PO BID tab 11/11/23 Rx [Senokot-S] Allergies Allergy/AdvReac Type Severity Reaction Status Date / Time adhesive tape Allergy Rash/Hives, Verified 10/26/23 13:15 "paper tape is ok" Physical Exam Vitals: Vital Signs Temp Pulse Resp BP BP Pulse Ox 11/11/23 12:15 98.3 F 87 16 130/79 92 L 11/11/23 07:13 98.2 F 102 H 16 143/84 94 L 11/11/23 01:51 98.4 F 82 17 151/81 94 L 11/10/23 19:16 98.3 F 101 H 18 132/84 93 L Intake and Output 11/10/23 11/11/23 11/11/23 22:59 06:59 14:59 Intake Total 118 Balance 118 Intake: Oral 118 Other: Voiding Method Bedside Commode Diaper Incontinent External Catheter # Voids 1 # Bowel Movements 1 1 GENERAL: The patient is alert and oriented x3, not in any acute distress. Well developed, well nourished. HEENT: Pupils are round and equally reacting to light. EOMI CARDIOVASCULAR: S1 and S2 present. No murmurs, rubs, or gallops. PULMONARY: Chest is clear to auscultation, no wheezing or crackles. ABDOMEN: Soft, nontender, nondistended, normoactive bowel sounds. No palpable organomegaly. MUSCULOSKELETAL: No joint swelling or deformity. EXTREMITIES: No cyanosis, clubbing, or pedal edema. NEUROLOGICAL: Gross neurological examination did not reveal any focal deficits. SKIN: No rashes. Results CBC & Chem 7: 11/11/23 05:50 11/11/23 05:50 Labs: Abnormal Lab Results - Last 24 Hours (Table) 11/08/23 11/11/23 11/11/23 Range/Units 06:58 05:50 05:50 RDW 14.9 H (11.5-14.5) % BUN 6.5 L (9.0-27.0) mg/dL Creatinine 0.5 L (0.6-1.5) mg/dL HSV I&II IgM Ab 1.81 H (<=0.90) INDEX HSV I IgG Ab 27.60 H (< or = 0.90) HSV II IgG 11.50 H (< or = 0.90) Assessment and Plan Plan: Assessment and plan=1-acute toxic metabolic encephalopathic. 2-chronic back pain status post intrathecal pain pump placed recently(done by Dr TYLER ) we will Decrease intrathecal pain pump 20%. Intrathecal pain pump was interrogated it showed patient currently receiving intrathecal morphine sulfate conentrations 25 mg per mL, patient receiving daily dose of morphine 3.12 mg per day, I decrease the intrathecal morphine to 2.49 mg per day which is equal to 20% decrease in intrathecal daily dose, she'll still have residual volume was 37.2 ml of intrathecal . After discharge patient will follow up with Dr. Mcgee Initial dose = 3.12 mg/ day intrathecal morphin the new does =2.49 mg /day intrathecall morphin Time with Patient: Less than 30 PQRS Measure Charge Sheet - Pain Location Lower Back Pharmacological Interventions: Discuss Pain Med Options PQRS Narrative: Smoking Status Never smoker Blood Pressure [Left Arm 132/84 Sitting] Blood Pressure [Left Arm 130/79 Supine] Blood Pressure [Right Arm] 142/74 Blood Pressure 144/76 Pain Intensity [Lower Back] 0 Pain Intensity 9 Pain Scale Used Non Verbal Pain Indicator Scale Used Numeric (1 - 10) Hx Alcohol Use (MH) No Home Medications: Ambulatory Orders Aspirin 81 mg PO DAILY 12/14/14 Cyanocobalamin [Vitamin B-12] 1,000 mcg PO DAILY 12/14/14 Multivitamins, Thera [Multivitamin (formulary)] 1 tab PO DAILY 12/14/14 Pramipexole [Mirapex] 0.25 mg PO HS 12/14/14 Cetirizine HCl [Zyrtec] 10 mg PO HS 07/10/19 [place]-3 Fatty Acids/Fish Oil [Fish Oil 1,000 mg Softgel] 1 cap PO DAILY 07/10/19 Metoprolol Tartrate [Lopressor] 25 mg PO DAILY 07/26/22 Omeprazole 40 mg PO BID 07/26/22 Venlafaxine HCl [Effexor] 100 mg PO DAILY 07/26/22 Calcium Carbonate/Vitamin D3 [Calcium 600-D3 20 mcg (800 Unit)] 1 tab PO DAILY 10/05/22 Simethicone [Gas-X] 125 mg PO W/SUPPER 10/05/22 oxyBUTYnin chloride [Ditropan XL] 10 mg PO HS 02/13/23 Ubidecarenone [Coenzyme Q10] 100 mg PO DAILY 05/09/23 Cranberry 15,000 1 cap PO DAILY 10/26/23 Docusate [Colace] 100 mg PO DAILY 10/26/23 Naloxone HCl [Narcan] 4 mg NASAL DIRECTED PRN 10/26/23 calcium polycarbophiL [Fibercon] 625 mg PO DAILY 10/26/23 Atorvastatin [Lipitor] 40 mg PO HS #30 tab 10/29/23 Acetaminophen Tab [Tylenol] 1,000 mg PO Q6HR PRN tab 11/11/23 Magnesium Oxide [Mag-Ox] 400 mg PO BID tab 11/11/23 Morphine Pain Pump 1 dose INTRATHECA CONTINUOUS #0 11/11/23 Nystatin 100,000 Unit/gm Powd [Mycostatin Powder] 1 applic TOPICAL BID each 11/11/23 Ondansetron Odt [Zofran ODT] 4 mg PO Q8HR PRN tab 11/11/23 Sennosides-Docusate Sodium [Senokot-S] 2 each PO BID tab 11/11/23
--- NOTE | 2023-11-11 23:35 | P.PN ---
Subjective Progress Note Date: 11/11/23 Principal diagnosis: Reason for follow-up is mental status changes and extensive groin area cutaneous candidiasis This is a telehealth visit Patient is a 73-year-old female with a past medical history significant for hypertension osteoarthritis history of recurrent UTI chronic pain syndrome for which the patient did have a recent pain pump placement and did have extensive bilateral groin area cutaneous candidiasis present to the hospital with mental status changes did have 1 low-grade fever of 99.1. On today's evaluation that is 11/11/2023 the patient remains to be afebrile, patient is breathing comfortably on room air without need for supplemental oxygen, the patient denies having any chest pain no significant cough or sputum production no nausea vomiting no abdominal pain and no diarrhea, patient feeling better no new symptoms. Patient did have white count of 5.61, creatinine 0.5 Objective - Vital Signs Vital signs: Vital Signs Temp 98.2 F 11/11/23 07:13 Pulse 102 H 11/11/23 07:13 Resp 16 11/11/23 07:13 BP 143/84 11/11/23 07:13 Pulse Ox 94 L 11/11/23 07:13 FiO2 Intake & Output 11/10/23 11/11/23 11/11/23 18:59 06:59 18:59 Intake Total 118 Output Total 800 Balance -800 118 Intake: Oral 118 Output: Urine 800 Other: Voiding Method Bedside Commode Diaper Incontinent External Catheter # Voids 2 1 # Bowel Movements 1 - Exam Elderly female lying in bed in no distress Respiratory system unlabored breathing decreased breath sound the base Heart S1-S2 regular Abdominal soft no tenderness Extremities no edema feet Exam completed with the help of [employer] MATE G - Labs CBC & Chem 7: 11/11/23 05:50 11/11/23 05:50 Labs: Abnormal Lab Results - Last 24 Hours (Table) 11/08/23 Range/Units 06:58 HSV I&II IgM Ab 1.81 H (<=0.90) INDEX HSV I IgG Ab 27.60 H (< or = 0.90) HSV II IgG 11.50 H (< or = 0.90) Assessment and Plan (1) Altered mental status Status: Acute Code(s): R41.82 - ALTERED MENTAL STATUS, UNSPECIFIED SNOMED Code(s): 854648377 (2) Cutaneous candidiasis Status: Acute Code(s): B37.2 - CANDIDIASIS OF SKIN AND NAIL SNOMED Code(s): 62877909 Plan: 1patient has been sent to the ER by the granddaughter concerning for mental status changes patient of presentation the hospital has been afebrile did have normal white count patient was able to tell me her name street address where she lives and that she is at the [facility] with no headache clinically suspicious low for 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 infection such as encephalitis patient also have a negative UA abdomen was soft and clean examination and is breathing comfortably on room air clinically not behaving as pneumonia 2-patient did have extensive bilateral groin area cutaneous candidiasis but no evidence of any secondary cellulitis 3-patient is slowly clinical improving, plan is to continue with nystatin powder to bilateral groin area twice a day x 7 to 10 days on discharge, no need for antifungal antiviral or antibiotics on discharge discussed with the [facility] G for admitting team working on discharge Dictation was produced using [employer] dictation software. please excuse any grammatical, word or spelling errors. Time with Patient: Less than 30
== END 2023-11-11 14:12 | DRG 92 ==
LOC: EC 11:45 → 5NMEDONC 18:07
PROVIDERS: ADMIT Family Medicine; ATTEND Family Medicine
DX: G92.8 Other toxic encephalopathy (principal); L03.115 Cellulitis of right lower limb; L03.116 Cellulitis of left lower limb; I10 Essential (primary) hypertension; T40.2X5A Adverse effect of other opioids, initial encounter; M54.50 Low back pain, unspecified; M19.90 Unspecified osteoarthritis, unspecified site; H91.93 Unspecified hearing loss, bilateral; R41.3 Other amnesia; G89.4 Chronic pain syndrome; K44.9 Diaphragmatic hernia without obstruction or gangrene; B37.2 Candidiasis of skin and nail; E83.42 Hypomagnesemia; R53.81 Other malaise; R32 Unspecified urinary incontinence; Z96.651 Presence of right artificial knee joint; Z95.5 Presence of coronary angioplasty implant and graft; Z98.1 Arthrodesis status; Z79.82 Long term (current) use of aspirin; Z79.891 Long term (current) use of opiate analgesic; Z79.1 Long term (current) use of non-steroidal anti-inflammatories (NSAID); Z79.899 Other long term (current) drug therapy; Z97.8 Presence of other specified devices; Z91.048 Other nonmedicinal substance allergy status; Z11.52 Encounter for screening for COVID-19; Z87.440 Personal history of urinary (tract) infections
CPT/HCPCS: 36415; 70450; 80048; 80053; 81003; 83605; 83735; 84145; 85025; 85027; 85610; 85730; 86140; 86694; 86695; 86696; 87636; 93005; 95816; 96361; 96365; 96366; 99285

== ENCOUNTER 2024-05-24 17:51 | Observation (INO) | payer MEDICARE, OTHER ==
--- NOTE | 2024-05-24 18:27 | ED ---
Altered Mental Status HPI - General Source: patient, family, RN notes reviewed Mode of arrival: wheelchair Limitations: no limitations <Audrey Donis - Last Filed: 05/24/24 18:26> - General Source: patient, family, RN notes reviewed <Iris Ceballos - Last Filed: 05/24/24 23:26> - General Chief Complaint: Altered Mental Status Stated Complaint: AMS,Poss UTI-sent by PCP Time Seen by Provider: 05/24/24 18:26 - History of Present Illness Initial Comments: Quick note: 74-year-old female presented to ER with a chief complaint of confusion. Family providing most of HPI. Patient was seen by PCP yesterday and diagnosed with a UTI. Patient was started on ciprofloxacin. Family states that patient has been very confused and sleepy lately. She also has been reporting chills. Family was instructed by PCP to come to the ER if confusion did not improve after a couple doses of antibiotics. (Audrey Donis) 74-year-old female presenting to the ER with granddaughter with chief complaint of confusion x 5 days. Patient was seen at PCP yesterday and diagnosed with a UTI. Patient was placed on ciprofloxacin and instructed to come to the ER if symptoms do not improve within a couple doses of the antibiotic. Granddaughter reports patient has been confused and fatigued. Patient denies chest pain, shortness of breath, dysuria, abdominal pain. Granddaughter reports patient has history of UTI with sepsis. (Iris Ceballos) - Related Data Home Medications Medication Instructions Recorded Confirmed Aspirin 81 mg PO DAILY 12/14/14 11/06/23 Cyanocobalamin [Vitamin B-12] 1,000 mcg PO DAILY 12/14/14 11/06/23 Multivitamins, Thera [Multivitamin 1 tab PO DAILY 12/14/14 11/06/23 (formulary)] Pramipexole [Mirapex] 0.25 mg PO HS 12/14/14 11/06/23 Cetirizine HCl [Zyrtec] 10 mg PO HS 07/10/19 11/06/23 [place]-3 Fatty Acids/Fish Oil [Fish 1 cap PO DAILY 07/10/19 11/06/23 Oil 1,000 mg Softgel] Metoprolol Tartrate [Lopressor] 25 mg PO DAILY 07/26/22 11/06/23 Omeprazole 40 mg PO BID 07/26/22 11/06/23 Venlafaxine HCl [Effexor] 100 mg PO DAILY 07/26/22 11/06/23 Calcium Carbonate/Vitamin D3 1 tab PO DAILY 10/05/22 11/06/23 [Calcium 600-D3 20 mcg (800 Unit)] Simethicone [Gas-X] 125 mg PO W/SUPPER 10/05/22 11/06/23 oxyBUTYnin chloride [Ditropan XL] 10 mg PO HS 02/13/23 11/06/23 Ubidecarenone [Coenzyme Q10] 100 mg PO DAILY 05/09/23 11/06/23 Cranberry 15,000 1 cap PO DAILY 10/26/23 11/06/23 Docusate [Colace] 100 mg PO DAILY 10/26/23 11/06/23 Naloxone HCl [Narcan] 4 mg NASAL DIRECTED PRN 10/26/23 11/06/23 calcium polycarbophiL [Fibercon] 625 mg PO DAILY 10/26/23 11/06/23 Previous Rx's Medication Instructions Recorded Atorvastatin [Lipitor] 40 mg PO HS #30 tab 10/29/23 Acetaminophen Tab [Tylenol] 1,000 mg PO Q6HR PRN tab 11/11/23 Magnesium Oxide [Mag-Ox] 400 mg PO BID tab 11/11/23 Morphine Pain Pump 1 dose INTRATHECA CONTINUOUS #0 11/11/23 Nystatin 100,000 Unit/gm Powd 1 applic TOPICAL BID each 11/11/23 [Mycostatin Powder] Ondansetron Odt [Zofran ODT] 4 mg PO Q8HR PRN tab 11/11/23 Sennosides-Docusate Sodium 2 each PO BID tab 11/11/23 [Senokot-S] Allergies Allergy/AdvReac Type Severity Reaction Status Date / Time adhesive tape Allergy Rash/Hives, Verified 05/24/24 18:07 "paper tape is ok" Review of Systems ROS Other: All systems not noted in ROS Statement are negative. <Audrey Donis - Last Filed: 05/24/24 18:26> ROS Other: All systems not noted in ROS Statement are negative. <Iris Ceballos - Last Filed: 05/24/24 23:26> ROS Statement: Those systems with pertinent positive or pertinent negative responses have been documented in the HPI. Past Medical History Past Medical History: Hearing Disorder / Deafness, Hypertension, Osteoarthritis (OA) Additional Past Medical History / Comment(s): Arrhythmia, hx anemia, wears pad/brief for urinary incontinence, frequent UTI's, on joint terminal attack controller antibiotic treatment to prevent UTI, SOB, deaf in right ear, hard of hearing in left ear, bilateral hearing aid use. History of Any Multi-Drug Resistant Organisms: None Reported Past Surgical History: Appendectomy, Cholecystectomy, Heart Catheterization With Stent, Hernia Repair, Hysterectomy, Joint Replacement Additional Past Surgical History / Comment(s): Pain Clinic Procedures, CARDIAC STENTS X2, L3-4-5 FUSION, total right knee replacement, bilateral cataract surgery. hiatal hernia repair. Past Anesthesia/Blood Transfusion Reactions: No Reported Reaction Additional Past Anesthesia/Blood Transfusion Reaction / Comment(s): "Slow coming out." Date of Last Stent Placement:: Past Psychological History: Anxiety, Depression Smoking Status: Never smoker Past Alcohol Use History: None Reported Past Drug Use History: None Reported - Past Family History Father Family Medical History: Cancer Sister(s) Family Medical History: Cancer <Audrey Donis - Last Filed: 05/24/24 18:26> General Exam Limitations: no limitations <Audrey Donis - Last Filed: 05/24/24 18:26> Limitations: no limitations General appearance: alert, in no apparent distress, lethargic Head exam: Present: atraumatic, normocephalic, normal inspection Eye exam: Present: normal appearance, PERRL, EOMI. Absent: scleral icterus, conjunctival injection, periorbital swelling ENT exam: Present: normal exam, mucous membranes moist Neck exam: Present: normal inspection. Absent: tenderness, meningismus, lymphadenopathy Respiratory exam: Present: normal lung sounds bilaterally. Absent: respiratory distress, wheezes, rales, rhonchi, stridor Cardiovascular Exam: Present: regular rate, normal rhythm, normal heart sounds. Absent: systolic murmur, diastolic murmur, rubs, gallop, clicks GI/Abdominal exam: Present: soft, normal bowel sounds. Absent: distended, tenderness, guarding, rebound, rigid Extremities exam: Present: normal inspection, full ROM, normal capillary refill. Absent: tenderness, pedal edema, joint swelling, calf tenderness Back exam: Absent: CVA tenderness (R), CVA tenderness (L) Neurological exam: Present: alert, oriented X3, CN II-XII intact Psychiatric exam: Present: normal affect, normal mood Skin exam: Present: warm, dry, intact, normal color. Absent: rash <CeballosIris - Last Filed: 05/24/24 23:26> - General Exam Comments Initial Comments: Visual Physical Exam Vital signs reviewed General: Well-appearing, nontoxic, no acute distress. Head: Normocephalic, atraumatic Eyes: PERRLA, EOMI ENT: Airway patent Chest: Nonlabored breathing Skin: No visual rash, normal skin tone Neuro: Alert and oriented 3 Musculoskeletal: No gross abnormalities (Audrey Donis) Course Vital Signs 05/24/24 18:03 Temperature 98.3 F Pulse Rate 69 Respiratory 18 Rate Blood Pressure 92/60 O2 Sat by Pulse 95 Oximetry Medical Decision Making <Audrey Donis - Last Filed: 05/24/24 18:26> - Lab Data Result diagrams: 05/24/24 20:16 05/24/24 20:16 - EKG Data -: EKG Interpreted by Me <TuckerIris - Last Filed: 05/24/24 23:26> - Medical Decision Making I performed the quick note portion of this chart. Electronically signed by Audrey Donis PA-C (Audrey Donis) Was pt. sent in by a medical professional or institution ([facility], [employer], urgent care, hospital, or [facility]...) When possible be specific @ -No Did you speak to anyone other than the patient for history (EMS, parent, family, police, friend...)? What history was obtained from this source @ -Patient's granddaughter provided most of history Did you review nursing and triage notes (agree or disagree)? Why? @ -I reviewed and agree with nursing and triage notes Were old charts reviewed (outside hosp., previous admission, EMS record, old EKG, old radiological studies, urgent care reports/EKG's, [facility] records)? Report findings @ -No old charts were reviewed Differential Diagnosis (chest pain, altered mental status, abdominal pain women, abdominal pain men, vaginal bleeding, weakness, fever, dyspnea, syncope, headache, dizziness, GI bleed, back pain, seizure, CVA, palpatations, mental health, musculoskeletal)? @ -Differential Altered Mental Status: Hypoglycemia, DKA, hypercapnia, ETOH, overdose, CO poisoning, trauma, myxedema coma, HTN encephalopathy, infection, encephalitis, psychosis, intercranial hemorrhage, hepatic encephalopathy, meningitis, CVA, this is not meant to be an all-inclusive list EKG interpreted by me (3pts min.). @ -As above X-rays interpreted by me (1pt min.). @ -Chest x-ray reveals no acute changes CT interpreted by me (1pt min.). @ -CT of head pending at time of admission U/S interpreted by me (1pt. min.). @ -None done What testing was considered but not performed or refused? (CT, X-rays, U/S, labs)? Why? @ -None What meds were considered but not given or refused? Why? @ -None Did you discuss the management of the patient with other professionals (professionals i.e. , PA, [employer], lab, RT, psych nurse, social science manager, program technician, teacher, hospital chief financial officer, piano case and bench assembler)? Give summary @ -No Was smoking cessation discussed for >3mins.? @ -No Was critical care preformed (if so, how long)? @ -No Were there social determinants of health that impacted care today? How? (Homelessness, low income, unemployed, alcoholism, drug addiction, transportation, low edu. Level, literacy, decrease access to med. care, senior care, rehab)? @ -No Was there de-escalation of care discussed even if they declined (Discuss DNR or withdrawal of care, Hospice)? DNR status @ -No What co-morbidities impacted this encounter? (DM, HTN, Smoking, COPD, CAD, Cancer, CVA, ARF, Chemo, Hep., AIDS, mental health diagnosis, sleep apnea, morbid obesity)? @ -None Was patient admitted / discharged? Hospital course, mention meds given and route, prescriptions, significant lab abnormalities, going to OR and other pertinent info. @ -Patient was admitted. Patient was seen and evaluated for confusion x 5 days that is worsening. Patient was diagnosed with a UTI at PCP yesterday and started on ciprofloxacin however reports symptoms continue to worsen. Blood pressure is 92/60. Patient is started on IV fluids. Lab work including CBC, CMP, lactic acid, troponin, urine is remarkable for troponin of 0.022 however this is unchanged from troponin of 0.0268 months ago. Chest x-ray reveals no acute changes. Discussed findings with patient and granddaughter. CT head and TSH were ordered at this time and patient was admitted for further evaluation of altered mental status. Patient and granddaughter are agreeable to the plan at this time. Case was discussed with my ED attending Dr. Guzman. Undiagnosed new problem with uncertain prognosis? @ -No Drug Therapy requiring intensive monitoring for toxicity (Heparin, Nitro, Insulin, Cardizem)? @ -No Were any procedures done? @ -No Diagnosis/symptom? @ -Altered mental status Acute, or Chronic, or Acute on Chronic? @ -Acute Uncomplicated (without systemic symptoms) or Complicated (systemic symptoms)? @ -Complicated Side effects of treatment? @ -No Exacerbation, Progression, or Severe Exacerbation? @ -No Poses a threat to life or bodily function? How? (Chest pain, USA, NC, pneumonia, PE, COPD, DKA, ARF, appy, cholecystitis, CVA, Diverticulitis, Homicidal, Suicidal, threat to staff... and all critical care pts) @ -Possibly (Iris Ceballos) - Lab Data Lab Results 05/24/24 05/24/24 05/24/24 Range/Units 20:16 20:16 20:16 WBC 4.4 (3.8-10.6) k/uL RBC 4.15 (3.80-5.40) m/uL Hgb 12.7 (11.4-16.0) gm/dL Hct 38.8 (34.0-46.0) % MCV 93.5 (80.0-100.0) fL MCH 30.7 (25.0-35.0) pg MCHC 32.8 (31.0-37.0) g/dL RDW 14.4 (11.5-15.5) % Plt Count 220 (150-450) k/uL MPV 7.4 Neutrophils % 47 % Lymphocytes % 42 % Monocytes % 6 % Eosinophils % 3 % Basophils % 1 % Neutrophils # 2.1 (1.3-7.7) k/uL Lymphocytes # 1.9 (1.0-4.8) k/uL Monocytes # 0.3 (0-1.0) k/uL Eosinophils # 0.1 (0-0.7) k/uL Basophils # 0.0 (0-0.2) k/uL Sodium 141 (137-145) mmol/L Potassium 4.1 (3.5-5.1) mmol/L Chloride 107 (98-107) mmol/L Carbon Dioxide 26 (22-30) mmol/L Anion Gap 8 mmol/L BUN 31 H (7-17) mg/dL Creatinine 1.00 (0.52-1.04) mg/dL Est GFR (CKD-EPI)AfAm 65 (>60 ml/min/1.73 sqM) Est GFR (CKD-EPI)NonAf 56 (>60 ml/min/1.73 sqM) Glucose 89 (74-99) mg/dL Plasma Lactic Acid Emmanuel 1.3 (0.7-2.0) mmol/L Calcium 9.3 (8.4-10.2) mg/dL Total Bilirubin 0.6 (0.2-1.3) mg/dL AST 32 (14-36) U/L ALT 14 (4-34) U/L Alkaline Phosphatase 85 (38-126) U/L Troponin I (0.000-0.034) ng/mL Total Protein 6.8 (6.3-8.2) g/dL Albumin 3.7 (3.5-5.0) g/dL Urine Color Urine Appearance (Clear) Urine pH (5.0-8.0) Ur Specific Admire (1.001-1.035) Urine Protein (Negative) Urine Glucose (UA) (Negative) Urine Ketones (Negative) Urine Blood (Negative) Urine Nitrite (Negative) Urine Bilirubin (Negative) Urine Urobilinogen (<2.0) mg/dL Ur Leukocyte Esterase (Negative) Urine RBC (0-5) /hpf Urine WBC (0-5) /hpf Ur Squamous Epith Cells (0-4) /hpf Urine Bacteria (None) /hpf Hyaline Casts (0-2) /lpf Urine Mucus (None) /hpf 05/24/24 05/24/24 Range/Units 20:16 22:09 WBC (3.8-10.6) k/uL RBC (3.80-5.40) m/uL Hgb (11.4-16.0) gm/dL Hct (34.0-46.0) % MCV (80.0-100.0) fL MCH (25.0-35.0) pg MCHC (31.0-37.0) g/dL RDW (11.5-15.5) % Plt Count (150-450) k/uL MPV Neutrophils % % Lymphocytes % % Monocytes % % Eosinophils % % Basophils % % Neutrophils # (1.3-7.7) k/uL Lymphocytes # (1.0-4.8) k/uL Monocytes # (0-1.0) k/uL Eosinophils # (0-0.7) k/uL Basophils # (0-0.2) k/uL Sodium (137-145) mmol/L Potassium (3.5-5.1) mmol/L Chloride (98-107) mmol/L Carbon Dioxide (22-30) mmol/L Anion Gap mmol/L BUN (7-17) mg/dL Creatinine (0.52-1.04) mg/dL Est GFR (CKD-EPI)AfAm (>60 ml/min/1.73 sqM) Est GFR (CKD-EPI)NonAf (>60 ml/min/1.73 sqM) Glucose (74-99) mg/dL Plasma Lactic Acid Emmanuel (0.7-2.0) mmol/L Calcium (8.4-10.2) mg/dL Total Bilirubin (0.2-1.3) mg/dL AST (14-36) U/L ALT (4-34) U/L Alkaline Phosphatase (38-126) U/L Troponin I 0.022 (0.000-0.034) ng/mL Total Protein (6.3-8.2) g/dL Albumin (3.5-5.0) g/dL Urine Color Yellow Urine Appearance Cloudy H (Clear) Urine pH 5.0 (5.0-8.0) Ur Specific Admire 1.016 (1.001-1.035) Urine Protein Negative (Negative) Urine Glucose (UA) Negative (Negative) Urine Ketones Negative (Negative) Urine Blood Negative (Negative) Urine Nitrite Negative (Negative) Urine Bilirubin Negative (Negative) Urine Urobilinogen <2.0 (<2.0) mg/dL Ur Leukocyte Esterase Negative (Negative) Urine RBC <1 (0-5) /hpf Urine WBC 1 (0-5) /hpf Ur Squamous Epith Cells 3 (0-4) /hpf Urine Bacteria Many H (None) /hpf Hyaline Casts 21 H (0-2) /lpf Urine Mucus Occasional H (None) /hpf - EKG Data EKG Comments: EKG reveals sinus bradycardia with first-degree AV block. Ventricular rate 58 bpm, CO interval 265, QRS duration 82, QT/QTc 394/391 (Iris Ceballos) Disposition <Audrey Donis - Last Filed: 05/24/24 18:26> Time of Disposition: 23:26 <Iris Ceballos - Last Filed: 05/24/24 23:26> Clinical Impression: Altered mental status Disposition: ADMITTED IP TO THIS HOSP Referrals: David Mora MD [Primary Care Provider] - 1-2 days
[2024-05-24] MEDS: SODIUM CHLORIDE 0.9% 500 ML 500 ML IV STA (20:19)
[2024-05-24] MEDS: SODIUM CHLORIDE 0.9% 1,000 ML IV STA (20:23)
[2024-05-24 20:39] LABS: Basophils % (A) 1 %; Eosinophils # (A) 0.1 k/uL (0-0.7); Eosinophils % (A) 3 %; HCT 38.8 % (34.0-46.0); HGB 12.7 gm/dL (11.4-16.0); Lymphocytes # (A) 1.9 k/uL (1.0-4.8); Lymphocytes % (A) 42 %; MCH 30.7 pg (25.0-35.0); MCHC 32.8 g/dL (31.0-37.0); MCV 93.5 fL (80.0-100.0); Mean Platelet Volume 7.4; Monocytes # (A) 0.3 k/uL (0-1.0); Monocytes % (A) 6 %; Neutrophils # (A) 2.1 k/uL (1.3-7.7); Neutrophils % (A) 47 %; Platelet Count 220 k/uL (150-450); RBC 4.15 m/uL (3.80-5.40); RDW 14.4 % (11.5-15.5); WBC 4.4 k/uL (3.8-10.6)
[2024-05-24 21:18] LABS: ALT 14 U/L (4-34); AST 32 U/L (14-36); African American GFR (CKD) 65 (>60 ml/min/1.73 sqM); Albumin 3.7 g/dL (3.5-5.0); Alkaline Phosphatase 85 U/L (38-126); Anion Gap 8 mmol/L; Blood Urea Nitrogen 31 mg/dL (7-17); Calcium 9.3 mg/dL (8.4-10.2); Carbon Dioxide 26 mmol/L (22-30); Chloride 107 mmol/L (98-107); Glucose 89 mg/dL (74-99); Non-African American GFR(CKD) 56 (>60 ml/min/1.73 sqM); Potassium 4.1 mmol/L (3.5-5.1); Sodium 141 mmol/L (137-145); Total Bilirubin 0.6 mg/dL (0.2-1.3); Total Protein 6.8 g/dL (6.3-8.2)
[2024-05-24 22:28] LABS: Appearance,Urine Cloudy (Clear); Bacteria,Urine Many /hpf; Bilirubin,Urine Negative (Negative); Blood,Urine Negative (Negative); Color,Urine Yellow; Glucose,Urine (UA) Negative (Negative); Hyaline Casts,Urine 21 /lpf (0-2); Ketones,Urine Negative (Negative); Leukocyte Esterase,Urine Negative (Negative); Mucus,Urine Occasional /hpf; Nitrite,Urine Negative (Negative); Protein,Urine Negative (Negative); RBC,Urine <1 /hpf (0-5); Specific Gravity,Urine 1.016 (1.001-1.035); Squamous Epithelial Cell,Urine 3 /hpf (0-4); Urobilinogen,Urine <2.0 mg/dL (<2.0); WBC,Urine 1 /hpf (0-5)
--- NOTE | 2024-05-24 22:48 | XR ---
EXAMINATION TYPE: XR chest 2V DATE OF EXAM: 05/24/2024 8:44 PM CLINICAL INDICATION:Female, 74 years old with history of confusion; [facility] COMPARISON: 10/26/2023 TECHNIQUE: XR chest 2V. Frontal and lateral views of the chest.. FINDINGS: CM silhouette is stable. Aorta is tortuous. Heart is enlarged. Fullness along the right upper paratra cheal stripe redemonstrated, may relate to thyroid disease. No significant vascular congestion or edema. Mild chronic interstitial coarsening in the lungs. No fo aram consolidation, sizable pleural effusion, or visible pneumothorax. Bones and soft tissues grossly stable. There is again prominent eventration along the right hemidiaph ragm. Degenerative change of the right more than left shoulder with evidence of chronic rotator cuff disease. Degenerative changes in the spine with mild scoliosis suggested. IMPRESSION: Chronic changes. No evidence of an acute cardiopulmonary abnormality.
[2024-05-24] MEDS ORDERED: NALOXONE 0.4 MG/ML 1 ML VIAL IV PRN (23:45)
--- NOTE | 2024-05-25 00:39 | CT ---
EXAM: CT Head Without Intravenous Contrast CLINICAL HISTORY: ITS.REASON CT Reason: altered mental status TECHNIQUE: Axial computed tomography images of the head/brain without intravenous contrast. CTDI is 49.2 mGy and DLP is 1213.4 mGy-cm. This CT exam was performed using one or more of the following dose reduction techniques: automated exposure control, adjustment of the mA and/or kV according to patient size, and/or use of iterative reconstruction technique. COMPARISON: No relevant prior studies available. FINDINGS: Brain: Age-related cerebral volume loss. Periventricular and subcortical white matter hypoattenuation, consistent with chronic microangiopathy. No acute intracranial hemorrhage. No midline shift or mass effect. Ventricles: Unremarkable. No ventriculomegaly. Bones/joints: Unremarkable. No acute fracture. Soft tissues: Unremarkable. Sinuses: Unremarkable as visualized. No acute sinusitis. Mastoid air cells: Unremarkable as visualized. No mastoid effusion. IMPRESSION: No acute intracranial hemorrhage. No midline shift or mass effect.
[2024-05-25] MEDS: SODIUM CHLORIDE 0.9% 1,000 ML IV SCH (01:09)
[2024-05-25 02:45] VITALS: RESP 18; TEMP 98.2
[2024-05-25] MEDS: ACETAMINOPHEN TAB 325 MG TAB PO PRN (03:34)
[2024-05-25 07:43] VITALS: BP 108/58; PULSE 60
[2024-05-25] MEDS ORDERED: ACETAMINOPHEN TAB 325 MG TAB ONE (21:02)
[2024-05-25] MEDS ORDERED: GABAPENTIN 100 MG CAP ONE (21:03)
[2024-05-26] MEDS ORDERED: NITROFURANTOIN MONOHYD/M-CRYST 100 MG CAP ONE (00:01)
[2024-05-26] MEDS ORDERED: DORZOLAMIDE HCL 2% DROPS 10 ML BTL ONE (00:01)
[2024-05-26] MEDS ORDERED: PRAMIPEXOLE 0.125 MG TAB ONE (00:01)
[2024-05-26] MEDS ORDERED: SODIUM CHLORIDE 0.9% 50 ML BAG ONE (00:01)
[2024-05-26] MEDS ORDERED: PILOCARPINE 5 MG TAB ONE (00:01)
[2024-05-26] MEDS ORDERED: VENLAFAXINE HCL 50 MG TAB ONE (00:01)
[2024-05-26] MEDS ORDERED: FLUCONAZOLE IN NACL,ISO-OSM 100 MG/50 ML BAG IVPB ONE (00:01)
[2024-05-26] MEDS ORDERED: BRIMONIDINE TARTRATE 0.2% DROPS 5 ML BTL ONE (00:01)
[2024-05-26] MEDS ORDERED: SODIUM CHLORIDE 0.9% 1,000 ML BAG ONE (00:01)
[2024-05-26] MEDS ORDERED: ACETAMINOPHEN TAB 325 MG TAB ONE ×3 (07:29→21:23)
[2024-05-26] MEDS ORDERED: cefTRIAXone 1 GM VIAL ONE (08:16)
[2024-05-26] MEDS ORDERED: PANTOPRAZOLE 40 MG TABLET PO ONE (09:40)
[2024-05-26] MEDS ORDERED: METOPROLOL TARTRATE 25 MG TAB ONE ×3 (09:40→21:29)
[2024-05-26] MEDS ORDERED: SPIRONOLACTONE 25 MG TAB ONE (09:40)
[2024-05-26] MEDS ORDERED: TORSEMIDE 20 MG TAB ONE (09:40)
[2024-05-26] MEDS ORDERED: VENLAFAXINE HCL ER 150 MG CAP PO ONE (09:41)
[2024-05-26] MEDS ORDERED: CIPROFLOXACIN HCL 500 MG TAB ONE (09:41)
[2024-05-26] MEDS ORDERED: GABAPENTIN 100 MG CAP ONE ×2 (09:42→21:24)
[2024-05-26] MEDS ORDERED: MELOXICAM 7.5 MG TAB ONE (21:32)
[2024-05-27] MEDS ORDERED: SODIUM CHLORIDE 0.9% 1,000 ML BAG ONE (00:01)
[2024-05-27] MEDS ORDERED: NITROFURANTOIN MONOHYD/M-CRYST 100 MG CAP ONE (00:01)
[2024-05-27] MEDS ORDERED: SODIUM CHLORIDE 0.9% 50 ML BAG IV ONE (00:01)
[2024-05-27] MEDS ORDERED: FLUCONAZOLE IN NACL,ISO-OSM 100 MG/50 ML BAG IVPB ONE (00:01)
[2024-05-27] MEDS ORDERED: VENLAFAXINE HCL 50 MG TAB ONE (00:01)
[2024-05-27] MEDS ORDERED: MELOXICAM 7.5 MG TAB ONE (00:01)
[2024-05-27] MEDS ORDERED: PRAMIPEXOLE 0.125 MG TAB ONE (00:01)
[2024-05-27] MEDS ORDERED: METOPROLOL TARTRATE 25 MG TAB ONE ×4 (09:54→20:15)
[2024-05-27] MEDS ORDERED: GABAPENTIN 100 MG CAP ONE ×3 (09:55→20:01)
[2024-05-27] MEDS ORDERED: cefTRIAXone 1 GM VIAL ONE (09:55)
[2024-05-27] MEDS ORDERED: TORSEMIDE 20 MG TAB ONE (09:57)
[2024-05-27] MEDS ORDERED: ACETAMINOPHEN TAB 325 MG TAB ONE ×2 (11:26→22:07)
[2024-05-27] MEDS ORDERED: PANTOPRAZOLE 40 MG TABLET PO ONE ×4 (11:56→22:24)
[2024-05-27] MEDS ORDERED: SPIRONOLACTONE 25 MG TAB ONE (11:56)
[2024-05-27] MEDS ORDERED: LORATADINE 10 MG TAB ONE (11:56)
[2024-05-28] MEDS ORDERED: VENLAFAXINE HCL 50 MG TAB ONE (00:01)
[2024-05-28] MEDS ORDERED: PILOCARPINE 5 MG TAB ONE (00:01)
[2024-05-28] MEDS ORDERED: SODIUM CHLORIDE 0.9% 50 ML BAG IV ONE (00:01)
[2024-05-28] MEDS ORDERED: SPIRONOLACTONE 25 MG TAB ONE (00:01)
[2024-05-28] MEDS ORDERED: GABAPENTIN 100 MG CAP ONE ×2 (06:10→13:13)
[2024-05-28] MEDS ORDERED: ACETAMINOPHEN TAB 325 MG TAB ONE ×2 (06:17→16:20)
[2024-05-28] MEDS ORDERED: TORSEMIDE 20 MG TAB ONE (10:30)
[2024-05-28] MEDS ORDERED: METOPROLOL TARTRATE 25 MG TAB ONE ×2 (10:30)
[2024-05-28] MEDS ORDERED: cefTRIAXone 1 GM VIAL ONE (10:31)
== END 2024-05-28 16:34 | disposition home or self-care (01) ==
LOC: EC 17:51 → 5NMEDONC 23:45 → UNDOADMOB 05-25 02:55 → 5NMEDONC 05-25 03:25 → UNDODISOB 05-28 16:34
PROVIDERS: ADMIT Hospitalist; ATTEND Hospitalist
DX: N30.20 Other chronic cystitis without hematuria (principal); G92.8 Other toxic encephalopathy; I44.0 Atrioventricular block, first degree; R00.1 Bradycardia, unspecified; Z79.82 Long term (current) use of aspirin; Z79.891 Long term (current) use of opiate analgesic; Z79.899 Other long term (current) drug therapy; Z97.8 Presence of other specified devices; Z87.440 Personal history of urinary (tract) infections; Z86.19 Personal history of other infectious and parasitic diseases
CPT/HCPCS: 36415; 70450; 71046; 80053; 81001; 83605; 84443; 84484; 85025; 87040; 93005; 96365; 96366; 99285

== ENCOUNTER 2024-06-11 18:00 | Inpatient (IN) | payer MEDICARE, OTHER ==
[~2024-06-11 18:00] MED LIST changes: -LACTATED RINGERS 1,000 ML IV SCH; +SODIUM CHLORIDE 0.9% 1,000 ML BAG ONE
[2024-06-12] MEDS ORDERED: ACETAMINOPHEN TAB 325 MG TAB ONE (06:45)
[2024-06-12] MEDS ORDERED: QUEtiapine 25 MG TAB ONE (14:09)
[2024-06-12] MEDS ORDERED: PANTOPRAZOLE 40 MG TABLET PO ONE ×2 (16:57→23:59)
[2024-06-12] MEDS ORDERED: GABAPENTIN 100 MG CAP ONE (23:59)
[2024-06-12] MEDS ORDERED: NYSTATIN 100,000 UNIT/GM POWD 15 GM TOPICAL ONE (23:59)
[2024-06-12] MEDS ORDERED: ATORVASTATIN 40 MG TAB ONE (23:59)
[2024-06-12] MEDS ORDERED: MELATONIN 5 MG TABLET ONE (23:59)
[2024-06-13] MEDS ORDERED: PANTOPRAZOLE 40 MG TABLET PO ONE (07:48)
[2024-06-13] MEDS ORDERED: ASPIRIN 81 MG ONE (07:48)
[2024-06-13] MEDS ORDERED: QUEtiapine 25 MG TAB ONE (12:00)
[2024-06-13] MEDS ORDERED: MELOXICAM 7.5 MG TAB ONE (12:00)
[2024-06-13] MEDS ORDERED: GABAPENTIN 100 MG CAP ONE (12:00)
[2024-06-13] MEDS ORDERED: CYANOCOBALAMIN 500 MCG TAB ONE (12:00)
[2024-06-13] MEDS ORDERED: CALCIUM CARB-VIT D 500 MG-5 MCG TAB ONE (12:00)
[2024-06-13] MEDS ORDERED: VENLAFAXINE HCL 50 MG TAB ONE (12:00)
[2024-06-13] MEDS ORDERED: MAGNESIUM OXIDE 400 MG TAB ONE (12:00)
--- NOTE | 2024-06-30 13:20 | CT ---
synapse default - Radiology Report Patient: Doug Helton Ordering Physician: Unknown, Unknown ID: [id number] Phone, Pager: Phone: N/A Pager: N/A : [phone] Age/Gender: 74Y, F Primary Location: N/A Procedure: CT brain wo con Study Date: 06/11/2024 3:11:00 PM EXAMINATION TYPE: CT brain wo con DATE OF EXAM: 06/11/2024 COMPARISON: 05/24/24 HISTORY: Neurologic symptoms CT DLP: mGycm Unenhanced CT of the brain was performed. The ventricles, basal cisterns and sulci overlying the cerebral convexities demonstrate mild enlargem ent. There is no evidence for intracranial hemorrhage or sulcal effacement. There is decreased attenuation about the periventricular white matter and deep white matter of both c erebral hemispheres, compatible with chronic small vessel ischemia. Differential diagnosis does inclu de demyelination. No mass effects are seen.No midline shift. Osseous calvarium is intact. If symptoms persist consider MRI. Right frontal scalp hematoma. IMPRESSION: 1. Age related atrophic and chronic small vessel ischemic change without acute intracranial process s een at this time.
--- NOTE | 2024-07-28 10:56 | CONS ---
CONSULTATION REASON FOR CONSULTATION: Hallucinations. PATIENT PROFILE: Doug Helton is a 74-year-old female with no significant past psychiatric illness or treatment, but diagnosed with major neurocognitive disorder where she has experienced some mild visual hallucinations during UTIs, who was hospitalized after the patient had recent fall and bruised her left arm. The patient, according to the granddaughter, has been running low diastolic blood pressure in the 40s. The patient has home health services at home. She also has some difficulty with recall, but otherwise seems to be able to interact further well. She reported that she has 2 granddaughters, who live close by, one of them just the corner. She is able to state that she has 6 grandchildren. 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 She said that she currently lives alone and watches TV and does some puzzles, but otherwise seems to be independent. She said that she is able to take care of her ADLs independently, but has family supervision in general. She denies that she is suicidal or homicidal. She denies any thoughts of hurting herself or others. According to the granddaughter, the patient had some hallucination a week ago where she came to her door stating that she thought that someone was trying to break into her house. The patient otherwise only had hallucinations visual type usually during the UTIs and that she has not been tried on any antipsychotics. The patient did receive a dose of 25 mg of Seroquel the previous day. The patient at this time is coherent, relevant, and denies any other issues or concerns. The patient has also been screened by the Neurology. Please refer to his notes for further details. MENTAL STATUS EXAMINATION: This is an elderly female, who currently appears to be in no acute physical distress. She is alert and oriented to place and person. Affect at this appears to be fair. Thought process are goal directed, sequential, logical. The patient did have some difficulty with recall, but otherwise was appropriate interaction. There is no evidence of psychosis. Judgement and insight appears to be fair. DIAGNOSTIC IMPRESSION: Major neurocognitive disorder, mild. PLAN: The patient at this time appears to have occasional hallucinations and she would be closely monitored since she seems to have it during the UTI as well as other incident where she seems to have delusional thinking, but seems to have resolved quickly. The patient's condition is progressive and she will be monitored and had an early signs of further decompensation. The patient would be recommended that she in fact continue following up with the psychiatrist and a neurologist on a regular basis every 2-to 3- month visit. Family can see him sooner in case there is need for any further intervention or more prominent psychosis. The patient at this time seems to be otherwise quite independent, coherent, and relevant, and has adequate supervision from the family and home health services. Other issue includes postural hypotension and needs to be further addressed since her blood pressure are somewhat running low and may trigger more falls and unsteady gait. The patient would also avoid using medications like Seroquel, which has significant hypertensive effects and although issues with starting any antipsychotic. Would recommend choosing drugs with low potency as needed like Risperdal or Haldol in a very small doses when the hallucinations become more prominent. Thank you very much for your kind referral. Please feel free to contact me if you have any further questions. MMODL / IJN: [id number] /
== END 2024-06-13 12:54 | disposition home or self-care (01) | DRG 884 ==
LOC: 5NMEDONC 18:00 → DISRECOVER 18:27 → UNDOADMIN 18:27
PROVIDERS: ADMIT Hospitalist; ATTEND Hospitalist
DX: F09 Unspecified mental disorder due to known physiological condition (principal); F03.911 Unspecified dementia, unspecified severity, with agitation; T50.905A Adverse effect of unspecified drugs, medicaments and biological substances, initial encounter; F32.A Depression, unspecified; F41.9 Anxiety disorder, unspecified; R45.1 Restlessness and agitation; E53.8 Deficiency of other specified B group vitamins; R21 Rash and other nonspecific skin eruption; I95.1 Orthostatic hypotension; Z87.440 Personal history of urinary (tract) infections; J44.9 Chronic obstructive pulmonary disease, unspecified; I10 Essential (primary) hypertension; I25.10 Atherosclerotic heart disease of native coronary artery without angina pectoris; Z95.5 Presence of coronary angioplasty implant and graft; Z96.89 Presence of other specified functional implants; Z60.2 Problems related to living alone; R26.81 Unsteadiness on feet; Z79.82 Long term (current) use of aspirin; Z79.899 Other long term (current) drug therapy; Z91.81 History of falling
CPT/HCPCS: 70450; 82607; 82746; 99285

== ENCOUNTER 2024-08-08 09:58 | Emergency (ER) | payer MEDICARE, OTHER ==
[2024-08-08 10:09] VITALS: RESP 18
--- NOTE | 2024-08-08 10:23 | ED ---
Fall HPI - General Chief Complaint: Fall Stated Complaint: fall-head injury Time Seen by Provider: 08/08/24 10:12 Source: patient, family, RN notes reviewed Mode of arrival: wheelchair - History of Present Illness Initial Comments: 74-year-old female presents emergency department with her daughter for chief complaint of a fall with subsequent head injury and right sided shoulder and arm pain. It is reported that patient fell last night at approximately 1:50 AM when she was using the bathroom. She denies presyncopal symptoms such as dizziness, heart palpitations, lightheadedness. States that she is lost her balance. Patient was down for less than 15 minutes when EMS arrived and is patient's daughter was alerted by a life alert. Patient states that she hit the right s willian of her head in addition to injuring her right arm. She denies loss of consciousness afterwards. She denies nausea or vomiting afterwards. States that pain is more so located to her right shoulder and arm. Denies previous surgical history of the right arm. Denies blood thinner use. - Related Data Home Medications Medication Instructions Recorded Confirmed Aspirin 81 mg PO DAILY 12/14/14 11/06/23 Cyanocobalamin [Vitamin B-12] 1,000 mcg PO DAILY 12/14/14 11/06/23 Multivitamins, Thera [Multivitamin 1 tab PO DAILY 12/14/14 11/06/23 (formulary)] Pramipexole [Mirapex] 0.25 mg PO HS 12/14/14 11/06/23 Cetirizine HCl [Zyrtec] 10 mg PO HS 07/10/19 11/06/23 [place]-3 Fatty Acids/Fish Oil [Fish 1 cap PO DAILY 07/10/19 11/06/23 Oil 1,000 mg Softgel] Metoprolol Tartrate [Lopressor] 25 mg PO DAILY 07/26/22 11/06/23 Omeprazole 40 mg PO BID 07/26/22 11/06/23 Venlafaxine HCl [Effexor] 100 mg PO DAILY 07/26/22 11/06/23 Calcium Carbonate/Vitamin D3 1 tab PO DAILY 10/05/22 11/06/23 [Calcium 600-D3 20 mcg (800 Unit)] Simethicone [Gas-X] 125 mg PO W/SUPPER 10/05/22 11/06/23 oxyBUTYnin chloride [Ditropan XL] 10 mg PO HS 02/13/23 11/06/23 Ubidecarenone [Coenzyme Q10] 100 mg PO DAILY 05/09/23 11/06/23 Cranberry 15,000 1 cap PO DAILY 10/26/23 11/06/23 Docusate [Colace] 100 mg PO DAILY 10/26/23 11/06/23 Naloxone HCl [Narcan] 4 mg NASAL DIRECTED PRN 10/26/23 11/06/23 calcium polycarbophiL [Fibercon] 625 mg PO DAILY 10/26/23 11/06/23 Previous Rx's Medication Instructions Recorded Atorvastatin [Lipitor] 40 mg PO HS #30 tab 10/29/23 Acetaminophen Tab [Tylenol] 1,000 mg PO Q6HR PRN tab 11/11/23 Magnesium Oxide [Mag-Ox] 400 mg PO BID tab 11/11/23 Morphine Pain Pump 1 dose INTRATHECA CONTINUOUS #0 11/11/23 Nystatin 100,000 Unit/gm Powd 1 applic TOPICAL BID each 11/11/23 [Mycostatin Powder] Ondansetron Odt [Zofran ODT] 4 mg PO Q8HR PRN tab 11/11/23 Sennosides-Docusate Sodium 2 each PO BID tab 11/11/23 [Senokot-S] Allergies Allergy/AdvReac Type Severity Reaction Status Date / Time adhesive tape Allergy Rash/Hives, Verified 05/24/24 18:07 "paper tape is ok" Review of Systems ROS Statement: Those systems with pertinent positive or pertinent negative responses have been documented in the HPI. ROS Other: All systems not noted in ROS Statement are negative. 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 History of Any Multi-Drug Resistant Organisms: None Reported Past Surgical History: Appendectomy, Cholecystectomy, Heart Catheterization With Stent, Hernia Repair, Hysterectomy, Joint Replacement Additional Past Surgical History / Comment(s): Pain Clinic Procedures, CARDIAC STENTS X2, L3-4-5 FUSION, total right knee replacement, bilateral cataract surgery. hiatal hernia repair. Past Anesthesia/Blood Transfusion Reactions: No Reported Reaction Additional Past Anesthesia/Blood Transfusion Reaction / Comment(s): "Slow coming out." Date of Last Stent Placement:: Past Psychological History: Anxiety, Depression Smoking Status: Never smoker Past Alcohol Use History: None Reported Past Drug Use History: None Reported - Past Family History Father Family Medical History: Cancer Sister(s) Family Medical History: Cancer General Exam Limitations: physical limitation General appearance: alert, in no apparent distress Head exam: Present: normocephalic, normal inspection, other (mild right temporal scalp bump) ENT exam: Present: normal exam, mucous membranes moist Neck exam: Present: normal inspection. Absent: tenderness, meningismus, lymphadenopathy Respiratory exam: Present: normal lung sounds bilaterally. Absent: respiratory distress, wheezes, rales, rhonchi, stridor Cardiovascular Exam: Present: regular rate, normal rhythm, normal heart sounds. Absent: systolic murmur, diastolic murmur, rubs, gallop, clicks GI/Abdominal exam: Present: soft, normal bowel sounds. Absent: distended, tenderness, guarding, rebound, rigid Right Shoulder Exam: Present: normal inspection, full ROM, tenderness. Absent: swelling Upper Arm exam: Present: full ROM, tenderness. Absent: swelling Elbow exam: Present: tenderness, swelling, ecchymosis Neuro motor exam: Present: wrist extension intact, thumb opposition intact Vascular: Present: normal capillary refill, radial pulse (2+). Absent: vascular compromise Back exam: Present: normal inspection Skin exam: Present: warm, dry, intact, normal color. Absent: rash Course Vital Signs 08/08/24 08/08/24 10:04 12:20 Temperature 97.6 F Pulse Rate 85 76 Respiratory 18 18 Rate Blood Pressure 109/76 150/91 O2 Sat by Pulse 95 97 Oximetry Medical Decision Making - Medical Decision Making Was pt. sent in by a medical professional or institution (, PA, FURRIER APPRENTICE, urgent care, hospital, or retirement...) When possible be specific @ -No Did you speak to anyone other than the patient for history (EMS, parent, family, police, friend...)? What history was obtained from this source @ -No Did you review nursing and triage notes (agree or disagree)? Why? @ -I reviewed and agree with nursing and triage notes Were old charts reviewed (outside hosp., previous admission, EMS record, old EKG, old radiological studies, urgent care reports/EKG's, retirement records)? Report findings @ -No old charts were reviewed Differential Diagnosis (chest pain, altered mental status, abdominal pain women, abdominal pain men, vaginal bleeding, weakness, fever, dyspnea, syncope, headache, dizziness, GI bleed, back pain, seizure, CVA, palpatations, mental health, musculoskeletal)? @ -Differential Musculoskeletal Muscular strain, contusion, ligament sprain, fracture, arthritis, septic arthritis, bursitis, cellulitis, muscle spasm, nerve compression, DVT, arterial occlusion, herpes zoster, electrolyte abnormality, tumor.... This is not meant to be in all inclusive list EKG interpreted by me [none X-rays interpreted by me (1pt min.). @ - X-ray of the right: humerus, shoudler, scapula reveals no acute fracture or trauma chest Xray no acute cardiopulmonary process or acute trauma CT interpreted by me (1pt min.). @ -CT of the brain and C-spine without contrast reveals no acute bleed or mass effect and no evidence of acute trauma of the cervical spine. U/S interpreted by me (1pt. min.). @ -None done What testing was considered but not performed or refused? (CT, X-rays, U/S, labs)? Why? @ -None What meds were considered but not given or refused? Why? @ -None Did you discuss the management of the patient with other professionals (professionals i.e. , PA, FURRIER APPRENTICE, lab, RT, psych nurse, social welfare administrator, rubber mill tender, teacher, freedom of information officer, business case analyst)? Give summary @ -No Was smoking cessation discussed for >3mins.? @ -No Was critical care preformed (if so, how long)? @ -No Were there social determinants of health that impacted care today? How? (Homelessness, low income, unemployed, alcoholism, drug addiction, transportation, low edu. Level, literacy, decrease access to med. care, [facility], rehab)? @ -No Was there de-escalation of care discussed even if they declined (Discuss DNR or withdrawal of care, Hospice)? DNR status @ -No What co-morbidities impacted this encounter? (DM, HTN, Smoking, COPD, CAD, Cancer, CVA, ARF, Chemo, Hep., AIDS, mental health diagnosis, sleep apnea, morbid obesity)? @ -None Was patient admitted / discharged? Hospital course, mention meds given and route , prescriptions, significant lab abnormalities, going to OR and other pertinent info. @ -Discharge. 72-year-old female with a fall. Patient is resting comfortably no signs of distress she is noted to have ecchymosis over the right elbow with full range of motion of the elbow and wrist. She is neuro vastly intact. Noted to have a minor bump to the right temporal scalp with no hematoma or laceration evident. Neurovascular exam intact with no acute neurological deficits. Patient was offered pain medication however is declined at this time. Imaging including CT of the brain and C-spine, x-rays of the right humerus, shoulder, scapula and chest x-ray all negative for acute process. Additionally, patient's granddaughter at bedside states that patient's urine has been odorous and cloudy with concern for urinary tract infection. Patient does take a daily Macrobid for prophylaxis of recurrent urinary tract infections. Her vitals are stable and she has no suprapubic tenderness or flank pain. Urinalysis unremarkable for infection. Patient is stable for discharge at this time. That she continue to rest the right elbow, ice, elevate and use Tylenol Motrin as needed. Case discussed with my attending Dr. Coulter. Undiagnosed new problem with uncertain prognosis? @ -No Drug Therapy requiring intensive monitoring for toxicity (Heparin, Nitro, Insulin, Cardizem)? @ -No Were any procedures done? @ -No Diagnosis/symptom? @ -fall, ecchymosis of elbow Acute, or Chronic, or Acute on Chronic? @ -acute Uncomplicated (without systemic symptoms) or Complicated (systemic symptoms)? @ -uncomplicated Side effects of treatment? @ -No Exacerbation, Progression, or Severe Exacerbation? @ -No Poses a threat to life or bodily function? How? (Chest pain, [place], AR, pneumonia, PE, COPD, DKA, ARF, appy, cholecystitis, CVA, Diverticulitis, Homicidal, Suicidal, threat to staff... and all critical care pts) @ -No - Lab Data Lab Results 08/08/24 Range/Units 10:38 Urine Color Yellow Urine Appearance Clear (Clear) Urine pH 5.5 (5.0-8.0) Ur Specific [place] 1.019 (1.001-1.035) Urine Protein Negative (Negative) Urine Glucose (UA) Negative (Negative) Urine Ketones Negative (Negative) Urine Blood Negative (Negative) Urine Nitrite Negative (Negative) Urine Bilirubin Negative (Negative) Urine Urobilinogen <2.0 (<2.0) mg/dL Ur Leukocyte Esterase Trace H (Negative) Urine RBC <1 (0-5) /hpf Ur Squamous Epith Cells 2 (0-4) /hpf Hyaline Casts 1 (0-2) /lpf Urine Mucus Rare H (None) /hpf Disposition Clinical Impression: Fall, Elbow pain Disposition: HOME SELF-CARE Condition: Stable Instructions (If sedation given, give patient instructions): Fall Prevention for Older Adults (ED) Additional Instructions: Please return to the Emergency Department if symptoms worsen or any other concerns. Continue symptomatic treatment at home icing affected areas, rest, cycle Tylenol and Motrin. Is patient prescribed a controlled substance at d/c from ED?: No Referrals: David Mora MD [Primary Care Provider] - 1-2 days Time of Disposition: 12:51
--- NOTE | 2024-08-08 11:00 | CT ---
EXAMINATION TYPE: CT brain [place] wo con DATE OF EXAM: 08/08/2024 COMPARISON: 05/14/2022 HISTORY: Fall, head injury CT DLP: 1352.7 mGycm Automated exposure control for dose reduction was used. TECHNIQUE: CT scan of the head and cervical spine are performed without contrast. Findings: Head CT: Ventricles, basal cisterns and sulci over convexities are mildly to moderately enlarged consistent wi th mild to moderate age-appropriate atrophy. There is moderate diffuse decreased density in the periventricular white matter consistent with moder ate chronic ischemic white matter demyelination. There is no mass effect or shift of midline structures. There is no acute intra or extra-axial hemorrhage. Posterior fossa including the brainstem, fourth ventricle and cerebellar pontine angles are grossly n ormal. The intraorbital contents appear normal and symmetric. Visualized paranasal sinuses are well aerated. The calvarium is intact. CT cervical spine: Craniovertebral junction relationships and prevertebral soft tissues are normal. The cervical vertebral segments are normal in height and alignment and there is no fracture subluxati on. There is moderate to marked disc space narrowing and spondylosis at the C5-6 and C6-7 levels. There i s a 2 to 3 mm anterolisthesis of C7 on T1 and advanced degenerative disease at T1/T2 and T2/T3. 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 There is mild compromise of the bony spinal canal secondary to the ossification of the longitudinal l igament at C5-6. The paraspinal soft tissues unremarkable. IMPRESSION: 1. Head CT: No acute bleed or mass effect. 2. CT cervical spine: No acute trauma. Degenerative changes as described above. No interval change co mpared to previous. [facility], , 08/08/2024 10:57 AM
--- NOTE | 2024-08-08 11:10 | XR ---
EXAMINATION TYPE: XR chest 2V DATE OF EXAM: 08/08/2024 COMPARISON: 05/24/2024 HISTORY: Pain following fall TECHNIQUE: Frontal and lateral views of the chest are obtained. FINDINGS: There is a persistent eventration of the right hemidiaphragm and a hiatal hernia. The lungs are clear. Heart and pulmonary vascularity are normal. There is no pleural effusion or pneumothorax. There is a chronic rotator cuff tear of the right shoulder otherwise the osseous structures are intac t. IMPRESSION: 1. No evidence of acute trauma. 2. No acute cardiopulmonary disease. 3. No change right diaphragm eventration and hiatal hernia. [facility], Workstation: [facility], 08/08/2024 11:07 AM
--- NOTE | 2024-08-08 11:11 | XR ---
Right shoulder History pain following trauma. COMPARISON: None. TECHNIQUE: 3 views right shoulder were obtained. FINDINGS: There are marked degenerative arthritic changes of the AC joint and glenohumeral joint. There is payton ed superior subluxation of the humeral head with impaction on the inferior acromion consistent with c hronic rotator cuff tear. There is no acute fracture or dislocation. IMPRESSION: 1. No acute fracture or dislocation. 2. Marked degenerative changes the AC joint and glenohumeral joint. Findings consistent with chronic rotator cuff tear [facility], Workstation: [facility], 08/08/2024 11:09 AM
--- NOTE | 2024-08-08 11:13 | XR ---
Right scapula. HISTORY: Pain following fall. COMPARISON: None TECHNIQUE: 3 views of the right scapula were obtained. FINDINGS: There is no scapular fracture or focal intraosseous abnormality. Chronic rotator cuff tear of the right shoulder with marked degenerative change of the glenohumeral j oint and AC joint as described on the accompanying right shoulder radiographs. IMPRESSION: No acute trauma to the right scapula. [facility], , 08/08/2024 11:10 AM
--- NOTE | 2024-08-08 11:15 | XR ---
Right humerus HISTORY: Pain following trauma. COMPARISON: None. TECHNIQUE: 3 views the right humerus were obtained. FINDINGS: There is no right humeral fracture or focal intraosseous abnormality. There are marked degenerative changes of the glenohumeral joint and AC joint with marked superior sub luxation consistent with chronic rotator cuff tear. IMPRESSION: No acute right humeral fracture. [facility], Workstation: [facility], 08/08/2024 11:13 AM
[2024-08-08 12:43] LABS: Appearance,Urine Clear (Clear); Bilirubin,Urine Negative (Negative); Blood,Urine Negative (Negative); Color,Urine Yellow; Glucose,Urine (UA) Negative (Negative); Hyaline Casts,Urine 1 /lpf (0-2); Ketones,Urine Negative (Negative); Leukocyte Esterase,Urine Trace (Negative); Mucus,Urine Rare /hpf; Nitrite,Urine Negative (Negative); PH, Urine 5.5 (5.0-8.0); Protein,Urine Negative (Negative); RBC,Urine <1 /hpf (0-5); Specific Gravity,Urine 1.019 (1.001-1.035); Squamous Epithelial Cell,Urine 2 /hpf (0-4); Urobilinogen,Urine <2.0 mg/dL (<2.0)
[2024-08-08 13:11] VITALS: BP 124/60; PULSE 70; TEMP 97.7
== END 2024-08-08 13:28 | disposition home or self-care (01) ==
LOC: EC 09:58
CPT/HCPCS: 70450; 71046; 72125; 81001; 99284

== ENCOUNTER 2024-08-09 13:51 | Observation (INO) | payer MEDICARE, OTHER ==
--- NOTE | 2024-08-09 14:27 | ED ---
Altered Mental Status HPI - General Source: patient, RN notes reviewed <Joanna Eastman - Last Filed: 08/09/24 14:23> - General Source: patient, family, RN notes reviewed <Carmelo Gilman - Last Filed: 08/09/24 20:26> - General Stated Complaint: Fall-Weakness Time Seen by Provider: 08/09/24 14:10 - History of Present Illness Initial Comments: Quick [id number] female presenting to the emergency department with her granddaughter for chief complaint fall and generalized weakness. Granddaughter states that patient fell again yesterday evening. today patient has been confused and not acting like herself. patient is denying acute complaints however appears to be in somewhat distress on questioning. denies hitting her head or specific pain. (Joanan Eastman) Patient is a 74-year-old female presents emergency department complaining of altered mental status. Was seen yesterday after a fall. Fell again after she went home. Imaging yesterday was negative. Granddaughter presents with the patient. Patient has been acting altered since the second fall last night. Was slightly altered before then as well. Is complaining of chronic back pain and says morphine pump in place. Is normally alert and oriented x 3 currently is alert and oriented x 2. Has no other acute complaints at this time other than the chronic back pain. Unknown LOC from the fall last night. Granddaughter is concerned considering she is acting differently than her baseline. (Carmelo Gilman) - Related Data Home Medications Medication Instructions Recorded Confirmed Aspirin 81 mg PO DAILY 12/14/14 08/09/24 Cyanocobalamin [Vitamin B-12] 1,000 mcg PO DAILY 12/14/14 08/09/24 Multivitamins, Thera [Multivitamin 1 tab PO DAILY 12/14/14 08/09/24 (formulary)] Pramipexole [Mirapex] 0.25 mg PO HS 12/14/14 08/09/24 Cetirizine HCl [Zyrtec] 10 mg PO HS 07/10/19 08/09/24 Metoprolol Tartrate [Lopressor] 25 mg PO BID 07/26/22 08/09/24 Omeprazole 40 mg PO BID 07/26/22 08/09/24 Venlafaxine HCl [Effexor] 100 mg PO DAILY 07/26/22 08/09/24 Calcium Carbonate/Vitamin D3 1 tab PO DAILY 10/05/22 08/09/24 [Calcium 600-D3 20 mcg (800 Unit)] Simethicone [Gas-X] 125 mg PO ACHS PRN 10/05/22 08/09/24 oxyBUTYnin chloride [Ditropan XL] 10 mg PO HS 02/13/23 08/09/24 Cranberry 15,000 1 cap PO DAILY 10/26/23 08/09/24 Docusate [Colace] 100 mg PO DAILY 10/26/23 08/09/24 calcium polycarbophiL [Fibercon] 625 mg PO DAILY 10/26/23 08/09/24 Brinzolamide/Brimonidine Tart 1 drop BOTH EYES BID 08/09/24 08/09/24 [Simbrinza 1%-0.2% Eye Drop] Clotrimazole Cream [Lotrimin Cream] 1 applic TOPICAL BID 08/09/24 08/09/24 Gabapentin [Neurontin] 100 mg PO BID-W/MEALS 08/09/24 08/09/24 Gabapentin [Neurontin] 200 mg PO HS 08/09/24 08/09/24 Meloxicam [Mobic] 15 mg PO DAILY 08/09/24 08/09/24 Nitrofurantoin Monohyd/M-Cryst 100 mg PO DAILY 08/09/24 08/09/24 [Macrobid] Patient Own Pump 0 bag 08/09/24 Pilocarpine [Salagen] 5 mg PO QID 08/09/24 08/09/24 Potassium Chloride ER [K-Dur 10] 10 meq PO DAILY 08/09/24 08/09/24 metOLazone [Zaroxolyn] 2.5 mg PO DAILY 08/09/24 08/09/24 Previous Rx's Medication Instructions Recorded Atorvastatin [Lipitor] 40 mg PO HS #30 tab 10/29/23 Acetaminophen Tab [Tylenol] 1,000 mg PO Q6HR PRN tab 11/11/23 Magnesium Oxide [Mag-Ox] 400 mg PO BID tab 11/11/23 Allergies Allergy/AdvReac Type Severity Reaction Status Date / Time adhesive tape Allergy Rash/Hives, Verified 08/09/24 15:28 "paper tape is ok" Review of Systems ROS Other: All systems not noted in ROS Statement are negative. <Joanna Eastman - Last Filed: 08/09/24 14:23> ROS Other: All systems not noted in ROS Statement are negative. <Carmelo Gilman - Last Filed: 08/09/24 20:26> ROS Statement: Those systems with pertinent positive or pertinent negative responses have been documented in the HPI. Review of Systems: CONST: Denies fever EYES: Denies blurry vision ENT: Denies nasal congestion C/V: Denies Chest pain RESP: Denies shortness of breath GI: Denies abdominal pain : Denies dysuria SKIN: Denies rash. MSK: Endorses chronic back pain NEURO: Denies headache (Carmelo Gilman) Past Medical History Past Medical History: Heart Failure, Hearing Disorder / Deafness, Hypertension, Osteoarthritis (OA) Additional Past Medical History / Comment(s): Arrhythmia, hx anemia, wears pad/brief for urinary incontinence, frequent UTI's, on penitentiary antibiotic treatment to prevent UTI, SOB, deaf in right ear, hard of hearing in left ear, bilateral hearing aid use. History of Any Multi-Drug Resistant Organisms: None Reported Past Surgical History: Appendectomy, Cholecystectomy, Heart Catheterization With Stent, Hernia Repair, Hysterectomy, Joint Replacement Additional Past Surgical History / Comment(s): Pain Clinic Procedures, CARDIAC STENTS X2, L3-4-5 FUSION, total right knee replacement, bilateral cataract surgery. hiatal hernia repair. Past Anesthesia/Blood Transfusion Reactions: No Reported Reaction Additional Past Anesthesia/Blood Transfusion Reaction / Comment(s): "Slow coming out." Date of Last Stent Placement:: Past Psychological History: Anxiety, Depression Smoking Status: Never smoker Past Alcohol Use History: None Reported Past Drug Use History: None Reported - Past Family History Father Family Medical History: Cancer Sister(s) Family Medical History: Cancer <Joanna Eastman - Last Filed: 08/09/24 14:23> General Exam <Joanna Eastman - Last Filed: 08/09/24 14:23> <Carmelo Gilman - Last Filed: 08/09/24 20:26> - General Exam Comments Initial Comments: Visual Physical Exam Vital signs reviewed General: Well-appearing, nontoxic, no acute distress. Head: Normocephalic, atraumatic Eyes: PERRLA, EOMI ENT: Airway patent Chest: Nonlabored breathing Skin: No visual rash, normal skin tone Neuro: Alert and oriented 3 Musculoskeletal: No gross abnormalities (Joanna Eastman) General: Appears in no acute distress. HEAD: Normal with no signs of head trauma. Negative Frederick sign. Negative raccoon eyes. EYES: PERRLA, EOMI, conjunctiva normal, no discharge. Are 3 mm and equal bilaterally. ENT: Hearing grossly intact, normal oropharynx. RESPIRATORY: Clear breath sounds bilaterally. No wheezes, rales, or rhonchi. C/V: Regular rate and rhythm. S1 and S2 auscultated, no edema, peripheral pulses 2+ and intact throughout ABD: Abd is soft, nontender, nondistended EXT: Normal range of motion, no obvious deformity. Tenderness to palpation of the lower lumbar spine. Stable. No step-offs or deformities of the spine appreciated. Moving all 4 extremities. SKIN: No rashes or lesions observed on exposed skin. NEURO: Alert and oriented x 2. Baseline apparently is alert and oriented x 3. Confused to year. No focal neurological deficits. (Carmelo Gilman) Course Vital Signs 08/09/24 08/09/24 08/09/24 14:34 15:44 17:30 Temperature 98.2 F 98 F Pulse Rate 94 93 76 Respiratory 18 18 26 H Rate Blood Pressure 125/65 147/85 91/59 O2 Sat by Pulse 100 99 Oximetry 08/09/24 18:30 Temperature 98 F Pulse Rate 75 Respiratory 18 Rate Blood Pressure 123/68 O2 Sat by Pulse 96 Oximetry Medical Decision Making <Joanna Eastman - Last Filed: 08/09/24 14:23> - Lab Data Result diagrams: 08/09/24 14:53 08/09/24 14:53 - EKG Data -: EKG Interpreted by Me <Carmelo Gilman - Last Filed: 08/09/24 20:26> - Medical Decision Making I completed the quick note portion of this chart signed Joanna Eastman PA-C (Joanna Eastman) Was pt. sent in by a medical professional or institution ([facility], [employer]IPMENT [employer]TER, urgent care, hospital, or [facility]...) When possible be specific @ -No Did you speak to anyone other than the patient for history (EMS, parent, family, police, friend...)? What history was obtained from this source @ -No Did you review nursing and triage notes (agree or disagree)? Why? @ -I reviewed and agree with nursing and triage notes Were old charts reviewed (outside hosp., previous admission, EMS record, old EKG, old radiological studies, urgent care reports/EKG's, [facility] records)? Report findings @ -Reviewed chart from yesterday and CT imaging of the brain was unremarkable at that time. Differential Diagnosis (chest pain, altered mental status, abdominal pain women, abdominal pain men, vaginal bleeding, weakness, fever, dyspnea, syncope, headache, dizziness, GI bleed, back pain, seizure, CVA, palpatations, mental health, musculoskeletal)? @ -Differential Altered Mental Status: Hypoglycemia, DKA, hypercapnia, ETOH, overdose, CO poisoning, trauma, myxedema coma, HTN encephalopathy, infection, encephalitis, psychosis, intercranial hemorrhage, hepatic encephalopathy, meningitis, CVA, this is not meant to be an all-inclusive list EKG interpreted by me (3pts min.). @ -As above X-rays interpreted by me (1pt min.). @ -Chest x-ray, elbow x-ray, pelvis x-ray negative for any obvious traumatic injury. CT interpreted by me (1pt min.). @ -CT brain, C-spine, thoracic spine, lumbar spine negative for any obvious acute traumatic injury. U/S interpreted by me (1pt. min.). @ -None done What testing was considered but not performed or refused? (CT, X-rays, U/S, labs)? Why? @ -None What meds were considered but not given or refused? Why? @ -None Did you discuss the management of the patient with other professionals (professionals i.e. , PA, INDUCTION HEATING EQUIPMENT SETTER, lab, RT, psych nurse, social science research assistant, hydrologist, teacher, patient safety officer, cyanide case hardener)? Give summary @ -Discussed with the admitting provider, HINA Whitt of [facility] who accepted the patient. Was smoking cessation discussed for >3mins.? @ -No Was critical care preformed (if so, how long)? @ -No Were there social determinants of health that impacted care today? How? (Homelessness, low income, unemployed, alcoholism, drug addiction, transportation, low edu. Level, literacy, decrease access to med. care, custodial, rehab)? @ -No Was there de-escalation of care discussed even if they declined (Discuss DNR or withdrawal of care, Hospice)? DNR status @ -No What co-morbidities impacted this encounter? (DM, HTN, Smoking, COPD, CAD, Cancer, CVA, ARF, Chemo, Hep., AIDS, mental health diagnosis, sleep apnea, morbid obesity)? @ -None Was patient admitted / discharged? Hospital course, mention meds given and route, prescriptions, significant lab abnormalities, going to OR and other pertinent info. @ -Based on the patient's presentation and physical exam, presents for altered mental status. Had multiple falls yesterday. Was seen after the first fall but not after the second fall. Workup at that time was unremarkable. Will repeat imaging, and obtain laboratory studies. Patient and patient's daughter in agreement with this plan. Patient was given gabapentin, IV fluids. Imaging returned negative for any obvious traumatic injuries. Laboratory studies remarkable for mild hypokalemia 3.3 which will be replenished. Lactic acid slightly elevated to 2.2. Creatinine kinase slightly elevated at 421 patient is receiving fluids. Remainder the workup unremarkable except for 2+ ketones in the urine. Reevaluation, mental status unchanged for the patient. Recommended admission. Patient was in agreement this plan. Neurology consulted. Spoke with the admitting provider, HINA Whitt of [facility] who accepted the admission. Undiagnosed new problem with uncertain prognosis? @ -No Drug Therapy requiring intensive monitoring for toxicity (Heparin, Nitro, Insulin, Cardizem)? @ -No Were any procedures done? @ -No Diagnosis/symptom? @ -Altered mental status, fall Acute, or Chronic, or Acute on Chronic? @ -Acute Uncomplicated (without systemic symptoms) or Complicated (systemic symptoms)? @ -Complicated Side effects of treatment? @ -No Exacerbation, Progression, or Severe Exacerbation? @ -No Poses a threat to life or bodily function? How? (Chest pain, USA, NC, pneumonia, PE, COPD, DKA, ARF, appy, cholecystitis, CVA, Diverticulitis, Homicidal, Suicidal, threat to staff... and all critical care pts) @ -Potentially, yes (Carmelo Gilman) - Lab Data Lab Results 08/09/24 08/09/24 08/09/24 Range/Units 14:53 14:53 14:53 WBC 6.3 (3.8-10.6) k/uL RBC 4.09 (3.80-5.40) m/uL Hgb 12.8 (11.4-16.0) gm/dL Hct 38.7 (34.0-46.0) % MCV 94.5 (80.0-100.0) fL MCH 31.3 (25.0-35.0) pg MCHC 33.2 (31.0-37.0) g/dL RDW 13.7 (11.5-15.5) % Plt Count 278 (150-450) k/uL MPV 7.8 Neutrophils % 75 % Lymphocytes % 17 % Monocytes % 6 % Eosinophils % 0 % Basophils % 0 % Neutrophils # 4.7 (1.3-7.7) k/uL Lymphocytes # 1.1 (1.0-4.8) k/uL Monocytes # 0.3 (0-1.0) k/uL Eosinophils # 0.0 (0-0.7) k/uL Basophils # 0.0 (0-0.2) k/uL PT 11.1 (10.0-12.5) sec INR 1.0 (<1.2) APTT 29.8 (22.0-30.0) sec VBG pH (7.31-7.41) VBG pCO2 (37-51) mmHg VBG HCO3 (24-28) mmol/L Sodium (137-145) mmol/L Potassium (3.5-5.1) mmol/L Chloride (98-107) mmol/L Carbon Dioxide (22-30) mmol/L Anion Gap mmol/L BUN (7-17) mg/dL Creatinine (0.52-1.04) mg/dL Est GFR (CKD-EPI)AfAm (>60 ml/min/1.73 sqM) Est GFR (CKD-EPI)NonAf (>60 ml/min/1.73 sqM) Glucose (74-99) mg/dL POC Glucose (mg/dL) (70-110) mg/dL POC Glu [employer] ID Lactic Ac Sepsis Rflx Plasma Lactic Acid Emmanuel (0.7-2.0) mmol/L Calcium (8.4-10.2) mg/dL Phosphorus (2.5-4.5) mg/dL Magnesium (1.6-2.3) mg/dL Total Bilirubin (0.2-1.3) mg/dL AST (14-36) U/L ALT (4-34) U/L Alkaline Phosphatase (38-126) U/L Ammonia (<30) umol/L Creatine Kinase (30-135) U/L Troponin I (0.000-0.034) ng/mL Total Protein (6.3-8.2) g/dL Albumin (3.5-5.0) g/dL TSH (0.465-4.680) mIU/L Urine Color Light Yellow Urine Appearance Clear (Clear) Urine pH 8.0 (5.0-8.0) Ur Specific [place] 1.015 (1.001-1.035) Urine Protein Negative (Negative) Urine Glucose (UA) Negative (Negative) Urine Ketones 2+ H (Negative) Urine Blood Negative (Negative) Urine Nitrite Negative (Negative) Urine Bilirubin Negative (Negative) Urine Urobilinogen <2.0 (<2.0) mg/dL Ur Leukocyte Esterase Negative (Negative) Urine Opiates Screen Detected H (NotDetected) Ur Oxycodone Screen Not Detected (NotDetected) Urine Methadone Screen Not Detected (NotDetected) Ur Barbiturates Screen Not Detected (NotDetected) U Tricyclic Antidepress Not Detected (NotDetected) Ur Phencyclidine Scrn Not Detected (NotDetected) Ur Amphetamines Screen Not Detected (NotDetected) U Methamphetamines Scrn Not Detected (NotDetected) U Benzodiazepines Scrn Not Detected (NotDetected) Urine Cocaine Screen Not Detected (NotDetected) U Marijuana (THC) Screen Not Detected (NotDetected) Serum Alcohol mg/dL 08/09/24 08/09/24 08/09/24 Range/Units 14:53 14:53 14:53 WBC (3.8-10.6) k/uL RBC (3.80-5.40) m/uL Hgb (11.4-16.0) gm/dL Hct (34.0-46.0) % MCV (80.0-100.0) fL MCH (25.0-35.0) pg MCHC (31.0-37.0) g/dL RDW (11.5-15.5) % Plt Count (150-450) k/uL MPV Neutrophils % % Lymphocytes % % Monocytes % % Eosinophils % % Basophils % % Neutrophils # (1.3-7.7) k/uL Lymphocytes # (1.0-4.8) k/uL Monocytes # (0-1.0) k/uL Eosinophils # (0-0.7) k/uL Basophils # (0-0.2) k/uL PT (10.0-12.5) sec INR (<1.2) APTT (22.0-30.0) sec VBG pH (7.31-7.41) VBG pCO2 (37-51) mmHg VBG HCO3 (24-28) mmol/L Sodium 136 L (137-145) mmol/L Potassium 3.3 L (3.5-5.1) mmol/L Chloride 97 L (98-107) mmol/L Carbon Dioxide 28 (22-30) mmol/L Anion Gap 11 mmol/L BUN 16 (7-17) mg/dL Creatinine 0.66 (0.52-1.04) mg/dL Est GFR (CKD-EPI)AfAm >90 (>60 ml/min/1.73 sqM) Est GFR (CKD-EPI)NonAf 87 (>60 ml/min/1.73 sqM) Glucose 115 H (74-99) mg/dL POC Glucose (mg/dL) (70-110) mg/dL POC Glu [employer] ID Lactic Ac Sepsis Rflx Plasma Lactic Acid Emmanuel 2.2 H* (0.7-2.0) mmol/L Calcium 9.2 (8.4-10.2) mg/dL Phosphorus 1.4 L (2.5-4.5) mg/dL Magnesium 1.5 L (1.6-2.3) mg/dL Total Bilirubin 2.1 H (0.2-1.3) mg/dL AST 45 H (14-36) U/L ALT 18 (4-34) U/L Alkaline Phosphatase 87 (38-126) U/L Ammonia (<30) umol/L Creatine Kinase 421 H (30-135) U/L Troponin I <0.012 (0.000-0.034) ng/mL Total Protein 6.7 (6.3-8.2) g/dL Albumin 3.7 (3.5-5.0) g/dL TSH 1.880 (0.465-4.680) mIU/L Urine Color Urine Appearance (Clear) Urine pH (5.0-8.0) Ur Specific [place] (1.001-1.035) Urine Protein (Negative) Urine Glucose (UA) (Negative) Urine Ketones (Negative) Urine Blood (Negative) Urine Nitrite (Negative) Urine Bilirubin (Negative) Urine Urobilinogen (<2.0) mg/dL Ur Leukocyte Esterase (Negative) Urine Opiates Screen (NotDetected) Ur Oxycodone Screen (NotDetected) Urine Methadone Screen (NotDetected) Ur Barbiturates Screen (NotDetected) U Tricyclic Antidepress (NotDetected) Ur Phencyclidine Scrn (NotDetected) Ur Amphetamines Screen (NotDetected) U Methamphetamines Scrn (NotDetected) U Benzodiazepines Scrn (NotDetected) Urine Cocaine Screen (NotDetected) U Marijuana (THC) Screen (NotDetected) Serum Alcohol <10 mg/dL 08/09/24 08/09/24 08/09/24 Range/Units 15:16 15:25 15:25 WBC (3.8-10.6) k/uL RBC (3.80-5.40) m/uL Hgb (11.4-16.0) gm/dL Hct (34.0-46.0) % MCV (80.0-100.0) fL MCH (25.0-35.0) pg MCHC (31.0-37.0) g/dL RDW (11.5-15.5) % Plt Count (150-450) k/uL MPV Neutrophils % % Lymphocytes % % Monocytes % % Eosinophils % % Basophils % % Neutrophils # (1.3-7.7) k/uL Lymphocytes # (1.0-4.8) k/uL Monocytes # (0-1.0) k/uL Eosinophils # (0-0.7) k/uL Basophils # (0-0.2) k/uL PT (10.0-12.5) sec INR (<1.2) APTT (22.0-30.0) sec VBG pH 7.59 H (7.31-7.41) VBG pCO2 30 L (37-51) mmHg VBG HCO3 28 (24-28) mmol/L Sodium (137-145) mmol/L Potassium (3.5-5.1) mmol/L Chloride (98-107) mmol/L Carbon Dioxide (22-30) mmol/L Anion Gap mmol/L BUN (7-17) mg/dL Creatinine (0.52-1.04) mg/dL Est GFR (CKD-EPI)AfAm (>60 ml/min/1.73 sqM) Est GFR (CKD-EPI)NonAf (>60 ml/min/1.73 sqM) Glucose (74-99) mg/dL POC Glucose (mg/dL) (70-110) mg/dL POC Glu [employer] ID Lactic Ac Sepsis Rflx Y Plasma Lactic Acid Emmanuel (0.7-2.0) mmol/L Calcium (8.4-10.2) mg/dL Phosphorus (2.5-4.5) mg/dL Magnesium (1.6-2.3) mg/dL Total Bilirubin (0.2-1.3) mg/dL AST (14-36) U/L ALT (4-34) U/L Alkaline Phosphatase (38-126) U/L Ammonia <9 (<30) umol/L Creatine Kinase (30-135) U/L Troponin I (0.000-0.034) ng/mL Total Protein (6.3-8.2) g/dL Albumin (3.5-5.0) g/dL TSH (0.465-4.680) mIU/L Urine Color Urine Appearance (Clear) Urine pH (5.0-8.0) Ur Specific [place] (1.001-1.035) Urine Protein (Negative) Urine Glucose (UA) (Negative) Urine Ketones (Negative) Urine Blood (Negative) Urine Nitrite (Negative) Urine Bilirubin (Negative) Urine Urobilinogen (<2.0) mg/dL Ur Leukocyte Esterase (Negative) Urine Opiates Screen (NotDetected) Ur Oxycodone Screen (NotDetected) Urine Methadone Screen (NotDetected) Ur Barbiturates Screen (NotDetected) U Tricyclic Antidepress (NotDetected) Ur Phencyclidine Scrn (NotDetected) Ur Amphetamines Screen (NotDetected) U Methamphetamines Scrn (NotDetected) U Benzodiazepines Scrn (NotDetected) Urine Cocaine Screen (NotDetected) U Marijuana (THC) Screen (NotDetected) Serum Alcohol mg/dL 08/09/24 Range/Units 16:41 WBC (3.8-10.6) k/uL RBC (3.80-5.40) m/uL Hgb (11.4-16.0) gm/dL Hct (34.0-46.0) % MCV (80.0-100.0) fL MCH (25.0-35.0) pg MCHC (31.0-37.0) g/dL RDW (11.5-15.5) % Plt Count (150-450) k/uL MPV Neutrophils % % Lymphocytes % % Monocytes % % Eosinophils % % Basophils % % Neutrophils # (1.3-7.7) k/uL Lymphocytes # (1.0-4.8) k/uL Monocytes # (0-1.0) k/uL Eosinophils # (0-0.7) k/uL Basophils # (0-0.2) k/uL PT (10.0-12.5) sec INR (<1.2) APTT (22.0-30.0) sec VBG pH (7.31-7.41) VBG pCO2 (37-51) mmHg VBG HCO3 (24-28) mmol/L Sodium (137-145) mmol/L Potassium (3.5-5.1) mmol/L Chloride (98-107) mmol/L Carbon Dioxide (22-30) mmol/L Anion Gap mmol/L BUN (7-17) mg/dL Creatinine (0.52-1.04) mg/dL Est GFR (CKD-EPI)AfAm (>60 ml/min/1.73 sqM) Est GFR (CKD-EPI)NonAf (>60 ml/min/1.73 sqM) Glucose (74-99) mg/dL POC Glucose (mg/dL) 89 (70-110) mg/dL POC Glu [employer] ID Franco Chloe Lactic Ac Sepsis Rflx Plasma Lactic Acid Emmanuel (0.7-2.0) mmol/L Calcium (8.4-10.2) mg/dL Phosphorus (2.5-4.5) mg/dL Magnesium (1.6-2.3) mg/dL Total Bilirubin (0.2-1.3) mg/dL AST (14-36) U/L ALT (4-34) U/L Alkaline Phosphatase (38-126) U/L Ammonia (<30) umol/L Creatine Kinase (30-135) U/L Troponin I (0.000-0.034) ng/mL Total Protein (6.3-8.2) g/dL Albumin (3.5-5.0) g/dL TSH (0.465-4.680) mIU/L Urine Color Urine Appearance (Clear) Urine pH (5.0-8.0) Ur Specific [place] (1.001-1.035) Urine Protein (Negative) Urine Glucose (UA) (Negative) Urine Ketones (Negative) Urine Blood (Negative) Urine Nitrite (Negative) Urine Bilirubin (Negative) Urine Urobilinogen (<2.0) mg/dL Ur Leukocyte Esterase (Negative) Urine Opiates Screen (NotDetected) Ur Oxycodone Screen (NotDetected) Urine Methadone Screen (NotDetected) Ur Barbiturates Screen (NotDetected) U Tricyclic Antidepress (NotDetected) Ur Phencyclidine Scrn (NotDetected) Ur Amphetamines Screen (NotDetected) U Methamphetamines Scrn (NotDetected) U Benzodiazepines Scrn (NotDetected) Urine Cocaine Screen (NotDetected) U Marijuana (THC) Screen (NotDetected) Serum Alcohol mg/dL - EKG Data EKG Comments: 12-lead Electrocardiogram Interpretation Note EKG was reviewed and interpreted by myself. 12-lead ECG performed at 1537 is interpreted by me as revealing normal sinus rhythm at a rate of 80 beats per minute. [place] is normal. NH interval is 201 ms, QRS duration is 98 ms, QTc is 428 ms.. There were no ST or T wave abnormalities to suggest myocardial ischemia or injury. R wave progression across the precordium was satisfactory. By my interpretation this EKG is non-diagnostic for acute ischemia. (Carmelo Gilman) Disposition <Joanna Eastman - Last Filed: 08/09/24 14:23> Time of Disposition: 18:00 <Carmelo Gilman - Last Filed: 08/09/24 20:26> Clinical Impression: Fall, Altered mental status Disposition: ADMITTED IP TO THIS HOSP Condition: Stable
[2024-08-09 15:01] LABS: Basophils % (A) 0 %; Eosinophils % (A) 0 %; HCT 38.7 % (34.0-46.0); HGB 12.8 gm/dL (11.4-16.0); Lymphocytes # (A) 1.1 k/uL (1.0-4.8); Lymphocytes % (A) 17 %; MCH 31.3 pg (25.0-35.0); MCHC 33.2 g/dL (31.0-37.0); MCV 94.5 fL (80.0-100.0); Mean Platelet Volume 7.8; Monocytes # (A) 0.3 k/uL (0-1.0); Monocytes % (A) 6 %; Neutrophils # (A) 4.7 k/uL (1.3-7.7); Neutrophils % (A) 75 %; Platelet Count 278 k/uL (150-450); RBC 4.09 m/uL (3.80-5.40); RDW 13.7 % (11.5-15.5); WBC 6.3 k/uL (3.8-10.6)
[2024-08-09 15:12] LABS: ALT 18 U/L (4-34); AST 45 U/L (14-36); African American GFR (CKD) >90 (>60 ml/min/1.73 sqM); Albumin 3.7 g/dL (3.5-5.0); Alcohol <10 mg/dL; Alkaline Phosphatase 87 U/L (38-126); Anion Gap 11 mmol/L; Blood Urea Nitrogen 16 mg/dL (7-17); Calcium 9.2 mg/dL (8.4-10.2); Carbon Dioxide 28 mmol/L (22-30); Chloride 97 mmol/L (98-107); Creatine Kinase 421 U/L (30-135); Glucose 115 mg/dL (74-99); Magnesium 1.5 mg/dL (1.6-2.3); Non-African American GFR(CKD) 87 (>60 ml/min/1.73 sqM); Phosphorus 1.4 mg/dL (2.5-4.5); Potassium 3.3 mmol/L (3.5-5.1); Sodium 136 mmol/L (137-145); Total Bilirubin 2.1 mg/dL (0.2-1.3); Total Protein 6.7 g/dL (6.3-8.2)
[2024-08-09 15:19] LABS: Partial Thromboplastin Time 29.8 sec (22.0-30.0); Prothrombin Time 11.1 sec (10.0-12.5)
[2024-08-09 15:37] LABS: VBG PH 7.59 (7.31-7.41)
--- NOTE | 2024-08-09 16:22 | XR ---
EXAMINATION TYPE: XR pelvis AP view DATE OF EXAM: 08/09/2024 3:59 PM CLINICAL INDICATION: Female, 74 years old with history of fall, pain; COMPARISON: 05/14/2022 TECHNIQUE: XR pelvis AP view, examined in a single projection. FINDINGS: Fixation hardware in the spine appears intact. There is no evidence of fracture or dislocat ion. There is no soft tissue abnormality. No abnormal calcifications are present. The spine appears intact. The hips appear intact. Osteophyte formation of the superior acetabulum bilaterally with mild joint space narrowing. IMPRESSION: 1. No acute osseous pathology. 2. Mild degeneration changes of the hip. [facility], , 08/09/2024 4:19 PM
--- NOTE | 2024-08-09 16:23 | XR ---
EXAMINATION TYPE: XR elbow limited RT DATE OF EXAM: 08/09/2024 3:59 PM CLINICAL INDICATION: Female, 74 years old with history of pain; H COMPARISON: 08/08/2024 TECHNIQUE: XR elbow limited RT; elbow was examined in AP, lateral, and oblique projections. FINDINGS: No evidence of any acute osseous pathology, joint dislocation, or soft tissue swelling is n oted. No evidence of joint effusion is present. IMPRESSION: No evidence of acute fracture. [facility], , 08/09/2024 4:20 PM
[2024-08-09 16:24] LABS: Appearance,Urine Clear (Clear); Bilirubin,Urine Negative (Negative); Blood,Urine Negative (Negative); Color,Urine Light Yellow; Glucose,Urine (UA) Negative (Negative); Ketones,Urine 2+ (Negative); Leukocyte Esterase,Urine Negative (Negative); Nitrite,Urine Negative (Negative); Protein,Urine Negative (Negative); Specific Gravity,Urine 1.015 (1.001-1.035); Urobilinogen,Urine <2.0 mg/dL (<2.0)
--- NOTE | 2024-08-09 16:25 | XR ---
EXAMINATION TYPE: XR chest 1V DATE OF EXAM: 08/09/2024 3:59 PM CLINICAL INDICATION: Female, 74 years old with history of fall, pain; [facility] COMPARISON: Chest radiographs from 08/08/2024 TECHNIQUE: XR chest 1V Frontal view of the chest. FINDINGS: Lungs/Pleura: There is no evidence of pleural effusion, focal consolidation, or pneumothorax. Pulmonary vascularity: Unremarkable. Heart/mediastinum: Cardiomediastinal silhouette is unremarkable. Musculoskeletal: No acute osseous pathology. Severe right shoulder osteoarthrosis with loss of of the acromiohumeral interval and acetabularization of the acromion. Other findings: None IMPRESSION: 1. No acute cardiopulmonary disease/process. 2. Severe right shoulder osteoarthrosis with acetabularization of the acromion which predisposes pat ients to full thickness rotator cuff tears. [facility], Workstation: [id number], 08/09/2024 4:22 PM
[2024-08-09] MEDS: GABAPENTIN 100 MG CAP PO STA (16:27)
[2024-08-09] MEDS: SODIUM CHLORIDE 0.9% 500 ML 500 ML IV STA (16:27)
[2024-08-09 16:39] LABS: Amphetamine Screen,Urine Not Detected (NotDetected); Barbiturate Screen,Urine Not Detected (NotDetected); Benzodiazepines Screen,Urine Not Detected (NotDetected); Cocaine Screen,Urine Not Detected (NotDetected); Methadone Screen, Urine Not Detected (NotDetected); Opiate Screen,Urine Detected (NotDetected); Oxycodone Screen, Urine Not Detected (NotDetected); Phencyclidine Screen,Urine Not Detected (NotDetected); Tricyclic Antidepressant,Urine Not Detected (NotDetected); Urn Cannabinoid Scrn Not Detected (NotDetected)
[2024-08-09 16:44] LABS: Glucose,Whole Blood 89 mg/dL (70-110)
[2024-08-09] MEDS: SODIUM CHLORIDE 0.9% 1,000 ML IV STA (17:18)
[2024-08-09] MEDS: MAGNESIUM SULFATE-D5W PMX 1 GM in DEXTROSE/WATER 1 100ML.BAG IVPB ONE (17:19)
--- NOTE | 2024-08-09 17:25 | CT ---
EXAMINATION TYPE: CT brain cspine wo con CT DLP: Combined DLP of 2995.4 mGycm, Automated exposure control for dose reduction was used. DATE OF EXAM: 08/09/2024 5:06 PM COMPARISON: 12/09/2023. CLINICAL INDICATION: Female, 74 years old with history of fall, pain; Pt's granddaughter states pt allen s been altered today, shredding pull-ups, screaming, and had another fall from bed. Was seen yesterd ay in ED for fall. TECHNIQUE: Brain: Multiple axial CT images of the brain were obtained without IV contrast. Cspine: Axial CT images from the skull base to the inferior aspect of T2 we obtained without intraven ous contrast. Coronal and sagittal reformatted images were also reviewed. . FINDINGS: Brain: Extra-axial spaces: No abnormal extra-axial fluid collections. Ventricular system: Dilatation in proportion to cerebral atrophy. Cerebral parenchyma: Cerebral atrophy. No acute intraparenchymal hemorrhage or mass effect. The oreilly -white junction is well differentiated. Scattered hypoattenuating areas are seen within the white mat ter. Cerebellum: Unremarkable. Mass effect: No evidence of midline shift. Intracranial vasculature: Atherosclerotic calcifications of the intracranial vessels. Soft tissues: Normal. Calvarium/osseous structures: No depressed skull fracture. Paranasal sinuses and mastoid air cells: Clear. Visualized orbits: Bilateral aphakia Cervical spine: Fracture: None. Osseous structures: Multilevel degenerative disc disease changes with endplate spurring and disc oste ophyte complex's. Vertebral alignment: Within normal limits. Spinal canal/Neural Foramina: No evidence of significant spinal canal narrowing. No evidence for sign ificant neural foraminal stenosis. Neck soft tissues: Prevertebral soft tissues are within normal limits. Other: The airway is patent. The lung apices are clear. IMPRESSION: 1. No acute intracranial process. 2. Nonspecific white matter changes, likely secondary to chronic small vessel ischemic disease. 3. No evidence of cervical spine fracture. 4. Moderate multilevel degenerative disc disease. [facility], Workstation: [id number], 08/09/2024 5:22 PM
--- NOTE | 2024-08-09 17:38 | CT ---
EXAMINATION TYPE: CT thor lumbar spine wo con CT DLP: Combined DLP of 2995.4 mGycm, Automated exposure control for dose reduction was used. DATE OF EXAM: 08/09/2024 5:07 PM CLINICAL INDICATION: Female, 74 years old with history of fall, pain; Pt's granddaughter states pt allen s been altered today, shredding pull-ups, screaming, and had another fall from bed. Was seen yesterd ay in ED for fall. COMPARISON: 08/24/2022, 05/29/2023, 05/09/2023 TECHNIQUE: Axial images of the thoracic and lumbar spine were obtained without contrast. Coronal and sagittal reformats were performed. CT Contrast: Contrast used: mL of , none. Oral contrast used: none. FINDINGS: There is severe degeneration changes throughout the spine with joint space narrowing, osteophyte form ation, thickness phenomenon, facet joint arthropathy present. Some of the worst levels including L5-S 1 with sclerosis of the adjoining endplates likely on the basis of chronic degeneration findings have progressed from 08/24/2022, 05/29/2023, 05/09/2023 and somewhat similar to 10/26/2023.. There is no eviden ce for fracture. Spinal alignment has postsurgical changes lumbar spine with satisfactory alignment o f the thoracic spine. Mild scoliosis curvature to the thoracolumbar junction. Nerve stimulator lead t erminates in the thecal sac posteriorly. Multilevel [id number] neural foraminal stenosis and mu ltilevel at least mild spinal canal stenosis secondary to disc bulge and facet joint arthropathy hansen ges. Fixation hardware at L3-L4 and L5 appears intact. Laminectomy changes at this level with L4-L5 discec donaldo. The heart is enlarged for size with severe coronary artery atherosclerosis. Moderate to large h iatal hernia. Severe right shoulder osteoarthrosis. IMPRESSION: 1. No evidence of fracture of the lumbar spine. 2. Moderate to severe degeneration changes throughout the spine worse at L5-S1. Multilevel at least mild spinal canal stenosis and multilevel [id number] neural foraminal stenosis. 3. Moderate to large hiatal hernia. 4. Severe coronary artery atherosclerosis. [facility], , 08/09/2024 5:36 PM
[2024-08-09] MEDS ORDERED: ACETAMINOPHEN TAB 325 MG TAB PO PRN (18:07)
[2024-08-09] MEDS ORDERED: NALOXONE 0.4 MG/ML 1 ML VIAL IV PRN (18:07)
[2024-08-09] MEDS ORDERED: ONDANSETRON 4 MG/2 ML VIAL IVP PRN (18:07)
[2024-08-09] MEDS ORDERED: ACETAMINOPHEN TAB 500 MG TAB PO PRN (18:09)
[2024-08-09] MEDS: NYSTATIN 100,000 UNIT/GM POWD 15 GM TOPICAL SCH (19:47)
[2024-08-09] MEDS: PRAMIPEXOLE 0.25 MG TAB PO SCH (20:45)
[2024-08-09] MEDS: LORATADINE 10 MG TAB PO SCH (20:45)
[2024-08-09] MEDS: METOPROLOL TARTRATE 25 MG TAB PO SCH (20:45)
[2024-08-09] MEDS: BRIMONIDINE TARTRATE 0.2% DROPS 5 ML BTL BOTH EYES SCH (20:45)
[2024-08-09] MEDS: GABAPENTIN 100 MG CAP PO SCH (20:45)
[2024-08-09] MEDS: DORZOLAMIDE HCL 2% DROPS 10 ML BTL BOTH EYES SCH (20:45)
[2024-08-09] MEDS: ATORVASTATIN 40 MG TAB PO SCH (20:46)
[2024-08-09] MEDS: OXYBUTYNIN 10 MG TAB.ER.24 PO SCH (20:46)
[2024-08-09] MEDS: PILOCARPINE 5 MG TAB PO SCH (21:38)
[2024-08-10 09:05] LABS: Basophils % (A) 0 %; Eosinophils % (A) 0 %; HGB 11.1 gm/dL (11.4-16.0); Lymphocytes # (A) 1.2 k/uL (1.0-4.8); Lymphocytes % (A) 25 %; MCH 31.2 pg (25.0-35.0); MCHC 32.5 g/dL (31.0-37.0); Mean Platelet Volume 7.4; Monocytes # (A) 0.2 k/uL (0-1.0); Monocytes % (A) 5 %; Neutrophils # (A) 3.1 k/uL (1.3-7.7); Neutrophils % (A) 67 %; Platelet Count 230 k/uL (150-450); RBC 3.54 m/uL (3.80-5.40); RDW 13.6 % (11.5-15.5); WBC 4.6 k/uL (3.8-10.6)
[2024-08-10 09:16] LABS: ALT 15 U/L (4-34); AST 39 U/L (14-36); African American GFR (CKD) >90 (>60 ml/min/1.73 sqM); Albumin 2.9 g/dL (3.5-5.0); Albumin/Globulin Ratio 1.1; Alkaline Phosphatase 69 U/L (38-126); Anion Gap 5 mmol/L; Blood Urea Nitrogen 9 mg/dL (7-17); Calcium 8.5 mg/dL (8.4-10.2); Carbon Dioxide 28 mmol/L (22-30); Chloride 101 mmol/L (98-107); Globulin 2.7 g/dL; Glucose 101 mg/dL (74-99); Non-African American GFR(CKD) >90 (>60 ml/min/1.73 sqM); Potassium 2.8 mmol/L (3.5-5.1); Sodium 134 mmol/L (137-145); Total Bilirubin 2.2 mg/dL (0.2-1.3); Total Protein 5.6 g/dL (6.3-8.2)
[2024-08-10] MEDS: ASPIRIN 81 MG PO SCH (10:59)
[2024-08-10] MEDS: POTASSIUM CHLORIDE ER 10 MEQ TAB.ER.PRT PO SCH (10:59)
[2024-08-10] MEDS: GABAPENTIN 100 MG CAP PO SCH (11:01)
[2024-08-10] MEDS: metOLazone 2.5 MG TAB PO SCH (13:23)
[2024-08-10] MEDS: MELOXICAM 7.5 MG TAB PO SCH (13:24)
[2024-08-10] MEDS: VENLAFAXINE HCL 50 MG TAB PO SCH (13:25)
--- NOTE | 2024-08-10 15:18 | P.CNNES ---
History of Present Illness Consult date: 08/10/24 Requesting physician: Carmelo Gilman Reason for Consult: ams History of Present Illness: This is a 74-year-old woman with history of chronic low back pain, lumbar fusion, pain pump hard of hearing who present emergency department after a fall. According to the patient at home she is trying to go to the bathroom and she was trying to pull her briefs down 1 at a time and as she was doing it as she lost her balance and fell hit her head and hit the right elbow. She denies any loss of consciousness. It seems after the fall she was confused that was felt by her granddaughter. Patient denies any loss of consciousness as stated earlier. She denies any legs giving out or any focal weakness that is new. She denies any visual disturbance. She denies of any headache. She feels at baseline. She uses a walker at baseline, 4 wheeled. She has history of urinary incontinence and uses briefs. Some of the workup during this hospital visit consisted of: Sodium is 136, serum glucose is 115, phosphorus 1.4, magnesium is 1.5, AST is 45 ALT is 18. CK level is 421 Ammonia level is less than 9 TSH is 1.880 Plasma lactic acid venous 2.2 and most recent [address] head and cervical spine is reported as no acute intracranial process. Nonspecific white matter changes, likely secondary due to chronic small vessel ischemic disease. No evidence cervical spine fracture. Moderate multilevel degenerative disc disease. I personally reviewed the CT of the head and I agree there is no acute or subacute changes. CT of thoracic and lumbar spine is reported as no evidence of fracture of lumbar spine. Moderate to severe degenerative changes throughout spine worse at L5-S1. Multilevel at least mild spinal canal stenosis and multilevel mild to moderate neuroforaminal stenosis. Moderate to large hiatal hernia. Severe coronary artery atherosclerosis. Review of Systems As per HPI. Past Medical History Past Medical History: Heart Failure, Hearing Disorder / Deafness, Hypertension, Osteoarthritis (OA) Additional Past Medical History / Comment(s): Arrhythmia, hx anemia, wears pad/brief for urinary incontinence, frequent UTI's, on long goods drier antibiotic treatment to prevent UTI, SOB, deaf in right ear, hard of hearing in left ear, bilateral hearing aid use. History of Any Multi-Drug Resistant Organisms: None Reported Past Surgical History: Appendectomy, Back Surgery, Cholecystectomy, Heart Catheterization With Stent, Hernia Repair, Hysterectomy, Joint Replacement, Orthopedic Surgery Additional Past Surgical History / Comment(s): Pain Clinic Procedures, CARDIAC STENTS X2, L3-4-5 FUSION, total right knee replacement, bilateral cataract surgery. hiatal hernia repair.,Morphine pump implanted. Past Anesthesia/Blood Transfusion Reactions: No Reported Reaction Additional Past Anesthesia/Blood Transfusion Reaction / Comment(s): "Slow coming out." Date of Last Stent Placement:: Smoking Status: Never smoker - Past Family History Father Family Medical History: Cancer Sister(s) Family Medical History: Cancer Medications and Allergies Home Medications Medication Instructions Recorded Confirmed Type Aspirin 81 mg PO DAILY 12/14/14 08/09/24 History Cyanocobalamin [Vitamin B-12] 1,000 mcg PO DAILY 12/14/14 08/09/24 History Multivitamins, Thera [Multivitamin 1 tab PO DAILY 12/14/14 08/09/24 History (formulary)] Pramipexole [Mirapex] 0.25 mg PO HS 12/14/14 08/09/24 History Cetirizine HCl [Zyrtec] 10 mg PO HS 07/10/19 08/09/24 History Metoprolol Tartrate [Lopressor] 25 mg PO BID 07/26/22 08/09/24 History Omeprazole 40 mg PO BID 07/26/22 08/09/24 History Venlafaxine HCl [Effexor] 100 mg PO DAILY 07/26/22 08/09/24 History Calcium Carbonate/Vitamin D3 1 tab PO DAILY 10/05/22 08/09/24 History [Calcium 600-D3 20 mcg (800 Unit)] Simethicone [Gas-X] 125 mg PO ACHS PRN 10/05/22 08/09/24 History oxyBUTYnin chloride [Ditropan XL] 10 mg PO HS 02/13/23 08/09/24 History Cranberry 15,000 1 cap PO DAILY 10/26/23 08/09/24 History Docusate [Colace] 100 mg PO DAILY 10/26/23 08/09/24 History calcium polycarbophiL [Fibercon] 625 mg PO DAILY 10/26/23 08/09/24 History Atorvastatin [Lipitor] 40 mg PO HS #30 tab 10/29/23 08/09/24 Rx Acetaminophen Tab [Tylenol] 1,000 mg PO Q6HR PRN tab 11/11/23 08/09/24 Rx Magnesium Oxide [Mag-Ox] 400 mg PO BID tab 11/11/23 08/09/24 Rx Brinzolamide/Brimonidine Tart 1 drop BOTH EYES BID 08/09/24 08/09/24 History [Simbrinza 1%-0.2% Eye Drop] Clotrimazole Cream [Lotrimin Cream] 1 applic TOPICAL BID 08/09/24 08/09/24 History Gabapentin [Neurontin] 100 mg PO BID-W/MEALS 08/09/24 08/09/24 History Gabapentin [Neurontin] 200 mg PO HS 08/09/24 08/09/24 History Meloxicam [Mobic] 15 mg PO DAILY 08/09/24 08/09/24 History Nitrofurantoin Monohyd/M-Cryst 100 mg PO DAILY 08/09/24 08/09/24 History [Macrobid] Patient Own Pump 0 bag 08/09/24 History Pilocarpine [Salagen] 5 mg PO QID 08/09/24 08/09/24 History Potassium Chloride ER [K-Dur 10] 10 meq PO DAILY 08/09/24 08/09/24 History metOLazone [Zaroxolyn] 2.5 mg PO DAILY 08/09/24 08/09/24 History Fluconazole [Diflucan] 100 mg PO DAILY 7 Days #7 tab 08/10/24 Rx Allergies Allergy/AdvReac Type Severity Reaction Status Date / Time adhesive tape Allergy Rash/Hives, Verified 08/09/24 15:28 "paper tape is ok" Physical Examination - Vital Signs Vital Signs: Vital Signs Temp Pulse Pulse Resp BP BP Pulse Ox 08/10/24 07:00 97.9 F 72 16 132/81 98 08/10/24 02:40 98.2 F 72 16 122/76 97 08/10/24 02:27 70 18 121/63 97 08/10/24 00:00 72 18 101/62 97 08/09/24 22:00 68 18 114/74 97 08/09/24 20:00 84 18 118/73 98 08/09/24 18:30 98 F 75 18 123/68 96 08/09/24 17:30 76 26 H 91/59 08/09/24 15:44 98 F 93 18 147/85 99 Intake and Output 08/10/24 08/10/24 08/10/24 06:59 14:59 22:59 Intake Total 480 Output Total 950 Balance -950 480 Intake: Oral 480 Output: Urine 950 Other: Voiding Method External Catheter External Catheter # Bowel Movements 1 Weight 86.636 kg GENERAL: The patient is sitting in a recliner chair and is not in acute distress. NEUROLOGICAL: Higher mental function: The patient is awake, alert, oriented to self, place and time. Patient is following simple commands. She able to name objects (pen and watch). She correctly name [facility]. No aphasia and no neglect. Cranial nerves: The pupils are round, equal and reactive to light. Visual francois are full to confrontation throughout. Extraocular movement is intact no nystagmus is noted. Facial sensation is normal to touch throughout. The facial strength is normal throughout. Hearing is severely decreased bilaterally to hand rub. Tongue is midline and moved [id number] without any difficulty. No dysarthria is noted. Shoulder shrug is limited on the right because of rotator cuff injury that is old and normal on the left. Motor: Gait: Used walker without any assistance and not swaying one way or other, as well was hunched down walking. The strength is limited in the right upper extremity because of shoulder pain but had antigravity. But otherwise s trength is 5 over 5 throughout. Normal tone and bulk. Cerebellum: Normal finger to nose bilaterally. Sensation: Sensation is normal to touch throughout. Reflexes (right/left): 2+ in the uppers except to right triceps and lowers are deferred because of pain.. Plantars are mute bilaterally. Results - Laboratory Findings CBC and BMP: 08/10/24 08:34 08/10/24 08:34 Abnormal Lab Findings: Abnormal Labs 08/09/24 08/09/24 08/09/24 14:53 14:53 14:53 RBC Hgb VBG pH VBG pCO2 Sodium 136 L Potassium 3.3 L Chloride 97 L Creatinine Glucose 115 H Plasma Lactic Acid Emmanuel 2.2 H* Phosphorus 1.4 L Magnesium 1.5 L Total Bilirubin 2.1 H AST 45 H Creatine Kinase 421 H Total Protein Albumin Urine Ketones 2+ H Urine Opiates Screen Detected H 08/09/24 08/09/2424 15:25 18:30 08:34 RBC 3.54 L Hgb 11.1 L VBG pH 7.59 H VBG pCO2 30 L Sodium Potassium Chloride Creatinine Glucose Plasma Lactic Acid Emmanuel 2.2 H* Phosphorus Magnesium Total Bilirubin AST Creatine Kinase Total Protein Albumin Urine Ketones Urine Opiates Screen 08/10/24 08:34 RBC Hgb VBG pH VBG pCO2 Sodium 134 L Potassium 2.8 L Chloride Creatinine 0.49 L Glucose 101 H Plasma Lactic Acid Emmanuel Phosphorus Magnesium Total Bilirubin 2.2 H AST 39 H Creatine Kinase Total Protein 5.6 L Albumin 2.9 L Urine Ketones Urine Opiates Screen Assessment and Plan Assessment: This is a 74-year-old woman who presented emergency department because of a fall and after fall had episode of confusion that granddaughter felt. Patient stated that she was trying to go to the bathroom and pulled her briefs down 1 at a time and when she was doing that she lost her balance and fell and hit her head. CT of the head negative for any acute or subacute process. Patient's mentation has improved. Transient encephalopathy due to head concussion from fall. As well has metabolic encephalopathy--resolved Mechanical fall Hypophosphatemia Hypomagnesemia Mild hypokalemia Moderate to severe degenerative changes in the lumbar worst at L5-S1 History of lumbar fusion Chronic low back pain and is on pain pump (morphine) Heart failure History of coronary artery disease status post stent. Very Hard of hearing Plan: Will defer the replacement of electrolyte imbalance to the primary team PT and OT is consulted Will defer the rest of the medical management to primary other specialist No further neurological workup. Will Sign off. Please reconsult if needed. Thank you for the consultation. Time with Patient: Greater than 30
[2024-08-10 19:58] VITALS: BP 107/70; PULSE 85; RESP 17; TEMP 98.3
[2024-08-10] MEDS: POTASSIUM CHLORIDE ER 20 MEQ TAB.ER PO STA (20:10)
--- NOTE | 2024-08-23 18:01 | P.DS ---
Providers Date of admission: 08/09/24 18:07 Expected date of discharge: 08/10/24 Attending physician: David Mora MD Consults: 08/09/24 18:07 Consult Physician Routine Consulting Provider: Stella Mcgill Consult Reason/Comments: ams Do you want consulting provider notified?: Yes Primary care physician: David Mora MD Hospital Course: Doug Helton is a 74-year-old woman with history of chronic low back pain, lumbar fusion, pain pump hard of hearing who present emergency department after a fall. According to the patient at home she is trying to go to the bathroom and she was trying to pull her briefs down 1 at a time and as she was doing it as she lost her balance and fell hit her head and hit the right elbow. She denies any loss of consciousness. It seems after the fall she was confused that was felt by her granddaughter. Patient denies any loss of consciousness as stated earlier. She denies any legs giving out or any focal weakness that is new. She denies any visual disturbance. She denies of any headache. She feels at baseline. She uses a walker at baseline, 4 wheeled. On presentation Sodium is 136, serum glucose is 115, phosphorus 1.4, magnesium is 1.5, AST is 45 ALT is 18. CK level is 421 Ammonia level is less than 9. CT head and cervical spine is reported as no acute intracranial process. Pt evaluated and cleared by neurology. She is discharged in stable condition and recommended to follow up with her PCP. Patient Condition at Discharge: Stable Plan - Discharge Summary Discharge Rx Participant: No New Discharge Prescriptions: New Fluconazole [Diflucan] 100 mg PO DAILY 7 Days #7 tab Continue Multivitamins, Thera [Multivitamin (formulary)] 1 tab PO DAILY Cyanocobalamin [Vitamin B-12] 1,000 mcg PO DAILY Aspirin 81 mg PO DAILY Pramipexole [Mirapex] 0.25 mg PO HS Cetirizine HCl [Zyrtec] 10 mg PO HS Omeprazole 40 mg PO BID Simethicone [Gas-X] 125 mg PO ACHS PRN PRN Reason: GAS/BLOATING Calcium Carbonate/Vitamin D3 [Calcium 600-D3 20 mcg (800 Unit)] 1 tab PO DAILY Docusate [Colace] 100 mg PO DAILY calcium polycarbophiL [Fibercon] 625 mg PO DAILY Meloxicam [Mobic] 15 mg PO DAILY Gabapentin [Neurontin] 100 mg PO BID-W/MEALS Clotrimazole Cream [Lotrimin Cream] 1 applic TOPICAL BID Patient Own Pump 0 bag Metoprolol Tartrate [Lopressor] 25 mg PO BID Venlafaxine HCl [Effexor] 100 mg PO DAILY oxyBUTYnin chloride [Ditropan XL] 10 mg PO HS Cranberry 15,000 1 cap PO DAILY Atorvastatin [Lipitor] 40 mg PO HS #30 tab Acetaminophen Tab [Tylenol] 1,000 mg PO Q6HR PRN tab PRN Reason: Fever And/ Or Pain Magnesium Oxide [Mag-Ox] 400 mg PO BID tab Potassium Chloride ER [K-Dur 10] 10 meq PO DAILY Nitrofurantoin Monohyd/M-Cryst [Macrobid] 100 mg PO DAILY metOLazone [Zaroxolyn] 2.5 mg PO DAILY Gabapentin [Neurontin] 200 mg PO HS Pilocarpine [Salagen] 5 mg PO QID Brinzolamide/Brimonidine Tart [Simbrinza 1%-0.2% Eye Drop] 1 drop BOTH EYES BID Discharge Medication List Aspirin 81 mg PO DAILY 12/14/14 [History] Cyanocobalamin [Vitamin B-12] 1,000 mcg PO DAILY 12/14/14 [History] Multivitamins, Thera [Multivitamin (formulary)] 1 tab PO DAILY 12/14/14 [History] Pramipexole [Mirapex] 0.25 mg PO HS 12/14/14 [History] Cetirizine HCl [Zyrtec] 10 mg PO HS 07/10/19 [History] Metoprolol Tartrate [Lopressor] 25 mg PO BID 07/26/22 [History] Omeprazole 40 mg PO BID 07/26/22 [History] Venlafaxine HCl [Effexor] 100 mg PO DAILY 07/26/22 [History] Calcium Carbonate/Vitamin D3 [Calcium 600-D3 20 mcg (800 Unit)] 1 tab PO DAILY 10/05/22 [History] Simethicone [Gas-X] 125 mg PO ACHS PRN 10/05/22 [History] oxyBUTYnin chloride [Ditropan XL] 10 mg PO HS 02/13/23 [History] Cranberry 15,000 1 cap PO DAILY 10/26/23 [History] Docusate [Colace] 100 mg PO DAILY 10/26/23 [History] calcium polycarbophiL [Fibercon] 625 mg PO DAILY 10/26/23 [History] Atorvastatin [Lipitor] 40 mg PO HS #30 tab 10/29/23 [Rx] Acetaminophen Tab [Tylenol] 1,000 mg PO Q6HR PRN tab 11/11/23 [Rx] Magnesium Oxide [Mag-Ox] 400 mg PO BID tab 11/11/23 [Rx] Brinzolamide/Brimonidine Tart [Simbrinza 1%-0.2% Eye Drop] 1 drop BOTH EYES BID 08/09/24 [History] Clotrimazole Cream [Lotrimin Cream] 1 applic TOPICAL BID 08/09/24 [History] Gabapentin [Neurontin] 100 mg PO BID-W/MEALS 08/09/24 [History] Gabapentin [Neurontin] 200 mg PO HS 08/09/24 [History] Meloxicam [Mobic] 15 mg PO DAILY 08/09/24 [History] Nitrofurantoin Monohyd/M-Cryst [Macrobid] 100 mg PO DAILY 08/09/24 [History] Patient Own Pump 0 bag 08/09/24 [History] Pilocarpine [Salagen] 5 mg PO QID 08/09/24 [History] Potassium Chloride ER [K-Dur 10] 10 meq PO DAILY 08/09/24 [History] metOLazone [Zaroxolyn] 2.5 mg PO DAILY 08/09/24 [History] Fluconazole [Diflucan] 100 mg PO DAILY 7 Days #7 tab 08/10/24 [Rx] Follow up Appointment(s)/Referral(s): [facility] [NON-STAFF] - 1 Week David Mora MD [Primary Care Provider] - 1-2 days Patient Instructions/Handouts: Fall Prevention for Older Adults (DC), Hypocalcemia (DC), Hypomagnesemia (DC), Altered Mental Status (ED) Discharge Disposition: HOME SELF-CARE
--- NOTE | 2024-08-23 18:01 | P.HPIM ---
History of Present Illness H&P Date: 08/10/24 Chief Complaint: STEPHEN Helton is a 74-year-old woman with history of chronic low back pain, lumbar fusion, pain pump hard of hearing who present emergency department after a fall. According to the patient at home she is trying to go to the bathroom and she was trying to pull her briefs down 1 at a time and as she was doing it as she lost her balance and fell hit her head and hit the right elbow. She denies any loss of consciousness. It seems after the fall she was confused that was felt by her granddaughter. Patient denies any loss of consciousness as stated ellis ier. She denies any legs giving out or any focal weakness that is new. She denies any visual disturbance. She denies of any headache. She feels at baseline. She uses a walker at baseline, 4 wheeled. On presentation Sodium is 136, serum glucose is 115, phosphorus 1.4, magnesium is 1.5, AST is 45 ALT is 18. CK level is 421 Ammonia level is less than 9. CT head and cervical spine is reported as no acute intracranial process. Review of Systems All systems: negative Constitutional: Denies chills, Denies fever Eyes: denies blurred vision, denies pain Ears, nose, mouth and throat: Denies headache, Denies sore throat Cardiovascular: Denies chest pain, Denies shortness of breath Respiratory: Denies cough Gastrointestinal: Denies abdominal pain, Denies diarrhea, Denies nausea, Denies vomiting Genitourinary: Denies dysuria, Denies hematuria Musculoskeletal: Denies myalgias Integumentary: Denies pruritus, Denies rash Neurological: Denies numbness, Denies weakness Psychiatric: Denies anxiety, Denies depression Endocrine: Denies fatigue, Denies weight change Past Medical History Past Medical History: Heart Failure, Hearing Disorder / Deafness, Hypertension, Osteoarthritis (OA) Additional Past Medical History / Comment(s): Arrhythmia, hx anemia, wears pad/brief for urinary incontinence, frequent UTI's, on fci antibiotic treatment to prevent UTI, SOB, deaf in right ear, hard of hearing in left ear, bilateral hearing aid use. History of Any Multi-Drug Resistant Organisms: None Reported Past Surgical History: Appendectomy, Back Surgery, Cholecystectomy, Heart Catheterization With Stent, Hernia Repair, Hysterectomy, Joint Replacement, Orthopedic Surgery Additional Past Surgical History / Comment(s): Pain Clinic Procedures, CARDIAC STENTS X2, L3-4-5 FUSION, total right knee replacement, bilateral cataract surgery. hiatal hernia repair.,Morphine pump implanted. Past Anesthesia/Blood Transfusion Reactions: No Reported Reaction Additional Past Anesthesia/Blood Transfusion Reaction / Comment(s): "Slow coming out." Date of Last Stent Placement:: Smoking Status: Never smoker - Past Family History Father Family Medical History: Cancer Sister(s) Family Medical History: Cancer Medications and Allergies Home Medications Medication Instructions Recorded Confirmed Type Aspirin 81 mg PO DAILY 12/14/14 08/09/24 History Cyanocobalamin [Vitamin B-12] 1,000 mcg PO DAILY 12/14/14 08/09/24 History Multivitamins, Thera [Multivitamin 1 tab PO DAILY 12/14/14 08/09/24 History (formulary)] Pramipexole [Mirapex] 0.25 mg PO HS 12/14/14 08/09/24 History Cetirizine HCl [Zyrtec] 10 mg PO HS 07/10/19 08/09/24 History Metoprolol Tartrate [Lopressor] 25 mg PO BID 07/26/22 08/09/24 History Omeprazole 40 mg PO BID 07/26/22 08/09/24 History Venlafaxine HCl [Effexor] 100 mg PO DAILY 07/26/22 08/09/24 History Calcium Carbonate/Vitamin D3 1 tab PO DAILY 10/05/22 08/09/24 History [Calcium 600-D3 20 mcg (800 Unit)] Simethicone [Gas-X] 125 mg PO ACHS PRN 10/05/22 08/09/24 History oxyBUTYnin chloride [Ditropan XL] 10 mg PO HS 02/13/23 08/09/24 History Cranberry 15,000 1 cap PO DAILY 10/26/23 08/09/24 History Docusate [Colace] 100 mg PO DAILY 10/26/23 08/09/24 History calcium polycarbophiL [Fibercon] 625 mg PO DAILY 10/26/23 08/09/24 History Atorvastatin [Lipitor] 40 mg PO HS #30 tab 10/29/23 08/09/24 Rx Acetaminophen Tab [Tylenol] 1,000 mg PO Q6HR PRN tab 11/11/23 08/09/24 Rx Magnesium Oxide [Mag-Ox] 400 mg PO BID tab 11/11/23 08/09/24 Rx Brinzolamide/Brimonidine Tart 1 drop BOTH EYES BID 08/09/24 08/09/24 History [Simbrinza 1%-0.2% Eye Drop] Clotrimazole Cream [Lotrimin Cream] 1 applic TOPICAL BID 08/09/24 08/09/24 History Gabapentin [Neurontin] 100 mg PO BID-W/MEALS 08/09/24 08/09/24 History Gabapentin [Neurontin] 200 mg PO HS 08/09/24 08/09/24 History Meloxicam [Mobic] 15 mg PO DAILY 08/09/24 08/09/24 History Nitrofurantoin Monohyd/M-Cryst 100 mg PO DAILY 08/09/24 08/09/24 History [Macrobid] Patient Own Pump 0 bag 08/09/24 History Pilocarpine [Salagen] 5 mg PO QID 08/09/24 08/09/24 History Potassium Chloride ER [K-Dur 10] 10 meq PO DAILY 08/09/24 08/09/24 History metOLazone [Zaroxolyn] 2.5 mg PO DAILY 08/09/24 08/09/24 History Fluconazole [Diflucan] 100 mg PO DAILY 7 Days #7 tab 08/10/24 Rx Allergies Allergy/AdvReac Type Severity Reaction Status Date / Time adhesive tape Allergy Rash/Hives, Verified 08/09/24 15:28 "paper tape is ok" Physical Exam Well developed, obese, NAD RRR CTAB Soft, nontender AAOx3 no focal deficit Results CBC & Chem 7: 08/10/24 08:34 08/10/24 08:34 Thrombosis Risk Factor Assmnt - Choose All That Apply Any of the Below Risk Factors Present?: Yes Each Factor Represents 1 point: Obesity (BMI >25) Other Risk Factors: Yes Each Risk Factor Represents 2 Points: Age 61-74 years Other congenital or acquired thrombophilia - If yes, enter type in comment: Yes Thrombosis Risk Factor Assessment Total Risk Factor Score: 3 Thrombosis Risk Factor Assessment Level: Moderate Risk Assessment and Plan Plan: AMS. Admit to obs, consult neurology for further evaluation. Resume home medications
== END 2024-08-10 20:42 | disposition home or self-care (01) ==
LOC: EC 13:51 → 6NMEDSUR 18:07
PROVIDERS: ADMIT Family Medicine; ATTEND Family Medicine
DX: G93.41 Metabolic encephalopathy (principal); S06.0XAA Concussion with loss of consciousness status unknown, initial encounter; W18.30XA Fall on same level, unspecified, initial encounter; Y92.002 Bathroom of unspecified non-institutional (private) residence as the place of occurrence of the external cause; E87.6 Hypokalemia; E83.42 Hypomagnesemia; E83.39 Other disorders of phosphorus metabolism; I50.9 Heart failure, unspecified; I25.10 Atherosclerotic heart disease of native coronary artery without angina pectoris; I11.0 Hypertensive heart disease with heart failure; G89.29 Other chronic pain; M54.50 Low back pain, unspecified; M48.00 Spinal stenosis, site unspecified; K44.9 Diaphragmatic hernia without obstruction or gangrene; H91.93 Unspecified hearing loss, bilateral; R32 Unspecified urinary incontinence; F41.9 Anxiety disorder, unspecified; F32.A Depression, unspecified; Z79.82 Long term (current) use of aspirin; Z79.1 Long term (current) use of non-steroidal anti-inflammatories (NSAID); Z79.899 Other long term (current) drug therapy; Z91.048 Other nonmedicinal substance allergy status; Z96.89 Presence of other specified functional implants; Z95.5 Presence of coronary angioplasty implant and graft; Z98.1 Arthrodesis status
CPT/HCPCS: 96361 ×3; 96365; 99285; 36415; 93005; 80053 ×2; 84443; 82140; 82550; 82803; 83605; 83735; 84100; 84484; 85025 ×2; 85610; 85730; 81003; 80306; 80320; 72170; 73070; 71045; 72128; 72125; 72131; 70450; G0378 ×2; J3475

== ENCOUNTER 2024-09-04 10:33 | Inpatient (IN) | payer MEDICARE, OTHER ==
--- NOTE | 2024-09-04 11:21 | ED ---
Altered Mental Status HPI - General Chief Complaint: Altered Mental Status Stated Complaint: Abd pain Time Seen by Provider: 09/04/24 10:46 Source: family, RN notes reviewed Mode of arrival: wheelchair Limitations: altered mental status, physical limitation - History of Present Illness Initial Comments: This is a 74-year-old female who presents to the emergency department for weakness and confusion. Granddaughter at bedside states that for the last co uple of days she has been increasingly confused. She often forgets where she is and asks to be taken home when she is already there. Her granddaughter took her to her PCPs office today due to worsening symptoms. States that a urine dip was done which was negative. She does get confused like this every now and then and it is often related to UTI and sepsis. Patient has been complaining of some abdominal pain and shortness of breath. She denies any chest pain. She is typically A&O x 4 but is currently only A&O x 2. MD Complaint: altered mental status, confusion - Related Data Home Medications Medication Instructions Recorded Confirmed Aspirin 81 mg PO DAILY 12/14/14 09/04/24 Cyanocobalamin [Vitamin B-12] 1,000 mcg PO DAILY 12/14/14 09/04/24 Multivitamins, Thera [Multivitamin 1 tab PO DAILY 12/14/14 09/04/24 (formulary)] Pramipexole [Mirapex] 0.25 mg PO HS 12/14/14 09/04/24 Cetirizine HCl [Zyrtec] 10 mg PO HS 07/10/19 09/04/24 Metoprolol Tartrate [Lopressor] 25 mg PO BID 07/26/22 09/04/24 Omeprazole 40 mg PO BID 07/26/22 09/04/24 Venlafaxine HCl [Effexor] 100 mg PO DAILY 07/26/22 09/04/24 Calcium Carbonate/Vitamin D3 1 tab PO DAILY 10/05/22 09/04/24 [Calcium 600-D3 20 mcg (800 Unit)] Simethicone [Gas-X] 125 mg PO ACHS PRN 10/05/22 09/04/24 oxyBUTYnin chloride [Ditropan XL] 10 mg PO HS 02/13/23 09/04/24 Cranberry 15,000 1 cap PO DAILY 10/26/23 09/04/24 Docusate [Colace] 100 mg PO DAILY 10/26/23 09/04/24 calcium polycarbophiL [Fibercon] 625 mg PO DAILY 10/26/23 09/04/24 Brinzolamide/Brimonidine Tart 1 drop BOTH EYES BID 08/09/24 09/04/24 [Simbrinza 1%-0.2% Eye Drop] Clotrimazole Cream [Lotrimin Cream] 1 applic TOPICAL BID 08/09/24 09/04/24 Gabapentin [Neurontin] 100 mg PO BID-W/MEALS 08/09/24 09/04/24 Gabapentin [Neurontin] 200 mg PO HS 08/09/24 09/04/24 Meloxicam [Mobic] 15 mg PO DAILY 08/09/24 09/04/24 Nitrofurantoin Monohyd/M-Cryst 100 mg PO HS 08/09/24 09/04/24 [Macrobid] Patient Own Pump 0 bag 08/09/24 Pilocarpine [Salagen] 5 mg PO QID 08/09/24 09/04/24 Potassium Chloride ER [K-Dur 10] 10 meq PO DAILY 08/09/24 09/04/24 metOLazone [Zaroxolyn] 2.5 mg PO DAILY 08/09/24 09/04/24 Torsemide [Demadex] 10 mg PO DAILY 09/04/24 09/04/24 Previous Rx's Medication Instructions Recorded Atorvastatin [Lipitor] 40 mg PO HS #30 tab 10/29/23 Acetaminophen Tab [Tylenol] 1,000 mg PO Q6HR PRN tab 11/11/23 Magnesium Oxide [Mag-Ox] 400 mg PO BID tab 11/11/23 Allergies Allergy/AdvReac Type Severity Reaction Status Date / Time adhesive tape Allergy Rash/Hives, Verified 09/04/24 12:23 "paper tape is ok" Review of Systems ROS Statement: Those systems with pertinent positive or pertinent negative responses have been documented in the HPI. ROS Other: All systems not noted in ROS Statement are negative. Past Medical History Past Medical History: Heart Failure, Hearing Disorder / Deafness, Hypertension, Osteoarthritis (OA) Additional Past Medical History / Comment(s): Arrhythmia, hx anemia, wears pad/brief for urinary incontinence, frequent UTI's, on rn long term care antibiotic treatment to prevent UTI, SOB, deaf in right ear, hard of hearing in left ear, bilateral hearing aid use. History of Any Multi-Drug Resistant Organisms: None Reported Past Surgical History: Appendectomy, Back Surgery, Cholecystectomy, Heart Catheterization With Stent, Hernia Repair, Hysterectomy, Joint Replacement, Orthopedic Surgery Additional Past Surgical History / Comment(s): Pain Clinic Procedures, CARDIAC STENTS X2, L3-4-5 FUSION, total right knee replacement, bilateral cataract surgery. hiatal hernia repair.,Morphine pump implanted. Past Anesthesia/Blood Transfusion Reactions: No Reported Reaction Additional Past Anesthesia/Blood Transfusion Reaction / Comment(s): "Slow coming out." Date of Last Stent Placement:: Past Psychological History: Anxiety, Depression Smoking Status: Never smoker Past Alcohol Use History: None Reported Past Drug Use History: None Reported - Past Family History Father Family Medical History: Cancer Sister(s) Family Medical History: Cancer General Exam Limitations: altered mental status, physical limitation General appearance: alert, in no apparent distress Head exam: Present: atraumatic, normocephalic, normal inspection Respiratory exam: Present: normal lung sounds bilaterally. Absent: respiratory distress, wheezes, rales, rhonchi, stridor Cardiovascular Exam: Present: regular rate, normal rhythm, normal heart sounds. Absent: systolic murmur, diastolic murmur, rubs, gallop, clicks GI/Abdominal exam: Present: soft, tenderness (diffuse), normal bowel sounds. Absent: distended Neurological exam: Present: alert Skin exam: Present: warm, dry, intact, normal color Course Vital Signs 09/04/24 09/04/24 10:35 14:40 Temperature 98.7 F Pulse Rate 98 77 Respiratory 36 H 17 Rate Blood Pressure 115/76 115/60 O2 Sat by Pulse 97 99 Oximetry Medical Decision Making - Medical Decision Making This is a 74 year old female who presents to the emergency department for altered mental status. Was pt. sent in by a medical professional or institution? @ -No Did you speak to anyone other than the patient for history? @ -Granddaughter provided most of the history. Did you review nursing and triage notes? @ -Yes, and I agree, it is accurate with regards to the patient's symptoms. Were old charts reviewed? @ -No Differential Diagnosis? @ -Differential Altered Mental Status: Hypoglycemia, DKA, hypercapnia, ETOH, overdose, CO poisoning, trauma, myxedema coma, HTN encephalopathy, infection, encephalitis, psychosis, intercranial hemorrhage, hepatic encephalopathy, meningitis, CVA, this is not meant to be an all-inclusive list EKG interpreted by me (3pts min.)? @ -EKG interpreted by me demonstrating the following: Sinus rhythm. Ventricular rate 77 bpm, CO interval 190 ms, QRS duration 104 ms, QTc 444 ms. X-rays interpreted by me (1pt min.)? @ -Chest x-ray obtained. My interpretation identifies a possible infiltrate at the left lung base. CT interpreted by me (1pt min.)? @ -CT scan of the brain obtained. My interpretation identifies no evidence of an acute intracranial hemorrhage. CT scan of the abdomen and pelvis obtained. My interpretation identifies no evidence of bowel wall thickening or free air. U/S interpreted by me (1pt. min.)? @ -Not obtained What testing was considered but not performed? (CT, X-rays, U/S, labs)? Why? @ -None What meds were considered but not given? Why? @ -None Did you discuss the management of the patient with other professionals? @ -Yes, Dr. Fajardo, who accepts the patient for admission. Did you reconcile home meds? @ -Yes Was smoking cessation discussed for >3mins.? @ -No Was critical care preformed (if so, how long)? @ -No Were there social determinants of health that impacted care today? How? (Homelessness, low income, unemployed, alcoholism, drug addiction, transportation, low edu. Level, literacy, decrease access to med. care, penitentiary, rehab)? @ -No Was there de-escalation of care discussed even if they declined? (Discuss DNR or withdrawal of care, Hospice)? @ -No What co-morbidities impacted this encounter? (DM, HTN, Smoking, COPD, CAD, Cancer, CVA, Hep., AIDS, mental health diagnosis, sleep apnea, morbid obesity)? @ -CHF, HTN Was patient admitted / discharged? @ -Admitted. On arrival the patient appeared to be in distress and was very altered. She knew her name and at some points knew where she was, but was unable to provide much of any other information aside from abdominal pain and shortness of breath. Lab work demonstrates an elevated lactic acid of 3.8 and was otherwise unremarkable. Urinalysis negative for signs of infection. CT scan of the brain and CT scan of the abdomen and pelvis revealed no acute process. Chest x-ray demonstrates a mild left lower lobe infiltrate and they advised correlation for atelectasis and pneumonia. Patient does endorse shortness of breath. Workup at this time reveals no other cause for her symptoms or other signs of infection. Patient started on the pneumonia protocol with Rocephin and azithromycin. Blood and sputum cultures obtained. Patient admitted to medicine for altered mental status with possible pneumonia. Case discussed with ED attending Dr. Pérez. Undiagnosed new problem with uncertain prognosis? @ -None Drug Therapy requiring intensive monitoring for toxicity (Heparin, Nitro, Insulin, Cardizem)? @ -None Were any procedures done? @ -None Diagnosis/symptom? @ -Altered mental status, pneumonia Acute, or Chronic, or Acute on Chronic? @ -Acute Uncomplicated (without systemic symptoms) or Complicated (systemic symptoms)? @ -Complicated Side effects of treatment? @ -None Exacerbation, Progression, or Severe Exacerbation] @ -Not applicable Poses a threat to life or bodily function? @ -Yes, can lead to respiratory failure - Lab Data Result diagrams: 09/04/24 11:50 09/04/24 11:50 Lab Results 09/04/24 09/04/24 09/04/24 Range/Units 10:33 11:50 11:50 WBC 9.1 (3.8-10.6) k/uL RBC 4.04 (3.80-5.40) m/uL Hgb 12.5 (11.4-16.0) gm/dL Hct 38.9 (34.0-46.0) % MCV 96.2 (80.0-100.0) fL MCH 30.8 (25.0-35.0) pg MCHC 32.0 (31.0-37.0) g/dL RDW 13.8 (11.5-15.5) % Plt Count 228 (150-450) k/uL MPV 7.7 Neutrophils % 88 % Lymphocytes % 7 % Monocytes % 4 % Eosinophils % 0 % Basophils % 0 % Neutrophils # 8.0 H (1.3-7.7) k/uL Lymphocytes # 0.6 L (1.0-4.8) k/uL Monocytes # 0.4 (0-1.0) k/uL Eosinophils # 0.0 (0-0.7) k/uL Basophils # 0.0 (0-0.2) k/uL PT 10.9 (10.0-12.5) sec INR 1.0 (<1.2) APTT 25.7 (22.0-30.0) sec Sodium (137-145) mmol/L Potassium (3.5-5.1) mmol/L Chloride (98-107) mmol/L Carbon Dioxide (22-30) mmol/L Anion Gap mmol/L BUN (7-17) mg/dL Creatinine (0.52-1.04) mg/dL Est GFR (CKD-EPI)AfAm (>60 ml/min/1.73 sqM) Est GFR (CKD-EPI)NonAf (>60 ml/min/1.73 sqM) Glucose (74-99) mg/dL Lactic Ac Sepsis Rflx Plasma Lactic Acid Emmanuel (0.7-2.0) mmol/L Calcium (8.4-10.2) mg/dL Total Bilirubin (0.2-1.3) mg/dL AST (14-36) U/L ALT (4-34) U/L Alkaline Phosphatase (38-126) U/L Troponin I (0.000-0.034) ng/mL C-Reactive Protein 0.5 (<1.0) mg/dL Total Protein (6.3-8.2) g/dL Albumin (3.5-5.0) g/dL Amylase (30-110) U/L Lipase (23-300) U/L Urine Color Urine Appearance (Clear) Urine pH (5.0-8.0) Ur Specific [place] (1.001-1.035) Urine Protein (Negative) Urine Glucose (UA) (Negative) Urine Ketones (Negative) Urine Blood (Negative) Urine Nitrite (Negative) Urine Bilirubin (Negative) Urine Urobilinogen (<2.0) mg/dL Ur Leukocyte Esterase (Negative) 09/04/24 09/04/24 09/04/24 Range/Units 11:50 11:50 11:59 WBC (3.8-10.6) k/uL RBC (3.80-5.40) m/uL Hgb (11.4-16.0) gm/dL Hct (34.0-46.0) % MCV (80.0-100.0) fL MCH (25.0-35.0) pg MCHC (31.0-37.0) g/dL RDW (11.5-15.5) % Plt Count (150-450) k/uL MPV Neutrophils % % Lymphocytes % % Monocytes % % Eosinophils % % Basophils % % Neutrophils # (1.3-7.7) k/uL Lymphocytes # (1.0-4.8) k/uL Monocytes # (0-1.0) k/uL Eosinophils # (0-0.7) k/uL Basophils # (0-0.2) k/uL PT (10.0-12.5) sec INR (<1.2) APTT (22.0-30.0) sec Sodium 144 (137-145) mmol/L Potassium 4.2 (3.5-5.1) mmol/L Chloride 107 (98-107) mmol/L Carbon Dioxide 27 (22-30) mmol/L Anion Gap 10 mmol/L BUN 22 H (7-17) mg/dL Creatinine 0.67 (0.52-1.04) mg/dL Est GFR (CKD-EPI)AfAm >90 (>60 ml/min/1.73 sqM) Est GFR (CKD-EPI)NonAf 87 (>60 ml/min/1.73 sqM) Glucose 121 H (74-99) mg/dL Lactic Ac Sepsis Rflx Plasma Lactic Acid Emmanuel 3.8 H* (0.7-2.0) mmol/L Calcium 9.3 (8.4-10.2) mg/dL Total Bilirubin 1.4 H (0.2-1.3) mg/dL AST 29 (14-36) U/L ALT 15 (4-34) U/L Alkaline Phosphatase 78 (38-126) U/L Troponin I 0.018 (0.000-0.034) ng/mL C-Reactive Protein (<1.0) mg/dL Total Protein 7.1 (6.3-8.2) g/dL Albumin 3.9 (3.5-5.0) g/dL Amylase 58 (30-110) U/L Lipase 135 (23-300) U/L Urine Color Urine Appearance (Clear) Urine pH (5.0-8.0) Ur Specific [place] (1.001-1.035) Urine Protein (Negative) Urine Glucose (UA) (Negative) Urine Ketones (Negative) Urine Blood (Negative) Urine Nitrite (Negative) Urine Bilirubin (Negative) Urine Urobilinogen (<2.0) mg/dL Ur Leukocyte Esterase (Negative) 09/04/24 09/04/24 Range/Units 12:31 13:44 WBC (3.8-10.6) k/uL RBC (3.80-5.40) m/uL Hgb (11.4-16.0) gm/dL Hct (34.0-46.0) % MCV (80.0-100.0) fL MCH (25.0-35.0) pg MCHC (31.0-37.0) g/dL RDW (11.5-15.5) % Plt Count (150-450) k/uL MPV Neutrophils % % Lymphocytes % % Monocytes % % Eosinophils % % Basophils % % Neutrophils # (1.3-7.7) k/uL Lymphocytes # (1.0-4.8) k/uL Monocytes # (0-1.0) k/uL Eosinophils # (0-0.7) k/uL Basophils # (0-0.2) k/uL PT (10.0-12.5) sec INR (<1.2) APTT (22.0-30.0) sec Sodium (137-145) mmol/L Potassium (3.5-5.1) mmol/L Chloride (98-107) mmol/L Carbon Dioxide (22-30) mmol/L Anion Gap mmol/L BUN (7-17) mg/dL Creatinine (0.52-1.04) mg/dL Est GFR (CKD-EPI)AfAm (>60 ml/min/1.73 sqM) Est GFR (CKD-EPI)NonAf (>60 ml/min/1.73 sqM) Glucose (74-99) mg/dL Lactic Ac Sepsis Rflx Y Plasma Lactic Acid Emmanuel (0.7-2.0) mmol/L Calcium (8.4-10.2) mg/dL Total Bilirubin (0.2-1.3) mg/dL AST (14-36) U/L ALT (4-34) U/L Alkaline Phosphatase (38-126) U/L Troponin I (0.000-0.034) ng/mL C-Reactive Protein (<1.0) mg/dL Total Protein (6.3-8.2) g/dL Albumin (3.5-5.0) g/dL Amylase (30-110) U/L Lipase (23-300) U/L Urine Color Light Yellow Urine Appearance Clear (Clear) Urine pH 8.5 H (5.0-8.0) Ur Specific [place] 1.025 (1.001-1.035) Urine Protein Negative (Negative) Urine Glucose (UA) Negative (Negative) Urine Ketones 1+ H (Negative) Urine Blood Negative (Negative) Urine Nitrite Negative (Negative) Urine Bilirubin Negative (Negative) Urine Urobilinogen <2.0 (<2.0) mg/dL Ur Leukocyte Esterase Negative (Negative) - Radiology Data Radiology results: report reviewed, image reviewed Disposition Clinical Impression: Altered mental status, Pneumonia Disposition: ADMITTED IP TO THIS HOSP
[2024-09-04 12:01] LABS: Basophils % (A) 0 %; Eosinophils % (A) 0 %; HCT 38.9 % (34.0-46.0); HGB 12.5 gm/dL (11.4-16.0); Lymphocytes # (A) 0.6 k/uL (1.0-4.8); Lymphocytes % (A) 7 %; MCH 30.8 pg (25.0-35.0); MCV 96.2 fL (80.0-100.0); Mean Platelet Volume 7.7; Monocytes # (A) 0.4 k/uL (0-1.0); Monocytes % (A) 4 %; Neutrophils % (A) 88 %; Platelet Count 228 k/uL (150-450); RBC 4.04 m/uL (3.80-5.40); RDW 13.8 % (11.5-15.5); WBC 9.1 k/uL (3.8-10.6)
[2024-09-04 12:10] LABS: ALT 15 U/L (4-34); AST 29 U/L (14-36); African American GFR (CKD) >90 (>60 ml/min/1.73 sqM); Albumin 3.9 g/dL (3.5-5.0); Alkaline Phosphatase 78 U/L (38-126); Amylase 58 U/L (30-110); Anion Gap 10 mmol/L; Blood Urea Nitrogen 22 mg/dL (7-17); Calcium 9.3 mg/dL (8.4-10.2); Carbon Dioxide 27 mmol/L (22-30); Chloride 107 mmol/L (98-107); Glucose 121 mg/dL (74-99); Lipase 135 U/L (23-300); Non-African American GFR(CKD) 87 (>60 ml/min/1.73 sqM); Potassium 4.2 mmol/L (3.5-5.1); Sodium 144 mmol/L (137-145); Total Bilirubin 1.4 mg/dL (0.2-1.3); Total Protein 7.1 g/dL (6.3-8.2)
[2024-09-04 12:32] LABS: Partial Thromboplastin Time 25.7 sec (22.0-30.0); Prothrombin Time 10.9 sec (10.0-12.5)
--- NOTE | 2024-09-04 12:46 | CT ---
EXAMINATION TYPE: CT brain wo con CT DLP: 1150.4 mGycm, Automated exposure control for dose reduction was used. DATE OF EXAM: 09/04/2024 12:39 PM COMPARISON: CT brain C-spine 08/09/2024, 08/08/2024, CT brain 06/29/2024, 11/06/2023 CLINICAL INDICATION:Female, 74 years old with history of Altered mental status, AMS TECHNIQUE: Brain: Multiple axial CT images of the brain were obtained without IV contrast. . Coronal and sagitta l reformats reviewed. FINDINGS: Brain: Extra-axial spaces: No abnormal extra-axial fluid collections. Ventricular system: Within normal limits Cerebral parenchyma: Cerebral atrophy. No acute intraparenchymal hemorrhage or mass effect. The oreilly -white junction is well differentiated. Scattered hypoattenuating areas are seen within the periventr icular and subcortical white matter. Cerebellum: Unremarkable. Mass effect: No evidence of midline shift. Intracranial vasculature: Atherosclerotic calcifications of the intracranial vessels. Soft tissues: Normal. Calvarium/osseous structures: No depressed skull fracture. Benign hyperostosis frontalis noted. Paranasal sinuses and mastoid air cells: Clear Visualized orbits: Bilateral aphakia IMPRESSION: 1. No acute intracranial process. 2. Nonspecific white matter changes, likely secondary to chronic small vessel ischemic disease. [facility], , 09/04/2024 12:43 PM
--- NOTE | 2024-09-04 13:01 | XR ---
EXAMINATION TYPE: XR chest 2V DATE OF EXAM: 09/04/2024 12:52 PM COMPARISON: None. CLINICAL INDICATION: Female, 74 years old with history of altered mental status, TECHNIQUE: XR chest 2V view(s) obtained. FINDINGS: The heart size is normal. The pulmonary vasculature is normal. Some mild patchy infiltrate medially at the left lung base. Correlate for atelectasis or pneumonia.. Gliosis present. Degenerative changes are at the shoulders IMPRESSION: 1. Mild left lower lobe infiltrate. Correlate for atelectasis and pneumonia. [facility], , 09/04/2024 12:59 PM
--- NOTE | 2024-09-04 13:01 | CT ---
EXAMINATION TYPE: CT abdomen pelvis w con CT DLP: 1673 mGycm, Automated exposure control for dose reduction was used. DATE OF EXAM: 09/04/2024 12:48 PM COMPARISON: CT thoracolumbar spine 08/09/2024, pelvic radiograph 08/09/2024, CT abdomen and pelvis CLINICAL INDICATION:Female, 74 years old with history of Abdominal pain, acute, nonlocalized; abd antonieta n TECHNIQUE: Standard CT of the abdomen and pelvis following the administration of 100 cc of Isovue 3 00 IV contrast material. Coronal and sagittal reformats were performed. FINDINGS: LOWER CHEST: Respiratory motion limits evaluation. Suspected left basilar atelectatic changes. Cardio megaly. Coronary artery calcifications. ABDOMEN LIVER: Unremarkable GALLBLADDER AND BILE DUCTS: The gallbladder is surgically absent. No significant biliary ductal dilat ation. PANCREAS: Unremarkable. SPLEEN: Unremarkable. ADRENAL GLANDS: Unremarkable. KIDNEYS AND URETERS: No evidence of hydronephrosis or renal calculus. The kidneys enhance symmetrical ly. Contrast is demonstrated within both collecting systems on the delayed phase. PELVIS BLADDER: Unremarkable REPRODUCTIVE: The uterus is surgically absent. ABDOMEN & PELVIS STOMACH AND BOWEL: Moderate to large hiatal hernia. Nonobstructive transverse colon within the left a nterior abdominal wall hernia. No evidence of bowel obstruction. Distal colonic diverticulosis withou t evidence for acute diverticulitis. The appendix is not definitively visualized however there is no significant inflammatory changes within the right lower quadrant. PERITONEUM: No evidence of pneumoperitoneum or free fluid. VASCULATURE: Mild atherosclerotic calcifications are present throughout the abdominal aorta and its b ranches. No evidence of aortic aneurysm. MUSCULOSKELETAL: No acute osseous abnormalities. Moderate degenerative changes of the visualized uppe r to mid lumbar spine. Patient is status post L3-L5 posterior interbody lumbar fusion. Advanced degen erative disc disease and facet arthropathy below the fusion at L5-S1 grade 1 anterolisthesis is an so me associated endplate erosion. Similar in appearance. LYMPH NODES: No evidence for lymphadenopathy. SOFT TISSUE/ABDOMINAL WALL: Left lateral anterior lower abdominal wall hernia containing nonobstructi ve transverse colon. The defect measures 4.9 cm in diameter. Stimulator power pack identified. Left a nterior abdominal wall. A few scattered anterior donor wall calcified granulomas. Mild anasarca. Rede monstration of suprapubic rectus diastases. IMPRESSION: 1. No CT evidence for acute abdominal/pelvic process. 2. Redemonstration of anterior left lower abdominal wall hernia containing nonobstructive transverse colon. 3. Colonic diverticulosis without evidence for acute diverticulitis. 4. Moderate to large hiatal hernia redemonstrated. 5. Similar appearance of L3-L5 posterior interbody fusion with advanced spondylitic change below the fusion L5-S1 with degenerative grade 1 anterolisthesis. [facility], , 09/04/2024 12:59 PM
[2024-09-04] MEDS: SODIUM CHLORIDE 0.9% 1,000 ML IV STA (13:12)
[2024-09-04] MEDS ORDERED: PNEUMONIA PROTOCOL UTILIZED 1 EACH MISC PO PRN (13:36)
[2024-09-04 14:00] LABS: Appearance,Urine Clear (Clear); Bilirubin,Urine Negative (Negative); Blood,Urine Negative (Negative); Color,Urine Light Yellow; Glucose,Urine (UA) Negative (Negative); Ketones,Urine 1+ (Negative); Leukocyte Esterase,Urine Negative (Negative); Nitrite,Urine Negative (Negative); PH, Urine 8.5 (5.0-8.0); Protein,Urine Negative (Negative); Specific Gravity,Urine 1.025 (1.001-1.035); Urobilinogen,Urine <2.0 mg/dL (<2.0)
[2024-09-04] MEDS: AZITHROMYCIN 500 MG in SODIUM CHLORIDE 0.9% 250 ML IVPB STA (14:41)
[2024-09-04] MEDS ORDERED: ACETAMINOPHEN TAB 325 MG TAB PO PRN (15:30)
[2024-09-04] MEDS ORDERED: NALOXONE 0.4 MG/ML 1 ML VIAL IV PRN (15:30)
[2024-09-04] MEDS ORDERED: ONDANSETRON 4 MG/2 ML VIAL IVP PRN (15:30)
[2024-09-04] MEDS: KETOROLAC 15 MG/ML 1 ML VIAL IVP STA (16:24)
[2024-09-04] MEDS: PIPERACILLIN-TAZOBACTAM 3.375 GM in SODIUM CHLORIDE 0.9% 100 ML IVPB SCH (18:32)
[2024-09-04] MEDS: GABAPENTIN 100 MG CAP PO SCH ×2 (18:34→23:15)
[2024-09-04] MEDS: MORPHINE SULFATE 4 MG/ML SYRINGE IV PRN (18:55)
[2024-09-04] MEDS: PILOCARPINE 5 MG TAB PO SCH (19:18)
[2024-09-04] MEDS ORDERED: NON FORMULARY DRUG (Omeprazole [Omeprazole] 40 MG Capsule.Dr) PO SCH (21:00)
[2024-09-04] MEDS: KETOROLAC 15 MG/ML 1 ML VIAL IVP PRN (23:14)
[2024-09-04] MEDS: SODIUM CHLORIDE 0.9% 1,000 ML IV SCH (23:14)
[2024-09-04] MEDS: METOPROLOL TARTRATE 25 MG TAB PO SCH (23:15)
[2024-09-04] MEDS: LORATADINE 10 MG TAB PO SCH (23:16)
[2024-09-04] MEDS: MAGNESIUM OXIDE 400 MG TAB PO SCH (23:16)
[2024-09-04] MEDS: ATORVASTATIN 40 MG TAB PO SCH (23:16)
[2024-09-04] MEDS: DORZOLAMIDE HCL 2% DROPS 10 ML BTL BOTH EYES SCH (23:16)
[2024-09-04] MEDS: CLOTRIMAZOLE 1% CREAM 30 GM TUBE TOPICAL SCH (23:17)
[2024-09-04] MEDS: BRIMONIDINE TARTRATE 0.2% DROPS 5 ML BTL BOTH EYES SCH (23:17)
[2024-09-04] MEDS: OXYBUTYNIN 10 MG TAB.ER.24 PO SCH (23:17)
--- NOTE | 2024-09-05 00:09 | HP ---
HISTORY AND PHYSICAL CHIEF COMPLAINT: Change in mental status and pneumonia. HISTORY OF PRESENT ILLNESS: This is a 74-year-old woman with a past medical history of multiple medical problems including CHF, hypertension, DJD, was noted to have some weakness and confusion. Initially, the patient gets UTI, but however, the patient was tested for UTI, the strip was negative and the patient was sent to [facility]. The patient is rather unresponsive at this time, barely arousable. Multiple evaluations in the hospital showed possible pneumonia in the mid left lower lobe and the patient was admitted for further evaluation and treatment. The patient unable to give any coherent history. Most of the history taken from my discussion with staff and review of the chart. COVID- 19 is not available. Lactic acid 3.8. PAST MEDICAL HISTORY: Reviewed include CHF, hypertension, DJD. Rest of the history and rest of the chart is also reviewed. HOME MEDICATIONS: Reviewed include zaroxolyn. Dose and rest of medications reviewed. ALLERGIES: Adhesive tapes. FAMILY HISTORY: History of cancer. SOCIAL HISTORY: No history of smoking or alcohol. REVIEW OF SYSTEMS: Fourteen-point review is negative except as mentioned earlier. PHYSICAL EXAMINATION: VITAL SIGNS: Pulse 77, blood pressure 158/60, respirations 17. HEENT: Conjunctivae normal. NECK: No JVD. CARDIOVASCULAR: S1, S2. RESPIRATIONS: Breath sounds diminished at the bases. A few scattered rhonchi and crackles. ABDOMEN: Soft. NERVOUS SYSTEM: Nonfocal. LABORATORY DATA: Reviewed. ASSESSMENT: 1. Acute left lower lobe pneumonia, possibly aspiration and evaluation. 2. Change in mental status, metabolic encephalopathy. 3. Congestive heart failure. 4. History of degenerative joint disease. 5. History of coronary artery disease stent. RECOMMENDATIONS AND DISCUSSION: This is a 74-year-old woman presented with multiple complex medical issues, we will monitor the patient closely. Recommend broad-spectrum IV antibiotics. Infectious and Pulmonary consultations, bronchodilators. Otherwise, the patient also had change in mental status. I would also recommend Neurology consultation also. Cultures will be obtained. Overall prognosis is extremely guarded. Further recommendations to follow. CT showed nonspecific white matter changes. MMODL / IJN: [id number] /
[2024-09-05] MEDS: PRAMIPEXOLE 0.25 MG TAB PO SCH (00:56)
[2024-09-05] MEDS: NYSTATIN 100,000UNIT/GM CREAM 30 GM TUBE TOPICAL SCH (00:57)
[2024-09-05] MEDS: CYANOCOBALAMIN 500 MCG TAB PO SCH (08:38)
[2024-09-05] MEDS: ASPIRIN 81 MG PO SCH (08:38)
[2024-09-05] MEDS: TORSEMIDE 20 MG TAB PO SCH (08:39)
[2024-09-05] MEDS: MULTIVITAMINS, THERA 1 EACH TAB PO SCH (08:39)
[2024-09-05] MEDS: CALCIUM CARB-VIT D 500 MG-5 MCG TAB PO SCH (08:39)
[2024-09-05] MEDS: MELOXICAM 7.5 MG TAB PO SCH (08:39)
[2024-09-05] MEDS: DOCUSATE 100 MG CAP PO SCH (08:39)
[2024-09-05] MEDS: POTASSIUM CHLORIDE ER 10 MEQ TAB.ER.PRT PO SCH (08:39)
[2024-09-05] MEDS: VENLAFAXINE HCL 50 MG TAB PO SCH (08:51)
[2024-09-05] MEDS: metOLazone 2.5 MG TAB PO SCH (08:51)
[2024-09-05] MEDS: PANTOPRAZOLE 40 MG/10 ML VIAL IV SCH (08:59)
[2024-09-05] MEDS ORDERED: CRANBERRY PO SCH (09:00)
[2024-09-05 09:48] LABS: BUN/Creat Ratio 22.62 Ratio (12.00-20.00); Blood Urea Nitrogen 18.1 mg/dL (9.0-27.0); Calcium 8.6 mg/dL (8.7-10.3); Carbon Dioxide 23.1 mmol/L (21.6-31.8); Chloride 108 mmol/L (96-109); Glucose 107 mg/dL (70-110); Potassium 3.6 mmol/L (3.5-5.5); Sodium 141 mmol/L (135-145)
[2024-09-05 09:59] LABS: Basophils # (A) 0.02 X 10*3/uL (0.00-0.10); Basophils % (A) 0.2 %; Eosinophils # (A) 0.02 X 10*3/uL (0.04-0.35); Eosinophils % (A) 0.2 %; HCT 31.8 % (37.2-46.3); HGB 10.3 g/dL (12.0-15.0); Lymphocytes # (A) 1.18 X 10*3/uL (0.90-5.00); Lymphocytes % (A) 12.8 %; MCH 30.7 pg (27.0-32.0); MCHC 32.4 g/dL (32.0-37.0); MCV 94.9 FL (80.0-97.0); Mean Platelet Volume 11.2 FL (9.5-12.2); Monocytes # (A) 0.39 X 10*3/uL (0.20-1.00); Monocytes % (A) 4.2 %; NRBC Per 100 WBC 0 X 10*3/uL (0.00-0.01); Neutrophils # (A) 7.55 X 10*3/uL (1.80-7.70); Neutrophils % (A) 82.1 %; Platelet Count 132 X 10*3/uL (140-440); RBC 3.35 X 10*6/uL (4.10-5.20); RDW 14.1 % (11.5-14.5); WBC 9.21 X 10*3/uL (4.50-10.00)
--- NOTE | 2024-09-05 13:08 | P.CNPUL ---
History of Present Illness Consult date: 09/05/24 Requesting physician: Bert Godinez Reason for consult: dyspnea Chief complaint: Altered mental status, shortness of breath History of present illness: This is a 74-year-old female patient with a known history of congestive heart failure, hearing disorder, hypertension coronary artery disease with previous stent placement anxiety. Lifelong non-smoker. She was brought into the emergency room yesterday by her granddaughter who states the patient was having issues with altered mental status. She had found her naked sitting on the toilet asking to be taken home when she was actually at her home. She states this has happened before when she has had a urinary tract infection. Urinalysis clean. CT scan of the brain revealed no acute intracranial process. CT scan of the abdomen and pelvis revealed no acute process. Viral screen negative. White count 9.2. Hemoglobin 10.3. Platelets 132. Sodium 141. Potassium 3.6. Bicarb 23. BUN 18. Creatinine 0.8. Glucose 107. She is seen today in consultation on the regular medical floor. She is resting comfortably in bed. Awake and alert currently. Oriented x 3. No worsening shortness of breath, cough or congestion. She is maintaining good O2 saturations in the 90s on 2 L/min per nasal cannula. Chest x-ray showing a mild left lower lobe infiltrate. Most likely atelectasis versus early pneumonia. Procalcitonin 0.47. Review of Systems ROS unobtainable: due to mental status Past Medical History Past Medical History: Heart Failure, Hearing Disorder / Deafness, Hypertension, Osteoarthritis (OA) Additional Past Medical History / Comment(s): Arrhythmia, hx anemia, wears pad/brief for urinary incontinence, frequent UTI's, on retirement antibiotic treatment to prevent UTI, SOB, deaf in right ear, hard of hearing in left ear, bilateral hearing aid use. History of Any Multi-Drug Resistant Organisms: None Reported Past Surgical History: Appendectomy, Back Surgery, Cholecystectomy, Heart Catheterization With Stent, Hernia Repair, Hysterectomy, Joint Replacement, Orthopedic Surgery Additional Past Surgical History / Comment(s): Pain Clinic Procedures, CARDIAC STENTS X2, L3-4-5 FUSION, total right knee replacement, bilateral cataract surgery. hiatal hernia repair.,Morphine pump implanted. Past Anesthesia/Blood Transfusion Reactions: No Reported Reaction Additional Past Anesthesia/Blood Transfusion Reaction / Comment(s): "Slow coming out." Date of Last Stent Placement:: Past Psychological History: Anxiety, Depression Smoking Status: Never smoker Past Alcohol Use History: None Reported Past Drug Use History: None Reported - Past Family History Father Family Medical History: Cancer Sister(s) Family Medical History: Cancer Medications and Allergies Home Medications Medication Instructions Recorded Confirmed Type Aspirin 81 mg PO DAILY 12/14/14 09/04/24 History Cyanocobalamin [Vitamin B-12] 1,000 mcg PO DAILY 12/14/14 09/04/24 History Multivitamins, Thera [Multivitamin 1 tab PO DAILY 12/14/14 09/04/24 History (formulary)] Pramipexole [Mirapex] 0.25 mg PO HS 12/14/14 09/04/24 History Cetirizine HCl [Zyrtec] 10 mg PO HS 07/10/19 09/04/24 History Metoprolol Tartrate [Lopressor] 25 mg PO BID 07/26/22 09/04/24 History Omeprazole 40 mg PO BID 07/26/22 09/04/24 History Venlafaxine HCl [Effexor] 100 mg PO DAILY 07/26/22 09/04/24 History Calcium Carbonate/Vitamin D3 1 tab PO DAILY 10/05/22 09/04/24 History [Calcium 600-D3 20 mcg (800 Unit)] Simethicone [Gas-X] 125 mg PO ACHS PRN 10/05/22 09/04/24 History oxyBUTYnin chloride [Ditropan XL] 10 mg PO HS 02/13/23 09/04/24 History Cranberry 15,000 1 cap PO DAILY 10/26/23 09/04/24 History Docusate [Colace] 100 mg PO DAILY 10/26/23 09/04/24 History calcium polycarbophiL [Fibercon] 625 mg PO DAILY 10/26/23 09/04/24 History Atorvastatin [Lipitor] 40 mg PO HS #30 tab 10/29/23 09/04/24 Rx Acetaminophen Tab [Tylenol] 1,000 mg PO Q6HR PRN tab 11/11/23 09/04/24 Rx Magnesium Oxide [Mag-Ox] 400 mg PO BID tab 11/11/23 09/04/24 Rx Brinzolamide/Brimonidine Tart 1 drop BOTH EYES BID 08/09/24 09/04/24 History [Simbrinza 1%-0.2% Eye Drop] Clotrimazole Cream [Lotrimin Cream] 1 applic TOPICAL BID 08/09/24 09/04/24 Histo ry Gabapentin [Neurontin] 100 mg PO BID-W/MEALS 08/09/24 09/04/24 History Gabapentin [Neurontin] 200 mg PO HS 08/09/24 09/04/24 History Meloxicam [Mobic] 15 mg PO DAILY 08/09/24 09/04/24 History Nitrofurantoin Monohyd/M-Cryst 100 mg PO HS 08/09/24 09/04/24 History [Macrobid] Patient Own Pump 0 bag 08/09/24 History Pilocarpine [Salagen] 5 mg PO QID 08/09/24 09/04/24 History Potassium Chloride ER [K-Dur 10] 10 meq PO DAILY 08/09/24 09/04/24 History metOLazone [Zaroxolyn] 2.5 mg PO DAILY 08/09/24 09/04/24 History Torsemide [Demadex] 10 mg PO DAILY 09/04/24 09/04/24 History Allergies Allergy/AdvReac Type Severity Reaction Status Date / Time adhesive tape Allergy Rash/Hives, Verified 09/04/24 12:23 "paper tape is ok" Physical Exam Vitals: Vital Signs Temp Pulse Pulse Resp BP BP Pulse Ox 09/05/24 08:00 17 09/05/24 07:50 98.6 F 74 20 109/66 98 09/05/24 01:06 97.8 F 63 17 112/67 99 09/04/24 20:50 98.5 F 66 19 122/76 100 09/04/24 20:40 63 17 09/04/24 20:16 69 20 107/52 100 09/04/24 18:00 73 17 118/57 99 09/04/24 14:40 77 17 115/60 99 Intake and Output 09/04/24 09/05/24 09/05/24 22:59 06:59 14:59 Output Total 300 700 Balance -300 -700 Output: Urine 300 700 Other: Voiding Method External Catheter # Bowel Movements 1 Weight 86.183 kg GENERAL EXAM: Alert, 74-year-old female, resting in bed, on 2 L nasal cannula, comfortable in no apparent distress. HEAD: Normocephalic. EYES: Normal reaction of pupils, equal size. NOSE: Clear with pink turbinates. THROAT: No erythema or exudates. NECK: No masses, no JVD. CHEST: No chest wall deformity. LUNGS: Equal air entry with rhonchi over the left lung base. CVS: S1 and S2 normal with no audible murmur, regular rhythm. ABDOMEN: No hepatosplenomegaly, normal bowel sounds, no guarding or rigidity. SPINE: No scoliosis or deformity SKIN: No rashes CENTRAL NERVOUS SYSTEM: No focal deficits, tone is normal in all 4 extremities. EXTREMITIES: There is no peripheral edema. No clubbing, no cyanosis. Peripheral pulses are intact. Results - Laboratory Findings CBC and BMP: 09/05/24 06:15 09/05/24 06:15 PT/INR, D-dimer PT 10.9 sec (10.0-12.5) 09/04/24 11:50 INR 1.0 (<1.2) 09/04/24 11:50 Abnormal lab findings: Abnormal Labs 09/04/24 09/04/24 09/04/24 11:50 11:50 11:59 RBC Hgb Hct Plt Count Immature Gran # Neutrophils # 8.0 H Lymphocytes # 0.6 L Eosinophils # BUN 22 H BUN/Creatinine Ratio Glucose 121 H Plasma Lactic Acid Emmanuel 3.8 H* Calcium Total Bilirubin 1.4 H Urine pH Urine Ketones 09/04/24 09/04/24 09/05/24 13:44 16:21 06:15 RBC 3.35 L Hgb 10.3 L Hct 31.8 L Plt Count 132 L Immature Gran # 0.05 H Neutrophils # Lymphocytes # Eosinophils # 0.02 L BUN BUN/Creatinine Ratio Glucose Plasma Lactic Acid Emmanuel 2.8 H* Calcium Total Bilirubin Urine pH 8.5 H Urine Ketones 1+ H 09/05/24 06:15 RBC Hgb Hct Plt Count Immature Gran # Neutrophils # Lymphocytes # Eosinophils # BUN BUN/Creatinine Ratio 22.62 H Glucose Plasma Lactic Acid Emmanuel Calcium 8.6 L Total Bilirubin Urine pH Urine Ketones - Diagnostic Findings Chest x-ray: image reviewed Assessment and Plan Assessment: Altered mental status of unclear etiology Left lower lobe infiltrate/atelectasis. Procalcitonin negative at 0.47 Obstructive sleep apnea maintained on BiPAP Hypertension Hyperlipidemia Coronary disease with previous stent placement Non-smoker Plan: The patient was seen and evaluated Chest x-ray, labs and medications reviewed CT scan of the brain revealed no acute process Possible early pneumonia in the left lung base Continue antibiotics for now Follow-up chest x-ray in a.m. Titrate down/off the FiO2 as tolerated We will continue to follow and make further recommendations based on her clinical status I have personally seen and examined the patient, performed the documentation and the assessment and plan as written. Number of minutes spent on the visit: 20 Dictation was produced using [employer] dictation software. Please excuse any grammatical, word or spelling errors.
[2024-09-05] MEDS: AZITHROMYCIN 500 MG TAB PO SCH (13:55)
--- NOTE | 2024-09-05 14:17 | P.CNNES ---
History of Present Illness Consult date: 09/05/24 Reason for Consult: Altered mental status History of Present Illness: The patient is a 74-year-old female who was seen in neurologic consultation on September 05, 2024, in collaboration with Marlyn Randall, via teleneurology. History is obtained from review of the chart, and the daughter who is present at the bedside at the time of the evaluation. The daughter reports that her mother has been confused, starting this past Saturday. She also has been very weak. She has had a mild cough. The patient reportedly has become confused in the past, associated with urinary tract infections. The daughter took the patient to the primary care physician where urinalysis was assessed. There was no reported infection noted. The daughter elected to bring the patient into the emergency department. In the ER, chest x-ray revealed a left lower lobe pneumonia. CT scan of the brain was negative for acute hemorrhage and infarct. Urinalysis is negative for infection. The patient was started on IV antibiotics for the pneumonia. According to the patient's daughter, this morning, the patient is doing much better. The patient herself is able to answer questions. She says she does not recall coming into the hospital and does not know why she came to the hospital. The patient denies headache. She denies visual changes. There is no difficulty with speech or swallowing. No lateralizing weakness. 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 History of Any Multi-Drug Resistant Organisms: None Reported Past Surgical History: Appendectomy, Back Surgery, Cholecystectomy, Heart Catheterization With Stent, Hernia Repair, Hysterectomy, Joint Replacement, Orthopedic Surgery Additional Past Surgical History / Comment(s): Pain Clinic Procedures, CARDIAC STENTS X2, L3-4-5 FUSION, total right knee replacement, bilateral cataract surgery. hiatal hernia repair.,Morphine pump implanted. Past Anesthesia/Blood Transfusion Reactions: No Reported Reaction Additional Past Anesthesia/Blood Transfusion Reaction / Comment(s): "Slow coming out." Date of Last Stent Placement:: Past Psychological History: Anxiety, Depression Smoking Status: Never smoker Past Alcohol Use History: None Reported Past Drug Use History: None Reported - Past Family History Father Family Medical History: Cancer Sister(s) Family Medical History: Cancer Medications and Allergies Home Medications Medication Instructions Recorded Confirmed Type Aspirin 81 mg PO DAILY 12/14/14 09/04/24 History Cyanocobalamin [Vitamin B-12] 1,000 mcg PO DAILY 12/14/14 09/04/24 History Multivitamins, Thera [Multivitamin 1 tab PO DAILY 12/14/14 09/04/24 History (formulary)] Pramipexole [Mirapex] 0.25 mg PO HS 12/14/14 09/04/24 History Cetirizine HCl [Zyrtec] 10 mg PO HS 07/10/19 09/04/24 History Metoprolol Tartrate [Lopressor] 25 mg PO BID 07/26/22 09/04/24 History Omeprazole 40 mg PO BID 07/26/22 09/04/24 History Venlafaxine HCl [Effexor] 100 mg PO DAILY 07/26/22 09/04/24 History Calcium Carbonate/Vitamin D3 1 tab PO DAILY 10/05/22 09/04/24 History [Calcium 600-D3 20 mcg (800 Unit)] Simethicone [Gas-X] 125 mg PO ACHS PRN 10/05/22 09/04/24 History oxyBUTYnin chloride [Ditropan XL] 10 mg PO HS 02/13/23 09/04/24 History Cranberry 15,000 1 cap PO DAILY 10/26/23 09/04/24 History Docusate [Colace] 100 mg PO DAILY 10/26/23 09/04/24 History calcium polycarbophiL [Fibercon] 625 mg PO DAILY 10/26/23 09/04/24 History Atorvastatin [Lipitor] 40 mg PO HS #30 tab 10/29/23 09/04/24 Rx Acetaminophen Tab [Tylenol] 1,000 mg PO Q6HR PRN tab 11/11/23 09/04/24 Rx Magnesium Oxide [Mag-Ox] 400 mg PO BID tab 11/11/23 09/04/24 Rx Brinzolamide/Brimonidine Tart 1 drop BOTH EYES BID 08/09/24 09/04/24 History [Simbrinza 1%-0.2% Eye Drop] Clotrimazole Cream [Lotrimin Cream] 1 applic TOPICAL BID 08/09/24 09/04/24 History Gabapentin [Neurontin] 100 mg PO BID-W/MEALS 08/09/24 09/04/24 History Gabapentin [Neurontin] 200 mg PO HS 08/09/24 09/04/24 History Meloxicam [Mobic] 15 mg PO DAILY 08/09/24 09/04/24 History Nitrofurantoin Monohyd/M-Cryst 100 mg PO HS 08/09/24 09/04/24 History [Macrobid] Patient Own Pump 0 bag 08/09/24 History Pilocarpine [Salagen] 5 mg PO QID 08/09/24 09/04/24 History Potassium Chloride ER [K-Dur 10] 10 meq PO DAILY 08/09/24 09/04/24 History metOLazone [Zaroxolyn] 2.5 mg PO DAILY 08/09/24 09/04/24 History Torsemide [Demadex] 10 mg PO DAILY 09/04/24 09/04/24 History Allergies Allergy/AdvReac Type Severity Reaction Status Date / Time adhesive tape Allergy Rash/Hives, Verified 09/04/24 12:23 "paper tape is ok" Physical Examination - Vital Signs Vital Signs: Vital Signs Temp Pulse Pulse Resp BP BP Pulse Ox 09/05/24 01:06 97.8 F 63 17 112/67 99 09/04/24 20:50 98.5 F 66 19 122/76 100 09/04/24 20:40 63 17 09/04/24 20:16 69 20 107/52 100 09/04/24 18:00 73 17 118/57 99 09/04/24 14:40 77 17 115/60 99 09/04/24 10:35 98.7 F 98 36 H 115/76 97 Intake and Output 09/04/24 09/05/24 09/05/24 22:59 06:59 14:59 Output Total 300 Balance -300 Output: Urine 300 Other: Voiding Method External Catheter # Bowel Movements 1 Weight 86.183 kg General: The patient is well-nourished, well-developed and in no acute distress HEENT: Head is atraumatic, normocephalic. Fundus not visualized. There is no scleral icterus. Mucous members are moist Neck: Supple without carotid bruits Heart: Regular rate and rhythm without murmur Lungs: Essentially clear to auscultation Extremities: Without edema Neurological examination Mental status: The patient is awake, alert and oriented x 3. Speech is clear/fluent. There is no dysarthria or aphasia. Cranial nerves: Pupils are equal at 2mm, round and reactive to light. Visual francois are full to confrontation. Extraocular movements are intact. There is no nystagmus. Facial sensation is intact. There is no facial asymmetry. Hearing is grossly intact. Uvula and palate are midline. Shoulder shrug is symmetric. Tongue protrudes midline. Motor: Strength is 5/5 throughout, with the exception of the bilateral triceps at 4/5. Sensation: Intact to light touch throughout, with the exception of decreased light touch sensation to the left upper extremity. There is no extinction with double simultaneous stimulation. Coordination: [id number], rapid alternating movements and [id number] testing are intact. There is no pronator drift. Deep tendon reflexes: 2+/4+ in the bilateral upper extremities. Lower extremity reflexes are absent. Plantar responses are flexor bilaterally. Gait: Not assessed Results - Laboratory Findings CBC and BMP: 09/05/24 06:15 09/05/24 06:15 Abnormal Lab Findings: Abnormal Labs 09/04/24 09/04/24 09/04/24 11:50 11:50 11:59 Neutrophils # 8.0 H Lymphocytes # 0.6 L BUN 22 H Glucose 121 H Plasma Lactic Acid Emmanuel 3.8 H* Total Bilirubin 1.4 H Urine pH Urine Ketones 09/04/24 09/04/24 13:44 16:21 Neutrophils # Lymphocytes # BUN Glucose Plasma Lactic Acid Emmanuel 2.8 H* Total Bilirubin Urine pH 8.5 H Urine Ketones 1+ H Assessment and Plan Assessment: 1. Toxic/metabolic encephalopathy secondary to left lower lobe pneumonia 2. Reported episode of unresponsiveness, per H&P, possible seizure/postictal state Plan: 1. EEG will be ordered to evaluate for epileptiform activity 2. Agree with continued treatment with IV antibiotics as the patient has already significantly improved 3. Consider physical therapy evaluation and treatment Thank you for allowing us to participate in the care of this patient Time with Patient: Greater than 30 (60 minutes were spent caring for this patient today including, obtaining a history, examining the patient, reviewing imaging, chart documentation, labs, placing orders and creating this note)
[2024-09-05] MEDS: SIMETHICONE 80 MG CHEWABLE PO PRN (21:52)
--- NOTE | 2024-09-05 21:56 | P.CONS ---
History of Present Illness - Reason for Consult Consult date: 09/05/24 Pneumonia Requesting physician: Bert Godinez - Chief Complaint Confusion and cough x few days - History of Present Illness Patient is a 74-year-old female with a past medical history significant for hypertension osteoarthritis heart failure with patient has been brought into the hospital for evaluation of weakness and confusion in this patient symptom has been going on for the last 3 to 4 days before the patient has been brought into the hospital patient is also complaining of cough which has been moderate intensity and bring up some sputum no hemoptysis no pleuritic chest pain patient denies having any nausea no vomiting no abdominal pain or any diarrhea with the symptoms the patient has been evaluated on presentation to the hospital patient was afebrile and no fever have been recorded subsequently patient was not tachycardic hypotensive she is currently on a 2 L nasal cannula oxygen no O2 sats on room air or documented patient did have a white count of 9.1 with a left shift creatinine was normal electrolytes are normal liver isms are normal urine is negative influenza RSV COVID testing was negative patient did have abdominal pelvis CT did not show any acute intra-abdominal process chest x-ray mild left lobe infiltrate correlate for atelectasis or pneumonia patient has been started on Rocephin and Zithromax which was subsequently switched over to Zosyn last evening by admitting physician infectious disease was consulted regarding pneumonia Review of Systems Positive point and negatives has been mentioned in the HPI, complete review of systems was performed and all other systems are negative Past Medical History Past Medical History: Heart Failure, Hearing Disorder / Deafness, Hypertension, Osteoarthritis (OA) Additional Past Medical History / Comment(s): Arrhythmia, hx anemia, wears pad/brief for urinary incontinence, frequent UTI's, on termite technician antibiotic treatment to prevent UTI, SOB, deaf in right ear, hard of hearing in left ear, bilateral hearing aid use. History of Any Multi-Drug Resistant Organisms: None Reported Past Surgical History: Appendectomy, Back Surgery, Cholecystectomy, Heart Catheterization With Stent, Hernia Repair, Hysterectomy, Joint Replacement, Orthopedic Surgery Additional Past Surgical History / Comment(s): Pain Clinic Procedures, CARDIAC STENTS X2, L3-4-5 FUSION, total right knee replacement, bilateral cataract surgery. hiatal hernia repair.,Morphine pump implanted. Past Anesthesia/Blood Transfusion Reactions: No Reported Reaction Additional Past Anesthesia/Blood Transfusion Reaction / Comm: "Slow coming out." Date of Last Stent Placement:: Past Psychological History: Anxiety, Depression Smoking Status: Never smoker Past Alcohol Use History: None Reported Past Drug Use History: None Reported - Past Family History Father Family Medical History: Cancer Sister(s) Family Medical History: Cancer Medications and Allergies Home Medications Medication Instructions Recorded Confirmed Type Aspirin 81 mg PO DAILY 12/14/14 09/04/24 History Cyanocobalamin [Vitamin B-12] 1,000 mcg PO DAILY 12/14/14 09/04/24 History Multivitamins, Thera [Multivitamin 1 tab PO DAILY 12/14/14 09/04/24 History (formulary)] Pramipexole [Mirapex] 0.25 mg PO HS 12/14/14 09/04/24 History Cetirizine HCl [Zyrtec] 10 mg PO HS 07/10/19 09/04/24 History Metoprolol Tartrate [Lopressor] 25 mg PO BID 07/26/22 09/04/24 History Omeprazole 40 mg PO BID 07/26/22 09/04/24 History Venlafaxine HCl [Effexor] 100 mg PO DAILY 07/26/22 09/04/24 History Calcium Carbonate/Vitamin D3 1 tab PO DAILY 10/05/22 09/04/24 History [Calcium 600-D3 20 mcg (800 Unit)] Simethicone [Gas-X] 125 mg PO ACHS PRN 10/05/22 09/04/24 History oxyBUTYnin chloride [Ditropan XL] 10 mg PO HS 02/13/23 09/04/24 History Cranberry 15,000 1 cap PO DAILY 10/26/23 09/04/24 History Docusate [Colace] 100 mg PO DAILY 10/26/23 09/04/24 History calcium polycarbophiL [Fibercon] 625 mg PO DAILY 10/26/23 09/04/24 History Atorvastatin [Lipitor] 40 mg PO HS #30 tab 10/29/23 09/04/24 Rx Acetaminophen Tab [Tylenol] 1,000 mg PO Q6HR PRN tab 11/11/23 09/04/24 Rx Magnesium Oxide [Mag-Ox] 400 mg PO BID tab 11/11/23 09/04/24 Rx Brinzolamide/Brimonidine Tart 1 drop BOTH EYES BID 08/09/24 09/04/24 History [Simbrinza 1%-0.2% Eye Drop] Clotrimazole Cream [Lotrimin Cream] 1 applic TOPICAL BID 08/09/24 09/04/24 History Gabapentin [Neurontin] 100 mg PO BID-W/MEALS 08/09/24 09/04/24 History Gabapentin [Neurontin] 200 mg PO HS 08/09/24 09/04/24 History Meloxicam [Mobic] 15 mg PO DAILY 08/09/24 09/04/24 History Nitrofurantoin Monohyd/M-Cryst 100 mg PO HS 08/09/24 09/04/24 History [Macrobid] Patient Own Pump 0 bag 08/09/24 History Pilocarpine [Salagen] 5 mg PO QID 08/09/24 09/04/24 History Potassium Chloride ER [K-Dur 10] 10 meq PO DAILY 08/09/24 09/04/24 History metOLazone [Zaroxolyn] 2.5 mg PO DAILY 08/09/24 09/04/24 History Torsemide [Demadex] 10 mg PO DAILY 09/04/24 09/04/24 History Allergies Allergy/AdvReac Type Severity Reaction Status Date / Time adhesive tape Allergy Rash/Hives, Verified 09/04/24 12:23 "paper tape is ok" Physical Exam Vitals: Vital Signs Temp Pulse Pulse Resp BP BP Pulse Ox 09/05/24 08:00 17 09/05/24 07:50 98.6 F 74 20 109/66 98 09/05/24 01:06 97.8 F 63 17 112/67 99 09/04/24 20:50 98.5 F 66 19 122/76 100 09/04/24 20:40 63 17 09/04/24 20:16 69 20 107/52 100 09/04/24 18:00 73 17 118/57 99 09/04/24 14:40 77 17 115/60 99 Intake and Output 09/04/24 09/05/24 09/05/24 22:59 06:59 14:59 Output Total 300 700 Balance -300 -700 Output: Urine 300 700 Other: Voiding Method External Catheter # Bowel Movements 1 Weight 86.183 kg GENERAL DESCRIPTION: Elderly female lying in bed, no distress. No tachypnea or accessory muscle of respiration use. HEENT: Shows Pallor , no scleral icterus. Oral mucous membrane is dry. No p haryngeal erythema or thrush NECK: Trachea central, no thyromegaly. LUNGS: Unlabored breathing. Decreased breath sound at the base HEART: S1, S2, regular rate and rhythm. No loud murmur ABDOMEN: Soft, no tenderness , EXTREMITIES: No edema of feet. SKIN: No rash, no masses palpable. NEUROLOGICAL: The patient is awake, alert, oriented x3, mood and affect normal. Results CBC & Chem 7: 09/05/24 06:15 09/05/24 06:15 Labs: Abnormal Lab Results - Last 24 Hours (Table) 09/04/24 09/04/24 09/04/24 Range/Units 11:50 11:50 11:59 RBC (4.10-5.20) X 10*6/uL Hgb (12.0-15.0) g/dL Hct (37.2-46.3) % Plt Count (140-440) X 10*3/uL Immature Gran # (0.00-0.04) X 10*3/uL Neutrophils # 8.0 H (1.3-7.7) k/uL Lymphocytes # 0.6 L (1.0-4.8) k/uL Eosinophils # (0.04-0.35) X 10*3/uL BUN 22 H (7-17) mg/dL BUN/Creatinine Ratio (12.00-20.00) Ratio Glucose 121 H (74-99) mg/dL Plasma Lactic Acid Emmanuel 3.8 H* (0.7-2.0) mmol/L Calcium (8.7-10.3) mg/dL Total Bilirubin 1.4 H (0.2-1.3) mg/dL Urine pH (5.0-8.0) Urine Ketones (Negative) 09/04/24 09/04/24 09/05/24 Range/Units 13:44 16:21 06:15 RBC 3.35 L (4.10-5.20) X 10*6/uL Hgb 10.3 L (12.0-15.0) g/dL Hct 31.8 L (37.2-46.3) % Plt Count 132 L (140-440) X 10*3/uL Immature Gran # 0.05 H (0.00-0.04) X 10*3/uL Neutrophils # (1.3-7.7) k/uL Lymphocytes # (1.0-4.8) k/uL Eosinophils # 0.02 L (0.04-0.35) X 10*3/uL BUN (7-17) mg/dL BUN/Creatinine Ratio (12.00-20.00) Ratio Glucose (74-99) mg/dL Plasma Lactic Acid Emmanuel 2.8 H* (0.7-2.0) mmol/L Calcium (8.7-10.3) mg/dL Total Bilirubin (0.2-1.3) mg/dL Urine pH 8.5 H (5.0-8.0) Urine Ketones 1+ H (Negative) 09/05/24 Range/Units 06:15 RBC (4.10-5.20) X 10*6/uL Hgb (12.0-15.0) g/dL Hct (37.2-46.3) % Plt Count (140-440) X 10*3/uL Immature Gran # (0.00-0.04) X 10*3/uL Neutrophils # (1.3-7.7) k/uL Lymphocytes # (1.0-4.8) k/uL Eosinophils # (0.04-0.35) X 10*3/uL BUN (7-17) mg/dL BUN/Creatinine Ratio 22.62 H (12.00-20.00) Ratio Glucose (74-99) mg/dL Plasma Lactic Acid Emmanuel (0.7-2.0) mmol/L Calcium 8.6 L (8.7-10.3) mg/dL Total Bilirubin (0.2-1.3) mg/dL Urine pH (5.0-8.0) Urine Ketones (Negative) Assessment and Plan (1) Pneumonia Current Visit: Yes Status: Acute Code(s): J18.9 - PNEUMONIA, UNSPECIFIED ORGANISM SNOMED Code(s): 090592870 Plan: 1patient presented to hospital with mental status change and confusion patient also complaining of cough which is productive of some purulent sputum and left lower lobe infiltrate concerning for pneumonia likely community-acquired aspiration pneumonia less likely but not entirely excluded 2-we will try to obtain sputum for Gram stain and culture 3continue with Zosyn while waiting for the workup to be completed We will follow on clinical condition and cultures to further adjust medication if needed Thank you for this consultation we will follow the patient along with you Dictation was produced using [employer] dictation software. please excuse any grammatical, word or spelling errors. Time with Patient: Greater than 30
[2024-09-06] MEDS: PANTOPRAZOLE 40 MG TABLET PO SCH (06:23)
--- NOTE | 2024-09-06 09:18 | PN ---
PROGRESS NOTE DATE OF SERVICE: 09/05/2024 SUBJECTIVE: This is a 74-year-old woman who was admitted with change in mental status and left lower lobe pneumonia, possibly aspiration, is being closely monitored at this time. Multiple consultants including Neurology and as well as Pulmonary is following the patient. The patient is on broad spectrum IV antibiotics. Cultures are pending at this time. PAST MEDICAL HISTORY: Reviewed. REVIEW OF SYSTEMS: A 14-point review of systems is negative except as mentioned earlier. CURRENT MEDICATIONS: Reviewed. PHYSICAL EXAMINATION: VITAL SIGNS: Pulse is 64, blood pressure 101/60, respirations 20. HEENT: Conjunctivae normal. NECK: No JVD. CARDIOVASCULAR: S1, S2. RESPIRATIONS: Breath sounds diminished at the bases. A few scattered rhonchi. ABDOMEN: Soft. NERVOUS SYSTEM: Nonfocal. LABORATORY DATA: Lactic acid 2.9. COVID-19 is negative. ASSESSMENT: 1. Acute left lower lobe pneumonia, possibly aspiration with evaluation. 2. Change in mental status, acute metabolic encephalopathy. 3. Congestive heart failure history. 4. History of degenerative joint disease. 5. History of coronary artery disease stent. RECOMMENDATIONS: Recommend to continue current management and continue symptomatic treatment. Repeat labs. Continue the broad-spectrum antibiotics. Currently, the patient is on Zosyn and we will follow with Infectious Disease, Neurology and as well as Pulmonology. We discussed with the family at length. Further recommendations to follow. MMODL / IJN: [id number] /
[2024-09-06 10:23] LABS: Basophils % (A) 0 %; Eosinophils # (A) 0.1 k/uL (0-0.7); Eosinophils % (A) 2 %; HCT 34.8 % (34.0-46.0); HGB 10.9 gm/dL (11.4-16.0); Hypochromasia Slight; Lymphocytes # (A) 0.9 k/uL (1.0-4.8); Lymphocytes % (A) 13 %; MCH 30.8 pg (25.0-35.0); MCHC 31.4 g/dL (31.0-37.0); MCV 97.9 fL (80.0-100.0); Mean Platelet Volume 8.2; Monocytes # (A) 0.3 k/uL (0-1.0); Monocytes % (A) 4 %; Neutrophils % (A) 81 %; Platelet Count 191 k/uL (150-450); RBC 3.56 m/uL (3.80-5.40); RDW 13.7 % (11.5-15.5); WBC 7.4 k/uL (3.8-10.6)
[2024-09-06 10:45] LABS: African American GFR (CKD) >90 (>60 ml/min/1.73 sqM); Anion Gap 7 mmol/L; Blood Urea Nitrogen 12 mg/dL (7-17); Calcium 8.1 mg/dL (8.4-10.2); Carbon Dioxide 26 mmol/L (22-30); Chloride 104 mmol/L (98-107); Glucose 130 mg/dL (74-99); Non-African American GFR(CKD) 86 (>60 ml/min/1.73 sqM); Potassium 3.3 mmol/L (3.5-5.1); Sodium 137 mmol/L (137-145)
--- NOTE | 2024-09-06 11:25 | P.PN ---
Subjective Progress Note Date: 09/06/24 This is a 74-year-old female patient with a known history of congestive heart failure, hearing disorder, hypertension coronary artery disease with previous stent placement anxiety. Lifelong non-smoker. She was brought into the emergency room yesterday by her granddaughter who states the patient was having issues with altered mental status. She had found her naked sitting on the toilet asking to be taken home when she was actually at her home. She states this has happened before when she has had a urinary tract infection. Urinalysis clean. CT scan of the brain revealed no acute intracranial process. CT scan of the abdomen and pelvis revealed no acute process. Viral screen negative. White count 9.2. Hemoglobin 10.3. Platelets 132. Sodium 141. Potassium 3.6. Bicarb 23. BUN 18. Creatinine 0.8. Glucose 107. She is seen today in consultation on the regular medical floor. She is resting comfortably in bed. Awake and alert currently. Oriented x 3. No worsening shortness of breath, cough or congestion. She is maintaining good O2 saturations in the 90s on 2 L/min per nasal cannula. Chest x-ray showing a mild left lower lobe infiltrate. Most likely atelectasis versus early pneumonia. Procalcitonin 0.47. The patient is seen today September 06, 2024 in follow-up on the regular medical floor. She is currently resting comfortably in bed. Awake and alert in no acute distress. Feeling better today compared to yesterday. Maintaining good O2 saturations in the upper 90s on 2 L/min per nasal cannula. She has been afebrile. Hemodynamically stable. Initial blood culture revealing staph epi, suspect contaminant. White count 7.4. Hemoglobin 10.9. Platelets 191. Sodium 137. Potassium 3.3. Bicarb 26. BUN 12. Creatinine 0.70. Glucose 130. She remains on Zosyn. Objective - Vital Signs Vital signs: Vital Signs Temp 98.7 F 09/06/24 07:09 Pulse 90 09/06/24 07:09 Resp 17 09/06/24 08:00 BP 118/72 09/06/24 07:09 Pulse Ox 96 09/06/24 07:09 FiO2 Intake & Output 09/05/24 09/06/24 09/06/24 18:59 06:59 18:59 Output Total 1900 1000 Balance -1900 -1000 Output: Urine 1900 1000 Other: Voiding Method External Catheter - Exam GENERAL EXAM: Alert, pleasant 74-year-old female, on 2 L nasal cannula, in no apparent distress. HEAD: Normocephalic. EYES: Normal reaction of pupils, equal size. NOSE: Clear with pink turbinates. THROAT: No erythema or exudates. NECK: No masses, no JVD. CHEST: No chest wall deformity. LUNGS: Equal air entry with rhonchi over the left lung base. CVS: S1 and S2 normal with no audible murmur, regular rhythm. ABDOMEN: No hepatosplenomegaly, normal bowel sounds, no guarding or rigidity. SPINE: No scoliosis or deformity SKIN: No rashes CENTRAL NERVOUS SYSTEM: No focal deficits, tone is normal in all 4 extremities. EXTREMITIES: There is no peripheral edema. No clubbing, no cyanosis. Peripheral pulses are intact. - Labs CBC & Chem 7: 09/06/24 09:06 09/06/24 09:06 Labs: Abnormal Lab Results - Last 24 Hours (Table) 09/06/24 09/06/24 Range/Units 09:06 09:06 RBC 3.56 L (3.80-5.40) m/uL Hgb 10.9 L (11.4-16.0) gm/dL Lymphocytes # 0.9 L (1.0-4.8) k/uL Potassium 3.3 L (3.5-5.1) mmol/L Glucose 130 H (74-99) mg/dL Calcium 8.1 L (8.4-10.2) mg/dL Microbiology - Last 24 Hours (Table) 09/04/24 14:15 Blood Culture Gram Stain - Preliminary Blood Blood Culture - Preliminary Molecular ID Assessment and Plan Assessment: Altered mental status of unclear etiology, improved Left lower lobe infiltrate/atelectasis. Procalcitonin negative at 0.47 Obstructive sleep apnea maintained on BiPAP Hypertension Hyperlipidemia Coronary disease with previous stent placement Non-smoker Plan: The patient was seen and evaluated Labs and medications reviewed Continue antibiotics Follow-up chest x-ray in a.m. Titrate down/off the FiO2 as tolerated We will continue to follow I have personally seen and examined the patient, performed the documentation and the assessment and plan as written. Number of minutes spent on the visit: 10 Dictation was produced using [email or web address] software. Please excuse any grammatical, word or spelling errors.
[2024-09-06] MEDS ORDERED: VANCOMYCIN IV PER PHARMACY 1 EACH MISC MISCELLANE PRN (16:32)
--- NOTE | 2024-09-06 16:34 | P.PN ---
Subjective Progress Note Date: 09/06/24 Principal diagnosis: Reason for follow-up is pneumonia with positive blood culture Patient is a 74-year-old female with a past medical history significant for hypertension osteoarthritis heart failure with patient has been brought into the hospital for evaluation of weakness and confusion patient has been diagnosed with a pneumonia prompted this consultation. On today's evaluation that is 09/06/2024,the patient denies any fever or any chills, patient is breathing comfortably on room air, the patient denies chest pain shortness of breath and cough is decreased intensity mostly dry in nature, patient denies abdominal pain, no nausea vomiting or diarrhea. Patient also complaining of rash to the abdominal fold. The patient white count 7.4 creatinine 0.70, blood culture with coagulase- negative staph sputum is growing Staph aureus Objective - Vital Signs Vital signs: Vital Signs Temp 98.7 F 09/06/24 13:50 Pulse 71 09/06/24 13:50 Resp 18 09/06/24 13:50 BP 96/61 09/06/24 13:50 Pulse Ox 92 L 09/06/24 13:50 FiO2 Intake & Output 09/05/24 09/06/24 09/06/24 18:59 06:59 18:59 Output Total 1900 1000 Balance -1900 -1000 Output: Urine 1900 1000 Other: Voiding Method External Catheter - Exam GENERAL DESCRIPTION: An elderly female up in the chair in no distress RESPIRATORY SYSTEM: Unlabored breathing , decreased breath sounds at bases HEART: S1 S2 regular rate and rhythm , ABDOMEN: Soft , no tenderness, did have abdominal fold erythema concerning for cutaneous candidiasis EXTREMITIES: No edema feet - Labs CBC & Chem 7: 09/06/24 09:06 09/06/24 09:06 Labs: Abnormal Lab Results - Last 24 Hours (Table) 09/06/24 09/06/24 Range/Units 09:06 09:06 RBC 3.56 L (3.80-5.40) m/uL Hgb 10.9 L (11.4-16.0) gm/dL Lymphocytes # 0.9 L (1.0-4.8) k/uL Potassium 3.3 L (3.5-5.1) mmol/L Glucose 130 H (74-99) mg/dL Calcium 8.1 L (8.4-10.2) mg/dL Microbiology - Last 24 Hours (Table) 09/04/24 14:15 Blood Culture Gram Stain - Preliminary Blood Blood Culture - Preliminary Coagulase Negative Staph Molecular ID 09/05/24 09:00 Gram Stain - Preliminary Sputum Assessment and Plan (1) Pneumonia Current Visit: Yes Status: Acute Code(s): J18.9 - PNEUMONIA, UNSPECIFIED ORGANISM SNOMED Code(s): 530697198 (2) Positive blood culture Current Visit: Yes Status: Acute Code(s): R78.81 - BACTEREMIA SNOMED C ode(s): 637546173 Plan: 1patient presented to hospital with mental status change and confusion patient also complaining of cough which is productive of some purulent sputum and left lower lobe infiltrate concerning for pneumonia likely community-acquired a spiration pneumonia less likely but not entirely excluded 2-patient did have a positive blood culture with staph epi possible skin contamination 3patient sputum is growing Staph aureus with sensitivities pending 4we will discontinue Zosyn and start the patient on vancomycin while waiting for sensitivity and Staph aureus and will apply nystatin powder to be abdominal fold Dictation was produced using [employer] dictation software. please excuse any grammatical, word or spelling errors. Time with Patient: Less than 30
[2024-09-06] MEDS: VANCOMYCIN 1,500 MG in SODIUM CHLORIDE 0.9% 500 ML 500 ML IVPB SCH (19:47)
[2024-09-06] MEDS: NYSTATIN 100,000 UNIT/GM POWD 15 GM TOPICAL SCH (22:37)
[2024-09-07] MEDS: HYDROcodone/APAP 5-325MG 1 EACH TAB PO PRN (00:12)
--- NOTE | 2024-09-07 04:24 | PN ---
PROGRESS NOTE DATE OF SERVICE: 09/06/2024 HISTORY OF PRESENT ILLNESS: This is a 74-year-old woman who was admitted with left lower lobe pneumonia and confusion. She is being closely monitored. The patient is on broad spectrum IV antibiotics. Usually, the patient gets confused after UTI according to the family. At this time, cultures are negative. Multiple consultants are following the patient closely. PAST MEDICAL HISTORY: Reviewed. REVIEW OF SYSTEMS: A 14-point review is negative except as mentioned earlier. CURRENT MEDICATIONS: Reviewed and include Zosyn. PHYSICAL EXAMINATION: VITAL SIGNS: Pulse is 71, blood pressure 90/61, respirations 18. HEENT: Conjunctivae normal. NECK: No JVD. CARDIOVASCULAR: S1, S2. RESPIRATIONS: Breath sounds diminished at the bases. A few scattered rhonchi. ABDOMEN: Soft. NERVOUS SYSTEM: Nonfocal. LABORATORY DATA: Noted. Potassium 3.3. ASSESSMENT: 1. Acute left lower lobe pneumonia, possibly aspiration with evaluation. 2. Change in mental status, acute metabolic encephalopathy. 3. Congestive heart failure history. 4. History of degenerative joint disease. 5. History of coronary artery disease, stent. RECOMMENDATIONS AND DISCUSSION: Recommend to continue current management and continue symptomatic treatment. Otherwise, at this time, I recommend continue with empiric antibiotics. We will stop the IV fluids at this time. Otherwise, repeat labs. Multiple consultants including Neurology, Pulmonology, and Infectious Disease are following the patient. Blood culture is showing coag-negative staph. Sputum culture is showing presumptive staph also. We will continue to monitor. Repeat a blood culture also. Potassium supplementation. Further recommendations to follow. See orders for details. MMODL / IJN: [id number] /
--- NOTE | 2024-09-07 08:26 | XR ---
EXAMINATION TYPE: XR chest 1V portable DATE OF EXAM: 09/07/2024 COMPARISON: 09/04/2024 HISTORY: Left lower lobe infiltrate TECHNIQUE: Single frontal view of the chest is obtained. FINDINGS: Left perihilar infiltrate remains unchanged. The cardiac silhouette size is within normal limits. The osseous structures are intact. IMPRESSION: Left perihilar infiltrate remains unchanged. [facility], , 09/07/2024 8:24 AM
[2024-09-07 08:42] LABS: BUN/Creat Ratio 14.86 Ratio (12.00-20.00); Blood Urea Nitrogen 10.4 mg/dL (9.0-27.0); Calcium 8.4 mg/dL (8.7-10.3); Carbon Dioxide 27.4 mmol/L (21.6-31.8); Chloride 105 mmol/L (96-109); Glucose 97 mg/dL (70-110); Potassium 3.4 mmol/L (3.5-5.5); Sodium 141 mmol/L (135-145)
[2024-09-07] MEDS: POTASSIUM CHLORIDE ER 20 MEQ TAB.ER PO STA (12:49)
--- NOTE | 2024-09-07 12:52 | P.PN ---
Subjective Progress Note Date: 09/07/24 Antibiotics adjusted yesterday to vancomycin as per infectious disease, sputum growing Staph aureus and blood culture reporting coagulase negative staph sensitivities pending. Renal function stable. Reports increased diarrhea, cultures ordered to rule out C. difficile. Repeat chest x-ray pending. Afebri le, normal WBC. Objective - Vital Signs Vital signs: Vital Signs Temp 97.8 F 09/07/24 07:55 Pulse 80 09/07/24 07:55 Resp 18 09/07/24 07:55 BP 122/71 09/07/24 07:55 Pulse Ox 94 L 09/07/24 08:48 FiO2 Intake & Output 09/06/24 09/07/24 09/07/24 18:59 06:59 18:59 Other: Voiding Method Toilet Toilet # Voids 3 2 # Bowel Movements 1 2 - Exam Well developed, obese, NAD RRR LLL crackles Soft, nontender AAOx3 no focal deficit - Labs CBC & Chem 7: 09/08/24 03:24 09/08/24 03:24 Labs: Abnormal Lab Results - Last 24 Hours (Table) 09/07/24 Range/Units 05:27 Potassium 3.4 L (3.5-5.5) mmol/L Calcium 8.4 L (8.7-10.3) mg/dL Microbiology - Last 24 Hours (Table) 09/05/24 09:00 Gram Stain - Final Sputum Sputum Culture - Final Staphylococcus aureus 09/04/24 14:15 Blood Culture Gram Stain - Preliminary Blood Blood Culture - Preliminary Staphylococcus epidermidis Molecular ID Assessment and Plan Assessment: Left lower lobe infiltrate, atelectasis, procalcitonin negative, 0.47, sputum culture reporting Staphylococcus aureus. Positive blood culture, preliminary culture reporting coagulase-negative staph AMS,Acute metabolic encephalopathy, etiology unclear, possibly related to the above, possibly related to history of chronic low back pain, lumbar fusion with pain pump Obstructive sleep apnea, maintained on BiPAP CAD, history of stents Morbid obesity, BMI 34 Plan: Continue on current medication resume ,monitoring and symptomatic treatment. Neurology workup in progress, EEG pending. Rule out C. difficile colitis, patient complaining of increased diarrhea since initiation of antibiotics. Potassium supplements ordered for potassium of 3.4. The impression and plan of care has been dictated as directed. : I performed a history and examination of this patient, discussed the same with the dictator. I agree with the dictator's note ,documented as a scribe. Any additional findings or plans will be noted.
[2024-09-07 12:57] LABS: Basophils # (A) 0.01 X 10*3/uL (0.00-0.10); Basophils % (A) 0.2 %; Eosinophils # (A) 0.29 X 10*3/uL (0.04-0.35); Eosinophils % (A) 5.7 %; HCT 32.5 % (37.2-46.3); HGB 10.6 g/dL (12.0-15.0); Lymphocytes % (A) 31.2 %; MCH 30.5 pg (27.0-32.0); MCHC 32.6 g/dL (32.0-37.0); MCV 93.7 FL (80.0-97.0); Monocytes # (A) 0.38 X 10*3/uL (0.20-1.00); Monocytes % (A) 7.4 %; NRBC Per 100 WBC 0 X 10*3/uL (0.00-0.01); Neutrophils # (A) 2.83 X 10*3/uL (1.80-7.70); Neutrophils % (A) 55.1 %; Platelet Count 206 X 10*3/uL (140-440); RBC 3.47 X 10*6/uL (4.10-5.20); RDW 13.5 % (11.5-14.5); WBC 5.13 X 10*3/uL (4.50-10.00)
--- NOTE | 2024-09-07 13:17 | P.PN ---
Subjective Progress Note Date: 09/07/24 This is a 74-year-old female patient with a known history of congestive heart failure, hearing disorder, hypertension coronary artery disease with previous stent placement anxiety. Lifelong non-smoker. She was brought into the emergency room yesterday by her granddaughter who states the patient was having issues with altered mental status. She had found her naked sitting on the toilet asking to be taken home when she was actually at her home. She states this has happened before when she has had a urinary tract infection. Urinalysis clean. CT scan of the brain revealed no acute intracranial process. CT scan of the abdomen and pelvis revealed no acute process. Viral screen negative. White count 9.2. Hemoglobin 10.3. Platelets 132. Sodium 141. Potassium 3.6. Bicarb 23. BUN 18. Creatinine 0.8. Glucose 107. She is seen today in consultation on the regular medical floor. She is resting comfortably in bed. Awake and alert currently. Oriented x 3. No worsening shortness of breath, cough or congestion. She is maintaining good O2 saturations in the 90s on 2 L/min per nasal cannula. Chest x-ray showing a mild left lower lobe infiltrate. Most likely atelectasis versus early pneumonia. Procalcitonin 0.47. The patient is seen today September 06, 2024 in follow-up on the regular medical floor. She is currently resting comfortably in bed. Awake and alert in no acute distress. Feeling better today compared to yesterday. Maintaining good O2 saturations in the upper 90s on 2 L/min per nasal cannula. She has been afebrile. Hemodynamically stable. Initial blood culture revealing staph epi, suspect contaminant. White count 7.4. Hemoglobin 10.9. Platelets 191. Sodium 137. Potassium 3.3. Bicarb 26. BUN 12. Creatinine 0.70. Glucose 130. She remains on Zosyn. The patient is seen today September 07, 2024 in follow-up on the regular medical floor. She is currently sitting up in a chair. Awake and alert in no acute distress. Maintaining good O2 saturations in the 90s on room air. Procalcitonin was 0.47. Sputum culture showing methicillin sensitive Staph aureus. Blood culture reveals Staphylococcus epidermidis. Infectious disease is following. Chest x-ray reveals left perihilar infiltrate. Stable. White count 5.1. Hemoglobin 10.6. Platelets 206. Sodium 141. Potassium 3.4. Bicarb 27. BUN 10. Creatinine 0.7. Glucose 97. She is currently on vancomycin. Objective - Vital Signs Vital signs: Vital Signs Temp 97.8 F 09/07/24 07:55 Pulse 80 09/07/24 07:55 Resp 18 09/07/24 07:55 BP 122/71 09/07/24 07:55 Pulse Ox 94 L 09/07/24 08:48 FiO2 Intake & Output 09/06/24 09/07/24 09/07/24 18:59 06:59 18:59 Other: Voiding Method Toilet Toilet # Voids 3 2 # Bowel Movements 1 2 - Exam GENERAL EXAM: Alert, 74-year-old female, up in a chair, on room air, in no apparent distress. HEAD: Normocephalic. EYES: Normal reaction of pupils, equal size. NOSE: Clear with pink turbinates. THROAT: No erythema or exudates. NECK: No masses, no JVD. CHEST: No chest wall deformity. LUNGS: Equal air entry with rhonchi over the left lung base. CVS: S1 and S2 normal with no audible murmur, regular rhythm. ABDOMEN: No hepatosplenomegaly, normal bowel sounds, no guarding or rigidity. SPINE: No scoliosis or deformity SKIN: No rashes CENTRAL NERVOUS SYSTEM: No focal deficits, tone is normal in all 4 extremities. EXTREMITIES: There is no peripheral edema. No clubbing, no cyanosis. Peripheral pulses are intact. - Labs CBC & Chem 7: 09/07/24 05:27 09/07/24 05:27 Labs: Abnormal Lab Results - Last 24 Hours (Table) 09/07/24 09/07/24 Range/Units 05:27 05:27 RBC 3.47 L (4.10-5.20) X 10*6/uL Hgb 10.6 L (12.0-15.0) g/dL Hct 32.5 L (37.2-46.3) % Potassium 3.4 L (3.5-5.5) mmol/L Calcium 8.4 L (8.7-10.3) mg/dL Microbiology - Last 24 Hours (Table) 09/05/24 09:00 Gram Stain - Final Sputum Sputum Culture - Final Staphylococcus aureus 09/04/24 14:15 Blood Culture Gram Stain - Preliminary Blood Blood Culture - Preliminary Staphylococcus epidermidis Molecular ID Assessment and Plan Assessment: Altered mental status of unclear etiology, improved Left lower lobe infiltrate/atelectasis. Procalcitonin negative at 0.47. Sputum positive for MSSA. Blood culture revealing Staphylococcus epidermidis Obstructive sleep apnea maintained on BiPAP Hypertension Hyperlipidemia Coronary disease with previous stent placement Non-smoker Plan: The patient was seen and evaluated Chest x-ray, microbiology, labs and medications reviewed Antibiotics per ID service Stable and on room air I have personally seen and examined the patient, performed the documentation and the assessment and plan as written. Number of minutes spent on the visit: 10 Dictation was produced using [employer] dictation software. Please excuse any grammatical, word or spelling errors.
--- NOTE | 2024-09-07 15:38 | P.PN ---
Subjective Progress Note Date: 09/07/24 I am seeing the patient for the first time during this admission. Please refer to Dr. Hutchins's note for further details. Seems the patient had episode of confusion and was felt secondary due to left lower lobe pneumonia. According to the patient she had episode of confusion in the past and maybe she had maybe 3 episode that she does not remember what transpires. She feels she is drastically baseline. Denies any of any official seizures diagnosis in the past. Objective - Vital Signs Vital signs: Vital Signs Temp 97.7 F 09/07/24 14:00 Pulse 73 09/07/24 14:00 Resp 18 09/07/24 14:00 BP 124/77 09/07/24 14:00 Pulse Ox 96 09/07/24 14:00 FiO2 Intake & Output 09/06/24 09/07/24 09/07/24 18:59 06:59 18:59 Other: Voiding Method Toilet Toilet # Voids 3 2 # Bowel Movements 1 2 - Exam General: Sitting in a recliner chair and is not in acute distress. Neuro: Patient is awake alert oriented to self place and time. Is following simple commands. No aphasia. The pupils are round equal reactive to light. Visual francois are full to confrontation. Extraocular moods are intact no nystagmus. No facial weakness. No dysarthria. Motor is the strength is limited in the right upper extremity because of shoulder pain, but otherwise left in all extremities above gravity appears symmetrical. - Labs CBC & Chem 7: 09/07/24 05:27 09/07/24 05:27 Labs: Abnormal Lab Results - Last 24 Hours (Table) 09/07/24 09/07/24 Range/Units 05:27 05:27 RBC 3.47 L (4.10-5.20) X 10*6/uL Hgb 10.6 L (12.0-15.0) g/dL Hct 32.5 L (37.2-46.3) % Potassium 3.4 L (3.5-5.5) mmol/L Calcium 8.4 L (8.7-10.3) mg/dL Microbiology - Last 24 Hours (Table) 09/05/24 09:00 Gram Stain - Final Sputum Sputum Culture - Final Staphylococcus aureus 09/04/24 14:15 Blood Culture Gram Stain - Preliminary Blood Blood Culture - Preliminary Staphylococcus epidermidis Molecular ID Assessment and Plan Assessment: 1. Toxic/metabolic encephalopathy secondary to left lower lobe pneumo dora--mentation improved 2. Recurrent episodes of unresponsiveness seems concerning for seizure. Plan: Because of recurrent episode of unresponsiveness and concern for seizure I started the patient on Keppra 500 mg twice daily. EEG is completed and preliminary report is negative for seizure. Recommend a repeat EEG as outpatient or prolonged EEG to capture events. Repeat episode of unresponsive (a seizure or not a seizure) per the [place] DMV, to avoid driving for 6 months until no further episodes from the last event, avoid heights, avoid swimming unassisted or using heavy missionary and pending official report Will defer the rest of the medical management to primary team and other specialist Recommend the patient to follow-up with a neurologist as an outpatient within 2 weeks Plan discussed with the patient nurse Time with Patient: Less than 30
[2024-09-07] MEDS: levETIRAcetam 500 MG TAB PO SCH (22:35)
[2024-09-07] MEDS: VANCOMYCIN 125 MG CAPSULE PO SCH (22:36)
--- NOTE | 2024-09-08 02:56 | EEG ---
ELECTROENCEPHALOGRAM REPORT CLINICAL HISTORY: The is a 74-year-old woman with recurrent episode of unresponsiveness, who had a recent episode of confusion. The video EEG is obtained to evaluate for seizure epileptiform activity. RELEVANT MEDICATION: Gabapentin. EEG TYPE: This is a routine 21-channel EEG with video using the 10/20 electrode placement system. DESCRIPTION: Wakefulness is obtained. During awake state, the background consists of low-to- moderate voltage of 6.5 to 7.5 hertz activity. There is no physiological stage 2 sleep architecture. There is no focal slowing. Interictal and ictal is none. ACTIVATION PROCEDURE: Photic stimulation did not evoke a posterior driving response. There is no abnormality during photic stimulation. Hyperventilation is not performed. CLINICAL INTERPRETATION: This is an abnormal routine EEG. The background slowing is suggestive of mild encephalopathy. Otherwise, there is no focal slowing, epileptiform discharge, or seizure on the EEG. Clinical correlation is recommended. [place] / JENNIFER: [id number] / MTDD
--- NOTE | 2024-09-08 08:36 | P.PN ---
Subjective Progress Note Date: 09/07/24 Principal diagnosis: Reason for follow-up is pneumonia with positive blood culture Patient is a 74-year-old female with a past medical history significant for hypertension osteoarthritis heart failure with patient has been brought into the hospital for evaluation of weakness and confusion patient has been diagnosed with a pneumonia prompted this consultation. On today's evaluation that is 09/07/2024,the patient remains to be afebrile, patient is on room air not requiring supplemental oxygen and denies any shortness of breath no chest pain patient cough is decreased in intensity.Patient denies having any nausea or vomiting, no abdominal pain however has been complaining of multiple loose stools. Patient white count is 5.13 creatinine 0.7 sputum is growing Staph aureus sensitivities pending blood cultures are pending Objective - Vital Signs Vital signs: Vital Signs Temp 97.8 F 09/07/24 07:55 Pulse 80 09/07/24 07:55 Resp 18 09/07/24 07:55 BP 122/71 09/07/24 07:55 Pulse Ox 94 L 09/07/24 08:48 FiO2 Intake & Output 09/06/24 09/07/24 09/07/24 18:59 06:59 18:59 Other: Voiding Method Toilet # Voids 3 2 # Bowel Movements 1 2 - Exam GENERAL DESCRIPTION: An elderly female up in the chair in no distress RESPIRATORY SYSTEM: Unlabored breathing , decreased breath sounds at bases HEART: S1 S2 regular rate and rhythm , ABDOMEN: Soft , no tenderness, did have abdominal fold erythema concerning for cutaneous candidiasis EXTREMITIES: No edema feet - Labs CBC & Chem 7: 09/07/24 05:27 09/07/24 05:27 Labs: Abnormal Lab Results - Last 24 Hours (Table) 09/06/24 09/06/24 09/07/24 Range/Units 09:06 09:06 05:27 RBC 3.56 L (3.80-5.40) m/uL Hgb 10.9 L (11.4-16.0) gm/dL Lymphocytes # 0.9 L (1.0-4.8) k/uL Potassium 3.3 L 3.4 L (3.5-5.1) mmol/L Glucose 130 H (74-99) mg/dL Calcium 8.1 L 8.4 L (8.4-10.2) mg/dL Microbiology - Last 24 Hours (Table) 09/05/24 09:00 Gram Stain - Preliminary Sputum Sputum Culture - Preliminary Presumptive Staph aureus 09/04/24 14:15 Blood Culture Gram Stain - Preliminary Blood Blood Culture - Preliminary Coagulase Negative Staph Molecular ID Assessment and Plan (1) Pneumonia Current Visit: Yes Status: Acute Code(s): J18.9 - PNEUMONIA, UNSPECIFIED ORGANISM SNOMED Code(s): 271255841 (2) Positive blood culture Current Visit: Yes Status: Acute Code(s): R78.81 - BACTEREMIA SNOMED Code(s): 329370500 (3) Diarrhea Current Visit: Yes Status: Acute Code(s): R19.7 - DIARRHEA, UNSPECIFIED SNOMED Code(s): 09456047 Plan: 1patient presented to hospital with mental status change and confusion patient also complaining of cough which is productive of some purulent sputum and left lower lobe infiltrate concerning for pneumonia likely community-acquired aspiration pneumonia less likely but not entirely excluded 2-patient did have a positive blood culture with staph epi possible skin conta mination 3patient sputum is growing Staph aureus with sensitivities are still pending 4patient has developed diarrhea and stool for C. difficile has been requested by admitting team results will be followed and treated if positive 5-for now we will continue with the vancomycin IV while waiting for sensitivity on the Staph aureus and continue with the last reported to the abdominal fold area for cutaneous candidiasis Dictation was produced using [employer] dictation software. please excuse any gram matical, word or spelling errors. Time with Patient: Less than 30
[2024-09-08 09:14] LABS: BUN/Creat Ratio 14.17 Ratio (12.00-20.00); Blood Urea Nitrogen 8.5 mg/dL (9.0-27.0); Calcium 8.7 mg/dL (8.7-10.3); Carbon Dioxide 27.1 mmol/L (21.6-31.8); Chloride 105 mmol/L (96-109); Glucose 107 mg/dL (70-110); Magnesium 1.6 mg/dL (1.5-2.4); Potassium 3.7 mmol/L (3.5-5.5); Sodium 141 mmol/L (135-145)
[2024-09-08 10:15] LABS: Basophils # (A) 0.03 X 10*3/uL (0.00-0.10); Basophils % (A) 0.6 %; Eosinophils # (A) 0.27 X 10*3/uL (0.04-0.35); Eosinophils % (A) 5.3 %; HCT 33.1 % (37.2-46.3); HGB 10.8 g/dL (12.0-15.0); Lymphocytes # (A) 1.77 X 10*3/uL (0.90-5.00); Lymphocytes % (A) 34.9 %; MCH 30.8 pg (27.0-32.0); MCHC 32.6 g/dL (32.0-37.0); MCV 94.3 FL (80.0-97.0); Mean Platelet Volume 10.5 FL (9.5-12.2); Monocytes # (A) 0.45 X 10*3/uL (0.20-1.00); Monocytes % (A) 8.9 %; NRBC Per 100 WBC 0 X 10*3/uL (0.00-0.01); Neutrophils # (A) 2.53 X 10*3/uL (1.80-7.70); Neutrophils % (A) 49.9 %; Platelet Count 230 X 10*3/uL (140-440); RBC 3.51 X 10*6/uL (4.10-5.20); RDW 13.5 % (11.5-14.5); WBC 5.07 X 10*3/uL (4.50-10.00)
--- NOTE | 2024-09-08 11:14 | P.PN ---
Subjective Progress Note Date: 09/08/24 Antibiotics adjusted yesterday to vancomycin as per infectious disease, sputum growing Staph aureus and blood culture reporting coagulase negative staph sensitivities pending. Renal function stable. Reports increased diarrhea, cultures ordered to rule out C. difficile. Repeat chest x-ray pending. Afebri le, normal WBC. 09/08/2024 sitting up in chair, complaining of chronic sciatica pain. Tested positive for C. difficile colitis, antibiotics adjusted as per ID including initiation of oral vancomycin. Watery diarrhea this morning, denies nausea vomiting. Denies abdominal pain. Nonproductive cough. Denies chest pain, palpitations or shortness of breath. Maintaining O2 sats of 93 to 97% on room air. Sputum culture finalized with MSSA. Blood culture reporting staphylcoccus epidermidis. EEG completed yesterday reporting abnormal routine EEG. Background slowing suggestive of mild encephalopathy. Otherwise there is no focal slowing epileptiform discharge or seizure. Keppra initiated as per neurology. No seizure activity reported. Objective - Vital Signs Vital signs: Vital Signs Temp 98.4 F 09/08/24 08:03 Pulse 86 09/08/24 08:03 Resp 18 09/08/24 08:03 BP 117/80 09/08/24 08:03 Pulse Ox 93 L 09/08/24 08:40 FiO2 Intake & Output 09/07/24 09/08/24 09/08/24 18:59 06:59 18:59 Other: Voiding Method Toilet Toilet Toilet # Voids 8 # Bowel Movements 5 - Labs CBC & Chem 7: 09/08/24 03:24 09/08/24 03:24 Labs: Abnormal Lab Results - Last 24 Hours (Table) 09/07/24 09/07/24 09/08/24 Range/Units 05:27 15:34 03:24 RBC 3.47 L (4.10-5.20) X 10*6/uL Hgb 10.6 L (12.0-15.0) g/dL Hct 32.5 L (37.2-46.3) % BUN 8.5 L (9.0-27.0) mg/dL C. difficile (EIA) Intrp Positive A (Negative) 09/08/24 Range/Units 03:24 RBC 3.51 L (4.10-5.20) X 10*6/uL Hgb 10.8 L (12.0-15.0) g/dL Hct 33.1 L (37.2-46.3) % BUN (9.0-27.0) mg/dL C. difficile (EIA) Intrp (Negative) Microbiology - Last 24 Hours (Table) 09/06/24 16:43 Blood Culture - Preliminary Blood 09/05/24 09:00 Gram Stain - Final Sputum Sputum Culture - Final Staphylococcus aureus 09/04/24 14:15 Blood Culture Gram Stain - Preliminary Blood Blood Culture - Preliminary Staphylococcus epidermidis Molecular ID Assessment and Plan Assessment: Left lower lobe infiltrate, atelectasis, procalcitonin negative, 0.47, sputum culture reporting MSSA. Blood culture reporting Staphylococcus epidermidis Acute C. difficile colitis AMS,Acute metabolic encephalopathy, etiology unclear, possibly related to the above, possibly related to history of chronic low back pain, lumbar fusion with pain pump, improved Possible acute onset of seizure disorder, Keppra initiated. Neurology recommending repeat EEG outpatient or prolonged EEG. Obstructive sleep apnea, maintained on BiPAP. CAD, history of stents Morbid obesity, BMI 34 Plan: Continue on current medication resume ,monitoring and symptomatic treatment. Antibiotics as per infectious disease. Keppra as per neurology. Discharge planning in progress pending final DC recommendations and clearance per consults. Patient has been advised ,per the [place] DMV, to avoid driving for 6 months until no further episodes from the last event, avoid heights, avoid swimming unassisted or using heavy machinery. The impression and plan of care has been dictated as directed. : I performed a history and examination of this patient, discussed the same with the dictator. I agree with the dictator's note ,documented as a scribe. Any additional findings or plans will be noted.
[2024-09-08] MEDS: ACETAMINOPHEN TAB 500 MG TAB PO PRN (11:53)
--- NOTE | 2024-09-08 12:41 | P.PN ---
Subjective Progress Note Date: 09/08/24 This is a 74-year-old female patient with a known history of congestive heart failure, hearing disorder, hypertension coronary artery disease with previous stent placement anxiety. Lifelong non-smoker. She was brought into the emergency room yesterday by her granddaughter who states the patient was having issues with altered mental status. She had found her naked sitting on the toilet asking to be taken home when she was actually at her home. She states this has happened before when she has had a urinary tract infection. Urinalysis clean. CT scan of the brain revealed no acute intracranial process. CT scan of the abdomen and pelvis revealed no acute process. Viral screen negative. White count 9.2. Hemoglobin 10.3. Platelets 132. Sodium 141. Potassium 3.6. Bicarb 23. BUN 18. Creatinine 0.8. Glucose 107. She is seen today in consultation on the regular medical floor. She is resting comfortably in bed. Awake and alert currently. Oriented x 3. No worsening shortness of breath, cough or congestion. She is maintaining good O2 saturations in the 90s on 2 L/min per nasal cannula. Chest x-ray showing a mild left lower lobe infiltrate. Most likely atelectasis versus early pneumonia. Procalcitonin 0.47. The patient is seen today September 06, 2024 in follow-up on the regular medical floor. She is currently resting comfortably in bed. Awake and alert in no acute distress. Feeling better today compared to yesterday. Maintaining good O2 saturations in the upper 90s on 2 L/min per nasal cannula. She has been afebrile. Hemodynamically stable. Initial blood culture revealing staph epi, suspect contaminant. White count 7.4. Hemoglobin 10.9. Platelets 191. Sodium 137. Potassium 3.3. Bicarb 26. BUN 12. Creatinine 0.70. Glucose 130. She remains on Zosyn. The patient is seen today September 07, 2024 in follow-up on the regular medical floor. She is currently sitting up in a chair. Awake and alert in no acute distress. Maintaining good O2 saturations in the 90s on room air. Procalcitonin was 0.47. Sputum culture showing methicillin sensitive Staph aureus. Blood culture reveals Staphylococcus epidermidis. Infectious disease is following. Chest x-ray reveals left perihilar infiltrate. Stable. White count 5.1. Hemoglobin 10.6. Platelets 206. Sodium 141. Potassium 3.4. Bicarb 27. BUN 10. Creatinine 0.7. Glucose 97. She is currently on vancomycin. The patient is seen today September 08, 2024 in follow-up on the regular medical floor.. Awake and alert in no acute distress. Denies any worsening shortness of breath, cough or congestion. Maintaining good O2 saturations in the 90s on room air. White count 5.0. Hemoglobin 10.8. Platelets 230. Sodium 141. Potassium 3.7. Bicarb 27. BUN 9. Creatinine 0.6. C. difficile screen is positive. Sputum culture for methicillin sensitive Staphylococcus aureus. Blood culture positive for Staphylococcus epidermidis. Follow-up blood culture pending. She is currently on ceftriaxone and oral vancomycin. Objective - Vital Signs Vital signs: Vital Signs Temp 98.4 F 09/08/24 08:03 Pulse 86 09/08/24 08:03 Resp 18 09/08/24 11:48 BP 117/80 09/08/24 08:03 Pulse Ox 93 L 09/08/24 08:40 FiO2 Intake & Output 09/07/24 09/08/24 09/08/24 18:59 06:59 18:59 Other: Voiding Method Toilet Toilet Toilet # Voids 8 # Bowel Movements 5 - Exam GENERAL EXAM: Alert, oriented, pleasant 74-year-old female, up in a chair, on room air, in no apparent distress. HEAD: Normocephalic. EYES: Normal reaction of pupils, equal size. NOSE: Clear with pink turbinates. THROAT: No erythema or exudates. NECK: No masses, no JVD. CHEST: No chest wall deformity. LUNGS: Equal air entry with rhonchi over the left lung base. CVS: S1 and S2 normal with no audible murmur, regular rhythm. ABDOMEN: No hepatosplenomegaly, normal bowel sounds, no guarding or rigidity. SPINE: No scoliosis or deformity SKIN: No rashes CENTRAL NERVOUS SYSTEM: No focal deficits, tone is normal in all 4 extremities. EXTREMITIES: There is no peripheral edema. No clubbing, no cyanosis. Peripheral pulses are intact. - Labs CBC & Chem 7: 09/08/24 03:24 09/08/24 03:24 Labs: Abnormal Lab Results - Last 24 Hours (Table) 11/09/07/24 09/08/24 Range/Units 05:27 15:34 03:24 RBC 3.47 L (4.10-5.20) X 10*6/uL Hgb 10.6 L (12.0-15.0) g/dL Hct 32.5 L (37.2-46.3) % BUN 8.5 L (9.0-27.0) mg/dL C. difficile (EIA) Intrp Positive A (Negative) 09/08/24 Range/Units 03:24 RBC 3.51 L (4.10-5.20) X 10*6/uL Hgb 10.8 L (12.0-15.0) g/dL Hct 33.1 L (37.2-46.3) % BUN (9.0-27.0) mg/dL C. difficile (EIA) Intrp (Negative) Microbiology - Last 24 Hours (Table) 09/06/24 16:43 Blood Culture - Preliminary Blood 09/05/24 09:00 Gram Stain - Final Sputum Sputum Culture - Final Staphylococcus aureus 09/04/24 14:15 Blood Culture Gram Stain - Preliminary Blood Blood Culture - Preliminary Staphylococcus epidermidis Molecular ID Assessment and Plan Assessment: Altered mental status of unclear etiology, improved Left lower lobe infiltrate/atelectasis. Procalcitonin negative at 0.47. Sputum positive for MSSA. Blood culture revealing Staphylococcus epidermidis C. difficile colitis Obstructive sleep apnea maintained on BiPAP Hypertension Hyperlipidemia Coronary disease with previous stent placement Non-smoker Plan: The patient was seen and evaluated Microbiology, labs and medications reviewed Positive for C. difficile colitis Currently on ceftriaxone and oral vancomycin Stable and on room air I have personally seen and examined the patient, performed the documentation and the assessment and plan as written. Number of minutes spent on the visit: 10 Dictation was produced using [employer] dictation software. Please excuse any grammatical, word or spelling errors.
--- NOTE | 2024-09-08 14:26 | P.PN ---
Subjective Progress Note Date: 09/08/24 Principal diagnosis: Reason for follow-up is pneumonia with positive blood culture Patient is a 74-year-old female with a past medical history significant for hypertension osteoarthritis heart failure with patient has been brought into the hospital for evaluation of weakness and confusion patient has been diagnosed with a pneumonia prompted this consultation. On today's evaluation that is 09/08/2024, the patient continues to be afebrile, the patient is on room air and breathing comfortably, the Pt denies having any chest pain and the cough has decreased in intensity denies any nausea vomiting abdominal pain did have some diarrhea last night but none this morning. Patient white count is 5.07, creatinine 0.6 stool for C. difficile positive sputum with MSSA blood culture has been negative Objective - Vital Signs Vital signs: Vital Signs Temp 98.4 F 09/08/24 08:03 Pulse 86 09/08/24 08:03 Resp 18 09/08/24 11:48 BP 117/80 09/08/24 08:03 Pulse Ox 93 L 09/08/24 08:40 FiO2 Intake & Output 09/07/24 09/08/24 09/08/24 18:59 06:59 18:59 Other: Voiding Method Toilet Toilet Toilet # Voids 8 1 # Bowel Movements 5 1 - Exam GENERAL DESCRIPTION: An elderly female up in the chair in no distress RESPIRATORY SYSTEM: Unlabored breathing , decreased breath sounds at bases HEART: S1 S2 regular rate and rhythm , ABDOMEN: Soft , no tenderness, did have abdominal fold erythema concerning for cutaneous candidiasis EXTREMITIES: No edema feet - Labs CBC & Chem 7: 09/08/24 03:24 09/08/24 03:24 Labs: Abnormal Lab Results - Last 24 Hours (Table) 09/07/24 09/08/24 09/08/24 Range/Units 15:34 03:24 03:24 RBC 3.51 L (4.10-5.20) X 10*6/uL Hgb 10.8 L (12.0-15.0) g/dL Hct 33.1 L (37.2-46.3) % BUN 8.5 L (9.0-27.0) mg/dL C. difficile (EIA) Intrp Positive A (Negative) Microbiology - Last 24 Hours (Table) 09/04/24 14:15 Blood Culture Gram Stain - Final Blood Blood Culture - Final Staphylococcus epidermidis Genaro watts Molecular ID 09/06/24 16:43 Blood Culture - Preliminary Blood 09/05/24 09:00 Gram Stain - Final Sputum Sputum Culture - Final Staphylococcus aureus Assessment and Plan (1) Pneumonia Current Visit: Yes Status: Acute Code(s): J18.9 - PNEUMONIA, UNSPECIFIED ORGANISM SNOMED Code(s): 735073117 (2) Positive blood culture Current Visit: Yes Status: Acute Code(s): R78.81 - BACTEREMIA SNOMED Code(s): 759906227 (3) Diarrhea Current Visit: Yes Status: Acute Code(s): R19.7 - DIARRHEA, UNSPECIFIED SNOMED Code(s): 48733504 (4) C. difficile colitis Current Visit: Yes Status: Acute Code(s): A04.72 - ENTEROCOLITIS D/T CLOSTRIDIUM DIFFICILE, NOT SPCF RECUR SNOMED Code(s): 258251345 Plan: 1patient presented to hospital with mental status change and confusion patient also complaining of cough which is productive of some purulent sputum and left lower lobe infiltrate concerning for pneumonia likely community-acquired aspiration pneumonia less likely but not entirely excluded 2-patient did have a positive blood culture with staph epi possible skin contamination 3patient sputum is growing Staph aureus which has been finalized as MSSA 4patient has developed diarrhea and stool for C. difficile came back positive patient was started on oral vancomycin yesterday did have improvement her diarrhea 5-vancomycin has been discontinued Rocephin has been added for the MSSA pneumo dora we will consider short course keeping in mind active C. difficile Dictation was produced using [employer] dictation software. please excuse any grammatical, word or spelling errors. Time with Patient: Less than 30
[2024-09-08] MEDS ORDERED: VANCOMYCIN TROUGH DUE 1 EACH MISC MISCELLANE ONE (17:00)
--- NOTE | 2024-09-08 18:54 | P.PN ---
Subjective Progress Note Date: 09/08/24 I am following up with the patient and she is tolerating Keppra so far well without any issues. She feels she is doing well overall and denies of any new neurological issues. In the past she was having a long episode of unresponsiveness. During this hospital visit she stated that she came to the hospital not knowing what transpired and all she remembers was waking up in the hospital. Objective - Vital Signs Vital signs: Vital Signs Temp 98.2 F 09/08/24 14:54 Pulse 72 09/08/24 14:54 Resp 18 09/08/24 14:54 BP 102/68 09/08/24 14:54 Pulse Ox 95 09/08/24 14:54 FiO2 Intake & Output 09/07/24 09/08/24 09/08/24 18:59 06:59 18:59 Other: Voiding Method Toilet Toilet Toilet # Voids 8 1 # Bowel Movements 5 1 - Labs CBC & Chem 7: 09/08/24 03:24 09/08/24 03:24 Labs: Abnormal Lab Results - Last 24 Hours (Table) 09/08/24 09/08/24 Range/Units 03:24 03:24 RBC 3.51 L (4.10-5.20) X 10*6/uL Hgb 10.8 L (12.0-15.0) g/dL Hct 33.1 L (37.2-46.3) % BUN 8.5 L (9.0-27.0) mg/dL Microbiology - Last 24 Hours (Table) 09/05/24 09:00 Legionella Culture - Preliminary Sputum 09/04/24 14:15 Blood Culture Gram Stain - Final Blood Blood Culture - Final Staphylococcus epidermidis Finegoldia magna Molecular ID 09/06/24 16:43 Blood Culture - Preliminary Blood Assessment and Plan Assessment: 1. Toxic/metabolic encephalopathy secondary to left lower lobe pneumonia. Also cannot rule out seizure especially with the episode of unresponsiveness--mentation improved 2. Recurrent episodes of unresponsiveness the patient some of the episodes are prolonged. Seems concerning for seizure. Plan: Because of recurrent episode of unresponsiveness and concern for seizure I started the patient on Keppra 500 mg twice daily on 09/07/2024 and I notified her about side-effect of medication. EEG is completed and preliminary report is negative for seizure. Recommend a repeat EEG as outpatient or prolonged EEG to capture events. Repeat episode of unresponsive (a seizure or not a seizure) per the [place] DMV, to avoid driving for 6 months until no further episodes from the last event, avoid heights, avoid swimming unassisted or using heavy missionary and pending official report Will defer the rest of the medical management to primary team and other special ist Recommend the patient to follow-up with a neurologist as an outpatient within 2 weeks No further neurological workup. Will sign off. Please reconsult if needed. Time with Patient: Less than 30
--- NOTE | 2024-09-09 09:06 | P.PN ---
Subjective Progress Note Date: 09/09/24 Antibiotics adjusted yesterday to vancomycin as per infectious disease, sputum growing Staph aureus and blood culture reporting coagulase negative staph sensitivities pending. Renal function stable. Reports increased diarrhea, cultures ordered to rule out C. difficile. Repeat chest x-ray pending. Afebr ile, normal WBC. 09/08/2024 sitting up in chair, complaining of chronic sciatica pain. Tested po sitive for C. difficile colitis, antibiotics adjusted as per ID including initiation of oral vancomycin. Watery diarrhea this morning, denies nausea vomiting. Denies abdominal pain. Nonproductive cough. Denies chest pain, palpitations or shortness of breath. Maintaining O2 sats of 93 to 97% on room air. Sputum culture finalized with MSSA. Blood culture reporting staphylcoccus epidermidis. EEG completed yesterday reporting abnormal routine EEG. Background slowing suggestive of mild encephalopathy. Otherwise there is no focal slowing epileptiform discharge or seizure. Keppra initiated as per neurology. No seizure activity reported. 09/09/24 Pt seen and evaluated at bedside today, she feels her diarrhea is improving with the PO vancomycin, had 4 semiformed bowel movements yesterday and none so far this morning. She denies nausea or abdominal pain. Continues to complain of nonproductive cough. Afebrile Objective - Vital Signs Vital signs: Vital Signs Temp 98.3 F 09/09/24 07:30 Pulse 73 09/09/24 07:30 Resp 16 09/09/24 07:30 BP 107/73 09/09/24 07:30 Pulse Ox 96 09/09/24 07:30 FiO2 28 09/09/24 01:34 Intake & Output 09/08/24 09/09/24 09/09/24 18:59 06:59 18:59 Intake Total 240 Balance 240 Intake: Oral 240 Other: Voiding Method Toilet Toilet # Voids 1 3 # Bowel Movements 1 - Exam Obese elderly female in NAD RRR Rhonchi and expiratory wheezing at bases Nontender, non distended - Labs CBC & Chem 7: 09/08/24 03:24 09/08/24 03:24 Labs: Abnormal Lab Results - Last 24 Hours (Table) 09/08/24 09/08/24 Range/Units 03:24 03:24 RBC 3.51 L (4.10-5.20) X 10*6/uL Hgb 10.8 L (12.0-15.0) g/dL Hct 33.1 L (37.2-46.3) % BUN 8.5 L (9.0-27.0) mg/dL Microbiology - Last 24 Hours (Table) 09/06/24 16:43 Blood Culture - Preliminary Blood 09/05/24 09:00 Legionella Culture - Preliminary Sputum 09/04/24 14:15 Blood Culture Gram Stain - Final Blood Blood Culture - Final Staphylococcus epidermidis Finegoldia magna Molecular ID Assessment and Plan Plan: Continue with IV rocephin and PO vancomycin per ID. Continue with remainder of home medical regimen. Encourage ambulation, discharge planning
--- NOTE | 2024-09-09 12:06 | P.PN ---
Subjective Progress Note Date: 09/09/24 Principal diagnosis: Reason for follow-up is pneumonia with positive blood culture Patient is a 74-year-old female with a past medical history significant for hypertension osteoarthritis heart failure with patient has been brought into the hospital for evaluation of weakness and confusion patient has been diagnosed with a pneumonia prompted this consultation. On today's evaluation that is 09/09/2024, patient has been afebrile, patient is breathing comfortably and is currently on room air, patient denies having any chest pain and cough is decreased in intensity, patient denies nausea vomiting mention improvement in the diarrhea with a bowel movement last night. Patient did not have any lab draw today blood culture has been negative Objective - Vital Signs Vital signs: Vital Signs Temp 98.3 F 09/09/24 07:30 Pulse 73 09/09/24 08:00 Resp 16 09/09/24 08:00 BP 107/73 09/09/24 07:30 Pulse Ox 96 09/09/24 07:30 FiO2 28 09/09/24 01:34 Intake & Output 09/08/24 09/09/24 09/09/24 18:59 06:59 18:59 Intake Total 240 Balance 240 Intake: Oral 240 Other: Voiding Method Toilet Toilet Toilet # Voids 1 3 # Bowel Movements 1 - Exam GENERAL DESCRIPTION: An elderly female up in the chair in no distress RESPIRATORY SYSTEM: Unlabored breathing , decreased breath sounds at bases HEART: S1 S2 regular rate and rhythm , ABDOMEN: Soft , no tenderness, did have abdominal fold erythema concerning for cutaneous candidiasis EXTREMITIES: No edema feet - Labs CBC & Chem 7: 09/08/24 03:24 09/08/24 03:24 Labs: Microbiology - Last 24 Hours (Table) 09/06/24 16:43 Blood Culture - Preliminary Blood 09/05/24 09:00 Legionella Culture - Preliminary Sputum 09/04/24 14:15 Blood Culture Gram Stain - Final Blood Blood Culture - Final Staphylococcus epidermidis Finegoldia magna Molecular ID Assessment and Plan (1) Pneumonia Current Visit: Yes Status: Acute Code(s): J18.9 - PNEUMONIA, UNSPECIFIED ORGANISM SNOMED Code(s): 574729027 (2) Positive blood culture Current Visit: Yes Status: Acute Code(s): R78.81 - BACTEREMIA SNOMED Code(s): 163325429 (3) Diarrhea Current Visit: Yes Status: Acute Code(s): R19.7 - DIARRHEA, UNSPECIFIED SNOMED Code(s): 47728560 (4) C. difficile colitis Current Visit: Yes Status: Acute Code(s): A04.72 - ENTEROCOLITIS D/T CLOSTRIDIUM DIFFICILE, NOT SPCF RECUR SNOMED Code(s): 508031416 Plan: 1patient presented to hospital with mental status change and confusion patient also complaining of cough which is productive of some purulent sputum and left lower lobe infiltrate concerning for pneumonia likely community-acquired aspiration pneumonia less likely but not entirely excluded 2-patient did have a positive blood culture with staph epi possible skin contamination 3patient sputum is growing Staph aureus which has been finalized as MSSA 4patient has developed diarrhea and stool for C. difficile came back positive patient did mention improvement in diarrhea to continue with the oral vancomycin to finish a total of 2-week course of therapy 5-patient is currently on Rocephin to cover for MSSA pneumonia we will plan on a 4-day course of oral Ceftin on discharge Dictation was produced using [employer] dictation software. please excuse any grammatical, word or spelling errors.
--- NOTE | 2024-09-09 14:14 | P.PN ---
Subjective Progress Note Date: 09/09/24 This is a 74-year-old female patient with a known history of congestive heart failure, hearing disorder, hypertension coronary artery disease with previous stent placement anxiety. Lifelong non-smoker. She was brought into the emergency room yesterday by her granddaughter who states the patient was having issues with altered mental status. She had found her naked sitting on the toilet asking to be taken home when she was actually at her home. She states this has happened before when she has had a urinary tract infection. Urinalysis clean. CT scan of the brain revealed no acute intracranial process. CT scan of the abdomen and pelvis revealed no acute process. Viral screen negative. White count 9.2. Hemoglobin 10.3. Platelets 132. Sodium 141. Potassium 3.6. Bicarb 23. BUN 18. Creatinine 0.8. Glucose 107. She is seen today in consultation on the regular medical floor. She is resting comfortably in bed. Awake and alert currently. Oriented x 3. No worsening shortness of breath, cough or congestion. She is maintaining good O2 saturations in the 90s on 2 L/min per nasal cannula. Chest x-ray showing a mild left lower lobe infiltrate. Most likely atelectasis versus early pneumonia. Procalcitonin 0.47. The patient is seen today September 06, 2024 in follow-up on the regular medical floor. She is currently resting comfortably in bed. Awake and alert in no acute distress. Feeling better today compared to yesterday. Maintaining good O2 saturations in the upper 90s on 2 L/min per nasal cannula. She has been afebrile. Hemodynamically stable. Initial blood culture revealing staph epi, suspect contaminant. White count 7.4. Hemoglobin 10.9. Platelets 191. Sodium 137. Potassium 3.3. Bicarb 26. BUN 12. Creatinine 0.70. Glucose 130. She remains on Zosyn. The patient is seen today September 07, 2024 in follow-up on the regular medical floor. She is currently sitting up in a chair. Awake and alert in no acute distress. Maintaining good O2 saturations in the 90s on room air. Procalcitonin was 0.47. Sputum culture showing methicillin sensitive Staph aureus. Blood culture reveals Staphylococcus epidermidis. Infectious disease is following. Chest x-ray reveals left perihilar infiltrate. Stable. White count 5.1. Hemoglobin 10.6. Platelets 206. Sodium 141. Potassium 3.4. Bicarb 27. BUN 10. Creatinine 0.7. Glucose 97. She is currently on vancomycin. The patient is seen today September 08, 2024 in follow-up on the regular medical floor.. Awake and alert in no acute distress. Denies any worsening shortness of breath, cough or congestion. Maintaining good O2 saturations in the 90s on room air. White count 5.0. Hemoglobin 10.8. Platelets 230. Sodium 141. Potassium 3.7. Bicarb 27. BUN 9. Creatinine 0.6. C. difficile screen is positive. Sputum culture for methicillin sensitive Staphylococcus aureus. Blood culture positive for Staphylococcus epidermidis. Follow-up blood culture pending. She is currently on ceftriaxone and oral vancomycin. The patient is seen today September 09, 2024 in follow-up on the regular medical floor. She is currently sitting up in a chair at the bedside. Awake and alert in no acute distress. Maintaining good O2 saturations in the 90s on room air. She is currently on ceftriaxone. She remains on oral vancomycin for C. difficile colitis. No new labs today. Objective - Vital Signs Vital signs: Vital Signs Temp 98.3 F 09/09/24 07:30 Pulse 73 09/09/24 08:00 Resp 16 09/09/24 08:00 BP 107/73 09/09/24 07:30 Pulse Ox 96 09/09/24 07:30 FiO2 28 09/09/24 01:34 Intake & Output 09/08/24 09/09/24 09/09/24 18:59 06:59 18:59 Intake Total 240 Balance 240 Intake: Oral 240 Other: Voiding Method Toilet Toilet Toilet # Voids 1 3 # Bowel Movements 1 - Exam GENERAL EXAM: Alert, 74-year-old female, up in a chair, on room air, in no apparent distress. HEAD: Normocephalic. EYES: Normal reaction of pupils, equal size. NOSE: Clear with pink turbinates. THROAT: No erythema or exudates. NECK: No masses, no JVD. CHEST: No chest wall deformity. LUNGS: Equal air entry with rhonchi over the left lung base. CVS: S1 and S2 normal with no audible murmur, regular rhythm. ABDOMEN: No hepatosplenomegaly, normal bowel sounds, no guarding or rigidity. SPINE: No scoliosis or deformity SKIN: No rashes CENTRAL NERVOUS SYSTEM: No focal deficits, tone is normal in all 4 extremities. EXTREMITIES: There is no peripheral edema. No clubbing, no cyanosis. Peripheral pulses are intact. - Labs CBC & Chem 7: 09/08/24 03:24 09/08/24 03:24 Labs: Microbiology - Last 24 Hours (Table) 09/06/24 16:43 Blood Culture - Preliminary Blood 09/05/24 09:00 Legionella Culture - Preliminary Sputum 09/04/24 14:15 Blood Culture Gram Stain - Final Blood Blood Culture - Final Staphylococcus epidermidis Finegoldia magna Molecular ID Assessment and Plan Assessment: Altered mental status of unclear etiology, improved Left lower lobe infiltrate/atelectasis. Procalcitonin negative at 0.47. Sputum positive for MSSA. Blood culture revealing Staphylococcus epidermidis C. difficile colitis Obstructive sleep apnea maintained on BiPAP Hypertension Hyperlipidemia Coronary disease with previous stent placement Non-smoker Plan: The patient was seen and evaluated Microbiology, labs and medications reviewed Currently on ceftriaxone and oral vancomycin Infectious disease is on the case Stable and on room air Plan is for home with home care at discharge I have personally seen and examined the patient, performed the documentation and the assessment and plan as written. Number of minutes spent on the visit: 10 Dictation was produced using [employer] dictation software. Please excuse any grammatical, word or spelling errors.
[2024-09-10 08:51] VITALS: BP 129/81; PULSE 59; RESP 16; TEMP 97.8
--- NOTE | 2024-09-10 10:04 | P.DS ---
Providers Date of admission: 09/04/24 15:54 Expected date of discharge: 09/10/24 Attending physician: David Mora MD Consults: 09/04/24 17:05 Consult Physician Routine Consulting Provider: Sid Acosta Consult Reason/Comments: pneumonia Do you want consulting provider notified?: Yes 09/04/24 17:06 Consult Physician Routine Consulting Provider: Scotty Pierce Consult Reason/Comments: pneumonia Do you want consulting provider notified?: Yes Consult Physician Routine Consulting Provider: Stella Mcgill Consult Reason/Comments: confusion Do you want consulting provider notified?: Yes Primary care physician: David Mora MD Hospital Course: Antibiotics adjusted yesterday to vancomycin as per infectious disease, sputum growing Staph aureus and blood culture reporting coagulase negative staph sensitivities pending. Renal function stable. Reports increased diarrhea, cultures ordered to rule out C. difficile. Repeat chest x-ray pending. Afebrile, normal WBC. 09/08/2024 sitting up in chair, complaining of chronic sciatica pain. Tested positive for C. difficile colitis, antibiotics adjusted as per ID including initiation of oral vancomycin. Watery diarrhea this morning, denies nausea vomiting. Denies abdominal pain. Nonproductive cough. Denies chest pain, palpitations or shortness of breath. Maintaining O2 sats of 93 to 97% on room air. Sputum culture finalized with MSSA. Blood culture reporting staphylcoccus epidermidis. EEG completed yesterday reporting abnormal routine EEG. Background slowing suggestive of mild encephalopathy. Otherwise there is no focal slowing epileptiform discharge or seizure. Keppra initiated as per neurology. No seizure activity reported. 09/09/24 Pt seen and evaluated at bedside today, she feels her diarrhea is improving with the PO vancomycin, had 4 semiformed bowel movements yesterday and none so far this morning. She denies nausea or abdominal pain. Continues to complain of nonproductive cough. Afebrile 09/10/24 On day of discharge pt denies abdominal pain, nausea, vomiting. She feels her diarrhea continues to improve and reports formed stools last 24 hours. She is discharged in stable condition with home health care and recommended to complete 14 day course of vancomycin as well as 5 day course of ceftin and follow up with her PCP within 1 week Plan - Discharge Summary New Discharge Prescriptions: New Pantoprazole [Protonix] 40 mg PO AC-BRKFST #30 tab cefuroxime axetiL [Ceftin] 500 mg PO BID #10 tab levETIRAcetam [Keppra] 500 mg PO Q12HR #60 tab Vancomycin HCl 250 mg PO QID 14 Days #56 cap Continue Multivitamins, Thera [Multivitamin (formulary)] 1 tab PO DAILY Cyanocobalamin [Vitamin B-12] 1,000 mcg PO DAILY Aspirin 81 mg PO DAILY Pramipexole [Mirapex] 0.25 mg PO HS Cetirizine HCl [Zyrtec] 10 mg PO HS Omeprazole 40 mg PO BID Simethicone [Gas-X] 125 mg PO ACHS PRN PRN Reason: GAS/BLOATING Calcium Carbonate/Vitamin D3 [Calcium 600-D3 20 mcg (800 Unit)] 1 tab PO DAILY Docusate [Colace] 100 mg PO DAILY calcium polycarbophiL [Fibercon] 625 mg PO DAILY Meloxicam [Mobic] 15 mg PO DAILY Gabapentin [Neurontin] 100 mg PO BID-W/MEALS Clotrimazole Cream [Lotrimin Cream] 1 applic TOPICAL BID Patient Own Pump 0 bag Torsemide [Demadex] 10 mg PO DAILY Metoprolol Tartrate [Lopressor] 25 mg PO BID Venlafaxine HCl [Effexor] 100 mg PO DAILY oxyBUTYnin chloride [Ditropan XL] 10 mg PO HS Cranberry 15,000 1 cap PO DAILY Atorvastatin [Lipitor] 40 mg PO HS #30 tab Acetaminophen Tab [Tylenol] 1,000 mg PO Q6HR PRN tab PRN Reason: Fever And/ Or Pain Magnesium Oxide [Mag-Ox] 400 mg PO BID tab Potassium Chloride ER [K-Dur 10] 10 meq PO DAILY Nitrofurantoin Monohyd/M-Cryst [Macrobid] 100 mg PO HS metOLazone [Zaroxolyn] 2.5 mg PO DAILY Gabapentin [Neurontin] 200 mg PO HS Pilocarpine [Salagen] 5 mg PO QID Brinzolamide/Brimonidine Tart [Simbrinza 1%-0.2% Eye Drop] 1 drop BOTH EYES BID Discharge Medication List Aspirin 81 mg PO DAILY 12/14/14 [History] Cyanocobalamin [Vitamin B-12] 1,000 mcg PO DAILY 12/14/14 [History] Multivitamins, Thera [Multivitamin (formulary)] 1 tab PO DAILY 12/14/14 [History] Pramipexole [Mirapex] 0.25 mg PO HS 12/14/14 [History] Cetirizine HCl [Zyrtec] 10 mg PO HS 07/10/19 [History] Metoprolol Tartrate [Lopressor] 25 mg PO BID 07/26/22 [History] Omeprazole 40 mg PO BID 07/26/22 [History] Venlafaxine HCl [Effexor] 100 mg PO DAILY 07/26/22 [History] Calcium Carbonate/Vitamin D3 [Calcium 600-D3 20 mcg (800 Unit)] 1 tab PO DAILY 10/05/22 [History] Simethicone [Gas-X] 125 mg PO ACHS PRN 10/05/22 [History] oxyBUTYnin chloride [Ditropan XL] 10 mg PO HS 02/13/23 [History] Cranberry 15,000 1 cap PO DAILY 10/26/23 [History] Docusate [Colace] 100 mg PO DAILY 10/26/23 [History] calcium polycarbophiL [Fibercon] 625 mg PO DAILY 10/26/23 [History] Atorvastatin [Lipitor] 40 mg PO HS #30 tab 10/29/23 [Rx] Acetaminophen Tab [Tylenol] 1,000 mg PO Q6HR PRN tab 11/11/23 [Rx] Magnesium Oxide [Mag-Ox] 400 mg PO BID tab 11/11/23 [Rx] Brinzolamide/Brimonidine Tart [Simbrinza 1%-0.2% Eye Drop] 1 drop BOTH EYES BID 08/09/24 [History] Clotrimazole Cream [Lotrimin Cream] 1 applic TOPICAL BID 08/09/24 [History] Gabapentin [Neurontin] 100 mg PO BID-W/MEALS 08/09/24 [History] Gabapentin [Neurontin] 200 mg PO HS 08/09/24 [History] Meloxicam [Mobic] 15 mg PO DAILY 08/09/24 [History] Nitrofurantoin Monohyd/M-Cryst [Macrobid] 100 mg PO HS 08/09/24 [History] Patient Own Pump 0 bag 08/09/24 [History] Pilocarpine [Salagen] 5 mg PO QID 08/09/24 [History] Potassium Chloride ER [K-Dur 10] 10 meq PO DAILY 08/09/24 [History] metOLazone [Zaroxolyn] 2.5 mg PO DAILY 08/09/24 [History] Torsemide [Demadex] 10 mg PO DAILY 09/04/24 [History] Pantoprazole [Protonix] 40 mg PO AC-BRKFST #30 tab 09/10/24 [Rx] Vancomycin HCl 250 mg PO QID 14 Days #56 cap 09/10/24 [Rx] cefuroxime axetiL [Ceftin] 500 mg PO BID #10 tab 09/10/24 [Rx] levETIRAcetam [Keppra] 500 mg PO Q12HR #60 tab 09/10/24 [Rx] Follow up Appointment(s)/Referral(s): [facility] [[facility]-STA[facility]] - As Needed ([facility] will call you to schedule your in home nursing, physical therapy, and occupational therapy visits. ) David Mora MD [Primary Care Provider] - 3 Days Tonny Mcgee MD [Medical Doctor] - 2 Weeks Discharge Disposition: HOME WITH HOME HEALTH SERVICES
--- NOTE | 2024-09-10 12:57 | P.PN ---
Subjective Progress Note Date: 09/10/24 Principal diagnosis: Reason for follow-up is pneumonia with positive blood culture Patient is a 74-year-old female with a past medical history significant for hypertension osteoarthritis heart failure with patient has been brought into the hospital for evaluation of weakness and confusion patient has been diagnosed with a pneumonia prompted this consultation. On today's evaluation that is 09/10/2024, Patient is afebrile this morning patient denies having any chest pain shortness of breath and cough is decreased in intensity, the patient is currently on room air, patient denies any abdominal pain diarrhea has slowed down and forming up. No new lab has been repeated today Objective - Vital Signs Vital signs: Vital Signs Temp 97.8 F 09/10/24 07:19 Pulse 59 L 09/10/24 07:19 Resp 16 09/10/24 08:00 BP 129/81 09/10/24 07:19 Pulse Ox 93 L 09/10/24 07:19 FiO2 28 09/09/24 01:34 Intake & Output 09/09/24 09/10/24 09/10/24 18:59 06:59 18:59 Other: Voiding Method Toilet Toilet # Voids 1 1 - Exam GENERAL DESCRIPTION: An elderly female up in the chair in no distress RESPIRATORY SYSTEM: Unlabored breathing , decreased breath sounds at bases HEART: S1 S2 regular rate and rhythm , ABDOMEN: Soft , no tenderness, did have abdominal fold erythema concerning for cutaneous candidiasis EXTREMITIES: No edema feet - Labs CBC & Chem 7: 09/08/24 03:24 09/08/24 03:24 Labs: Microbiology - Last 24 Hours (Table) 09/06/24 16:43 Blood Culture - Preliminary Blood Assessment and Plan (1) Pneumonia Current Visit: Yes Status: Acute Code(s): J18.9 - PNEUMONIA, UNSPECIFIED ORGANISM SNOMED Code(s): 677854265 (2) Positive blood culture Current Visit: Yes Status: Acute Code(s): R78.81 - BACTEREMIA SNOMED Code(s): 151822947 (3) Diarrhea Current Visit: Yes Status: Acute Code(s): R19.7 - DIARRHEA, UNSPECIFIED SNOMED Code(s): 99069475 (4) C. difficile colitis Current Visit: Yes Status: Acute Code(s): A04.72 - ENTEROCOLITIS D/T CLOSTRIDIUM DIFFICILE, NOT SPCF RECUR SNOMED Code(s): 566242339 Plan: 1patient presented to hospital with mental status change and confusion patient also complaining of cough which is productive of some purulent sputum and left lower lobe infiltrate concerning for pneumonia likely community-acquired aspiration pneumonia less likely but not entirely excluded 2-patient did have a positive blood culture with staph epi possible skin contamination 3patient sputum is growing Staph aureus which has been finalized as MSSA 4patient has developed diarrhea and stool for C. difficile came back positive patient did mention improvement in diarrhea plan is to continue with oral vancom ycin to finish a total of 2-week course of therapy 5-patient did have clinical improvement in her MSSA pneumonia we will finish therapy with oral Ceftin prescription has been sent to the pharmacy Dictation was produced using [employer] dictation software. please excuse any grammatical, word or spelling errors. Time with Patient: Less than 30
[2024-09-10 13:01] VITALS: BMI 33.6
--- NOTE | 2024-09-10 14:17 | P.PN ---
Subjective Progress Note Date: 09/10/24 Principal diagnosis: Mental status changes. This is a 74-year-old female patient with a known history of congestive heart failure, hearing disorder, hypertension coronary artery disease with previous stent placement anxiety. Lifelong non-smoker. She was brought into the emerge ncy room yesterday by her granddaughter who states the patient was having issues with altered mental status. She had found her naked sitting on the toilet asking to be taken home when she was actually at her home. She states this has happened before when she has had a urinary tract infection. Urinalysis clean. CT scan of the brain revealed no acute intracranial process. CT scan of the abdomen and pelvis revealed no acute process. Viral screen negative. White count 9.2. Hemoglobin 10.3. Platelets 132. Sodium 141. Potassium 3.6. Bicarb 23. BUN 18. Creatinine 0.8. Glucose 107. She is seen today in consultation on the regular medical floor. She is resting comfortably in bed. Awake and alert currently. Oriented x 3. No worsening shortness of breath, cough or congestion. She is maintaining good O2 saturations in the 90s on 2 L/min per nasal cannula. Chest x-ray showing a mild left lower lobe infiltrate. Most likely atelectasis versus early pneumonia. Procalcitonin 0.47. The patient is seen today September 06, 2024 in follow-up on the regular medical floor. She is currently resting comfortably in bed. Awake and alert in no acute distress. Feeling better today compared to yesterday. Maintaining good O2 saturations in the upper 90s on 2 L/min per nasal cannula. She has been afebrile. Hemodynamically stable. Initial blood culture revealing staph epi, suspect contaminant. White count 7.4. Hemoglobin 10.9. Platelets 191. Sodium 137. Potassium 3.3. Bicarb 26. BUN 12. Creatinine 0.70. Glucose 130. She remains on Zosyn. The patient is seen today September 07, 2024 in follow-up on the regular medical floor. She is currently sitting up in a chair. Awake and alert in no acute distress. Maintaining good O2 saturations in the 90s on room air. Pro calcitonin was 0.47. Sputum culture showing methicillin sensitive Staph aureus. Blood culture reveals Staphylococcus epidermidis. Infectious disease is following. Chest x-ray reveals left perihilar infiltrate. Stable. White count 5.1. Hemoglobin 10.6. Platelets 206. Sodium 141. Potassium 3.4. Bicarb 27. BUN 10. Creatinine 0.7. Glucose 97. She is currently on vancomycin. The patient is seen today September 08, 2024 in follow-up on the regular medical floor.. Awake and alert in no acute distress. Denies any worsening shortness of breath, cough or congestion. Maintaining good O2 saturations in the 90s on room air. White count 5.0. Hemoglobin 10.8. Platelets 230. Sodium 141. Potassium 3.7. Bicarb 27. BUN 9. Creatinine 0.6. C. difficile screen is positive. Sputum culture for methicillin sensitive Staphylococcus aureus. Blood culture positive for Staphylococcus epidermidis. Follow-up blood culture pending. She is currently on ceftriaxone and oral vancomycin. The patient is seen today September 09, 2024 in follow-up on the regular medical floor. She is currently sitting up in a chair at the bedside. Awake and alert in no acute distress. Maintaining good O2 saturations in the 90s on room air. She is currently on ceftriaxone. She remains on oral vancomycin for C. difficile colitis. No new labs today. Progress note dated September 10, 2024. 74-year-old female seen today in room 467. The patient is currently on room air. No IV fluids. The patient is doing well, and she is awake and alert. No distress. She is hoping to be discharged in the near future. No new labs today. The most recent labs were done September 08, 2024. They have been rev iewed. Objective - Vital Signs Vital signs: Vital Signs Temp 97.8 F 09/10/24 07:19 Pulse 59 L 09/10/24 07:19 Resp 16 09/10/24 08:00 BP 129/81 09/10/24 07:19 Pulse Ox 93 L 09/10/24 07:19 FiO2 28 09/09/24 01:34 Intake & Output 09/09/24 09/10/24 09/10/24 18:59 06:59 18:59 Weight 86.183 kg Other: Voiding Method Toilet Toilet # Voids 1 1 - Exam No acute distress, oriented 3. No respiratory distress. Currently on room air. HEENT examination is grossly unremarkable. Mucous membranes are moist. No oral lesions. Neck supple. Full range of motion. No adenopathy thyromegaly or neck vein distention. Cardiovascular examination reveals regular rhythm rate. S1-S2 normal. No S3 or S4. No discernible murmur noted. Lungs reveal clear breath sounds. Breath sounds are equal bilaterally. No adventitious lung sounds including wheezes rhonchi or crackles. Abdomen soft bowel sounds are heard. No masses or tenderness. Extremities are intact. No cyanosis clubbing or edema. Skin is without rash or lesion. Neurologic examination is brief but nonfocal. - Labs CBC & Chem 7: 09/08/24 03:24 09/08/24 03:24 Labs: Microbiology - Last 24 Hours (Table) 09/06/24 16:43 Blood Culture - Preliminary Blood Assessment and Plan Assessment: Altered mental status of unclear etiology, improved. Left lower lobe infiltrate/atelectasis. Procalcitonin negative at 0.47. Sputum positive for MSSA. Blood culture revealing Staphylococcus epidermidis. C. difficile colitis. Obstructive sleep apnea maintained on BiPAP. Hypertension. Hyperlipidemia. Coronary disease with previous stent placement. Non-smoker. Plan: Plan dated September 10, 2024. The patient is seen today in room 467. The patient is on room air. No IV fluids. The patient is hoping to be discharged in the near future. Labs, x- rays, and all medications have been reviewed. Clinically, the patient is very stable. We will continue to follow the patient, should she not be discharged. Time with Patient: Less than 30
== END 2024-09-10 14:25 | disposition home health service (06) | DRG 177 ==
LOC: EC 10:33 → 4SSUR 15:53 → OBSVTOIN 15:54 → 4SSUR 19:04
PROVIDERS: ADMIT Family Medicine; ATTEND Family Medicine
DX: J15.211 Pneumonia due to Methicillin susceptible Staphylococcus aureus (principal); G92.8 Other toxic encephalopathy; A04.72 Enterocolitis due to Clostridium difficile, not specified as recurrent; J98.11 Atelectasis; E66.01 Morbid (severe) obesity due to excess calories; E78.5 Hyperlipidemia, unspecified; G47.33 Obstructive sleep apnea (adult) (pediatric); G89.29 Other chronic pain; H91.90 Unspecified hearing loss, unspecified ear; I11.0 Hypertensive heart disease with heart failure; M54.30 Sciatica, unspecified side; I50.9 Heart failure, unspecified; I25.10 Atherosclerotic heart disease of native coronary artery without angina pectoris; Z20.822 Contact with and (suspected) exposure to COVID-19; Z68.34 Body mass index [BMI] 34.0-34.9, adult; Z79.1 Long term (current) use of non-steroidal anti-inflammatories (NSAID); Z79.82 Long term (current) use of aspirin; Z79.899 Other long term (current) drug therapy; Z87.440 Personal history of urinary (tract) infections; Z95.5 Presence of coronary angioplasty implant and graft; Z96.651 Presence of right artificial knee joint; Z98.1 Arthrodesis status; Z96.89 Presence of other specified functional implants; Z79.2 Long term (current) use of antibiotics; Z79.891 Long term (current) use of opiate analgesic; R32 Unspecified urinary incontinence
CPT/HCPCS: 36415; 70450; 71045; 71046; 74177; 80048; 80053; 81003; 82150; 83605; 83690; 83735; 84145; 84484; 85025; 85610; 85730; 86140; 87040; 87070; 87077; 87186; 87205; 87324; 87449; 87636; 93005; 94760; 95816; 96361; 96365; 96366; 96375; 99285

== ENCOUNTER 2024-12-18 09:34 | Emergency (ER) | payer MEDICARE, OTHER ==
[2024-12-18 09:40] VITALS: TEMP 98
--- NOTE | 2024-12-18 10:10 | ED ---
Fall HPI - General Chief Complaint: Fall Stated Complaint: Fall, head and shoulder injury Time Seen by Provider: 12/18/24 10:09 Source: patient, family, RN notes reviewed Mode of arrival: ambulatory Limitations: no limitations - History of Present Illness Initial Comments: 74-year-old female presented to the ER status post fall. Last night around 10 PM patient was using the restroom and when upon standing from the toilet she states she accidentally lost her balance causing her to fall landing on her right shoulder. Patient does report hitting her head. She denies loss of consciousness or blood thinner use. Family, bedside, states they heard her scream and pushed her life alert button. Fire department came and lifted assisted patient into her bed. Patient was down for approximately 45 minutes. Patient is reporting most of her pain to her right shoulder denies paresthesias. Family, at bedside, states patient does frequently get UTIs and typically does not have symptoms. She is on Macrobid prophylactically. Patient has a morphine pain pump in place and takes gabapentin and Tylenol for pain control outpatient. No other complaints at this time.Patient denies any nausea, vomiting, dizziness, lightheadedness, shortness of breath, chest pain. No recent fevers, cough, congestion, diarrhea, constipation or peripheral edema. - Related Data Home Medications Medication Instructions Recorded Confirmed Aspirin 81 mg PO DAILY 12/14/14 09/04/24 Cyanocobalamin [Vitamin B-12] 1,000 mcg PO DAILY 12/14/14 09/04/24 Multivitamins, Thera [Multivitamin 1 tab PO DAILY 12/14/14 09/04/24 (formulary)] Pramipexole [Mirapex] 0.25 mg PO HS 12/14/14 09/04/24 Cetirizine HCl [Zyrtec] 10 mg PO HS 07/10/19 09/04/24 Metoprolol Tartrate [Lopressor] 25 mg PO BID 07/26/22 09/04/24 Omeprazole 40 mg PO BID 07/26/22 09/04/24 Venlafaxine HCl [Effexor] 100 mg PO DAILY 07/26/22 09/04/24 Calcium Carbonate/Vitamin D3 1 tab PO DAILY 10/05/22 09/04/24 [Calcium 600-D3 20 mcg (800 Unit)] Simethicone [Gas-X] 125 mg PO ACHS PRN 10/05/22 09/04/24 oxyBUTYnin chloride [Ditropan XL] 10 mg PO HS 02/13/23 09/04/24 Cranberry 15,000 1 cap PO DAILY 10/26/23 09/04/24 Docusate [Colace] 100 mg PO DAILY 10/26/23 09/04/24 calcium polycarbophiL [Fibercon] 625 mg PO DAILY 10/26/23 09/04/24 Brinzolamide/Brimonidine Tart 1 drop BOTH EYES BID 08/09/24 09/04/24 [Simbrinza 1%-0.2% Eye Drop] Clotrimazole Cream [Lotrimin Cream] 1 applic TOPICAL BID 08/09/24 09/04/24 Gabapentin [Neurontin] 100 mg PO BID-W/MEALS 08/09/24 09/04/24 Gabapentin [Neurontin] 200 mg PO HS 08/09/24 09/04/24 Meloxicam [Mobic] 15 mg PO DAILY 08/09/24 09/04/24 Nitrofurantoin Monohyd/M-Cryst 100 mg PO HS 08/09/24 09/04/24 [Macrobid] Patient Own Pump 0 bag 08/09/24 Pilocarpine [Salagen] 5 mg PO QID 08/09/24 09/04/24 Potassium Chloride ER [K-Dur 10] 10 meq PO DAILY 08/09/24 09/04/24 metOLazone [Zaroxolyn] 2.5 mg PO DAILY 08/09/24 09/04/24 Torsemide [Demadex] 10 mg PO DAILY 09/04/24 09/04/24 Previous Rx's Medication Instructions Recorded Atorvastatin [Lipitor] 40 mg PO HS #30 tab 10/29/23 Acetaminophen Tab [Tylenol] 1,000 mg PO Q6HR PRN tab 11/11/23 Magnesium Oxide [Mag-Ox] 400 mg PO BID tab 11/11/23 Pantoprazole [Protonix] 40 mg PO AC-BRKFST #30 tab 09/10/24 Vancomycin HCl 250 mg PO QID 14 Days #56 cap 09/10/24 cefuroxime axetiL [Ceftin] 500 mg PO BID #10 tab 09/10/24 levETIRAcetam [Keppra] 500 mg PO Q12HR #60 tab 09/10/24 Allergies Allergy/AdvReac Type Severity Reaction Status Date / Time adhesive tape Allergy Rash/Hives, Verified 09/04/24 12:23 "paper tape is ok" Review of Systems ROS Statement: Those systems with pertinent positive or pertinent negative responses have been documented in the HPI. ROS Other: All systems not noted in ROS Statement are negative. 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 History of Any Multi-Drug Resistant Organisms: None Reported Past Surgical History: Appendectomy, Back Surgery, Cholecystectomy, Heart Catheterization With Stent, Hernia Repair, Hysterectomy, Joint Replacement, Orthopedic Surgery Additional Past Surgical History / Comment(s): Pain Clinic Procedures, CARDIAC STENTS X2, L3-4-5 FUSION, total right knee replacement, bilateral cataract surgery. hiatal hernia repair.,Morphine pump implanted. Past Anesthesia/Blood Transfusion Reactions: No Reported Reaction Additional Past Anesthesia/Blood Transfusion Reaction / Comment(s): "Slow coming out." Date of Last Stent Placement:: Past Psychological History: Anxiety, Depression Smoking Status: Never smoker Past Alcohol Use History: None Reported Past Drug Use History: None Reported - Past Family History Father Family Medical History: Cancer Sister(s) Family Medical History: Cancer General Exam Limitations: no limitations General appearance: alert, in no apparent distress Head exam: Present: normocephalic, other (Hematoma with overlying contusion noted to right forehead. There is an abrasion noted superiorly and inferior to right eye.) Eye exam: Present: normal appearance, PERRL, EOMI. Absent: scleral icterus, conjunctival injection, periorbital swelling Pupils: Present: normal accommodation ENT exam: Present: normal exam, normal oropharynx, mucous membranes moist, TM's normal bilaterally, other (No raccoon eyes, [place] sign or hemotympanums) Neck exam: Present: normal inspection. Absent: tenderness, meningismus, lymphadenopathy Respiratory exam: Present: normal lung sounds bilaterally. Absent: respiratory distress, wheezes, rales, rhonchi, stridor Cardiovascular Exam: Present: regular rate, normal rhythm, normal heart sounds. Absent: systolic murmur, diastolic murmur, rubs, gallop, clicks GI/Abdominal exam: Present: soft, normal bowel sounds. Absent: distended, tenderness, guarding, rebound, rigid Extremities exam: Present: full ROM, tenderness (Right humeral head. Contusion noted), normal capillary refill (2+ bilateral radial and DP pulses). Absent: pedal edema, joint swelling, calf tenderness Neurological exam: Present: alert, oriented X3, CN II-XII intact Skin exam: Present: warm, dry, intact, normal color. Absent: rash Course Vital Signs 12/18/24 12/18/24 09:36 12:49 Temperature 98 F 98 F Pulse Rate 62 66 Respiratory 18 16 Rate Blood Pressure 114/70 116/82 O2 Sat by Pulse 95 96 Oximetry Medical Decision Making - Medical Decision Making Was pt. sent in by a medical professional or institution (, PA, MACHINE TAPER, urgent care, hospital, or penitentiary...) When possible be specific @ -No Did you speak to anyone other than the patient for history (EMS, parent, family, police, friend...)? What history was obtained from this source @ -Family, bedside, aiding in HPI and past medical history. Did you review nursing and triage notes (agree or disagree)? Why? @ -I reviewed and agree with nursing and triage notes Were old charts reviewed (outside hosp., previous admission, EMS record, old EKG, old radiological studies, urgent care reports/EKG's, penitentiary records)? Report findings @ -No old charts were reviewed Differential Diagnosis (chest pain, altered mental status, abdominal pain women, abdominal pain men, vaginal bleeding, weakness, fever, dyspnea, syncope, headache, dizziness, GI bleed, back pain, seizure, CVA, palpatations, mental health, musculoskeletal)? @ -Fracture, dislocation, contusion, hematoma, intracranial hemorrhage, concussion, abrasion, laceration this list does not like to be all-inclusive EKG interpreted by me (3pts min.). @ -None done X-rays interpreted by me (1pt min.). @ -Right shoulder x-ray interpreted by me negative for acute fractures or dislocations. Arthritic changes noted. Right hip AP pelvis x-ray interpreted me negative for acute fractures. CT interpreted by me (1pt min.). @ -CT brain negative for acute intracranial process/mass effect. Chronic changes noted. U/S interpreted by me (1pt. min.). @ -None done What testing was considered but not performed or refused? (CT, X-rays, U/S, labs)? Why? @ -None What meds were considered but not given or refused? Why? @ -None Did you discuss the management of the patient with other professionals (professionals i.e. , PA, MACHINE TAPER, lab, RT, psych nurse, rn social services, mailmaster, teacher, agricultural loan officer, trimming caser)? Give summary @ -No Was smoking cessation discussed for >3mins.? @ -No Was critical care preformed (if so, how long)? @ -No Were there social determinants of health that impacted care today? How? (Homelessness, low income, unemployed, alcoholism, drug addiction, transportation, low edu. Level, literacy, decrease access to med. care, correction, rehab)? @ -No Was there de-escalation of care discussed even if they declined (Discuss DNR or withdrawal of care, Hospice)? DNR status @ -No What co-morbidities impacted this encounter? (DM, HTN, Smoking, COPD, CAD, Cancer, CVA, ARF, Chemo, Hep., AIDS, mental health diagnosis, sleep apnea, morbid obesity)? @ -None Was patient admitted / discharged? Hospital course, mention meds given and route, prescriptions, significant lab abnormalities, going to OR and other pertinent info. @ -Discharge. 74-year-old female presented to ER for evaluation of a fall. Upon rooming, history and physical exam completed. Vitals within acceptable limits. Patient is neurovascularly intact. Contusion noted to right forehead and right shoulder. No acute neurological findings on exam. CT brain negative for acute process. Right shoulder and right AP pelvis x-ray negative for acute process. Urinalysis negative. Patient given [place] for pain control in the emergency department with improvement. Patient is stable for discharge upon reevaluation. I advised [id number] ibuprofen and Tylenol for pain control outpatient. Strict return parameters discussed. Patient discharged in stable condition with follow-up to PCP. Patient verbally expressed understanding agree with care plan. Case discussed with ED attending, . Undiagnosed new problem with uncertain prognosis? @ -No Drug Therapy requiring intensive monitoring for toxicity (Heparin, Nitro, Insulin, Cardizem)? @ -No Were any procedures done? @ -No Diagnosis/symptom? @ -Fall/contusion Acute, or Chronic, or Acute on Chronic? @ -Acute Uncomplicated (without systemic symptoms) or Complicated (systemic symptoms)? @ -Uncomplicated Side effects of treatment? @ -No Exacerbation, Progression, or Severe Exacerbation? @ -No Poses a threat to life or bodily function? How? (Chest pain, [place], [place], pneumonia, PE, COPD, DKA, ARF, appy, cholecystitis, CVA, Diverticulitis, Homicidal, Suicidal, threat to staff... and all critical care pts) @ -No - Lab Data Lab Results 12/18/24 Range/Units 10:20 Urine Color Yellow Urine Appearance Clear (Clear) Urine pH 5.0 (5.0-8.0) Ur Specific [place] 1.008 (1.001-1.035) Urine Protein Negative (Negative) Urine Glucose (UA) Negative (Negative) Urine Ketones Negative (Negative) Urine Blood Negative (Negative) Urine Nitrite Negative (Negative) Urine Bilirubin Negative (Negative) Urine Urobilinogen <2.0 (<2.0) mg/dL Ur Leukocyte Esterase Negative (Negative) - Radiology Data Radiology results: report reviewed, image reviewed Disposition Clinical Impression: Fall, Contusion Disposition: HOME SELF-CARE Condition: Stable Instructions (If sedation given, give patient instructions): Fall Prevention (ED) Additional Instructions: You may take ibuprofen and Tylenol for pain control. Follow-up closely with PCP. Return to the ER for any new or worsening concerns. Is patient prescribed a controlled substance at d/c from ED?: No Referrals: David Mora MD [Primary Care Provider] - 1-2 days Time of Disposition: 12:30
[2024-12-18] MEDS: HYDROcodone/APAP 7.5-325MG 1 EACH TAB PO ONE (10:18)
--- NOTE | 2024-12-18 11:52 | XR ---
EXAMINATION TYPE: XR Hip RT and AP Pelvis DATE OF EXAM: 12/18/2024 11:21 AM COMPARISON: None. CLINICAL INDICATION: Female, 74 years old with history of fall, pain TECHNIQUE: AP view(s) obtained. FINDINGS: Some degenerative change may be at the pubic symphysis. Sacroiliac joints are normal. Femoral heads a rticulate with the acetabulum. Joint spaces are preserved. Postsurgical changes are in the lower lumb ar spine IMPRESSION: 1. No acute osseous abnormality AP pelvis. [facility], , 12/18/2024 11:49 AM
--- NOTE | 2024-12-18 12:04 | XR ---
EXAMINATION TYPE: XR shoulder complete RT DATE OF EXAM: 12/18/2024 11:21 AM COMPARISON: None. CLINICAL INDICATION: Female, 74 years old with history of fall, Pain TECHNIQUE: XR shoulder complete RT view(s) obtained. FINDINGS: Humeral head is elevated in relation to the glenoid. There is loss of the glenohumeral junction space . Humeral head spurring is present. There is erosion of the acromioclavicular junction from the eleva evans humeral head. Findings are compatible with advanced degenerative change from chronic rotator cuff tear. No acute fractures or dislocations are evident. A follow up study can be performed 7-10 days from acute trauma for continued pain. MRI can be perfor med if soft tissue evaluation would be of benefit. IMPRESSION: 1. No acute osseous shoulder abnormality. 2. Advanced degenerative changes and chronic rotator cuff tear [facility], , 12/18/2024 12:01 PM
[2024-12-18 12:16] LABS: Appearance,Urine Clear (Clear); Bilirubin,Urine Negative (Negative); Blood,Urine Negative (Negative); Color,Urine Yellow; Glucose,Urine (UA) Negative (Negative); Ketones,Urine Negative (Negative); Leukocyte Esterase,Urine Negative (Negative); Nitrite,Urine Negative (Negative); Protein,Urine Negative (Negative); Specific Gravity,Urine 1.008 (1.001-1.035); Urobilinogen,Urine <2.0 mg/dL (<2.0)
--- NOTE | 2024-12-18 12:25 | CT ---
EXAMINATION TYPE: CT brain wo con DATE OF EXAM: 12/18/2024 11:00 AM COMPARISON: 09/04/2024 CLINICAL INDICATION: Female, 74 years old with history of fall with head injury, Fall with head injury TECHNIQUE: CT of the brain is performed utilizing 3 mm thick sections through the posterior fossa and 3 mm thick sections through the remaining calvarium. Study is performed within 24 hours of arrival to the hospital. Contrast used: mL of , (none if empty) CT DLP: 1095.6 mGycm, Automated exposure control for dose reduction was used. FINDINGS: No abnormal hyperdensity is present to suggest an acute intracranial hemorrhage. No mass lesion is evident. No acute infarcts are evident. Chronic appearing periventricular white matter hypodensity is present, likely on the basis of chronic white matter ischemic changes. This is stable from comparison. Ventricles and sulci are appropriate for the patient age. Paranasal sinuses and mastoid air cells within the [id number] are clear. Preliminary results were called to the emergency room. IMPRESSION: 1. No acute intracranial process. Follow up MRI can be performed as clinically indicated. 2. Chronic appearing periventricular white matter ischemic type changes. [facility], , 12/18/2024 11:53 AM ADAM
[2024-12-18 12:51] VITALS: BP 116/82; PULSE 66; RESP 16
== END 2024-12-18 12:51 | disposition home or self-care (01) ==
LOC: EC 09:34
DX: S00.93XA Contusion of unspecified part of head, initial encounter (principal); Z91.09 Other allergy status, other than to drugs and biological substances; W19.XXXA Unspecified fall, initial encounter
CPT/HCPCS: 70450; 73502; 81003; 99284

== ENCOUNTER 2025-01-25 23:05 | Emergency (ER) | payer MEDICARE, OTHER ==
--- NOTE | 2025-01-25 23:33 | ED ---
Fall HPI - General Chief Complaint: Fall Stated Complaint: fall; right arm injury Time Seen by Provider: 01/25/25 23:17 Source: patient, family Mode of arrival: wheelchair Limitations: no limitations - History of Present Illness Initial Comments: This is a 74-year-old female presenting with left arm injury following fall at 2100 this evening. Patient states she was standing from her toilet when she tripped and fell forward, catching herself with her left arm. Denies striking head, loss of consciousness, ongoing headache, neck pain, other significant injury. Patient's arm was splinted by friend/relative before going to ER. Patient denies use of blood thinners. Friend states patient has morphine pump. MD Complaint: fall Onset/Timin -: hour(s) Time: 21:00 Fall From: standing When Fall Occurred: 1-3 hours [employer] Fall Witnessed: no Place Fall Occurred: home Loss of Consciousness: none Prolonged Down Time?: no Symptoms Prior to Fall: none Location - Extremities: Left: Forearm Severity scale (1-10): 5 Context: tripped/slipped Associated Symptoms: denies - Related Data Home Medications Medication Instructions Recorded Confirmed Aspirin 81 mg PO DAILY 12/14/14 09/04/24 Cyanocobalamin [Vitamin B-12] 1,000 mcg PO DAILY 12/14/14 09/04/24 Multivitamins, Thera [Multivitamin 1 tab PO DAILY 12/14/14 09/04/24 (formulary)] Pramipexole [Mirapex] 0.25 mg PO HS 12/14/14 09/04/24 Cetirizine HCl [Zyrtec] 10 mg PO HS 07/10/19 09/04/24 Metoprolol Tartrate [Lopressor] 25 mg PO BID 07/26/22 09/04/24 Omeprazole 40 mg PO BID 07/26/22 09/04/24 Venlafaxine HCl [Effexor] 100 mg PO DAILY 07/26/22 09/04/24 Calcium Carbonate/Vitamin D3 1 tab PO DAILY 10/05/22 09/04/24 [Calcium 600-D3 20 mcg (800 Unit)] Simethicone [Gas-X] 125 mg PO ACHS PRN 10/05/22 09/04/24 oxyBUTYnin chloride [Ditropan XL] 10 mg PO HS 02/13/23 09/04/24 Cranberry 15,000 1 cap PO DAILY 10/26/23 09/04/24 Docusate [Colace] 100 mg PO DAILY 10/26/23 09/04/24 calcium polycarbophiL [Fibercon] 625 mg PO DAILY 10/26/23 09/04/24 Brinzolamide/Brimonidine Tart 1 drop BOTH EYES BID 08/09/24 09/04/24 [Simbrinza 1%-0.2% Eye Drop] Clotrimazole Cream [Lotrimin Cream] 1 applic TOPICAL BID 08/09/24 09/04/24 Gabapentin [Neurontin] 100 mg PO BID-W/MEALS 08/09/24 09/04/24 Gabapentin [Neurontin] 200 mg PO HS 08/09/24 09/04/24 Meloxicam [Mobic] 15 mg PO DAILY 08/09/24 09/04/24 Nitrofurantoin Monohyd/M-Cryst 100 mg PO HS 08/09/24 09/04/24 [Macrobid] Patient Own Pump 0 bag 08/09/24 Pilocarpine [Salagen] 5 mg PO QID 08/09/24 09/04/24 Potassium Chloride ER [K-Dur 10] 10 meq PO DAILY 08/09/24 09/04/24 metOLazone [Zaroxolyn] 2.5 mg PO DAILY 08/09/24 09/04/24 Torsemide [Demadex] 10 mg PO DAILY 09/04/24 09/04/24 Previous Rx's Medication Instructions Recorded Atorvastatin [Lipitor] 40 mg PO HS #30 tab 10/29/23 Acetaminophen Tab [Tylenol] 1,000 mg PO Q6HR PRN tab 11/11/23 Magnesium Oxide [Mag-Ox] 400 mg PO BID tab 11/11/23 Pantoprazole [Protonix] 40 mg PO AC-BRKFST #30 tab 09/10/24 Vancomycin HCl 250 mg PO QID 14 Days #56 cap 09/10/24 cefuroxime axetiL [Ceftin] 500 mg PO BID #10 tab 09/10/24 levETIRAcetam [Keppra] 500 mg PO Q12HR #60 tab 09/10/24 Allergies Allergy/AdvReac Type Severity Reaction Status Date / Time adhesive tape Allergy Rash/Hives, Verified 01/25/25 23:17 "paper tape is ok" Review of Systems ROS Statement: Those systems with pertinent positive or pertinent negative responses have been documented in the HPI. ROS Other: All systems not noted in ROS Statement are negative. Past Medical History Past Medical History: Heart Failure, Hearing Disorder / Deafness, Hypertension, Osteoarthritis (OA) Additional Past Medical History / Comment(s): Arrhythmia, hx anemia, wears pad/brief for urinary incontinence, frequent UTI's, on group home antibiotic treatment to prevent UTI, SOB, deaf in right ear, hard of hearing in left ear, bilateral hearing aid use. History of Any Multi-Drug Resistant Organisms: None Reported Past Surgical History: Appendectomy, Back Surgery, Cholecystectomy, Heart Catheterization With Stent, Hernia Repair, Hysterectomy, Joint Replacement, Orthopedic Surgery Additional Past Surgical History / Comment(s): Pain Clinic Procedures, CARDIAC STENTS X2, L3-4-5 FUSION, total right knee replacement, bilateral cataract surgery. hiatal hernia repair.,Morphine pump implanted. Past Anesthesia/Blood Transfusion Reactions: No Reported Reaction Additional Past Anesthesia/Blood Transfusion Reaction / Comment(s): "Slow coming out." Date of Last Stent Placement:: Past Psychological History: Anxiety, Depression Smoking Status: Never smoker Past Alcohol Use History: None Reported Past Drug Use History: None Reported - Past Family History Father Family Medical History: Cancer Sister(s) Family Medical History: Cancer General Exam Limitations: no limitations General appearance: alert, in no apparent distress Head exam: Present: atraumatic, normocephalic, normal inspection Eye exam: Present: normal appearance, PERRL, EOMI. Absent: scleral icterus, conjunctival injection, periorbital swelling ENT exam: Present: normal exam, mucous membranes moist Neck exam: Present: normal inspection. Absent: tenderness, meningismus, lymphadenopathy Respiratory exam: Present: normal lung sounds bilaterally. Absent: respiratory distress, wheezes, rales, rhonchi, stridor, chest wall tenderness, accessory muscle use, decreased breath sounds, prolonged expiratory Cardiovascular Exam: Present: bradycardia, systolic murmur (3/6). Absent: diastolic murmur, rubs, gallop, clicks GI/Abdominal exam: Present: soft, normal bowel sounds. Absent: distended, tenderness, guarding, rebound, rigid Extremities exam: Present: tenderness (Positive L wrist, forearm and elbow tenderness. Positive significant hematoma of L mid-forearm without open injury), normal capillary refill. Absent: pedal edema, joint swelling, calf tenderness Back exam: Present: normal inspection Neurological exam: Present: alert, oriented X3, CN II-XII intact Psychiatric exam: Present: normal affect, normal mood Skin exam: Present: warm, dry, intact, normal color. Absent: rash Course Vital Signs 01/25/25 01/26/25 23:11 00:58 Temperature 98.3 F 97.9 F Pulse Rate 62 56 L Respiratory 18 14 Rate Blood Pressure 135/83 107/68 O2 Sat by Pulse 93 L 94 L Oximetry Medical Decision Making - Medical Decision Making Was pt. sent in by a medical professional or institution (, PA, REPTILE KEEPER, urgent care, hospital, or retirement...) When possible be specific @ -No Did you speak to anyone other than the patient for history (EMS, parent, family, police, friend...)? What history was obtained from this source @ -No Did you review nursing and triage notes (agree or disagree)? Why? @ -I reviewed and agree with nursing and triage notes Were old charts reviewed (outside hosp., previous admission, EMS record, old EKG, old radiological studies, urgent care reports/EKG's, retirement records)? Report findings @ -No old charts were reviewed Differential Diagnosis (chest pain, altered mental status, abdominal pain women, abdominal pain men, vaginal bleeding, weakness, fever, dyspnea, syncope, headache, dizziness, GI bleed, back pain, seizure, CVA, palpatations, mental health, musculoskeletal)? @ -Differential Musculoskeletal Muscular strain, contusion, ligament sprain, fracture, arthritis, septic arthritis, bursitis, cellulitis, muscle spasm, nerve compression, DVT, arterial occlusion, herpes zoster, electrolyte abnormality, tumor.... This is not meant to be in all inclusive list EKG interpreted by me (3pts min.). @ -Not done X-rays interpreted by me (1pt min.). @ -Left elbow/forearm x-ray shows left tissue swelling over dorsum of distal forearm/wrist with no acute fracture dislocation seen. CT interpreted by me (1pt min.). @ -None done U/S interpreted by me (1pt. min.). @ -None done What testing was considered but not performed or refused? (CT, X-rays, U/S, labs)? Why? @ -None What meds were considered but not given or refused? Why? @ -None Did you discuss the management of the patient with other professionals (professionals i.e. , PA, REPTILE KEEPER, lab, RT, psych nurse, geriatric social work professor, member services coordinator, teacher, tax revenue officer, family independence case manager)? Give summary @ -No Was smoking cessation discussed for >3mins.? @ -No Was critical care preformed (if so, how long)? @ -No Were there social determinants of health that impacted care today? How? (Homelessness, low income, unemployed, alcoholism, drug addiction, transportation, low edu. Level, literacy, decrease access to med. care, custodial, rehab)? @ -No Was there de-escalation of care discussed even if they declined (Discuss DNR or withdrawal of care, Hospice)? DNR status @ -No What co-morbidities impacted this encounter? (DM, HTN, Smoking, COPD, CAD, Cancer, CVA, ARF, Chemo, Hep., AIDS, mental health diagnosis, sleep apnea, morbid obesity)? @ -None Was patient admitted / discharged? Hospital course, mention meds given and route, prescriptions, significant lab abnormalities, going to OR and other pertinent info. @ -Left elbow/forearm x-ray shows left tissue swelling over dorsum of distal forearm/wrist with no acute fracture dislocation seen. Patient provided IM Toradol for pain. Fredrick wrap applied to area of hematoma. Advised follow-up with PCP. This patient with Dr. Taylor. Undiagnosed new problem with uncertain prognosis? @ -No Drug Therapy requiring intensive monitoring for toxicity (Heparin, Nitro, Insulin, Cardizem)? @ -No Were any procedures done? @ -No Diagnosis/symptom? @ -Left arm/wrist hematoma, fall Acute, or Chronic, or Acute on Chronic? @ -Acute Uncomplicated (without systemic symptoms) or Complicated (systemic symptoms)? @ -Uncomplicated Side effects of treatment? @ -No Exacerbation, Progression, or Severe Exacerbation? @ -No Poses a threat to life or bodily function? How? (Chest pain, [place], NM, pneumonia, PE, COPD, DKA, ARF, appy, cholecystitis, CVA, Diverticulitis, Homicidal, Suicidal, threat to staff... and all critical care pts) @ -No Disposition Clinical Impression: Fall, Hematoma of left upper extremity Disposition: HOME SELF-CARE Condition: Good Instructions (If sedation given, give patient instructions): Fall Prevention for Older Adults (ED), Hematoma (ED) Additional Instructions: Continue FREDRICK wrap application during day and remove at night. Follow up with PCP. Is patient prescribed a controlled substance at d/c from ED?: No Referrals: David Mora MD [Primary Care Provider] - 1-2 days Time of Disposition: 00:49
[2025-01-26] MEDS: KETOROLAC 15 MG/ML 1 ML VIAL IM STA
--- NOTE | 2025-01-26 00:23 | XR ---
EXAM: XR Left Forearm, 2 Views CLINICAL HISTORY: XR Reason: LUE injury from fall TECHNIQUE: Frontal and lateral views of the left forearm. COMPARISON: No relevant prior studies available. FINDINGS: Bones/joints: The radius and ulna are smooth and intact. The wrist and elbow joints are normally aligned. No acute fracture. Soft tissues: Soft tissue swelling over the dorsum of the distal forearm and wrist. IMPRESSION: Soft tissue swelling over the dorsum of the distal forearm and wrist. No acute fracture or dislocation is seen.
--- NOTE | 2025-01-26 00:25 | XR ---
EXAM: XR Left Elbow Complete, 3 or More Views CLINICAL HISTORY: XR Reason: LUE injury from fall TECHNIQUE: Frontal, lateral and oblique views of the left elbow. COMPARISON: No relevant prior studies available. FINDINGS: Bones/joints: 2-3 mm enthesophyte at the tip of the olecranon. The anterior and posterior fat pads are nondisplaced. The osseous structures appear intact and normally aligned. No acute fracture is identified. Soft tissues: There is a skinfold projecting across the distal humerus on the AP view. This extends slightly beyond the width of the bone. IMPRESSION: The osseous structures appear intact and normally aligned. No acute fracture or dislocation is identified.
[2025-01-26 01:20] VITALS: BP 107/68; PULSE 56; RESP 14; TEMP 97.9
== END 2025-01-26 00:58 | disposition home or self-care (01) ==
LOC: EC 23:05
DX: S40.022A Contusion of left upper arm, initial encounter (principal); Z88.8 Allergy status to other drugs, medicaments and biological substances; W01.0XXA Fall on same level from slipping, tripping and stumbling without subsequent striking against object, initial encounter
CPT/HCPCS: 73070; 73090; 99283; 96372; J1885

== ENCOUNTER → 2025-02-11 | Outpatient (CLI) | payer MEDICARE, OTHER ==
--- NOTE | 2025-02-11 10:45 | CT ---
EXAMINATION TYPE: CT shoulder RT wo con CT DLP: 375.9 mGycm, Automated exposure control for dose reduction was used. DATE OF EXAM: 02/11/2025 10:22 AM COMPARISON: Right shoulder radiograph 12/18/2024, 08/08/2024 right humerus radiograph 08/08/2024, righ t scapular radiograph 08/08/2024. CLINICAL INDICATION:Female, 74 years old with history of M25.511 R shoulder pain; PHH, Right shoulder pain TECHNIQUE: Axial images were obtained of the right shoulder without the use of IV contrast. Addition al coronal and sagittal reformatted images and soft tissue and bone window were obtained for review. FINDINGS: There is no evidence of fracture, subluxation, or dislocation. High riding right shoulder w ith joint space narrowing of the glenohumeral joint with subchondral cystic changes and spurring. AC joint arthropathy with joint space narrowing, cystic changes, and superior and inferior surface spurr ing. No significant soft tissue swelling or joint effusion is identified. No focal muscular atrophy o r edema is identified. Prominence fluid filled subdeltoid bursa. No radiopaque foreign body identifie d. Degenerative disc disease of the visualized cervical spine. The visualized right lung is relatively c lear with minimal dependent subsegmental atelectasis. Visualized right axillary adenopathy. IMPRESSION: 1. No acute fracture or dislocation. 2. Advanced degenerative changes and chronic rotator cuff tear of the right shoulder. Exam 3. Advanced AC joint arthropathy. 4. Subdeltoid bursitis. [facility], , 02/11/2025 10:40 AM
--- NOTE | 2025-02-11 10:48 | CT ---
EXAMINATION TYPE: CT cervical spine wo con CT DLP: 326.3 mGycm, Automated exposure control for dose reduction was used. DATE OF EXAM: 02/11/2025 10:23 AM COMPARISON: CT brain C-spine 08/09/2024, 08/08/2024. CLINICAL INDICATION:Female, 74 years old with history of M54.12 cervical pain; PHH, Cervical pain, pa in TECHNIQUE: Axial CT images from the skull base to the inferior aspect of T2 we obtained without intra venous contrast. Coronal and sagittal reformatted images were also reviewed. FINDINGS: Fracture: None. Osseous structures: Multilevel disc space narrowing with endplate sclerosis and anterior osteophytosi s. Additional degenerative changes of the C1-C2 articulation. Vertebral alignment: Degenerative grade 1 anterolisthesis of C7 on T1. Spinal canal/Neural Foramina: No significant central canal or neural foraminal stenosis at C2-C3. Central disc protrusion with mild effacement of the anterior thecal sac at C3-C4. No significant neur al foraminal stenosis. Posterior disc osteophyte complex at C4-C5 with minimal effacement of the anterior thecal sac. Left-s ided facet arthropathy. No significant neural foramina stenosis. Posterior disc osteophyte complex resulting in at least mild to moderate central canal stenosis at C5 -C6. No significant neural foraminal stenosis. There is calcification of the posterior longitudinal l igament at this level. Posterior disc osteophyte complex contributing to mild central canal stenosis at C6-C7. No significan t neural foraminal stenosis. Broad-based disc bulge at C7-T1 without significant effacement of the anterior thecal sac. No signifi cant neural foraminal stenosis. Neck soft tissues: Prevertebral soft tissues are within normal limits. Other: The airway is patent. The lung apices are clear. Bilateral palatine tonsilloliths. IMPRESSION: 1. No evidence of cervical spine fracture. 2. Moderate multilevel degenerative disc disease. [facility], , 02/11/2025 10:46 AM
== END | disposition home or self-care (01) ==
LOC: RADCTMAIN 09:41
PROVIDERS: ATTEND Neurological Surgery
DX: M75.111 Incomplete rotator cuff tear or rupture of right shoulder, not specified as traumatic (principal); M19.011 Primary osteoarthritis, right shoulder; R29.6 Repeated falls; M75.51 Bursitis of right shoulder; M50.121 Cervical disc disorder at C4-C5 level with radiculopathy
CPT/HCPCS: 72125

== ENCOUNTER → 2025-04-16 | Outpatient (CLI) | payer MEDICARE, OTHER ==
[2025-04-16 19:15] LABS: HCT 37.3 % (37.2-46.3); HGB 11.9 g/dL (12.0-15.0); MCH 29.5 pg (27.0-32.0); MCHC 31.9 g/dL (32.0-37.0); MCV 92.6 FL (80.0-97.0); Mean Platelet Volume 10.2 FL (9.5-12.2); NRBC Per 100 WBC 0 X 10*3/uL (0.00-0.01); Platelet Count 281 X 10*3/uL (140-440); RBC 4.03 X 10*6/uL (4.10-5.20); RDW 13.3 % (11.5-14.5); WBC 4.88 X 10*3/uL (4.50-10.00)
[2025-04-16 21:02] LABS: ALT 29 U/L (8-44); AST 43 U/L (13-35); Albumin 3.8 g/dL (3.8-4.9); Albumin/Globulin Ratio 1.09 Ratio (1.60-3.17); Alkaline Phosphatase 105 U/L (41-126); BUN/Creat Ratio 21.67 Ratio (12.00-20.00); Blood Urea Nitrogen 19.5 mg/dL (9.0-27.0); Calcium 9.3 mg/dL (8.7-10.3); Chloride 94 mmol/L (96-109); Globulin 3.5 g/dL (1.6-3.3); Glucose 103 mg/dL (70-110); Potassium 4.7 mmol/L (3.5-5.5); Sodium 136 mmol/L (135-145); Total Bilirubin 0.9 mg/dL (0.3-1.2); Total Protein 7.3 g/dL (6.2-8.2)
== END | disposition home or self-care (01) ==
LOC: LABWHC1 14:47
PROVIDERS: ATTEND Family Medicine
DX: I11.0 Hypertensive heart disease with heart failure (principal); I50.32 Chronic diastolic (congestive) heart failure; M43.26 Fusion of spine, lumbar region; M54.41 Lumbago with sciatica, right side; F33.1 Major depressive disorder, recurrent, moderate; R41.0 Disorientation, unspecified; R73.02 Impaired glucose tolerance (oral)
CPT/HCPCS: 36415; 80053; 83036; 84443; 85027

== ENCOUNTER 2025-04-18 13:41 | Emergency (ER) | payer MEDICARE, OTHER ==
--- NOTE | 2025-04-18 14:14 | ED ---
General Adult HPI - General Chief complaint: Altered Mental Status Stated complaint: Abn Labs Time Seen by Provider: 04/18/25 13:56 Source: patient Mode of arrival: ambulatory Limitations: no limitations - History of Present Illness Initial comments: Dictation was produced using [employer] dictation software. please excuse any grammatical, word or spelling errors. Chief Complaint: 75-year-old female presents to the emergency department hallucinations History of Present Illness: Patient 75-year-old female brought in by her granddaughter. Patient has had acute hallucinations. Seen by primary care doctor 2 days ago and was concerned about urinary tract infection. Today her hallucinations got worse. Granddaughter at the bedside called PCPs office and discussed her symptoms and PCP instructed patient come to the ER for concerns of sepsis. Patient agrees to having had hallucinations. Denies any fever chills night sweats. Denies any pain. The ROS documented in this emergency department record has been reviewed and confirmed by me. Those systems with pertinent positive or negative responses have been documented in the HPI. All other systems are other negative and/or noncontributory. - Related Data Home Medications Medication Instructions Recorded Confirmed Aspirin 81 mg PO DAILY 12/14/14 09/04/24 Cyanocobalamin [Vitamin B-12] 1,000 mcg PO DAILY 12/14/14 09/04/24 Multivitamins, Thera [Multivitamin 1 tab PO DAILY 12/14/14 09/04/24 (formulary)] Pramipexole [Mirapex] 0.25 mg PO HS 12/14/14 09/04/24 Cetirizine HCl [Zyrtec] 10 mg PO HS 07/10/19 09/04/24 Metoprolol Tartrate [Lopressor] 25 mg PO BID 07/26/22 09/04/24 Omeprazole 40 mg PO BID 07/26/22 09/04/24 Venlafaxine HCl [Effexor] 100 mg PO DAILY 07/26/22 09/04/24 Calcium Carbonate/Vitamin D3 1 tab PO DAILY 10/05/22 09/04/24 [Calcium 600-D3 20 mcg (800 Unit)] Simethicone [Gas-X] 125 mg PO ACHS PRN 10/05/22 09/04/24 oxyBUTYnin chloride [Ditropan XL] 10 mg PO HS 02/13/23 09/04/24 Cranberry 15,000 1 cap PO DAILY 10/26/23 09/04/24 Docusate [Colace] 100 mg PO DAILY 10/26/23 09/04/24 calcium polycarbophiL [Fibercon] 625 mg PO DAILY 10/26/23 09/04/24 Brinzolamide/Brimonidine Tart 1 drop BOTH EYES BID 08/09/24 09/04/24 [Simbrinza 1%-0.2% Eye Drop] Clotrimazole Cream [Lotrimin Cream] 1 applic TOPICAL BID 08/09/24 09/04/24 Gabapentin [Neurontin] 100 mg PO BID-W/MEALS 08/09/24 09/04/24 Gabapentin [Neurontin] 200 mg PO HS 08/09/24 09/04/24 Meloxicam [Mobic] 15 mg PO DAILY 08/09/24 09/04/24 Nitrofurantoin Monohyd/M-Cryst 100 mg PO HS 08/09/24 09/04/24 [Macrobid] Patient Own Pump 0 bag 08/09/24 Pilocarpine [Salagen] 5 mg PO QID 08/09/24 09/04/24 Potassium Chloride ER [K-Dur 10] 10 meq PO DAILY 08/09/24 09/04/24 metOLazone [Zaroxolyn] 2.5 mg PO DAILY 08/09/24 09/04/24 Torsemide [Demadex] 10 mg PO DAILY 09/04/24 09/04/24 Previous Rx's Medication Instructions Recorded Atorvastatin [Lipitor] 40 mg PO HS #30 tab 10/29/23 Acetaminophen Tab [Tylenol] 1,000 mg PO Q6HR PRN tab 11/11/23 Magnesium Oxide [Mag-Ox] 400 mg PO BID tab 11/11/23 Pantoprazole [Protonix] 40 mg PO AC-BRKFST #30 tab 09/10/24 Vancomycin HCl 250 mg PO QID 14 Days #56 cap 09/10/24 cefuroxime axetiL [Ceftin] 500 mg PO BID #10 tab 09/10/24 levETIRAcetam [Keppra] 500 mg PO Q12HR #60 tab 09/10/24 Allergies Allergy/AdvReac Type Severity Reaction Status Date / Time adhesive tape Allergy Rash/Hives, Verified 04/18/25 13:47 "paper tape is ok" Review of Systems ROS Statement: Those systems with pertinent positive or pertinent negative responses have been documented in the HPI. ROS Other: All systems not noted in ROS Statement are negative. Past Medical History Past Medical History: Heart Failure, Hearing Disorder / Deafness, Hypertension, Osteoarthritis (OA) Additional Past Medical History / Comment(s): Arrhythmia, hx anemia, wears pad/brief for urinary incontinence, frequent UTI's, on airways operations specialist antibiotic treatment to prevent UTI, SOB, deaf in right ear, hard of hearing in left ear, bilateral hearing aid use. History of Any Multi-Drug Resistant Organisms: None Reported Past Surgical History: Appendectomy, Back Surgery, Cholecystectomy, Heart Catheterization With Stent, Hernia Repair, Hysterectomy, Joint Replacement, Orthopedic Surgery Additional Past Surgical History / Comment(s): Pain Clinic Procedures, CARDIAC STENTS X2, L3-4-5 FUSION, total right knee replacement, bilateral cataract surgery. hiatal hernia repair.,Morphine pump implanted. Past Anesthesia/Blood Transfusion Reactions: No Reported Reaction Additional Past Anesthesia/Blood Transfusion Reaction / Comment(s): "Slow coming out." Date of Last Stent Placement:: Past Psychological History: Anxiety, Depression Smoking Status: Never smoker Past Alcohol Use History: None Reported Past Drug Use History: None Reported - Past Family History Father Family Medical History: Cancer Sister(s) Family Medical History: Cancer General Exam - General Exam Comments Initial Comments: PHYSICAL EXAM: General Impression: Alert and oriented x3, not in acute distress HEENT: Normocephalic atraumatic, extra-ocular movements intact, pupils equal and reactive to light bilaterally, mucous membranes moist. Cardiovascular: Heart regular rate and rhythm Chest: Able to complete full sentences, no retractions, no tachypnea Abdomen: abdomen soft, non-tender, non-distended, no organomegaly Musculoskeletal: Pulses present and equal in all extremities, no peripheral edema Motor: no focal deficits noted Neurological: CN II-XII grossly intact, no focal motor or sensory deficits noted Skin: Intact with no visualized rashes Psych: Normal affect and mood Limitations: no limitations Course Vital Signs 04/18/25 04/18/25 13:43 15:24 Temperature 99.5 F Pulse Rate 68 72 Respiratory 18 16 Rate Blood Pressure 115/74 114/75 O2 Sat by Pulse 95 94 L Oximetry EKG Findings - EKG Comments: EKG Findings:: My EKG interpretation: Ventricular rate 66, sinus rhythm, parable 230, QRS at 97, QTc 390. No PA prolongation, no QTC prolongation, no ST or T- wave changes noted. Overall, this EKG is unremarkable Medical Decision Making - Medical Decision Making Was pt. sent in by a medical professional or institution (, PA, BORING MACHINE SET UP OPERATOR, urgent care, hospital, or usp...) When possible be specific @ -No Did you speak to anyone other than the patient for history (EMS, parent, family, police, friend...)? What history was obtained from this source @ -No Did you review nursing and triage notes (agree or disagree)? Why? @ -I reviewed and agree with nursing and triage notes Were old charts reviewed (outside hosp., previous admission, EMS record, old EKG, old radiological studies, urgent care reports/EKG's, usp records)? Report findings @ -No old charts were reviewed Differential Diagnosis (chest pain, altered mental status, abdominal pain women, abdominal pain men, vaginal bleeding, musculoskeletal, weakness, fever, dyspnea, syncope, headache, dizziness, GI bleed, back pain, seizure, CVA, palpatations, mental health)? @ -Differential Altered Mental Status: Hypoglycemia, DKA, hypercapnia, ETOH, overdose, CO poisoning, trauma, myxedema coma, HTN encephalopathy, infection, encephalitis, psychosis, intercranial hemorrhage, hepatic encephalopathy, meningitis, CVA, this is not meant to be an all-inclusive list EKG interpreted by me (3pts min.). @ -See above X-rays interpreted by me (1pt min.). @ -None done CT interpreted by me (1pt min.). @ -None done U/S interpreted by me (1pt. min.). @ -None done What testing was considered but not performed or refused? (CT, X-rays, U/S, labs)? Why? @ -None What meds were considered but not given or refused? Why? @ -None Was smoking cessation discussed for >3mins.? @ -No Were there social determinants of health that impacted care today? How? (Homelessness, low income, unemployed, alcoholism, drug addiction, transportation, low edu. Level, literacy, decrease access to med. care, [facility], rehab)? @ -No Was there de-escalation of care discussed even if they declined (Discuss DNR or withdrawal of care, Hospice)? DNR status @ -No What co-morbidities impacted this encounter? (DM, HTN, Smoking, COPD, CAD, Cancer, CVA, ARF, Chemo, Hep., AIDS, mental health diagnosis, sleep apnea, morbid obesity)? @ -None Was patient admitted / discharged? Hospital course, mention meds given and route, prescriptions, significant lab abnormalities, going to OR and other pertinent info. @ -75-year-old female having hallucinations at home brought into the ER by granddaughter. Vital signs stable. Patient well-appearing at the bedside. Being evaluated by PCP for UTI. She sent here to the emergency department after granddaughter told PCP that her mentation has been acutely worsening. Patient well-appearing at the bedside physical examination benign. Laboratory evaluation is unremarkable. Reevaluated bedside at 3:52 PM found to be stable condition. Patient discharged vies follow-up with primary doctor. Did you discuss the management of the patient with other professionals (professionals i.e. , PA, BORING MACHINE SET UP OPERATOR, lab, RT, psych nurse, social problems specialist, hogshead opener, teacher, space officer, hospice case manager)? Give summary @ -No Was critical care preformed (if so, how long)? @ -No Undiagnosed new problem with uncertain prognosis? @ -No Drug Therapy requiring intensive monitoring for toxicity (Heparin, Nitro, Insul in, Cardizem)? @ -No Were any procedures done? @ -No Diagnosis/symptom? Acute, or Chronic, or Acute on Chronic? Uncomplicated (without systemic symptoms) or Complicated (systemic symptoms)? @ -Hallucinations Side effects of treatment? @ -No Exacerbation, Progression, or Severe Exacerbation? @ -No Poses a threat to life or bodily function? How? (Chest pain, [place], [place], pneumonia, PE, COPD, DKA, ARF, appy, cholecystitis, CVA, Diverticulitis, Homicidal, Suicidal, threat to staff... and all critical care pts) @ -No - Lab Data Result diagrams: 04/18/25 15:17 04/18/25 15:17 Lab Results 04/18/25 04/18/25 04/18/25 Range/Units 14:15 15:17 15:17 WBC 4.39 L (4.50-10.00) 10*3/uL RBC 3.95 L (4.10-5.20) 10*6/uL Hgb 12.0 (12.0-15.0) g/dL Hct 36.3 L (37.2-46.3) % MCV 91.9 (80.0-97.0) fL MCH 30.4 (27.0-32.0) pg MCHC 33.1 (32.0-37.0) g/dL Plt Count 276 (140-440) 10*3/uL MPV 9.3 L (9.5-12.2) fL Immature Gran % (Auto) 0.2 % Neutrophils % 54.2 % Lymphocytes % 36.2 % Monocytes % 6.4 % Eosinophils % 2.5 % Basophils % 0.5 % Immature Gran # 0.01 (0.00-0.04) 10*3/uL Neutrophils # 2.38 (1.80-7.70) 10*3/uL Lymphocytes # 1.59 (0.90-5.00) 10*3/uL Monocytes # 0.28 (0.20-1.00) 10*3/uL Eosinophils # 0.11 (0.04-0.35) 10*3/uL Basophils # 0.02 (0.00-0.10) 10*3/uL Sodium 138 (137-145) mmol/L Potassium 3.6 (3.5-5.1) mmol/L Chloride 96 L (98-107) mmol/L Carbon Dioxide 32 H (22-30) mmol/L Anion Gap 10 mmol/L BUN 25 H (7-17) mg/dL Creatinine 0.86 (0.52-1.04) mg/dL Est GFR (CKD-EPI)AfAm 77 (>60 ml/min/1.73 sqM) Est GFR (CKD-EPI)NonAf 67 (>60 ml/min/1.73 sqM) Glucose 111 H (74-99) mg/dL Plasma Lactic Acid Emmanuel (0.7-2.0) mmol/L Calcium 9.8 (8.4-10.2) mg/dL Magnesium 1.6 (1.6-2.3) mg/dL Total Bilirubin 0.4 (0.2-1.3) mg/dL AST 40 H (14-36) U/L ALT 24 (4-34) U/L Alkaline Phosphatase 95 (38-126) U/L Total Protein 7.2 (6.3-8.2) g/dL Albumin 3.8 (3.5-5.0) g/dL Urine Color Light Yellow Urine Appearance Clear (Clear) Urine pH 6.0 (5.0-8.0) Ur Specific [place] 1.009 (1.001-1.035) Urine Protein Negative (Negative) Urine Glucose (UA) Negative (Negative) Urine Ketones Negative (Negative) Urine Blood Negative (Negative) Urine Nitrite Negative (Negative) Urine Bilirubin Negative (Negative) Urine Urobilinogen <2.0 (<2.0) mg/dL Ur Leukocyte Esterase Negative (Negative) 04/18/25 Range/Units 15:17 WBC (4.50-10.00) 10*3/uL RBC (4.10-5.20) 10*6/uL Hgb (12.0-15.0) g/dL Hct (37.2-46.3) % MCV (80.0-97.0) fL MCH (27.0-32.0) pg MCHC (32.0-37.0) g/dL Plt Count (140-440) 10*3/uL MPV (9.5-12.2) fL Immature Gran % (Auto) % Neutrophils % % Lymphocytes % % Monocytes % % Eosinophils % % Basophils % % Immature Gran # (0.00-0.04) 10*3/uL Neutrophils # (1.80-7.70) 10*3/uL Lymphocytes # (0.90-5.00) 10*3/uL Monocytes # (0.20-1.00) 10*3/uL Eosinophils # (0.04-0.35) 10*3/uL Basophils # (0.00-0.10) 10*3/uL Sodium (137-145) mmol/L Potassium (3.5-5.1) mmol/L Chloride (98-107) mmol/L Carbon Dioxide (22-30) mmol/L Anion Gap mmol/L BUN (7-17) mg/dL Creatinine (0.52-1.04) mg/dL Est GFR (CKD-EPI)AfAm (>60 ml/min/1.73 sqM) Est GFR (CKD-EPI)NonAf (>60 ml/min/1.73 sqM) Glucose (74-99) mg/dL Plasma Lactic Acid Emmanuel 1.4 (0.7-2.0) mmol/L Calcium (8.4-10.2) mg/dL Magnesium (1.6-2.3) mg/dL Total Bilirubin (0.2-1.3) mg/dL AST (14-36) U/L ALT (4-34) U/L Alkaline Phosphatase (38-126) U/L Total Protein (6.3-8.2) g/dL Albumin (3.5-5.0) g/dL Urine Color Urine Appearance (Clear) Urine pH (5.0-8.0) Ur Specific [place] (1.001-1.035) Urine Protein (Negative) Urine Glucose (UA) (Negative) Urine Ketones (Negative) Urine Blood (Negative) Urine Nitrite (Negative) Urine Bilirubin (Negative) Urine Urobilinogen (<2.0) mg/dL Ur Leukocyte Esterase (Negative) Disposition Clinical Impression: Hallucinations Disposition: HOME SELF-CARE Is patient prescribed a controlled substance at d/c from ED?: No Referrals: David Mora MD [Primary Care Provider] - 1-2 days Time of Disposition: 15:52
[2025-04-18 14:50] LABS: Appearance,Urine Clear (Clear); Bilirubin,Urine Negative (Negative); Blood,Urine Negative (Negative); Color,Urine Light Yellow; Glucose,Urine (UA) Negative (Negative); Ketones,Urine Negative (Negative); Leukocyte Esterase,Urine Negative (Negative); Nitrite,Urine Negative (Negative); Protein,Urine Negative (Negative); Specific Gravity,Urine 1.009 (1.001-1.035); Urobilinogen,Urine <2.0 mg/dL (<2.0)
[2025-04-18 15:24] LABS: Basophils # (A) 0.02 10*3/uL (0.00-0.10); Basophils % (A) 0.5 %; Eosinophils # (A) 0.11 10*3/uL (0.04-0.35); Eosinophils % (A) 2.5 %; HCT 36.3 % (37.2-46.3); Lymphocytes # (A) 1.59 10*3/uL (0.90-5.00); Lymphocytes % (A) 36.2 %; MCH 30.4 pg (27.0-32.0); MCHC 33.1 g/dL (32.0-37.0); MCV 91.9 fL (80.0-97.0); Mean Platelet Volume 9.3 fL (9.5-12.2); Monocytes # (A) 0.28 10*3/uL (0.20-1.00); Monocytes % (A) 6.4 %; Neutrophils # (A) 2.38 10*3/uL (1.80-7.70); Neutrophils % (A) 54.2 %; Platelet Count 276 10*3/uL (140-440); RBC 3.95 10*6/uL (4.10-5.20); RDW 13.3 % (11.5-14.5); WBC 4.39 10*3/uL (4.50-10.00)
[2025-04-18 15:25] VITALS: RESP 16
[2025-04-18 15:50] LABS: ALT 24 U/L (4-34); AST 40 U/L (14-36); African American GFR (CKD) 77 (>60 ml/min/1.73 sqM); Albumin 3.8 g/dL (3.5-5.0); Alkaline Phosphatase 95 U/L (38-126); Anion Gap 10 mmol/L; Blood Urea Nitrogen 25 mg/dL (7-17); Calcium 9.8 mg/dL (8.4-10.2); Carbon Dioxide 32 mmol/L (22-30); Chloride 96 mmol/L (98-107); Glucose 111 mg/dL (74-99); Magnesium 1.6 mg/dL (1.6-2.3); Non-African American GFR(CKD) 67 (>60 ml/min/1.73 sqM); Potassium 3.6 mmol/L (3.5-5.1); Sodium 138 mmol/L (137-145); Total Bilirubin 0.4 mg/dL (0.2-1.3); Total Protein 7.2 g/dL (6.3-8.2)
[2025-04-18 16:27] VITALS: BP 97/66; PULSE 67; TEMP 98.8
== END 2025-04-18 16:30 | disposition home or self-care (01) ==
LOC: EC 13:41
DX: R44.3 Hallucinations, unspecified (principal); Z91.09 Other allergy status, other than to drugs and biological substances
CPT/HCPCS: 36415; 80053; 81003; 83605; 83735; 85025; 93005; 99285

== ENCOUNTER 2025-04-28 18:18 | Observation (INO) | payer MEDICARE, OTHER ==
--- NOTE | 2025-04-28 18:52 | ED ---
Altered Mental Status HPI - General Chief Complaint: Altered Mental Status Stated Complaint: all over pain Time Seen by Provider: 04/28/25 18:46 Source: patient, RN notes reviewed, old records reviewed Mode of arrival: ambulatory Limitations: no limitations - History of Present Illness Initial Comments: This is a 75-year-old female to the ER for evaluation she presents today for evaluation of altered mental status concern for urinary tract infection. MD Complaint: altered mental status, confusion, decreased responsiveness, w eakness -: days(s) Severity: moderate Consistency of Symptoms: getting worse Context: history of similar presentation Associated Symptoms: weakness, foul smelling urine Treatments Prior to Arrival: oxygen - Related Data Home Medications Medication Instructions Recorded Confirmed Aspirin 81 mg PO DAILY 12/14/14 04/29/25 Cyanocobalamin [Vitamin B-12] 1,000 mcg PO DAILY 12/14/14 04/29/25 Pramipexole [Mirapex] 0.125 mg PO HS 12/14/14 04/29/25 Cetirizine HCl [Zyrtec] 10 mg PO HS 07/10/19 04/29/25 Metoprolol Tartrate [Lopressor] 25 mg PO BID 07/26/22 04/29/25 Omeprazole 40 mg PO BID 07/26/22 04/29/25 oxyBUTYnin chloride [Ditropan XL] 10 mg PO HS 02/13/23 04/29/25 Clotrimazole Cream [Lotrimin Cream] 1 applic TOPICAL BID 08/09/24 04/29/25 Gabapentin [Neurontin] 100 mg PO QAM 08/09/24 04/29/25 Gabapentin [Neurontin] 200 mg PO HS 08/09/24 04/29/25 Meloxicam [Mobic] 15 mg PO DAILY 08/09/24 04/29/25 Patient Own Pump 0 bag 08/09/24 Pilocarpine [Salagen] 5 mg PO QID 08/09/24 04/29/25 Potassium Chloride ER [K-Dur 10] 10 meq PO DAILY 08/09/24 04/29/25 Albuterol Sulfate [Albuterol 2 puff PO Q4H PRN 04/29/25 04/29/25 Sulfate Hfa] Bumetanide [BUMEX] 1 mg PO BID 04/29/25 04/29/25 Cranberry 850 Mg 850 mg PO DAILY 04/29/25 04/29/25 Diclofenac Sodium Gel [Voltaren 1% 4 gm TOPICAL QID 04/29/25 04/29/25 Gel] HYDROcodone/APAP 5-325MG [[place] 1 tab PO BID 04/29/25 04/29/25 5-325] [place]-3/Dha/Epa/Fish Oil [[place]-3 1 cap PO DAILY 04/29/25 04/29/25 Fish Oil 1,000 mg Sfgl] Ubidecarenone [Co Q-10] 300 mg PO DAILY 04/29/25 04/29/25 Venlafaxine HCl [Effexor XR] 37.5 mg PO DAILY 04/29/25 04/29/25 Venlafaxine HCl [Effexor XR] 150 mg PO DAILY 04/29/25 04/29/25 Previous Rx's Medication Instructions Recorded Atorvastatin [Lipitor] 40 mg PO HS #30 tab 10/29/23 Nystatin 100,000 Unit/gm Powd 1 applic TOPICAL ONCE PRN #15 gm 04/29/25 [Mycostatin Powder] QUEtiapine [SEROquel] 12.5 mg PO HS PRN 30 Days #30 tab 04/29/25 Allergies Allergy/AdvReac Type Severity Reaction Status Date / Time adhesive tape Allergy Rash/Hives, Verified 04/18/25 13:47 "paper tape is ok" Review of Systems ROS Statement: Those systems with pertinent positive or pertinent negative responses have been documented in the HPI. ROS Other: All systems not noted in ROS Statement are negative. 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 History of Any Multi-Drug Resistant Organisms: None Reported Past Surgical History: Appendectomy, Back Surgery, Cholecystectomy, Heart Catheterization With Stent, Hernia Repair, Hysterectomy, Joint Replacement, Orthopedic Surgery Additional Past Surgical History / Comment(s): Pain Clinic Procedures, CARDIAC STENTS X2, L3-4-5 FUSION, total right knee replacement, bilateral cataract surgery. hiatal hernia repair.,Morphine pump implanted. Past Anesthesia/Blood Transfusion Reactions: No Reported Reaction Additional Past Anesthesia/Blood Transfusion Reaction / Comment(s): "Slow coming out." Date of Last Stent Placement:: Past Psychological History: Anxiety, Depression Smoking Status: Never smoker Past Alcohol Use History: None Reported Past Drug Use History: None Reported - Past Family History Father Family Medical History: Cancer Sister(s) Family Medical History: Cancer General Exam Limitations: no limitations General appearance: alert, in no apparent distress Head exam: Present: atraumatic, normocephalic, normal inspection Eye exam: Present: normal appearance, PERRL, EOMI. Absent: scleral icterus, conjunctival injection, periorbital swelling ENT exam: Present: normal exam, mucous membranes moist Neck exam: Present: normal inspection. Absent: tenderness, meningismus, l ymphadenopathy Respiratory exam: Present: normal lung sounds bilaterally. Absent: respiratory distress, wheezes, rales, rhonchi, stridor Cardiovascular Exam: Present: regular rate, normal rhythm, normal heart sounds. Absent: systolic murmur, diastolic murmur, rubs, gallop, clicks GI/Abdominal exam: Present: soft, normal bowel sounds. Absent: distended, tenderness, guarding, rebound, rigid Extremities exam: Present: normal inspection, full ROM, normal capillary refill. Absent: tenderness, pedal edema, joint swelling, calf tenderness Back exam: Present: normal inspection Neurological exam: Present: alert, oriented X3, CN II-XII intact Psychiatric exam: Present: normal affect, normal mood Skin exam: Present: warm, dry, intact, normal color. Absent: rash Course Vital Signs 04/28/25 04/28/25 04/28/25 18:23 19:09 21:00 Temperature 98.8 F Pulse Rate 58 L 84 78 Respiratory 16 16 18 Rate Blood Pressure 144/78 113/66 108/46 O2 Sat by Pulse 90 L 96 96 Oximetry 04/29/25 00:54 Temperature Pulse Rate 77 Respiratory 18 Rate Blood Pressure 116/62 O2 Sat by Pulse 97 Oximetry - Reevaluation(s) Reevaluation #1: 04/28/25 19:52 Medical records reviewed Reevaluation #2: 04/28/25 22:27 No improvement in symptoms here in the ER Reevaluation #3: 04/28/25 22:27 Patient informed of results and questions answered Reevaluation #4: Was pt. sent in by a medical professional or institution (, [facility], [employer]ANGO DEVELOPER, urgent care, hospital, or assisted...) When possible be specific @ -no Did you speak to anyone other than the patient for history (EMS, parent, family, police, friend...)? What history was obtained from this source @ -no Did you review nursing and triage notes (agree or disagree)? Why? @ -agree Are old charts reviewed (outside hosp., previous admission, EMS record, old EKG, old radiological studies, urgent care reports/EKG's, assisted records)? Report findings @ -yes Differential Diagnosis (chest pain, altered mental status, abdominal pain women, abdominal pain men, vaginal bleeding, weakness, fever, dyspnea, syncope, headache, dizziness, GI bleed, back pain, seizure, CVA, palpatations, mental health, musculoskeletal)? @ -prior EKG interpreted by me (3pts min.). @ -yes X-rays interpreted by me (1pt min.). @ -no CT interpreted by me (1pt min.). @ -no U/S interpreted by me (1pt. min.). @ -no What testing was considered but not performed or refused? (CT, X-rays, U/S, labs)? Why? @ -none What meds were considered but not given or refused? Why? @ -none Did you discuss the management of the patient with other professionals (professionals i.e. [facility] Eli, DJANGO DEVELOPER, lab, RT, psych nurse, social services aide, radar engineer, teacher, child support case officer, disease case manager rn)? Give summary @ -no Was smoking cessation discussed for >3mins.? @ -no Was critical care preformed (if so, how long)? @ -no Were there social determinants of health that impacted care today? How? (Homele ssness, low income, unemployed, alcoholism, drug addiction, transportation, low edu. Level, literacy, decrease access to med. care, longterm, rehab)? @ -none Was there de-escalation of care discussed even if they declined (Discuss DNR or withdrawal of care, Hospice)? DNR status @ -no What co-morbidities impacted this encounter? (DM, HTN, Smoking, COPD, CAD, Cancer, CVA, ARF, Chemo, Hep., AIDS, mental health diagnosis, sleep apnea, morbid obesity)? @ -none Was patient admitted / discharged? Hospital course, mention meds given and route, prescriptions, significant lab abnormalities, going to OR and other pertinent info. @ - 75 female to ER for evaluation, UTI Mary Jane groin left lower extremity cellulitis. Patient will be admitted for IV antibiotics Admitted UTI extremes of age Undiagnosed new problem with uncertain prognosis? @ -no Drug Therapy requiring intensive monitoring for toxicity (Heparin, Nitro, Insulin, Cardizem)? @ -no Were any procedures done? @ -no Diagnosis/symptom? @ - Acute, or Chronic, or Acute on Chronic? @ -Acute Uncomplicated (without systemic symptoms) or Complicated (systemic symptoms)? @ -Complicated Side effects of treatment? @ -no Exacerbation, Progression, or Severe Exacerbation? @ -exacerbation Poses a threat to life or bodily function? How? (Chest pain, USA, AR, pneumonia, PE, COPD, DKA, ARF, appy, cholecystitis, CVA, Diverticulitis, Homicidal, Suicidal, threat to staff... and all critical care pts) @ -yes 05/03/25 06:24 Reevaluation #5: Differential Altered Mental Status: Hypoglycemia, DKA, hypercapnia, ETOH, overdose, CO poisoning, trauma, myxedema coma, HTN encephalopathy, infection, encephalitis, psychosis, intercranial hemorrhage, hepatic encephalopathy, meningitis, CVA, this is not meant to be an all-inclusive list - Consultations Consultation #1: Spoke with [facility] who agrees to admit this patient Medical Decision Making - Medical Decision Making 75 female to ER for evaluation, UTI Mary Jane groin left lower extremity cellulitis. Patient will be admitted for IV antibiotics - Lab Data Result diagrams: 04/29/25 04:20 04/29/25 04:20 Lab Results 04/28/25 04/28/25 04/28/25 Range/Units 19:10 19:10 19:10 WBC 5.73 (4.50-10.00) 10*3/uL RBC 3.82 L (4.10-5.20) 10*6/uL Hgb 11.8 L (12.0-15.0) g/dL Hct 35.0 L (37.2-46.3) % MCV 91.6 (80.0-97.0) fL MCH 30.9 (27.0-32.0) pg MCHC 33.7 (32.0-37.0) g/dL Plt Count 263 (140-440) 10*3/uL MPV 9.8 (9.5-12.2) fL Immature Gran % (Auto) 0.2 % Neutrophils % 64.9 % Lymphocytes % 26.0 % Monocytes % 7.5 % Eosinophils % 1.2 % Basophils % 0.2 % Immature Gran # 0.01 (0.00-0.04) 10*3/uL Neutrophils # 3.72 (1.80-7.70) 10*3/uL Lymphocytes # 1.49 (0.90-5.00) 10*3/uL Monocytes # 0.43 (0.20-1.00) 10*3/uL Eosinophils # 0.07 (0.04-0.35) 10*3/uL Basophils # 0.01 (0.00-0.10) 10*3/uL PT 11.1 (10.0-12.5) sec INR 1.0 (<1.2) APTT 27.1 (22.0-30.0) sec Sodium 139 (137-145) mmol/L Potassium 3.7 (3.5-5.1) mmol/L Chloride 99 (98-107) mmol/L Carbon Dioxide 30 (22-30) mmol/L Anion Gap 10 mmol/L BUN 16 (7-17) mg/dL Creatinine 0.67 (0.52-1.04) mg/dL Est GFR (CKD-EPI)AfAm >90 (>60 ml/min/1.73 sqM) Est GFR (CKD-EPI)NonAf 86 (>60 ml/min/1.73 sqM) Glucose 105 H (74-99) mg/dL Calcium 9.5 (8.4-10.2) mg/dL Total Bilirubin 1.4 H (0.2-1.3) mg/dL AST 40 H (14-36) U/L ALT 21 (4-34) U/L Alkaline Phosphatase 100 (38-126) U/L Ammonia (<30) umol/L Troponin I (0.000-0.034) ng/mL Total Protein 7.1 (6.3-8.2) g/dL Albumin 3.8 (3.5-5.0) g/dL 04/28/25 04/28/25 Range/Units 19:10 19:10 WBC (4.50-10.00) 10*3/uL RBC (4.10-5.20) 10*6/uL Hgb (12.0-15.0) g/dL Hct (37.2-46.3) % MCV (80.0-97.0) fL MCH (27.0-32.0) pg MCHC (32.0-37.0) g/dL Plt Count (140-440) 10*3/uL MPV (9.5-12.2) fL Immature Gran % (Auto) % Neutrophils % % Lymphocytes % % Monocytes % % Eosinophils % % Basophils % % Immature Gran # (0.00-0.04) 10*3/uL Neutrophils # (1.80-7.70) 10*3/uL Lymphocytes # (0.90-5.00) 10*3/uL Monocytes # (0.20-1.00) 10*3/uL Eosinophils # (0.04-0.35) 10*3/uL Basophils # (0.00-0.10) 10*3/uL PT (10.0-12.5) sec INR (<1.2) APTT (22.0-30.0) sec Sodium (137-145) mmol/L Potassium (3.5-5.1) mmol/L Chloride (98-107) mmol/L Carbon Dioxide (22-30) mmol/L Anion Gap mmol/L BUN (7-17) mg/dL Creatinine (0.52-1.04) mg/dL Est GFR (CKD-EPI)AfAm (>60 ml/min/1.73 sqM) Est GFR (CKD-EPI)NonAf (>60 ml/min/1.73 sqM) Glucose (74-99) mg/dL Calcium (8.4-10.2) mg/dL Total Bilirubin (0.2-1.3) mg/dL AST (14-36) U/L ALT (4-34) U/L Alkaline Phosphatase (38-126) U/L Ammonia <9 (<30) umol/L Troponin I <0.012 (0.000-0.034) ng/mL Total Protein (6.3-8.2) g/dL Albumin (3.5-5.0) g/dL - EKG Data -: EKG Interpreted by Me (EKG is sinus 71 NC 187 QRS 86 QTc 385) Disposition Clinical Impression: UTI (urinary tract infection), Encephalopathy, Altered mental status, Mary Jane rash of groin, Left leg cellulitis Disposition: ADMITTED IP TO THIS HOSP Condition: Fair Is patient prescribed a controlled substance at d/c from ED?: No Time of Disposition: 22:30
[2025-04-28] MEDS: SODIUM CHLORIDE 0.9% 500 ML 500 ML IV ONE (19:11)
[2025-04-28 19:21] LABS: Basophils # (A) 0.01 10*3/uL (0.00-0.10); Basophils % (A) 0.2 %; Eosinophils # (A) 0.07 10*3/uL (0.04-0.35); Eosinophils % (A) 1.2 %; HCT 35.0 % (37.2-46.3); HGB 11.8 g/dL (12.0-15.0); Lymphocytes # (A) 1.49 10*3/uL (0.90-5.00); Lymphocytes % (A) 26.0 %; MCH 30.9 pg (27.0-32.0); MCHC 33.7 g/dL (32.0-37.0); MCV 91.6 fL (80.0-97.0); Monocytes # (A) 0.43 10*3/uL (0.20-1.00); Monocytes % (A) 7.5 %; Neutrophils # (A) 3.72 10*3/uL (1.80-7.70); Neutrophils % (A) 64.9 %; Platelet Count 263 10*3/uL (140-440); RBC 3.82 10*6/uL (4.10-5.20); RDW 13.5 % (11.5-14.5); WBC 5.73 10*3/uL (4.50-10.00)
[2025-04-28 19:31] LABS: INR 1.0 (<1.2); Partial Thromboplastin Time 27.1 sec (22.0-30.0); Prothrombin Time 11.1 sec (10.0-12.5)
[2025-04-28 19:33] LABS: ALT 21 U/L (4-34); AST 40 U/L (14-36); African American GFR (CKD) >90 (>60 ml/min/1.73 sqM); Albumin 3.8 g/dL (3.5-5.0); Alkaline Phosphatase 100 U/L (38-126); Anion Gap 10 mmol/L; Blood Urea Nitrogen 16 mg/dL (7-17); Calcium 9.5 mg/dL (8.4-10.2); Carbon Dioxide 30 mmol/L (22-30); Chloride 99 mmol/L (98-107); Glucose 105 mg/dL (74-99); Non-African American GFR(CKD) 86 (>60 ml/min/1.73 sqM); Potassium 3.7 mmol/L (3.5-5.1); Sodium 139 mmol/L (137-145); Total Protein 7.1 g/dL (6.3-8.2)
[2025-04-28] MEDS ORDERED: ONDANSETRON 4 MG/2 ML VIAL IVP PRN (22:25)
[2025-04-28] MEDS ORDERED: NALOXONE 0.4 MG/ML 1 ML VIAL IV PRN (22:25)
[2025-04-28] MEDS ORDERED: MORPHINE SULFATE 4 MG/ML SYRINGE IV PRN (22:25)
[2025-04-28] MEDS: NYSTATIN 100,000 UNIT/GM POWD 15 GM TOPICAL STA (22:38)
[2025-04-28 22:41] LABS: Bilirubin,Urine Negative (Negative); Blood,Urine Negative (Negative); Color,Urine Yellow; Glucose,Urine (UA) Negative (Negative); Ketones,Urine 2+ (Negative); Leukocyte Esterase,Urine Negative (Negative); Nitrite,Urine Negative (Negative); PH, Urine 7.5 (5.0-8.0); Protein,Urine Trace (Negative); Specific Gravity,Urine 1.021 (1.001-1.035); Urobilinogen,Urine <2.0 mg/dL (<2.0)
[2025-04-28] MEDS: SODIUM CHLORIDE 0.9% 1,000 ML IV SCH (23:43)
[2025-04-29] MEDS: ATORVASTATIN 40 MG TAB PO SCH (00:43)
[2025-04-29] MEDS: GABAPENTIN 100 MG CAP PO SCH (00:43)
[2025-04-29] MEDS: NITROFURANTOIN MONOHYD/M-CRYST 100 MG CAP PO SCH (00:44)
[2025-04-29] MEDS: METOPROLOL TARTRATE 25 MG TAB PO SCH (00:44)
[2025-04-29] MEDS: LORATADINE 10 MG TAB PO SCH (00:48)
[2025-04-29] MEDS: PRAMIPEXOLE 0.25 MG TAB PO SCH (02:01)
[2025-04-29] MEDS: ACETAMINOPHEN TAB 325 MG TAB PO PRN (02:56)
[2025-04-29 04:54] LABS: Basophils # (A) 0.02 10*3/uL (0.00-0.10); Basophils % (A) 0.4 %; Eosinophils # (A) 0.09 10*3/uL (0.04-0.35); Eosinophils % (A) 1.8 %; HCT 30.8 % (37.2-46.3); HGB 10.3 g/dL (12.0-15.0); Lymphocytes # (A) 1.56 10*3/uL (0.90-5.00); Lymphocytes % (A) 31.6 %; MCH 30.8 pg (27.0-32.0); MCHC 33.4 g/dL (32.0-37.0); MCV 92.2 fL (80.0-97.0); Monocytes # (A) 0.44 10*3/uL (0.20-1.00); Monocytes % (A) 8.9 %; Neutrophils # (A) 2.81 10*3/uL (1.80-7.70); Neutrophils % (A) 57.1 %; Platelet Count 234 10*3/uL (140-440); RBC 3.34 10*6/uL (4.10-5.20); RDW 13.2 % (11.5-14.5); WBC 4.93 10*3/uL (4.50-10.00)
[2025-04-29 05:31] LABS: ALT 17 U/L (4-34); AST 34 U/L (14-36); African American GFR (CKD) >90 (>60 ml/min/1.73 sqM); Albumin 2.9 g/dL (3.5-5.0); Alkaline Phosphatase 81 U/L (38-126); Anion Gap 7 mmol/L; Blood Urea Nitrogen 12 mg/dL (7-17); Calcium 9.2 mg/dL (8.4-10.2); Carbon Dioxide 28 mmol/L (22-30); Chloride 101 mmol/L (98-107); Glucose 119 mg/dL (74-99); Magnesium 1.5 mg/dL (1.6-2.3); Non-African American GFR(CKD) >90 (>60 ml/min/1.73 sqM); Potassium 3.3 mmol/L (3.5-5.1); Sodium 136 mmol/L (137-145); Total Protein 5.8 g/dL (6.3-8.2)
[2025-04-29 08:02] VITALS: RESP 18
[2025-04-29] MEDS ORDERED: QUEtiapine 25 MG TAB PO PRN (12:09)
[2025-04-29 13:57] VITALS: BP 139/73; PULSE 87; TEMP 98.3
[2025-04-29] MEDS: POTASSIUM CHLORIDE ER 20 MEQ TAB.ER PO STA (16:47)
--- NOTE | 2025-04-29 17:16 | P.HPIM ---
History of Present Illness Chief Complaint: AMS History of present illness: 75 yo female with a history of multiple falls, hyperlipidemia, back pain, hypertension and osteoarthritis, presented to the ED with complaints of altered mental status. Patient reported visual hallucinations for the past 6 months, specifically seeing two cats chasing each other. She acknowledged that this perception was not real. Patient currently alert and oriented x 3. She reports episodes as short lived and that she is currently feeling well. Patient also reports poor sleep along with dysuria. She denies urinary frequency and urgency. Patient reports having a recent fall last week, for which she did not hit her head. . Patient has had previous complaints of AMS and falls for which she was previously admitted to the ED. Of note, previous CT brain on 12/18/2024 significant for chronic periventricular white matter ischemic type changes with no acute intracranial process. In ED, laboratory work significant for WBC 5.73, hemoglobin 11.8, glucose 105. Urine positive for trace of protein, and 2+ ketones. EKG obtained and independently reported as sinus rhythm, similar to previous EKGs. Patient placed on topical Nyastatin for dysuria and groin discomfort as well as Nitrufurantoin prior to being admitted as inpatient. REVIEW OF SYSTEMS: As stated above in HPI. The rest of the 14-point review of systems is negative. PHYSICAL EXAMINATION: GENERAL: The patient is alert and oriented x3, not in any acute distress. Well developed, well nourished. HEENT: Pupils are round and equally reacting to light. EOMI. No scleral icterus. No conjunctival pallor. Normocephalic, atraumatic. CARDIOVASCULAR: S1 and S2 present. No murmurs, rubs, or gallops. PULMONARY: Chest is clear to auscultation b/l, no wheezing or crackles. ABDOMEN: Soft, nontender, nondistended, normoactive bowel sounds. No palpable organomegaly. MUSCULOSKELETAL: No joint swelling or deformity. EXTREMITIES: 1/2+ pitting edema of the left leg up to the sommers. Trace pitting edema on the right NEUROLOGICAL: Gross neurological examination did not reveal any focal deficits. SKIN: No rashes. Assessment and Plan #Altered Mental Status - Add Quetiapine for visual hallucinations - D/c nitrfurantoin as potential exacerbation of symptoms #Mary Jane rash of groin Nystatin powder Chronic Conditions: #back monroy #osteoarthritis #Hypertension Continue home medications CODE STATUS: full Dictation was produced using qualifyor dictation software. please excuse any grammatical, word or spelling errors. Past Medical History Past Medical History: Heart Failure, Hearing Disorder / Deafness, Hypertension, Osteoarthritis (OA) Additional Past Medical History / Comment(s): Arrhythmia, hx anemia, wears pad/brief for urinary incontinence, frequent UTI's, on shelter antibiotic treatment to prevent UTI, SOB, deaf in right ear, hard of hearing in left ear, bilateral hearing aid use. History of Any Multi-Drug Resistant Organisms: None Reported Past Surgical History: Appendectomy, Back Surgery, Cholecystectomy, Heart Catheterization With Stent, Hernia Repair, Hysterectomy, Joint Replacement, Orthopedic Surgery Additional Past Surgical History / Comment(s): Pain Clinic Procedures, CARDIAC STENTS X2, L3-4-5 FUSION, total right knee replacement, bilateral cataract s urgery. hiatal hernia repair.,Morphine pump implanted. Past Anesthesia/Blood Transfusion Reactions: No Reported Reaction Additional Past Anesthesia/Blood Transfusion Reaction / Comment(s): "Slow coming out." Date of Last Stent Placement:: Past Psychological History: Anxiety, Depression Smoking Status: Never smoker Past Alcohol Use History: None Reported Past Drug Use History: None Reported - Past Family History Father Family Medical History: Cancer Sister(s) Family Medical History: Cancer Medications and Allergies Home Medications Medication Instructions Recorded Confirmed Type Aspirin 81 mg PO DAILY 12/14/14 04/29/25 History Cyanocobalamin [Vitamin B-12] 1,000 mcg PO DAILY 12/14/14 04/29/25 History Pramipexole [Mirapex] 0.125 mg PO HS 12/14/14 04/29/25 History Cetirizine HCl [Zyrtec] 10 mg PO HS 07/10/19 04/29/25 History Metoprolol Tartrate [Lopressor] 25 mg PO BID 07/26/22 04/29/25 History Omeprazole 40 mg PO BID 07/26/22 04/29/25 History oxyBUTYnin chloride [Ditropan XL] 10 mg PO HS 02/13/23 04/29/25 History Atorvastatin [Lipitor] 40 mg PO HS #30 tab 10/29/23 04/29/25 Rx Clotrimazole Cream [Lotrimin Cream] 1 applic TOPICAL BID 08/09/24 04/29/25 History Gabapentin [Neurontin] 100 mg PO QAM 08/09/24 04/29/25 History Gabapentin [Neurontin] 200 mg PO HS 08/09/24 04/29/25 History Meloxicam [Mobic] 15 mg PO DAILY 08/09/24 04/29/25 History Patient Own Pump 0 bag 08/09/24 History Pilocarpine [[place]] 5 mg PO QID 08/09/24 04/29/25 History Potassium Chloride ER [K-Dur 10] 10 meq PO DAILY 08/09/24 04/29/25 History Albuterol Sulfate [Albuterol 2 puff PO Q4H PRN 04/29/25 04/29/25 History Sulfate Hfa] Bumetanide [BUMEX] 1 mg PO BID 04/29/25 04/29/25 History Cranberry 850 Mg 850 mg PO DAILY 04/29/25 04/29/25 History Diclofenac Sodium Gel [Voltaren 1% 4 gm TOPICAL QID 04/29/25 04/29/25 History Gel] HYDROcodone/APAP 5-325MG [[place] 1 tab PO BID 04/29/25 04/29/25 History 5-325] Nystatin 100,000 Unit/gm Powd 1 applic TOPICAL ONCE PRN #15 gm 04/29/25 Rx [Mycostatin Powder] [place]-3/Dha/Epa/Fish Oil [[place]-3 1 cap PO DAILY 04/29/25 04/29/25 History Fish Oil 1,000 mg Sfgl] QUEtiapine [SEROquel] 12.5 mg PO HS PRN 30 Days #30 tab 04/29/25 Rx Ubidecarenone [Co Q-10] 300 mg PO DAILY 04/29/25 04/29/25 History Venlafaxine HCl [Effexor XR] 37.5 mg PO DAILY 04/29/25 04/29/25 History Venlafaxine HCl [Effexor XR] 150 mg PO DAILY 04/29/25 04/29/25 History Allergies Allergy/AdvReac Type Severity Reaction Status Date / Time adhesive tape Allergy Rash/Hives, Verified 04/18/25 13:47 "paper tape is ok" Physical Exam Vitals: Vital Signs Temp Pulse Pulse Resp BP BP Pulse Ox 04/29/25 08:00 98.0 F 77 18 118/79 04/29/25 02:04 98.2 F 77 19 123/77 98 04/29/25 00:54 77 18 116/62 97 04/28/25 21:00 78 18 108/46 96 04/28/25 19:09 84 16 113/66 96 04/28/25 18:23 98.8 F 58 L 16 144/78 90 L Intake and Output 04/28/25 04/29/25 04/29/25 22:59 06:59 14:59 Other: Weight 81.647 kg 81.647 kg Results CBC & Chem 7: 04/29/25 04:20 04/29/25 04:20 Labs: Abnormal Lab Results - Last 24 Hours (Table) 04/28/25 04/28/25 04/28/25 Range/Units 19:10 19:10 22:36 RBC 3.82 L (4.10-5.20) 10*6/uL Hgb 11.8 L (12.0-15.0) g/dL Hct 35.0 L (37.2-46.3) % Sodium (137-145) mmol/L Potassium (3.5-5.1) mmol/L Glucose 105 H (74-99) mg/dL Magnesium (1.6-2.3) mg/dL Total Bilirubin 1.4 H (0.2-1.3) mg/dL AST 40 H (14-36) U/L Total Protein (6.3-8.2) g/dL Albumin (3.5-5.0) g/dL Urine Protein Trace H (Negative) Urine Ketones 2+ H (Negative) 04/29/25 04/29/25 Range/Units 04:20 04:20 RBC 3.34 L (4.10-5.20) 10*6/uL Hgb 10.3 L (12.0-15.0) g/dL Hct 30.8 L (37.2-46.3) % Sodium 136 L (137-145) mmol/L Potassium 3.3 L (3.5-5.1) mmol/L Glucose 119 H (74-99) mg/dL Magnesium 1.5 L (1.6-2.3) mg/dL Total Bilirubin (0.2-1.3) mg/dL AST (14-36) U/L Total Protein 5.8 L (6.3-8.2) g/dL Albumin 2.9 L (3.5-5.0) g/dL Urine Protein (Negative) Urine Ketones (Negative) Thrombosis Risk Factor Assmnt - Choose All That Apply Any of the Below Risk Factors Present?: Yes Each Risk Factor Represents 3 Points: Age 75 years or older Thrombosis Risk Factor Assessment Total Risk Factor Score: 3 Thrombosis Risk Factor Assessment Level: Moderate Risk
--- NOTE | 2025-04-29 17:33 | P.DS ---
Providers Date of admission: 04/28/25 22:25 Attending physician: Bert Godinez Primary care physician: David Mora MD Hospital Course: Discharge Diagnosis: Altered mental status Hospital Course: 75 yo female with a history of multiple falls, hyperlipidemia, back pain, hypertension and osteoarthritis, presented to the ED with complaints of altered mental status. Patient reported visual hallucinations for the past 6 months, specifically seeing two cats chasing each other. She acknowledged that this perception was not real. Patient currently alert and oriented x 3. She reports episodes as short lived and that she is currently feeling well. Patient also r eports poor sleep along with dysuria. She denies urinary frequency and urgency. Patient reports having a recent fall last week, for which she did not hit her head. . Patient has had previous complaints of AMS and falls for which she was previously admitted to the ED. Of note, previous CT brain on 12/18/2024 significant for chronic periventricular white matter ischemic type changes with no acute intracranial process. In ED, laboratory work significant for WBC 5.73, hemoglobin 11.8, glucose 105. Urine positive for trace of protein, and 2+ ketones. EKG obtained and independently reported as sinus rhythm, similar to previous EKGs. Patient placed on topical Nyastatin for dysuria and groin discomfort as well as Nitrufurantoin prior to being admitted as inpatient. During the course of the hospital stay, patients medications were reviewed and optimized due to suspicion of neurological side effects. Quetiapine was started as inpatient for visual haullucinations. Patient's antibiotic was stopped. Patient has outpatient consultation with Neurology scheduled. Furthermore, Gabapentin and oxygutynin chloride are suspicious for causing the neurological symptoms. Medical team advised for patient to discontinue these medications while admitted to which she was reluctant. it is advised for her to attend her primary care physcian to discuss titration and optimization. At time of discharge, symptoms have resolved. outpatient appointment scheduled with Neurology and PCP. Pt seen and examined at bedside: 04/29/2025 Vital signs reveiwed and stable GENERAL: The patient is alert and oriented x3, not in any acute distress. Well developed, well nourished. HEENT: Pupils are round and equally reacting to light. EOMI. No scleral icterus. No conjunctival pallor. Normocephalic, atraumatic. CARDIOVASCULAR: S1 and S2 present. No murmurs, rubs, or gallops. PULMONARY: Chest is clear to auscultation b/l, no wheezing or crackles. ABDOMEN: Soft, nontender, nondistended, normoactive bowel sounds. No palpable organomegaly. MUSCULOSKELETAL: No joint swelling or deformity. EXTREMITIES: 1/2+ pitting edema of the left leg up to the sommers. Trace pitting edema on the right NEUROLOGICAL: Gross neurological examination did not reveal any focal deficits. SKIN: No rashes A total of greater than 30 minutes were spent preparing this complex discarge summary. Patient was discharged on 04/29/2025. Patient Condition at Discharge: Fair Plan - Discharge Summary New Discharge Prescriptions: New QUEtiapine [SEROquel] 12.5 mg PO HS PRN 30 Days #30 tab PRN Reason: Delirium Nystatin 100,000 Unit/gm Powd [Mycostatin Powder] 1 applic TOPICAL ONCE PRN #15 gm PRN Reason: Itching Continue Cyanocobalamin [Vitamin B-12] 1,000 mcg PO DAILY Aspirin 81 mg PO DAILY Pramipexole [Mirapex] 0.125 mg PO HS Cetirizine HCl [Zyrtec] 10 mg PO HS Omeprazole 40 mg PO BID Meloxicam [Mobic] 15 mg PO DAILY Gabapentin [Neurontin] 100 mg PO QAM Clotrimazole Cream [Lotrimin Cream] 1 applic TOPICAL BID Patient Own Pump 0 bag Cranberry 850 Mg 850 mg PO DAILY [place]-3/Dha/Epa/Fish Oil [[place]-3 Fish Oil 1,000 mg Sfgl] 1 cap PO DAILY Metoprolol Tartrate [Lopressor] 25 mg PO BID oxyBUTYnin chloride [Ditropan XL] 10 mg PO HS Atorvastatin [Lipitor] 40 mg PO HS #30 tab Potassium Chloride ER [K-Dur 10] 10 meq PO DAILY Gabapentin [Neurontin] 200 mg PO HS Pilocarpine [Salagen] 5 mg PO QID Albuterol Sulfate [Albuterol Sulfate Hfa] 2 puff PO Q4H PRN PRN Reason: Shortness Of Breath Bumetanide [BUMEX] 1 mg PO BID Diclofenac Sodium Gel [Voltaren 1% Gel] 4 gm TOPICAL QID Ubidecarenone [Co Q-10] 300 mg PO DAILY Venlafaxine HCl [Effexor XR] 150 mg PO DAILY Venlafaxine HCl [Effexor XR] 37.5 mg PO DAILY HYDROcodone/APAP 5-325MG [[place] 5-325] 1 tab PO BID Discharge Medication List Aspirin 81 mg PO DAILY 12/14/14 [History] Cyanocobalamin [Vitamin B-12] 1,000 mcg PO DAILY 12/14/14 [History] Pramipexole [Mirapex] 0.125 mg PO HS 12/14/14 [History] Cetirizine HCl [Zyrtec] 10 mg PO HS 07/10/19 [History] Metoprolol Tartrate [Lopressor] 25 mg PO BID 07/26/22 [History] Omeprazole 40 mg PO BID 07/26/22 [History] oxyBUTYnin chloride [Ditropan XL] 10 mg PO HS 02/13/23 [History] Atorvastatin [Lipitor] 40 mg PO HS #30 tab 10/29/23 [Rx] Clotrimazole Cream [Lotrimin Cream] 1 applic TOPICAL BID 08/09/24 [History] Gabapentin [Neurontin] 100 mg PO QAM 08/09/24 [History] Gabapentin [Neurontin] 200 mg PO HS 08/09/24 [History] Meloxicam [Mobic] 15 mg PO DAILY 08/09/24 [History] Patient Own Pump 0 bag 08/09/24 [History] Pilocarpine [Salagen] 5 mg PO QID 08/09/24 [History] Potassium Chloride ER [K-Dur 10] 10 meq PO DAILY 08/09/24 [History] Albuterol Sulfate [Albuterol Sulfate Hfa] 2 puff PO Q4H PRN 04/29/25 [History] Bumetanide [BUMEX] 1 mg PO BID 04/29/25 [History] Cranberry 850 Mg 850 mg PO DAILY 04/29/25 [History] Diclofenac Sodium Gel [Voltaren 1% Gel] 4 gm TOPICAL QID 04/29/25 [History] HYDROcodone/APAP 5-325MG [[place] 5-325] 1 tab PO BID 04/29/25 [History] Nystatin 100,000 Unit/gm Powd [Mycostatin Powder] 1 applic TOPICAL ONCE PRN #15 gm 04/29/25 [Rx] [place]-3/Dha/Epa/Fish Oil [[place]-3 Fish Oil 1,000 mg Sfgl] 1 cap PO DAILY 04/29/25 [History] QUEtiapine [SEROquel] 12.5 mg PO HS PRN 30 Days #30 tab 04/29/25 [Rx] Ubidecarenone [Co Q-10] 300 mg PO DAILY 04/29/25 [History] Venlafaxine HCl [Effexor XR] 37.5 mg PO DAILY 04/29/25 [History] Venlafaxine HCl [Effexor XR] 150 mg PO DAILY 04/29/25 [History] Follow up Appointment(s)/Referral(s): [facility] [NON-STAFF] - As Needed David Mora MD [Primary Care Provider] - 1-2 days Patient Instructions/Handouts: Fall Prevention (ED) Activity/Diet/Wound Care/Special Instructions: For patient to please get Magnesium tablets over the counter on discharge. Patient advocate number [phone] Discharge Disposition: HOME SELF-CARE
--- NOTE | 2025-04-29 17:50 | P.HPIM ---
History of Present Illness Chief Complaint: [] PEG tube obstruction History of present illness: 74 yo female with a history of CVA, TIA, seizure disorder, hypertension and cognitive impairment, transferred from [facility] home with complaints of a blocked PG tube. Patient is non-verbal at baseline. It was reported by nursing staff from care facility that the patient's original PEG tube had fallen out and she had a temporary PEG tube placed as a result. In ER, patient laborary work reveals for wbc 10.10, Hg 12.7, Sodium 141, platelets 181, potassium 4.6. Patient transferred followed by medical team for chronic conditions. REVIEW OF SYSTEMS: As stated above in HPI. The rest of the 14-point review of systems is negative. PHYSICAL EXAMINATION: GENERAL: Patient is non verbal, not in acute distress HEENT: Pupils are round and equally reacting to light. EOMI. No scleral icterus. No conjunctival pallor. Normocephalic, atraumatic. CARDIOVASCULAR: S1 and S2 present. PULMONARY: exam limited, chest clear. ABDOMEN: PEG tube in place. EXTREMITIES: No cyanosis, clubbing, or pedal edema. SKIN: No rashes. Assessment and Plan #Seizure disorder - Switch IV Dapocone to Dapakene syrup through the PEG #CVA #TIA #Hypertension - Continue home medications. DVT ppx: SCD's GI ppx: protonix CODE STATUS:full Dictation was produced using [employer] dictation software. please excuse any grammatical, word or spelling errors. Past Medical History Past Medical History: Heart Failure, Hearing Disorder / Deafness, Hypertension, Osteoarthritis (OA) Additional Past Medical History / Comment(s): Arrhythmia, hx anemia, wears pad/brief for urinary incontinence, frequent UTI's, on long-term antibiotic treatment to prevent UTI, SOB, deaf in right ear, hard of hearing in left ear, bilateral hearing aid use. History of Any Multi-Drug Resistant Organisms: None Reported Past Surgical History: Appendectomy, Back Surgery, Cholecystectomy, Heart Catheterization With Stent, Hernia Repair, Hysterectomy, Joint Replacement, Orthopedic Surgery Additional Past Surgical History / Comment(s): Pain Clinic Procedures, CARDIAC STENTS X2, L3-4-5 FUSION, total right knee replacement, bilateral cataract surgery. hiatal hernia repair.,Morphine pump implanted. Past Anesthesia/Blood Transfusion Reactions: No Reported Reaction Additional Past Anesthesia/Blood Transfusion Reaction / Comment(s): "Slow coming out." Date of Last Stent Placement:: Past Psychological History: Anxiety, Depression Smoking Status: Never smoker Past Alcohol Use History: None Reported Past Drug Use History: None Reported - Past Family History Father Family Medical History: Cancer Sister(s) Family Medical History: Cancer Medications and Allergies Home Medications Medication Instructions Recorded Confirmed Type Aspirin 81 mg PO DAILY 12/14/14 04/29/25 History Cyanocobalamin [Vitamin B-12] 1,000 mcg PO DAILY 12/14/14 04/29/25 History Pramipexole [Mirapex] 0.125 mg PO HS 12/14/14 04/29/25 History Cetirizine HCl [Zyrtec] 10 mg PO HS 07/10/19 04/29/25 History Metoprolol Tartrate [Lopressor] 25 mg PO BID 07/26/22 04/29/25 History Omeprazole 40 mg PO BID 07/26/22 04/29/25 History oxyBUTYnin chloride [Ditropan XL] 10 mg PO HS 02/13/23 04/29/25 History Atorvastatin [Lipitor] 40 mg PO HS #30 tab 10/29/23 04/29/25 Rx Clotrimazole Cream [Lotrimin Cream] 1 applic TOPICAL BID 08/09/24 04/29/25 History Gabapentin [Neurontin] 100 mg PO QAM 08/09/24 04/29/25 History Gabapentin [Neurontin] 200 mg PO HS 08/09/24 04/29/25 History Meloxicam [Mobic] 15 mg PO DAILY 08/09/24 04/29/25 History Patient Own Pump 0 bag 08/09/24 History Pilocarpine [Salagen] 5 mg PO QID 08/09/24 04/29/25 History Potassium Chloride ER [K-Dur 10] 10 meq PO DAILY 08/09/24 04/29/25 History Albuterol Sulfate [Albuterol 2 puff PO Q4H PRN 04/29/25 04/29/25 History Sulfate Hfa] Bumetanide [BUMEX] 1 mg PO BID 04/29/25 04/29/25 History Cranberry 850 Mg 850 mg PO DAILY 04/29/25 04/29/25 History Diclofenac Sodium Gel [Voltaren 1% 4 gm TOPICAL QID 04/29/25 04/29/25 History Gel] HYDROcodone/APAP 5-325MG [[place] 1 tab PO BID 04/29/25 04/29/25 History 5-325] Nystatin 100,000 Unit/gm Powd 1 applic TOPICAL ONCE PRN #15 gm 04/29/25 Rx [Mycostatin Powder] [place]-3/Dha/Epa/Fish Oil [[place]-3 1 cap PO DAILY 04/29/25 04/29/25 History Fish Oil 1,000 mg Sfgl] QUEtiapine [SEROquel] 12.5 mg PO HS PRN 30 Days #30 tab 04/29/25 Rx Ubidecarenone [Co Q-10] 300 mg PO DAILY 04/29/25 04/29/25 History Venlafaxine HCl [Effexor XR] 37.5 mg PO DAILY 04/29/25 04/29/25 History Venlafaxine HCl [Effexor XR] 150 mg PO DAILY 04/29/25 04/29/25 History Allergies Allergy/AdvReac Type Severity Reaction Status Date / Time adhesive tape Allergy Rash/Hives, Verified 04/18/25 13:47 "paper tape is ok" Physical Exam Vitals: Vital Signs Temp Pulse Pulse Resp BP BP Pulse Ox 04/29/25 13:54 98.3 F 87 18 139/73 97 04/29/25 08:00 98.0 F 77 18 118/79 04/29/25 02:04 98.2 F 77 19 123/77 98 04/29/25 00:54 77 18 116/62 97 04/28/25 21:00 78 18 108/46 96 04/28/25 19:09 84 16 113/66 96 04/28/25 18:23 98.8 F 58 L 16 144/78 90 L Intake and Output 04/29/25 04/29/25 04/29/25 06:59 14:59 22:59 Intake Total 400 Balance 400 Intake: Oral 400 Other: Voiding Method Diaper Incontinent # Voids 2 Weight 81.647 kg Results CBC & Chem 7: 04/29/25 04:20 04/29/25 04:20 Labs: Abnormal Lab Results - Last 24 Hours (Table) 04/28/25 04/28/25 04/28/25 Range/Units 19:10 19:10 22:36 RBC 3.82 L (4.10-5.20) 10*6/uL Hgb 11.8 L (12.0-15.0) g/dL Hct 35.0 L (37.2-46.3) % Sodium (137-145) mmol/L Potassium (3.5-5.1) mmol/L Glucose 105 H (74-99) mg/dL Magnesium (1.6-2.3) mg/dL Total Bilirubin 1.4 H (0.2-1.3) mg/dL AST 40 H (14-36) U/L Total Protein (6.3-8.2) g/dL Albumin (3.5-5.0) g/dL Urine Protein Trace H (Negative) Urine Ketones 2+ H (Negative) 04/29/25 04/29/25 Range/Units 04:20 04:20 RBC 3.34 L (4.10-5.20) 10*6/uL Hgb 10.3 L (12.0-15.0) g/dL Hct 30.8 L (37.2-46.3) % Sodium 136 L (137-145) mmol/L Potassium 3.3 L (3.5-5.1) mmol/L Glucose 119 H (74-99) mg/dL Magnesium 1.5 L (1.6-2.3) mg/dL Total Bilirubin (0.2-1.3) mg/dL AST (14-36) U/L Total Protein 5.8 L (6.3-8.2) g/dL Albumin 2.9 L (3.5-5.0) g/dL Urine Protein (Negative) Urine Ketones (Negative) Thrombosis Risk Factor Assmnt - Choose All That Apply Any of the Below Risk Factors Present?: Yes Each Risk Factor Represents 3 Points: Age 75 years or older Thrombosis Risk Factor Assessment Total Risk Factor Score: 3 Thrombosis Risk Factor Assessment Level: Moderate Risk
== END 2025-04-29 19:13 | disposition home or self-care (01) ==
LOC: EC 18:18 → 4SSUR 22:25
PROVIDERS: ADMIT Hospitalist; ATTEND Hospitalist
DX: G93.40 Encephalopathy, unspecified (principal); N39.0 Urinary tract infection, site not specified; L03.116 Cellulitis of left lower limb; B37.2 Candidiasis of skin and nail; I11.0 Hypertensive heart disease with heart failure; I50.9 Heart failure, unspecified; E78.5 Hyperlipidemia, unspecified; F32.A Depression, unspecified; F41.9 Anxiety disorder, unspecified; R29.6 Repeated falls; M19.90 Unspecified osteoarthritis, unspecified site; Z95.5 Presence of coronary angioplasty implant and graft; Z79.1 Long term (current) use of non-steroidal anti-inflammatories (NSAID); Z79.82 Long term (current) use of aspirin; Z79.899 Other long term (current) drug therapy
CPT/HCPCS: 96365; 99285; 36415; 93005; 97162; 97165; 80053 ×2; 82140; 83735; 84100; 84484; 85025 ×2; 85610; 85730; 81003; G0378 ×2; J0696

== ENCOUNTER → 2025-05-04 | Outpatient (CLI) | payer MEDICARE, OTHER ==
--- NOTE | 2025-05-04 14:39 | MM ---
Reason for Exam: Screening (asymptomatic). Last mammogram was performed 2 year(s) and 3 month(s) ago. Patient History: Menarche at age 13. First Full-Term at age 18. Left ovary removed at age 29. Right ovary removed at age 55. Hysterectomy at age 29. Postmenopausal. Estrogen, starting at age 47 for 10 years, 1 month. Core Biopsy on the Left side. Excisional Biopsy on the Right side. 04/16/2018, Benign Core Biopsy on the left side. 04/20/2002, Benign Stereotactic Core Biopsy on the left side. Risk Values: Nicole 5 year model risk: 1.9%. NCI Lifetime model risk: 4.1%. Prior Study Comparison: 11/25/2018 Left Diagnostic Mammogram, [facility]. 12/29/2020 Bilateral Screening Mammogram, [facility]. 02/05/2023 Bilateral MG 3D screening mammo w/cad, [facility]. Tissue Density: The breasts are heterogeneously dense, which may obscure small masses. Findings: Analyzed By CAD. There is no suspicious group of microcalcifications or new suspicious mass in either breast. Overall Assessment: Benign, BI-RAD 2 Management: Screening Mammogram of both breasts in 1 year. . Patient should continue monthly self-breast exams. A clinical breast exam by your physician is recommended on an annual basis. This exam should not preclude additional follow-up of suspicious palpable abnormalities. Note on Nicole scores and lifetime risk: 1. A Nicole score greater than 3% is considered moderate risk. If this is the case, consider specialist referral to assess eligibility for a risk reducing agent. 2. If overall lifetime risk for the development of breast cancer is 20% or higher, the patient may qualify for future screening with alternating mammogram and breast MRI. [facility], , 05/04/2025 2:35 PM. Electronically signed and approved by: Hector Courtney M.D. Radiologis
== END | disposition home or self-care (01) ==
LOC: RADMAMWWP 14:03
PROVIDERS: ATTEND Family Medicine
DX: Z12.31 Encounter for screening mammogram for malignant neoplasm of breast (principal); R92.333 Mammographic heterogeneous density, bilateral breasts; Z78.0 Asymptomatic menopausal state
CPT/HCPCS: 77063; 77067